=== PATIENT | male | born 1945 | race Caucasian/White ===

== ENCOUNTER 2016-07-03 09:32 | Observation (INO) | payer OTHER ==
[~2016-07-03] VITALS: Ht 170.2 cm; Wt 90.2 kg
[~2016-07-03 09:32] MED LIST: ASPEC325 PO; LPT/40 PO; OMEP20CA9 PO; RXC5 PO
[2016-07-03] MEDS ORDERED: ASPI-435 PO (10:01)
--- NOTE | 2016-07-03 10:11 | DIAGNOSTIC IMAGING REPORT ---
SINGLE VIEW CHEST CLINICAL HISTORY: Atypical chest pain. FINDINGS: An AP, portable, upright chest radiograph is compared to study dated 02/11/2015. The examination is degraded by portable technique and patient rotation. The cardiomediastinal silhouette is top normal for projection. There is atherosclerotic calcification of the thoracic aorta. There is chronic elevation of the left hemidiaphragm. Bibasilar airspace opacities are identified and likely represent atelectasis. No large pleural effusion or pneumothorax is seen. A questionable 1.2 cm nodular density projects over the right lateral chest. The skeletal structures are osteopenic. The bony thorax is grossly intact. IMPRESSION: 1. Bibasilar airspace opacities likely represent atelectasis. Correlate clinically for evidence of a superimposed infectious/inflammatory pneumonitis. 2. A questionable 1.2 cm density projects over the right mid chest. This may represent superimposition of shadows. Correlation with a dedicated PA and lateral examination is recommended for further assessment. Electronically signed by: Rubén De Jesus M.D. 07/03/2016 10:09 AM Dictated Date/Time: 07/03/2016 10:07 AM
[2016-07-03 10:14] LABS: HEMATOCRIT 45.4 % (42-52); MEAN CELL VOLUME 90.3 fL (80-100); MEAN CORPUSCULAR HEMOGLOBIN 32.2 pg (25-34); MEAN CORPUSCULAR HGB CONC 35.7 g/dl (32-36); MEAN PLATELET VOLUME 11.5 fL (7.4-10.4); PLATELET COUNT 191 K/uL (130-400); RED BLOOD COUNT 5.03 M/uL (4.7-6.1)
--- NOTE | 2016-07-03 10:27 | EMERGENCY ROOM VISIT NOTE ---
History Report prepared by Gunnar: Jose Luis Hillman Under the Supervision of: Dr. Ivory Duggan M.D. First contact with patient: 09:59 Chief Complaint: CHEST PAIN Stated Complaint: CHEST PAIN Nursing Triage Summary: pt c/o left chest pain started 1 week ago. denies any previous heart problems. denies any sob/n/v History of Present Illness The patient is a 71 year old male who presents to the Emergency Room with complaints of intermittent left-sided chest pain for the past week. The pain is worse with breathing. The pain is not exertional and does not radiate. The patient denies diaphoresis or nausea. The patient had a baby aspirin last night. The patient has a history of hyperlipidemia. The patient did not have a stress test prior to his previous hip surgery. He had a negative catheterization in the s. The patient has not been on any recent long trips. Source of History: patient Onset: one week Position: chest (left) Timing: intermittent Modifying Factors (Worsening): breathing Associated Symptoms: No diaphoresis, No nausea Review of Systems See HPI for pertinent positives & negatives. A total of 10 systems reviewed and were otherwise negative. Past Medical & Surgical Medical Problems: (1) Dyslipidemia (2) GERD (gastroesophageal reflux disease) (3) History of adenomatous polyp of colon Surgical Problems: (1) H/O cardiac catheterization (2) H/O nasal septoplasty (3) Status post tonsillectomy Family History Coronary artery disease MOTHER BROTHER Social History Smoking Status: Never Smoker Marital Status: Housing Status: lives with significant other Occupation Status: retired Current/Historical Medications Scheduled Ascorbic Acid (Vitamin C), 500 MG PO DAILY Aspirin (Aspirin 81), 81 MG PO DAILY Atorvastatin (Lipitor), 40 MG PO DAILY Fish Oil ([place]-3), 1 CAP PO DAILY Garlic (Garlic), 100 MG PO DAILY Loratadine (Claritin), 10 MG PO DAILY Omeprazole (Prilosec), 20 MG PO DAILY Vitamin A (A-25), 25,000 UNITS PO DAILY Scheduled PRN Oxycodone/Acetaminophen 5MG/325MG (Percocet 5MG/325MG), 1 TABLET PO Q6H PRN for Pain Allergies Coded Allergies: No Known Allergies (Unverified , 02/11/15) Physical Exam Vital Signs Date Time Temp Pulse Resp B/P Pulse Ox O2 Delivery O2 Flow Rate FiO2 1/30/17 14:21 93 18 97/67 93 Room Air 07/03/16 14:16 93 18 137/94 93 Room Air 07/03/16 14:12 70 18 145/76 94 Room Air 07/03/16 14:11 74 07/03/16 13:09 70 130/93 95 Room Air 07/03/16 11:26 71 18 132/76 96 Room Air 07/03/16 10:05 97 Room Air 07/03/16 09:55 97 Room Air 07/03/16 09:50 70 07/03/16 09:36 36.7 70 18 157/96 96 Room Air Physical Exam Vital signs reviewed. General: Well-appearing male, in no significant distress. HEENT: No scleral icterus, PERRLA, neck supple. Atraumatic. Cardiovascular: Regular rate and rhythm, no extra sounds. Left chest pain that is non-reproducible. Pulmonary: Clear to auscultation bilaterally, normal work of breathing. Abdomen: Soft, nontender, nondistended, positive bowel sounds. Musculoskeletal: Atraumatic, no peripheral edema. Neurologic: Patient awake alert and oriented x 3, full strength in all 4 extremities. Cranial nerves 2 through 12 grossly intact. Skin: Warm, dry, no rash Medical Decision & Procedures ER Provider Diagnostic Interpretation: X-ray results as stated below per interpretation by me and the radiologist: SINGLE VIEW CHEST CLINICAL HISTORY: Atypical chest pain. FINDINGS: An AP, portable, upright chest radiograph is compared to study dated 02/11/2015. The examination is degraded by portable technique and patient rotation. The cardiomediastinal silhouette is top normal for projection. There is atherosclerotic calcification of the thoracic aorta. There is chronic elevation of the left hemidiaphragm. Bibasilar airspace opacities are identified and likely represent atelectasis. No large pleural effusion or pneumothorax is seen. A questionable 1.2 cm nodular density projects over the right lateral chest. The skeletal structures are osteopenic. The bony thorax is grossly intact. IMPRESSION: 1. Bibasilar airspace opacities likely represent atelectasis. Correlate clinically for evidence of a superimposed infectious/inflammatory pneumonitis. 2. A questionable 1.2 cm density projects over the right mid chest. This may represent superimposition of shadows. Correlation with a dedicated PA and lateral examination is recommended for further assessment. Electronically signed by: Rubén De Jesus M.D. 07/03/2016 10:09 AM Dictated Date/Time: 07/03/2016 10:07 AM TWO VIEW CHEST CLINICAL HISTORY: Atypical chest pain. Follow-up abnormal examination. FINDINGS: PA and lateral chest radiographs are compared to study performed earlier the same day 07/03/2016. The examination is degraded by portable technique and patient rotation. The cardiomediastinal silhouette is top normal for projection. There is atherosclerotic calcification of the thoracic aorta. There is chronic elevation of the left hemidiaphragm. Bibasilar atelectasis is noted. This has cleared from the earlier examination. There is apparent subpleural density in the right lateral lung, likely related to previous overlying fifth rib fracture. No large pleural effusion or pneumothorax is seen. The skeletal structures are osteopenic. The bony thorax is grossly intact. IMPRESSION: 1. No acute cardiopulmonary abnormality. Bibasilar atelectasis has cleared from today's earlier study. 2. Subpleural density is again noted in the peripheral right lung. This is likely related to previous overlying rib fracture. This can be followed with a chest CT if clinically warranted. Electronically signed by: Rubén De Jesus M.D. 07/03/2016 11:03 AM Laboratory Results Test 07/03/16 00:00 07/03/16 09:02 07/03/16 13:42 Urine Color YELLOW Urine Appearance CLEAR (CLEAR) Urine pH 5.5 (4.5-7.5) Urine Specific [place] 1.004 (1.000-1.030) Urine Protein NEG (NEG) Urine Glucose (UA) NEG (NEG) Urine Ketones NEG (NEG) Urine Occult Blood NEG (NEG) Urine Nitrite NEG (NEG) Urine Bilirubin NEG (NEG) Urine Urobilinogen NEG (NEG) Urine Leukocyte Esterase NEG (NEG) Prothrombin Time 10.7 SECONDS (9.0-12.0) Prothromb Time International Ratio 1.0 (0.9-1.1) Total Bilirubin 0.5 mg/dl (0.2-1) Aspartate Amino Transf (AST/SGOT) 22 U/L (15-37) Alanine Aminotransferase (ALT/SGPT) 34 U/L (12-78) Alkaline Phosphatase 95 U/L (45-117) Total Creatine Kinase 107 U/L (39-308) Total Protein 7.3 gm/dl (6.4-8.2) Albumin 3.9 gm/dl (3.4-5.0) Globulin 3.4 gm/dl (2.5-4.0) Albumin/Globulin Ratio 1.1 (0.9-2) Bedside Troponin I 0.030 ng/ml (0-0.045) Laboratory results per my review. Medications Administered Medications (Trade) Dose Ordered Sig/Jose Roberto Route Start Time Stop Time Status Last Admin Dose Admin Aspirin (Aspirin Chew) 324 mg NOW STAT PO 07/03/16 13:58 07/03/16 15:16 DC 07/03/16 14:13 324 MG Nitroglycerin (Nitrostat Tab) 0.4 mg Q5M PRN SL 07/03/16 14:00 07/03/16 16:23 DC 07/03/16 14:20 0.4 MG ECG Indication: chest pain Rate (beats per minute): 66 Rhythm: normal sinus Findings: no acute ischemic change, no ectopy ED Course 1014: Past medical records reviewed. The patient was evaluated in room C9. A complete history and physical examination was performed. 1357: Reassessed the patient. Discussed the findings with them. Recommended hospitalization to him for a cardiac role out. He verbalized understanding and agreement. 1358: Aspirin 324 mg PO. 1400: Nitrostat 0.4 mg SL. 1411: [facility] The patient will be evaluated. 1412: Updated the patient. Medical Decision Differential diagnosis: Acute coronary syndrome, pulmonary embolus, aortic dissection, musculoskeletal pain, pneumonia, pleural effusion, pneumothorax This patient was evaluated and appeared to be in no significant distress. IV access was obtained and laboratory work was drawn. The patient was placed on the mica plate layer and found to be in a normal sinus rhythm. Patient was given aspirin to chew and a sublingual nitroglycerin. Chest x-ray is negative. EKG reveals no evidence of acute ischemic change. The patient has several cardiac risk factors and will be evaluated by the hospitalist service for further management. Consults Time Called: 1405 Consulting Physician: Raphael Bryant. Returned Call: 1411 1411: Discussed the case with Raphael Bryant. The patient will be evaluated. Impression Primary Impression: Atypical chest pain Scribe Attestation The scribe's documentation has been prepared under my direction and personally reviewed by me in its entirety. I confirm that the note above accurately reflects all work, treatment, procedures, and medical decision making performed by me. Departure Information Dispostion Being Evaluated By Hospitalist Referrals Whit Bundy C.R.N.P. (PCP) Patient Instructions My [facility]
[2016-07-03 10:28] LABS: PARTIAL THROMBOPLASTIN RATIO 1.1; PROTHROMBIN TIME (PATIENT) 10.7 SECONDS (9.0-12.0)
[2016-07-03 10:35] LABS: BUN/CREATININE RATIO 18.7 (10-20); CALCIUM 9.1 mg/dl (8.5-10.1); CREATININE 0.94 mg/dl (0.60-1.40); POTASSIUM 4.1 mmol/L (3.5-5.1)
[2016-07-03 10:40] LABS: ALB/GLOB RATIO 1.1 (0.9-2); CKMB/CK RATIO 2.4 (0-3.0)
--- NOTE | 2016-07-03 11:05 | DIAGNOSTIC IMAGING REPORT ---
TWO VIEW CHEST CLINICAL HISTORY: Atypical chest pain. Follow-up abnormal examination. FINDINGS: PA and lateral chest radiographs are compared to study performed earlier the same day 07/03/2016. The examination is degraded by portable technique and patient rotation. The cardiomediastinal silhouette is top normal for projection. There is atherosclerotic calcification of the thoracic aorta. There is chronic elevation of the left hemidiaphragm. Bibasilar atelectasis is noted. This has cleared from the earlier examination. There is apparent subpleural density in the right lateral lung, likely related to previous overlying fifth rib fracture. No large pleural effusion or pneumothorax is seen. The skeletal structures are osteopenic. The bony thorax is grossly intact. IMPRESSION: 1. No acute cardiopulmonary abnormality. Bibasilar atelectasis has cleared from today's earlier study. 2. Subpleural density is again noted in the peripheral right lung. This is likely related to previous overlying rib fracture. This can be followed with a chest CT if clinically warranted. Electronically signed by: Rubén De Jesus M.D. 07/03/2016 11:03 AM Dictated Date/Time: 07/03/2016 10:58 AM
[2016-07-03] MEDS ORDERED: ASPIRIN 324 MG CHEW PO STA (13:58)
[2016-07-03] MEDS: NITROGLYCERIN 0.4 MG SL PER TAB CHARGE SL PRN ×2 (14:13→14:20)
[2016-07-03] MEDS ORDERED: NITROGLYCERIN 0.4 MG SL PER TAB CHARGE SL PRN (14:45)
[2016-07-03] MEDS ORDERED: ACETAMINOPHEN 325 MG TAB PO PRN (14:45)
[2016-07-03] MEDS ORDERED: ONDANSETRON INJ 2 MG/ML 2 ML VIAL IV PRN (14:45)
[2016-07-03] MEDS ORDERED: OMEG10007 PO (14:52)
[2016-07-03] MEDS ORDERED: OXYC-57 PO (14:52)
[2016-07-03] MEDS ORDERED: GARL1TAB8 PO (14:52)
[2016-07-03] MEDS ORDERED: LORA10TA5 PO (14:52)
[2016-07-03] MEDS ORDERED: VITA2500 PO (14:52)
[2016-07-03] MEDS ORDERED: ASCO500T3 PO (14:52)
[2016-07-03] MEDS ORDERED: IV FLUIDS COMPLETED PRN (15:15)
--- NOTE | 2016-07-03 15:28 | History and Physical ---
History & Physical Date & Time of Service: Jul 03, 2016 at 15:09 Chief Complaint: Chest Pain Primary Care Physician: Whit Bundy,[email or web address] History of Present Illness Source: patient This is a 71 y/o male with PMHx of GERD and Dyslipidemia who presents to the ED c/o intermittent chest pain x 5 days. Pt reports that 5 days ago he was laying down when he developed L sided chest "pressure" that did not radiate anywhere. The pain resolved after approx 4-5 minutes. There was no change in his sxs with exertion. Since that time he has felt similar intermittent chest pressure every 10-15 minutes. Pt tried taking a Prilosec thinking it may be reflux although it offered no relief. Pt has no history of cardiac problems. He had a R heart catheterization in 1995 which revealed no coronary artery disease. Pt has strong family history of cardiac disease. Pt denies fever/chills, diaphoresis, palpitations, SOB, wheezing, abd pain, N/V, bowel or bladder issues, LE edema, calf pain, lightheadedness/dizziness. In the ED, vitals are stable. labs reviewed are unremarkable. Trop neg x 2. CXR clear. EKG no acute ischemic change. Pt received a nitro in the ED with no relief. He is still complaining of dull chest pain. Pt will be admitted for further evaluation and treatment. Past Medical/Surgical History Medical Problems: (1) Dyslipidemia Status: Chronic (2) GERD (gastroesophageal reflux disease) Status: Chronic (3) History of adenomatous polyp of colon Status: Chronic Surgical Problems: (1) H/O cardiac catheterization Status: Resolved (2) H/O nasal septoplasty Status: Resolved (3) Status post tonsillectomy Status: Resolved Family History Coronary artery disease MOTHER BROTHER Social History Smoking Status: Never Smoker Alcohol Use: occasionally Drug Use: none Marital Status: Housing status: lives with family Occupational Status: retired Multi-Drug Resistant Organisms History of MDRO: No Allergies Coded Allergies: No Known Allergies (Unverified , 02/11/15) Home Medications Scheduled Ascorbic Acid (Vitamin C), 500 MG PO DAILY Aspirin (Aspirin 81), 81 MG PO DAILY Atorvastatin (Lipitor), 40 MG PO DAILY Fish Oil ([place]-3), 1 CAP PO DAILY Garlic (Garlic), 100 MG PO DAILY Loratadine (Claritin), 10 MG PO DAILY Metoprolol Succinate (Metoprolol Succinate ER), 12.5 MG PO QAM Omeprazole (Prilosec), 20 MG PO DAILY Vitamin A (A-25), 25,000 UNITS PO DAILY Scheduled PRN Oxycodone/Acetaminophen 5MG/325MG (Percocet 5MG/325MG), 1 TABLET PO Q6H PRN for Pain Review of Systems Constitutional: No chills, No fatigue, No fever, No sweats, No weakness Eyes: No worsening of vision ENT: No hearing loss Respiratory: No cough, No shortness of breath Cardiovascular: + chest pain, No claudication, No edema, No palpitations Abdomen: No constipation, No diarrhea Musculoskeletal: No calf pain, No swelling Genitourinary - Male: + urinary frequency, No dysuria Neurologic: No weakness Psychiatric: No depression symptoms Endocrine: No fatigue Hematologic / Lymphatic: No abnormal bleeding/bruising Integumentary: No new/changing skin lesions Physical Exam Vital Signs Date Time Temp Pulse Resp B/P Pulse Ox O2 Delivery O2 Flow Rate FiO2 07/03/16 14:35 83 16 127/79 94 Room Air 07/03/16 14:21 93 18 97/67 93 Room Air 07/03/16 14:16 93 18 137/94 93 Room Air 07/03/16 14:12 70 18 145/76 94 Room Air 07/03/16 14:11 74 07/03/16 13:09 70 130/93 95 Room Air 07/03/16 11:26 71 18 132/76 96 Room Air 07/03/16 10:05 97 Room Air 07/03/16 09:55 97 Room Air 07/03/16 09:50 70 07/03/16 09:36 36.7 70 18 157/96 96 Room Air General Appearance: WD/WN, no apparent distress, + pertinent finding (Pt is laying in bed with at bedside ) Head: normocephalic, atraumatic Eyes: normal inspection ENT: hearing grossly normal Neck: supple Respiratory/Chest: lungs clear, normal breath sounds, no respiratory distress, + pertinent finding (L chest mildly tender ) Cardiovascular: regular rate, rhythm, no edema, no murmur Abdomen/GI: normal bowel sounds, non tender, soft Back: normal inspection Extremities/Musculoskelatal: normal inspection, no calf tenderness, no pedal edema Neurologic/Psych: alert, normal mood/affect, oriented x 3 Skin: normal color, warm/dry Diagnostics Laboratory Results Results Past 24 Hours Test 07/03/16 09:02 07/03/16 10:04 07/03/16 13:42 Range/Units White Blood Count 6.70 4.8-10.8 K/uL Red Blood Count 5.03 4.7-6.1 M/uL Hemoglobin 16.2 14.0-18.0 g/dL Hematocrit 45.4 42-52 % Mean Corpuscular Volume 90.3 80-100 fL Mean Corpuscular Hemoglobin 32.2 25-34 pg Mean Corpuscular Hemoglobin Concent 35.7 32-36 g/dl RDW Standard Deviation 42.7 36.4-46.3 fL RDW Coefficient of Variation 13.2 11.5-14.5 % Platelet Count 191 130-400 K/uL Mean Platelet Volume 11.5 7.4-10.4 fL Prothrombin Time 10.7 9.0-12.0 SECONDS Prothromb Time International Ratio 1.0 0.9-1.1 Activated Partial Thromboplast Time 27.3 21.0-31.0 SECONDS Partial Thromboplastin Ratio 1.1 Sodium Level 141 136-145 mmol/L Potassium Level 4.1 3.5-5.1 mmol/L Chloride Level 105 98-107 mmol/L Carbon Dioxide Level 26 21-32 mmol/L Anion Gap 10.0 3-11 mmol/L Blood Urea Nitrogen 18 7-18 mg/dl Creatinine 0.94 0.60-1.40 mg/dl Est Creatinine Clear Calc Drug Dose 77.0 ml/min Estimated GFR () 93.5 Estimated GFR (Non- 80.7 BUN/Creatinine Ratio 18.7 10-20 Random Glucose 92 70-99 mg/dl Calcium Level 9.1 8.5-10.1 mg/dl Total Bilirubin 0.5 0.2-1 mg/dl Aspartate Amino Transf (AST/SGOT) 22 15-37 U/L Alanine Aminotransferase (ALT/SGPT) 34 12-78 U/L Alkaline Phosphatase 95 45-117 U/L Total Creatine Kinase 107 39-308 U/L Creatine Kinase MB 2.6 0.5-3.6 ng/ml Creatine Kinase MB Ratio 2.4 0-3.0 Total Protein 7.3 6.4-8.2 gm/dl Albumin 3.9 3.4-5.0 gm/dl Globulin 3.4 2.5-4.0 gm/dl Albumin/Globulin Ratio 1.1 0.9-2 Bedside Troponin I 0.030 0.030 0-0.045 ng/ml Diagnostic Radiology CXR IMPRESSION: 1. No acute cardiopulmonary abnormality. Bibasilar atelectasis has cleared from today's earlier study. 2. Subpleural density is again noted in the peripheral right lung. This is likely related to previous overlying rib fracture. This can be followed with a chest CT if clinically warranted EKG EKG: NSR at 66 bm with no acute ischemic changes noted; no change when compared to EKG from 01/2016 Impression Assessment and Plan ATYPICAL CHEST PAIN R/O ACS pt presents with atypical chest pain; no prior cardiac problems -admit observation status to telemetry -RFs include Dyslipidemia and strong family history -EKG NSR no ischemic change; repeat EKG PRN chest pain and in AM -Trop negative x 2 in ED; continue to monitor with serial cardiac enzymes q6h -obtain echo to r/o cardiac wall motion abnormalities -cont ASA and statin -consult cardiology, Dr. Ji-plan for stress test tomorrow -continue to monitor GERD -cont PPI DYSLIPIDEMIA -cont statin DVT PROPHYLAXIS -subq heparin CODE STATUS -FULL CODE per discussion with patient upon admission DISPO Observation status until further workup is complete. Pt seen in collaboration with Dr. Soto. Please see her addendum for further details. Thanks! ATTENDING NOTE: pt seen and examined, care co-ordinated with Jeanne Beck PA-C labs , images reviewed 71 yo M presented with chest pain symptom has resolved P/E: gen : no sign of distress HEENT : sclera non icteric HT: regular S1/S2 lungs; CTA abdomen: soft non tender ext : no lower ext edema Neuro: no focal deficit CHEST PAIN : -EKG NSR no ischemic change; -Trop negative x 2 in ED; observation in Tele cardiac monitoring ECHO ordered Cardiology consult requested VTE Prophylaxis VTE Risk Assessment Done? Y/N: Yes Risk Level: Low
[2016-07-03 16:29] VITALS: BP 121/67; PULSE 78; TEMP 36.6; O2SAT 96
[2016-07-03] MEDS ORDERED: HEPARIN IV LOW DOSE NO BOLUS STA (17:49)
[2016-07-03] MEDS: OXYCODONE/ACETAMINOPHEN 5-325 TAB PO PRN (18:28)
[2016-07-03] MEDS: HEPARIN 25,000 UNIT/500ML D5W 500 ML IV PRN (19:00)
[2016-07-03 19:01] VITALS: BP 141/86; PULSE 78; TEMP 36.7; O2SAT 95
[2016-07-03 19:46] LABS: URINE APPEARANCE CLEAR (CLEAR); URINE BILIRUBIN NEG (NEG); URINE COLOR YELLOW; URINE NITRITE NEG (NEG); URINE PH 5.5 (4.5-7.5); URINE SPECIFIC GRAVITY 1.004 (1.000-1.030); UROBILINOGEN NEG (NEG)
[2016-07-03 19:50] LABS: MANUAL MICROSCOPIC REQUIRED? NO; REVIEW REQ? NO
[2016-07-03 20:00] VITALS: O2SAT 98
[2016-07-03] MEDS ORDERED: ENOXAPARIN 40 MG/0.4 ML SYR SC SCH (21:00)
[2016-07-03] MEDS ORDERED: OPTIRAY 320 IV PRN (21:15)
[2016-07-03 22:08] VITALS: O2SAT 98; Ht 170.2 cm; Wt 90.2 kg
--- NOTE | 2016-07-03 22:27 | DIAGNOSTIC IMAGING REPORT ---
CT ANGIOGRAM OF THE CHEST CLINICAL HISTORY: Atypical chest pain SUSPECTED PULMONARY EMBOLISM COMPARISON STUDY: Chest x-ray dated 07/03/2016 TECHNIQUE: Following the IV administration of 90 mL of Optiray-320, CT angiogram of the thorax was performed from the thoracic inlet to the lung bases utilizing the pulmonary embolus protocol. Images are reviewed in the axial, sagittal, and coronal planes. IV contrast was administered without complication. MIP imaging was performed. CT DOSE: 455.39 mGy.cm FINDINGS: No pathologically enlarged axillary mediastinal or hilar lymph nodes were visualized. There was no evidence of thoracic aortic dilatation. There were no pulmonary artery filling defects to indicate acute pulmonary embolism. No pleural effusions are visualized. There is mild lower lobe bronchial wall thickening. There is bibasal atelectasis. There is no lobar consolidation. There there old fractures of the right third fourth fifth and sixth ribs. There is an old superior endplate C7 compression deformity IMPRESSION: 1. No CT evidence of acute pulmonary embolism 2. Old right-sided rib fractures 3. Bibasilar atelectasis 4. Mild lower lobe bronchial wall thickening Electronically signed by: Kang Luna M.D. 07/03/2016 10:26 PM Dictated Date/Time: 07/03/2016 10:19 PM
[2016-07-04 01:55] LABS: PARTIAL THROMBOPLASTIN RATIO 1.3
[2016-07-04] MEDS: OXYCODONE/ACETAMINOPHEN 5-325 TAB PO PRN ×2 (02:08→14:17)
[2016-07-04] MEDS ORDERED: HEPARIN IV BOLUS 4,500 UNIT in SYRINGE 0 ML IV ONE (02:30)
[2016-07-04] MEDS: HEPARIN 25,000 UNIT/500ML D5W 500 ML IV PRN (02:40)
[2016-07-04 06:32] LABS: HEMATOCRIT 43.3 % (42-52); MEAN CORPUSCULAR HEMOGLOBIN 32.4 pg (25-34); MEAN CORPUSCULAR HGB CONC 35.6 g/dl (32-36); MEAN PLATELET VOLUME 11.2 fL (7.4-10.4); PLATELET COUNT 167 K/uL (130-400); RED BLOOD COUNT 4.76 M/uL (4.7-6.1); WHITE BLOOD COUNT 5.86 K/uL (4.8-10.8)
--- NOTE | 2016-07-04 06:42 | DIAGNOSTIC IMAGING REPORT ---
BILATERAL LOWER EXTREMITY VENOUS DOPPLER HISTORY: Pain. Edema. CP, elevated D-dimer COMPARISON STUDY: None. FINDINGS: There is normal compressibility, flow, and augmentation within the bilateral lower extremity deep venous systems. IMPRESSION: No DVT within the right or left lower extremity. Electronically signed by: Gómez Major M.D. 07/04/2016 6:41 AM Dictated Date/Time: 07/04/2016 6:40 AM
[2016-07-04 07:01] LABS: BUN/CREATININE RATIO 19.1 (10-20); CALCIUM 8.6 mg/dl (8.5-10.1); CREATININE 0.87 mg/dl (0.60-1.40); POTASSIUM 3.8 mmol/L (3.5-5.1)
--- NOTE | 2016-07-04 07:17 | CARDIOLOGY CONSULTATION ---
DATE OF CONSULTATION: 07/03/2016 REFERRING: Jeanne Olivia. PRIMARY CARE PHYSICIAN: Mike Nunez. INDICATIONS: Chest pain. HISTORY OF PRESENT ILLNESS: The patient is a 71-year-old male whose history is notable for hyperlipidemia, gastroesophageal reflux disease, past traumatic injury to the chest in December 2015 with multiple rib fractures, and rotator cuff tear. He is currently taking pain medications, did undergo an arthroscopic surgery of his shoulder in March, anticipates right shoulder replacement in August. He denies any prior history of documented coronary artery disease but notes having undergone prior investigation in 1989 after abnormal stress testing with diagnostic cardiac catheterization normal. He denies worsening shortness of breath, acute lower extremity edema. Notes no tachypalpitations, syncope or near syncope. He is moderately active about home, was archery hunting this year, noted had slowed when climbing hills but noted no acute changes. He is currently undergoing physical therapy after left hip "popped out" at the site of prior left hip replacement. He notes no rash or arthritic complaints. Pain he described is a low level pressure sensation that waxes and wanes but it has been there almost continuously for nearly 5 days. Initial cardiac enzymes are negative and EKG revealed no acute findings. Notes no overt pleuritic component but feels perhaps slightly worsening with deep inspiration. Blood pressures have never been high, he is not diabetic. Appetite and weight have been stable. He notes he is a poor sleeper. ALLERGIES: None. MEDICATIONS: Prior to hospitalization were ascorbic acid 500 mg p.o. q. day, aspirin 81 mg per day, atorvastatin 40 mg p.o. q. day, omega-3 fish oils 1 capsule q. day, garlic 100 mg p.o. q. day, loratadine 10 mg p.o. q. day, omeprazole 20 mg p.o. q. day, Percocet p.r.n. pain, vitamin A 25 units q. day. PAST SURGICAL HISTORY: Notable for remote septoplasty and tonsillectomy, left total hip replacement, arthroscopic surgery of both knees and most recent arthroscopic surgery of the right shoulder. FAMILY HISTORY: Positive for heart disease. SOCIAL HISTORY: The patient resides in [place]. 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 He is a nonsmoker. Uses rare alcoholic beverages. PHYSICAL EXAMINATION: VITAL SIGNS: Heart rate 78, blood pressure is 121/67. HEENT: Normocephalic and atraumatic. Nares without discharge. Throat was clear. NECK: Supple without thyromegaly, lymphadenopathy, JVD or bruit. LUNGS: Mildly diminished breath sounds but are clear. CARDIOVASCULAR: Regular with normal S1, S2. There is no audible murmur, gallop or rub. PMI is nondisplaced. ABDOMEN: Soft, nontender. There is no palpable hepatosplenomegaly. There is no hepatojugular reflux. EXTREMITIES: Without cyanosis or clubbing. There is no peripheral edema. There are intact distal pulses. DATA: EKG reveals normal tracing. LABORATORY STUDIES: Initial 2 troponins are 0.03, third troponin is 0.06. Sodium is 141, potassium is 4.1, chloride is 105, bicarb is 26, BUN 18, creatinine 0.94, white cell count 6.7, hemoglobin 16.2. PT and PTT are normal. Chest x-ray reveals no acute infiltrate. IMPRESSION: A 71-year-old male with cardiac risk factors of age, gender, familial history of heart disease, hyperlipidemia, on treatment, presents now with symptoms atypical for angina with 5 days of nearly continuous chest pressure sensation. Initial 2 cardiac enzymes and EKG were normal; however third troponin is minimally elevated. He does note some mild pleuritic component to this as well as a low grade cough, acute hypoxia has not been evident. He did undergo surgical procedure in the last 6 months' time for his right shoulder though was ambulatory immediately after. RECOMMENDATIONS: The patient will be continued on usual medications. Due to the elevated troponin and persistent intermittent chest discomfort, heparin will be administered. Serial enzymes and EKGs will be continued. Anticipate stress testing in the morning unless there is dramatic change in findings. D-dimer, TSH ordered as well as urinalysis due to increase in urinary frequency by patient history. We will follow patient in the hospital. The patient will be kept n.p.o. after midnight in anticipation of stress test.
[2016-07-04 07:33] VITALS: BP 137/92; PULSE 70; TEMP 36.5; O2SAT 94
--- NOTE | 2016-07-04 08:55 | Progress Note ---
Internal Med Progress Note Date of Service: Jul 04, 2016. Provider Documentation: SUBJECTIVE: Patient is seen and examined at bedside. States having persistent left sided pleuritic 3-4/10 chest pain. Minimal cough. Denies any dizziness, SOB, nausea, diaphoresis, fever, chills. OBJECTIVE: Vital Signs-as noted below Physical Exam: Vitals signs as noted above General Appearance:Moderately built and nourished, no apparent distress Head: normocephalic, Atraumatic Eyes: normal inspection, EOMI, PERRLA, Anicteric Neck: supple, no JVD, Trachea midline Respiratory/Chest: Normal breath sounds, CTA, No accessory muscle use Cardiovascular: S1, S2, No murmur Abdomen/GI:Soft, Non tender, Bowel sounds present Extremities/Musculoskelatal:normal inspection, no calf tenderness, edema Neurologic/Psych:AAOX3, grossly no focal neurological deficits Skin: normal color, warm Lab data as noted below. ASSESSMENT & PLAN: Patient is a 71 yr old male with PMH of GERD, Dyslipidemia who presents with intermittent chest pain for 5 days. He had a right heart catheterization in 1995 which revealed no coronary artery disease. Pt has strong family history of cardiac disease. ATYPICAL CHEST PAIN R/O ACS Risk Factors: Dyslipidemia and positive family history Mild elevation of troponin X2 Elevated D-dimer: Negative Venous duplex and negative CTA EKG: No signs of ischemia ECHO: pending continue ASA and statin Appreciate cardiology input Planned for stress test today Continue to monitor Continue IV heparin for now GERD continue PPI DYSLIPIDEMIA Continue statin DVT PROPHYLAXIS On IV heparin CODE STATUS Full code DISPO Observation status. Await for stress test results. Vital Signs: Date Time Temp Pulse Resp B/P Pulse Ox O2 Delivery O2 Flow Rate FiO2 07/04/16 08:00 Room Air 07/04/16 07:33 36.5 70 20 137/92 94 07/04/16 04:00 Room Air 07/04/16 00:00 Room Air 07/03/16 22:08 98 Room Air 07/03/16 20:00 98 Room Air 07/03/16 19:01 36.7 78 18 141/86 95 Room Air 07/03/16 16:29 36.6 78 20 121/67 96 Room Air 07/03/16 15:24 80 126/82 94 Room Air 07/03/16 14:35 83 16 127/79 94 Room Air 07/03/16 14:21 93 18 97/67 93 Room Air 07/03/16 14:16 93 18 137/94 93 Room Air 07/03/16 14:12 70 18 145/76 94 Room Air 07/03/16 14:11 74 07/03/16 13:09 70 130/93 95 Room Air 07/03/16 11:26 71 18 132/76 96 Room Air 07/03/16 10:05 97 Room Air 07/03/16 09:55 97 Room Air 07/03/16 09:50 70 07/03/16 09:36 36.7 70 18 157/96 96 Room Air Lab Results: Results Past 24 Hours Test 07/03/16 10:04 07/03/16 13:42 07/03/16 16:00 07/03/16 16:35 Range/Units Bedside Troponin I 0.030 0.030 0-0.045 ng/ml Creatine Kinase MB Ratio 0-3.0 Creatine Kinase MB 2.0 0.5-3.6 ng/ml Troponin I 0.063 0-0.045 ng/ml Test 07/03/16 18:45 07/03/16 22:00 07/03/16 23:51 07/04/16 01:30 Range/Units D-Dimer 1290 0-500 ug/L FEU Thyroid Stimulating Hormone (TSH) 1.130 0.300-4.500 uIu/ml Creatine Kinase MB Ratio 0-3.0 Creatine Kinase MB 1.7 0.5-3.6 ng/ml Troponin I 0.063 0-0.045 ng/ml Activated Partial Thromboplast Time 34.7 21.0-31.0 SECONDS Partial Thromboplastin Ratio 1.3 Test 07/04/16 06:15 07/04/16 08:25 Range/Units White Blood Count 5.86 4.8-10.8 K/uL Red Blood Count 4.76 4.7-6.1 M/uL Hemoglobin 15.4 14.0-18.0 g/dL Hematocrit 43.3 42-52 % Mean Corpuscular Volume 91.0 80-100 fL Mean Corpuscular Hemoglobin 32.4 25-34 pg Mean Corpuscular Hemoglobin Concent 35.6 32-36 g/dl RDW Standard Deviation 44.1 36.4-46.3 fL RDW Coefficient of Variation 13.3 11.5-14.5 % Platelet Count 167 130-400 K/uL Mean Platelet Volume 11.2 7.4-10.4 fL Activated Partial Thromboplast Time 78.7 63.6 21.0-31.0 SECONDS Partial Thromboplastin Ratio 3.0 2.4 Sodium Level 142 136-145 mmol/L Potassium Level 3.8 3.5-5.1 mmol/L Chloride Level 107 98-107 mmol/L Carbon Dioxide Level 25 21-32 mmol/L Anion Gap 10.0 3-11 mmol/L Blood Urea Nitrogen 17 7-18 mg/dl Creatinine 0.87 0.60-1.40 mg/dl Est Creatinine Clear Calc Drug Dose 82.2 ml/min Estimated GFR () 99.9 Estimated GFR (Non- 86.2 BUN/Creatinine Ratio 19.1 10-20 Random Glucose 92 70-99 mg/dl Calcium Level 8.6 8.5-10.1 mg/dl
[2016-07-04 08:56] LABS: PARTIAL THROMBOPLASTIN RATIO 2.4
[2016-07-04] MEDS ORDERED: LORATADINE 10 MG TAB PO SCH (09:00)
[2016-07-04] MEDS ORDERED: ASPIRIN 81 MG ECTAB PO SCH (09:00)
[2016-07-04] MEDS ORDERED: ATORVASTATIN 40 MG TAB PO SCH (09:00)
[2016-07-04] MEDS ORDERED: OMEGA-3 (PURIFIED FISH OIL) 1 GM CAP PO SCH (09:00)
[2016-07-04] MEDS ORDERED: PANTOprazole SOD 40 MG TAB PO SCH (09:00)
[2016-07-04 11:10] VITALS: BP 127/83; PULSE 77; TEMP 36.6; O2SAT 91
--- NOTE | 2016-07-04 11:46 | EXERCISE STRESS ECHO ---
*NOTICE TO RECEIVING REPUBLICAN AGENCY This information is strictly Confidential and protected under [place] law. [place] law prohibits you from making any further disclosure of this information unless further disclosure is expressly permitted by the written consent of the person to whom it pertains or is authorized by law. A general authorization for the release of medical or other information is not sufficient for this purpose. Hospital accepts no responsibility if the information is made available to any other person, INCLUDING THE PATIENT. Interpretation Summary * Name: YAHAIRA STEPHEN Study Date: 07/04/2016 08:46 AM BP: 112/82 mmHg * Patient Location: [facility] HR: 59 * : 1945 (M/d/yyyy) Gender: Male Height: 67 in * Age: 71 yrs Ethnicity: [place] Weight: 205 lb * Ordering Physician: Jeanne Olivia * Referring Physician: Self, Referred * Performed By: Izzy Westfall RCS * * Reason For Study: CHEST PAIN / ELEVATED TROPONIN * BSA: 2.0 m2 * _ workload achieved. * The stress echocardiogram is negative for inducible ischemia. * Normal resting wall motion and no stress-induced wall motion abnormality. Procedure Details * ECHOEX, CPT #[id number] * ECHO COLOR FLOW, CPT #[id number] * ECHO DOPPLER, CPT #[id number] Left Ventricle * The left ventricle is normal in size. * There is borderline concentric left ventricular hypertrophy. * The basal septum is thickened and angulated consistent with sigmoid septum. * Ejection Fraction = 45-50%. * Left ventricular systolic function is normal. * The left ventricular wall motion is normal at rest. * The left ventricular ejection fraction increases normally with stress. The left ventricular end-systolic cavity size reduces post-stress (normal response). The left ventricular wall motion with stress is normal. Right Ventricle * The right ventricle is normal in size and function. Atria * The left atrial size is normal. * Right atrial size is normal. * No ASD detected; PFO is not assessed. Mitral Valve * There is mild mitral annular calcification. * There is no mitral valve stenosis. * Significant mitral regurgitation is absent. Tricuspid Valve * The tricuspid valve anatomy is normal. * There is no tricuspid stenosis. * There is trace tricuspid regurgitation. * Doppler findings do not suggest pulmonary hypertension. Aortic Valve * The aortic valve is trileaflet. * Aortic valve sclerosis mild, without significant aortic valvular stenosis. * Trace aortic regurgitation. Pulmonic Valve * The pulmonary valve is not well seen, but the Doppler examination is normal without significant regurgitation or stenosis. Great Vessels * The aortic root is normal size. Pericardium * There is no pericardial effusion. Stress Parameters * Normal baseline electrocardiogram. * Stress ECG: No ST changes. No arrhythmias. * Arrhythmia induced during stress: occasional PVC's. * The stress portion of this study was personally supervised by the undersigned interpreting physician. * Rest heart rate was '59' BPM. * Rest blood pressure was '112/82' * Maximum heart rate achieved was 139 bpm. * Maximum heart rate was 93 % of maximum age-predicted heart rate. * Maximum blood pressure was '200/95' * Total exercise time was '07:01' * Maximum exercise MET level achieved was '8.50' METS * Maximum treadmill speed was '3.40' miles per hour. * Maximum treadmill elevation was '14.00'% grade. MMode 2D Measurements and Calculations IVSd 1.4 cm IVSs 1.6 cm LVIDd 3.4 cm LVIDs 2.7 cm LVPWd 1.1 cm LVPWs 1.4 cm IVS/LVPW 1.3 FS 20.2 % EDV(Teich) 48.0 ml ESV(Teich) 27.6 ml EF(Teich) 42.4 % EDV(cubed) 39.8 ml ESV(cubed) 20.2 ml EF(cubed) 49.3 % % IVS thick 13.1 % % LVPW thick 25.3 % LV mass(C)d 138.9 grams LV mass(C)dI 68.0 grams/m\S\2 LV mass(C)s 135.7 grams LV mass(C)sI 66.5 grams/m\S\2 SV(Teich) 20.3 ml SI(Teich) 10.0 ml/m\S\2 SV(cubed) 19.6 ml SI(cubed) 9.6 ml/m\S\2 Ao root diam 4.2 cm Ao root area 13.8 cm\S\2 ACS 2.0 cm LA dimension 3.7 cm LA/Ao 0.89 LVOT diam 2.0 cm LVOT area 3.0 cm\S\2 LVAd ap4 34.0 cm\S\2 LVLd ap4 7.7 cm EDV(MOD-sp4) 119.6 ml EDV(sp4-el) 127.0 ml LVAs ap4 23.4 cm\S\2 LVLs ap4 6.8 cm ESV(MOD-sp4) 65.9 ml ESV(sp4-el) 68.7 ml EF(MOD-sp4) 44.9 % EF(sp4-el) 45.9 % LVAd ap2 33.9 cm\S\2 LVLd ap2 8.8 cm EDV(MOD-sp2) 105.3 ml EDV(sp2-el) 111.0 ml LVAs ap2 22.6 cm\S\2 LVLs ap2 7.6 cm ESV(MOD-sp2) 57.6 ml ESV(sp2-el) 57.1 ml EF(MOD-sp2) 45.2 % EF(sp2-el) 48.6 % LVLd %diff 11.8 % EDV(MOD-bp) 118.6 ml LVLs %diff 10.9 % ESV(MOD-bp) 64.6 ml EF(MOD-bp) 45.6 % SV(MOD-sp4) 53.7 ml SI(MOD-sp4) 26.3 ml/m\S\2 SV(MOD-sp2) 47.6 ml SI(MOD-sp2) 23.3 ml/m\S\2 SV(MOD-bp) 54.1 ml SI(MOD-bp) 26.5 ml/m\S\2 SV(sp4-el) 58.3 ml SI(sp4-el) 28.5 ml/m\S\2 SV(sp2-el) 53.9 ml SI(sp2-el) 26.4 ml/m\S\2 Doppler Measurements and Calculations MV E max dalton 45.4 cm/sec MV A max dalton 72.1 cm/sec MV E/A 0.63 MV P1/2t max dalton 53.5 cm/sec MV P1/2t 119.7 msec MVA(P1/2t) 1.8 cm\S\2 MV dec slope 131.0 cm/sec\S\2 MV dec time 0.32 sec Ao V2 max 106.3 cm/sec Ao max PG 4.5 mmHg Ao max PG (full) 1.5 mmHg MIGUEL(V,A) 2.5 cm\S\2 MIGUEL(V,D) 2.5 cm\S\2 AI max dalton 375.2 cm/sec AI max PG 56.3 mmHg AI dec slope 194.4 cm/sec\S\2 AI P1/2t 565.4 msec LV V1 max PG 3.0 mmHg LV V1 max 86.9 cm/sec PA V2 max 121.5 cm/sec PA max PG 5.9 mmHg PI max dalton 191.4 cm/sec PI max PG 14.7 mmHg PI dec slope 170.6 cm/sec\S\2 PI P1/2t 328.5 msec TR max dalton 260.7 cm/sec
--- NOTE | 2016-07-04 12:58 | PROGRESS NOTE ---
DATE: 07/04/2016 SUBJECTIVE: The patient seen and examined. Chart, medications, telemetry reviewed. The patient had no overt complaints overnight, but did not sleep well. Underwent CT scan of the chest due to elevated D-dimer with negative study for pulmonary embolus. Notes no current chest pain. OBJECTIVE: VITAL SIGNS: Heart rate is 77, blood pressure is 127/83. NECK: Thin. There is no jugular venous distention. LUNGS: Clear. CARDIOVASCULAR: Regular. There is no S3 gallop. ABDOMEN: Soft, nontender. EXTREMITIES: Without cyanosis or clubbing. There is no peripheral edema. There are intact distal pulses. DATA: Laboratory studies sodium is 142, potassium is 3.8, chloride is 107, bicarbonate is 25, BUN 17, creatinine 0.87. TSH is 1.1. Stress echocardiography: The patient exercised for 7 minutes on a Moose protocol and achieved 93% age predicted maximal heart rate. There was no chest pain induced by exercise. Blood pressure response was hypertensive increasing to a peak of 200/95 at moderately high level workload. EKG was normal at rest and stress were occasional ventricular ectopy during the study but not at peak workload. LV systolic function was noted to be normal with mild left ventricular hypertrophy. No significant valvular disease and minimal sclerotic changes the aortic valve the mitral valve annulus. Post-stress imaging revealed hyperdynamic LV function, no wall motion abnormalities. With study negative for ischemia, and negative for inducible ischemia. IMPRESSION: 1. A 71-year-old male admitted with atypical chest pain with negative stress testing and normal EKGs. No cardiac source noted for imaging to suggest ischemia. 2. Stress exacerbated hypertension. 3. Planned right shoulder repair in August 2016. RECOMMENDATIONS: No contraindications to proceeding with surgery planned, would add low-dose beta-yesi with Toprol-XL 12.5 mg per day for blood pressure control and ectopy control. We will make arrangements to be seen as an outpatient to [facility] either pre or post-surgery. Continue to follow up with Whit Bundy at [facility] Continue lipid reduction as already ordered. KIMMY
[2016-07-04 14:39] VITALS: BP 115/72; PULSE 72; TEMP 36.5; O2SAT 92
[2016-07-04] MEDS ORDERED: TPRSR25 PO (16:01)
--- NOTE | 2016-07-04 16:06 | Discharge Instructions ---
Discharge Instructions Admission Reason for Admission: Chest Pain Discharge Discharge Diagnosis / Problem: Atypical chest pain Discharge Goals Goal(s): Decrease discomfort, Improve function Activity Recommendations Activity Limitations: resume your previous activity . Instructions / Follow-Up Instructions / Follow-Up Follow up with Whit Bundy (PCP) on Jul 10 at 3:35pm Follow up with (Cardiology) on Jul 24 at 11:25am Seek immediate medical attention if your chest pain reoccur or worsen. Start taking Metoprolol daily as advised. Current Hospital Diet Patient's current hospital diet: AHA Diet (Heart Healthy) Discharge Diet Recommended Diet: AHA Diet (Heart Healthy) Pending Studies Studies pending at discharge: no Medical Emergencies . Who to Call and When: Medical Emergencies: If at any time you feel your situation is an emergency, please call 911 immediately. . Non-Emergent Contact Non-Emergency issues call your: Primary Care Provider, Terminal Press Operator . . "Provider Documentation" section prepared by Eleno Rosenthal. VTE Core Measure Inpt VTE Proph given/why not?: Unfractionated heparin SQ
[2016-07-04 17:19] VITALS: BP 115/72; PULSE 72; TEMP 36.5; O2SAT 92
--- NOTE | 2016-07-04 19:03 | Discharge Summary ---
Discharge Summary Admission Date: Jul 03, 2016 at 14:28 Discharge Date: Jul 04, 2016 Discharge Disposition: Home Principal Diagnosis: Chest pain: Ruled out ACS Procedures: CXR: 1. No acute cardiopulmonary abnormality. Bibasilar atelectasis has cleared from today's earlier study. 2. Subpleural density is again noted in the peripheral right lung. This is likely related to previous overlying rib fracture. This can be followed with a chest CT if clinically warranted. Venous Duplex: No DVT within the right or left lower extremity. CTA: IMPRESSION: 1. No CT evidence of acute pulmonary embolism 2. Old right-sided rib fractures 3. Bibasilar atelectasis 4. Mild lower lobe bronchial wall thickening Stress ECHO: Interpretation Summary * Name: YAHAIRA STEPHEN Study Date: 07/04/2016 08:46 AM BP: 112/82 mmHg * Patient Location: [facility] HR: 59 * : 1945 (M/d/yyyy) Gender: Male Height: 67 in * Age: 71 yrs Ethnicity: CA Weight: 205 lb * Ordering Physician: Jeanne Olivia * Referring Physician: Self, Referred * Performed By: Izzy Westfall RCS * * Reason For Study: CHEST PAIN / ELEVATED TROPONIN * BSA: 2.0 m2 * _ workload achieved. * The stress echocardiogram is negative for inducible ischemia. Normal resting wall motion and no stress-induced wall motion abnormality Consultations: Cardiology Pending Studies/Follow-Up: Follow up with Whit Bundy (PCP) on Jul 10 at 3:35pm Follow up with (Cardiology) on Jul 24 at 11:25am Medication Reconciliation New Medications: Metoprolol Succinate (Metoprolol Succinate ER) 25 Mg Tabcr 12.5 MG PO QAM for 60 Days, #30 Continued Medications: Ascorbic Acid (Vitamin C) 500 Mg Tab 500 MG PO DAILY Aspirin (Aspirin 81) 81 Mg Tab 81 MG PO DAILY Atorvastatin (Lipitor) 40 Mg Tab 40 MG PO DAILY Fish Oil ([place]-3) 1 Ea Cap 1 CAP PO DAILY, CAP Garlic (Garlic) 200 Mg Tab 100 MG PO DAILY Loratadine (Claritin) 10 Mg Tab 10 MG PO DAILY, TAB Omeprazole (Prilosec) 20 Mg Cap 20 MG PO DAILY Oxycodone/Acetaminophen 5MG/325MG (Percocet 5MG/325MG) Tab 1 TABLET PO Q6H PRN for Pain, TAB Vitamin A (A-25) 25,000 Unit Cap 84309 UNITS PO DAILY Admission Information HPI (per Admitting provider): This is a 71 y/o male with PMHx of GERD and Dyslipidemia who presents to the ED c/o intermittent chest pain x 5 days. Pt reports that 5 days ago he was laying down when he developed L sided chest "pressure" that did not radiate anywhere. The pain resolved after approx 4-5 minutes. There was no change in his sxs with exertion. Since that time he has felt similar intermittent chest pressure every 10-15 minutes. Pt tried taking a Prilosec thinking it may be reflux although it offered no relief. Pt has no history of cardiac problems. He had a R heart catheterization in 1995 which revealed no coronary artery disease. Pt has strong family history of cardiac disease. Pt denies fever/chills, diaphoresis, palpitations, SOB, wheezing, abd pain, N/V, bowel or bladder issues, LE edema, calf pain, lightheadedness/dizziness. In the ED, vitals are stable. labs reviewed are unremarkable. Trop neg x 2. CXR clear. EKG no acute ischemic change. Pt received a nitro in the ED with no relief. He is still complaining of dull chest pain. Pt will be admitted for further evaluation and treatment. Physical Exam (per Admitting): General Appearance: WD/WN, no apparent distress, + pertinent finding (Pt is laying in bed with at bedside ) Head: normocephalic, atraumatic Eyes: normal inspection ENT: hearing grossly normal Neck: supple Respiratory/Chest: lungs clear, normal breath sounds, no respiratory distress, + pertinent finding (L chest mildly tender ) Cardiovascular: regular rate, rhythm, no edema, no murmur Abdomen/GI: normal bowel sounds, non tender, soft Back: normal inspection Extremities/Musculoskelatal: normal inspection, no calf tenderness, no pedal edema Neurologic/Psych: alert, normal mood/affect, oriented x 3 Skin: normal color, warm/dry Hospital Course Patient is a 71 yr old male with PMH of GERD, Dyslipidemia who presents with intermittent chest pain for 5 days. He had a right heart catheterization in 1995 which revealed no coronary artery disease. Pt has strong family history of cardiac disease. ATYPICAL CHEST PAIN R/O ACS Risk Factors: Dyslipidemia and positive family history Mild elevation of troponin X2 Elevated D-dimer: Negative Venous duplex and negative CTA EKG: No signs of ischemia ECHO: * The stress echocardiogram is negative for inducible ischemia. * Normal resting wall motion and no stress-induced wall motion abnormality. continue ASA and statin Appreciate cardiology input Continue to monitor DC IV heparin given negative stress test Started on Metoprolol per recommendations from cardiology for BP and Ectopy control Cardiology cleared patient for discharge. GERD continue PPI DYSLIPIDEMIA Continue statin DVT PROPHYLAXIS On IV heparin CODE STATUS Full code DISPO Discharged home. Total time spent on discharge = This includes examination of the patient, discharge planning, medication reconciliation, and communication with other providers. Discharge Instructions Discharge Instructions Admission Reason for Admission: Chest Pain Discharge Discharge Diagnosis / Problem: Atypical chest pain Discharge Goals Goal(s): Decrease discomfort, Improve function Activity Recommendations Activity Limitations: resume your previous activity . Instructions / Follow-Up Instructions / Follow-Up Follow up with Whit Bundy (PCP) on Jul 10 at 3:35pm Follow up with (Cardiology) on Jul 24 at 11:25am Seek immediate medical attention if your chest pain reoccur or worsen. Start taking Metoprolol daily as advised. Current Hospital Diet Patient's current hospital diet: AHA Diet (Heart Healthy) Discharge Diet Recommended Diet: AHA Diet (Heart Healthy) Pending Studies Studies pending at discharge: no Medical Emergencies . Who to Call and When: Medical Emergencies: If at any time you feel your situation is an emergency, please call 911 immediately. . Non-Emergent Contact Non-Emergency issues call your: Primary Care Provider, Still Pump Operator . . "Provider Documentation" section prepared by Eleno Rosenthal. VTE Core Measure Inpt VTE Proph given/why not?: Unfractionated heparin SQ
[2016-07-05] MEDS ORDERED: METOPROLOL SUCC 25MG EXT REL TAB PO SCH (09:00)
[2016-07-25] MEDS ORDERED: ZNTT/150 PO (14:02)
[2016-07-25] MEDS ORDERED: FLUT0.15 NAE (14:02)
[2016-07-25] MEDS ORDERED: HYDR25SU20 PR (14:02)
[2016-07-25] MEDS ORDERED: TRAM-10 PO (14:04)
[2017-01-15] MEDS ORDERED: NASAL SPRAY NAE (11:35)
[2017-01-15] MEDS ORDERED: OMEG10007 PO (11:36)
[2017-01-15] MEDS ORDERED: IBUP-1050 PO (11:36)
[2017-01-17] MEDS ORDERED: RXC5 PO (16:16)
== END 2016-07-04 17:54 | disposition home or self-care (01) ==
LOC: ENRESERVDT → ENRESERVTM → C.EDB 09:33 → C.MED 14:28
PROVIDERS: ADMIT Internal Medicine; ATTEND Internal Medicine
DX: R07.89 Other chest pain (principal); K21.9 Gastro-esophageal reflux disease without esophagitis; E78.5 Hyperlipidemia, unspecified; Z79.82 Long term (current) use of aspirin; Z86.010 Personal history of colon polyps; Z96.642 Presence of left artificial hip joint; Z82.49 Family history of ischemic heart disease and other diseases of the circulatory system; Z79.899 Other long term (current) drug therapy

== ENCOUNTER 2016-08-09 09:18 | Inpatient (IN) | payer OTHER ==
[2016-07-25 14:05] VITALS: BMI 32.0
--- NOTE | 2016-07-25 14:43 | PAT Medication Instructions ---
Service Date Jul 25, 2016. Current Home Medication List Aspirin (Aspirin 81), 81 MG PO HS Atorvastatin (Lipitor), 40 MG PO HS Fluticasone Propionate (Nasal) (Flonase Allergy Relief), 2 SPRAYS ELIZABETH PRN Hydrocortisone Acetate (Rectal (Anusol-Hc), 25 MG MI HS PRN for RN Loratadine (Claritin), 10 MG PO DAILY Metoprolol Succinate (Metoprolol Succinate ER), 12.5 MG PO QAM Omeprazole (Prilosec), 20 MG PO QPM Ranitidine (Zantac), 150 MG PO BID Tramadol (Ultram), 50 MG PO PRN Medication Instructions For Your Scheduled Surgery - Hold the following medications the morning of surgery: Loratadine (Claritin), 10 MG PO DAILY - Take the following medications the morning of surgery with a sip of water: Tramadol (Ultram), 50 MG PO PRN (can take up to four hours prior to surgery if needed) Ranitidine (Zantac), 150 MG PO BID Metoprolol Succinate (Metoprolol Succinate ER), 12.5 MG PO QAM Fluticasone Propionate (Nasal) (Flonase Allergy Relief), 2 SPRAYS ELIZABETH PRN ( if needed) - Take the following medications as scheduled the night before surgery: Tramadol (Ultram), 50 MG PO PRN Ranitidine (Zantac), 150 MG PO BID Omeprazole (Prilosec), 20 MG PO QPM Hydrocortisone Acetate (Rectal (Anusol-Hc), 25 MG MI HS PRN for RN Aspirin (Aspirin 81), 81 MG PO HS Atorvastatin (Lipitor), 40 MG PO HS If you have any questions please call us at [phone] or [phone] ( Chery) or [phone]
--- NOTE | 2016-07-25 15:28 | DIAGNOSTIC IMAGING REPORT ---
CHEST 2 VIEWS ROUTINE CLINICAL HISTORY: Preoperative evaluation. COMPARISON STUDY: Chest radiograph and chest CT July 03, 2016. FINDINGS: Lung volumes are slightly diminished. Bibasilar opacities favor atelectasis. There is no consolidation to suggest pneumonia. Pulmonary vascularity is normal. Cardiac size is normal. Old right-sided rib fractures are present. There is evidence for prior distal right clavicular resection. IMPRESSION: 1. No acute findings. 2. Diminished lung volumes with suspected bibasilar atelectasis. Electronically signed by: Ben Carter M.D. 07/25/2016 3:27 PM Dictated Date/Time: 07/25/2016 3:23 PM
[2016-07-25 15:37] LABS: BASO ABS # 0.06 K/uL (0-0.2); COMPLETE YES; EOS % 5.5 %; HEMATOCRIT 41.2 % (42-52); IG% 0.2 %; LYMPH % 23.3 %; LYMPH ABS # 1.37 K/uL (1.2-3.4); MEAN CELL VOLUME 88.8 fL (80-100); MEAN CORPUSCULAR HGB CONC 37.1 g/dl (32-36); MONO % 7.8 %; NEUT % 62.2 %; PLATELET COUNT 181 K/uL (130-400); RED BLOOD COUNT 4.64 M/uL (4.7-6.1); WHITE BLOOD COUNT 5.87 K/uL (4.8-10.8)
[2016-07-25 15:53] LABS: PARTIAL THROMBOPLASTIN RATIO 1.1; PROTHROMBIN TIME (PATIENT) 10.7 SECONDS (9.0-12.0)
[2016-07-26 06:34] LABS: ESTIMATED AVERAGE GLUCOSE 108 mg/dl; HA1C FLAG Normal (Normal)
--- NOTE | 2016-08-08 18:45 | HISTORY & PHYSICAL EXAMINATION ---
DATE OF ADMISSION: 08/09/2016 CHIEF COMPLAINT: Chronic right shoulder pain. HISTORY OF PRESENT ILLNESS: This is a 71-year-old male patient of Dr. Ahn, complaining of chronic right shoulder pain, longstanding, now progressively getting worse. The patient had a 4-stovall accident in December of 2015. He did have a rotator cuff surgery which failed as well as failing conservative treatment including intraarticular injections and physical therapy. At this point in time, the patient wishes to proceed with a right reversed total shoulder arthroplasty. PAST MEDICAL HISTORY: Hypertension, hypercholesterolemia, rheumatoid arthritis, acid reflux. SOCIAL HISTORY: Nonsmoker, nondrinker. FAMILY HISTORY: Noncontributory. PAST SURGICAL HISTORY: Hip replacement and rotator cuff repair. MEDICATIONS: Include atorvastatin 40 mg daily, loratadine 10 mg daily, hydrocortisone 25 mg rectal suppository b.i.d., aspirin 81 mg daily, metoprolol 25 mg daily, Zantac 150 mg b.i.d., omeprazole 20 mg 1 capsule before each meal, fluticasone 50 mcg/actuation nasal 1 spray intranasal in each nostril daily, tramadol 50 mg as needed. ALLERGIES: No known drug allergies. PHYSICAL EXAMINATION: GENERAL: Well-developed, well-nourished 71-year-old male in no acute distress. He is alert and oriented x3 and pleasant. HEENT: Normocephalic, atraumatic. Extraocular motions are intact. Pupils are equal and reactive to light. HEART: Regular rate and rhythm. No murmurs are appreciated. LUNGS: Clear. ABDOMEN: Soft and nontender, bowel sounds are present. EXTREMITIES: Right shoulder reveals active range of motion to 80 degrees, passively to 100 degrees. He has 2-3/5 strength with external rotation. He has 4/5 strength globally. NEUROLOGIC: Neurovascularly, he is intact in his right upper extremity. 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 He also has a history of hypertension, hypercholesterolemia, rheumatoid arthritis and acid reflux. PLAN: The patient was advised of his diagnoses. Indications, risks, benefits, postop course have all been reviewed. The patient wishes to proceed with a right reversed total shoulder arthroplasty. Necessary consent forms, preoperative testing and clearances will be obtained.
[2016-08-09] VITALS (8 sets, daily range): BP systolic 100–128; BP diastolic 65–87; PULSE 73–101; TEMP 36.4–36.6; O2SAT 91–98; Ht 170.2 cm; Wt 92.8 kg
[~2016-08-09] VITALS: Ht 170.2 cm; Wt 92.8 kg
[~2016-08-09 09:18] MED LIST changes: +ACETAMINOPHEN 500 MG TAB PO SCH; -ASPEC325 PO; +ASPI-435 PO; +ATROPINE SULFATE 0.1 MG/ML 5ML SYR IV PRN; +CEFAZOLIN 2000 MG/60 ML D5W 60 ML IV SCH; +CeleBREX 200 MG CAP PO SCH; +DEXAMETHASONE 4 MG TAB PO SCH; +EpHEDrine SULFATE INJ 50 MG/ML AMP IV PRN; +FAMOTIDINE 20 MG TAB PO SCH; +FENTANYL CITRATE INJ 50 MCG/1 ML 2 ML VIAL IV PRN; +FLUT0.15 NAE; +GABAPENTIN 300 MG CAP PO SCH; +GLYCOPYRROLATE INJ 0.2 MG/ML VIAL ONE; +HYDR25SU20 PR; +HYDROmorphone INJ 1 MG/ML SYR IV PRN; +LACTATED RINGER'S 1000ML 1,000 ML IV SCH; +LACTATED RINGER'S 1000ML IV SCH; +LIDOCAINE HCL 2% 2 ML VIAL (20MG/ML) ONE; +LORA10TA5 PO; +METOCLOPRAMIDE HCL 10 MG TAB PO SCH; +NEOSTIGMINE METHYLSULFATE 5 MG/5 ML SYR ONE; +ONDANSETRON INJ 2 MG/ML 2 ML VIAL IV PRN; +ONDANSETRON INJ 2 MG/ML 2 ML VIAL ONE; +PROPOFOL IV EMULSION 10 MG/ML 20 ML VIAL IV ONE; +ROCURONIUM BROMIDE 10 MG/ML 5 ML VIAL ONE; +ROPIVACAINE 0.5% 5 MG/ML 30 ML VIAL ONE; -RXC5 PO; +TPRSR25 PO; +TRAM-10 PO; +ZNTT/150 PO
[2016-08-09] MEDS ORDERED: MIDAZOLAM HCL 1 MG/ML 2ML VIAL ONE (10:01)
[2016-08-09] MEDS ORDERED: FENTANYL CITRATE INJ 50 MCG/1 ML 2 ML VIAL ONE ×3 (10:01→14:37)
[2016-08-09] MEDS ORDERED: BACITRACIN 50000 UNIT VIAL ONE (10:05)
--- NOTE | 2016-08-09 11:00 | History & Physical Bridge Note ---
H&P Re-Evaluation Bridge Note: I have examined the patient, reviewed the History & Physical and in the interval since the performance of the History & Physical I have noted the following changes of clinical significance: No changes noted
[2016-08-09] MEDS ORDERED: PHENYLEPHRINE 100MCG/ML 5ML SYR ONE (11:53)
[2016-08-09] MEDS ORDERED: ROCURONIUM BROMIDE 10 MG/ML 5 ML VIAL ONE (11:56)
[2016-08-09] MEDS ORDERED: EpHEDrine SULFATE 50MG/5ML SYR ONE (11:59)
[2016-08-09] MEDS ORDERED: PHENYLEPHRINE HCL INJ 10 MG/ML VIAL ONE (12:02)
[2016-08-09] MEDS ORDERED: HYDROmorphone INJ 2 MG/ML SYR/VIAL ONE (13:52)
[2016-08-09] MEDS ORDERED: NEOSTIGMINE METHYLSULFATE 5 MG/5 ML SYR ONE (13:53)
[2016-08-09] MEDS ORDERED: GLYCOPYRROLATE INJ 0.2 MG/ML VIAL ONE (13:53)
--- NOTE | 2016-08-09 13:59 | [facility] Operative Report ---
Operative Report Operative Date Aug 09, 2016. Pre-Operative Diagnosis Right shoulder rotator cuff arthropathy pseudoparalytic shoulder oa glenohumeral hx shoulder arthroscopy Post-Operative Diagnosis same Procedure(s) Performed reversed tsa biceps tenodesis Surgeon Dr Eduard Clayton [facility] Representative Surgeon(s) Gómez Kiran PA-C Estimated Blood Loss 200 Findings as above Specimens A: Right humeral head Drains 2 hemovac Anesthesia general and regional Complication(s) None Disposition Recovery Room / PACU Indications as above I attest to the content of the Intraoperative Record and any orders documented therein. Any exceptions are noted below.
[2016-08-09] MEDS ORDERED: HYDROCORTISONE ACETATE 25 MG SUPP PR PRN (14:15)
[2016-08-09] MEDS ORDERED: ZOLPIDEM TARTRATE 5 MG TAB PO PRN (14:15)
[2016-08-09] MEDS ORDERED: SOD PHOSPHATE/SOD BIPHOSPHATE ENEMA 132 ML BTL PR PRN (14:15)
[2016-08-09] MEDS ORDERED: BISACODYL 10 MG SUPP PR PRN (14:15)
[2016-08-09] MEDS ORDERED: FLUTICASONE PROPIONATE NA SPR 16 GM BTL NAE PRN (14:15)
[2016-08-09] MEDS ORDERED: METOCLOPRAMIDE HCL INJ 5 MG/ML 2 ML VIAL IV PRN (14:15)
[2016-08-09] MEDS ORDERED: MAGNESIUM HYDROXIDE SUSP 30 ML UDC PO PRN (14:15)
[2016-08-09] MEDS ORDERED: NALOXONE HCL 0.4 MG/1 ML VIAL/CARP IV PRN (14:15)
[2016-08-09] MEDS ORDERED: ONDANSETRON INJ 2 MG/ML 2 ML VIAL IV PRN (14:15)
--- NOTE | 2016-08-09 14:42 | DIAGNOSTIC IMAGING REPORT ---
RIGHT SHOULDER MIN 2 VIEWS ROUTINE CLINICAL HISTORY: Postop study COMPARISON: None. DISCUSSION: There are postsurgical changes of a reverse total right shoulder arthroplasty. There is no dislocation. There are overlying skin elisha and surgical drains. There is widening of the AC joint, likely postsurgical. IMPRESSION: Postsurgical changes of a reverse total right shoulder arthroplasty. No evidence of dislocation. Electronically signed by: Kang Luna M.D. 08/09/2016 2:41 PM Dictated Date/Time: 08/09/2016 2:40 PM
[2016-08-09] MEDS ORDERED: MoRPHine SULFATE 4 MG/ML 1 ML CARP\\VIAL IV PRN (14:45)
--- NOTE | 2016-08-09 14:57 | Anesthesiology Progress Note ---
Anesthesia Post Op Note Date & Time Aug 09, 2016 at 14:57 Vital Signs Pain Intensity: 3.0 Vital Signs Past 12 Hours Date Time Temp Pulse Resp B/P Pulse Ox O2 Delivery O2 Flow Rate FiO2 08/09/16 14:45 100 22 128/101 87 Nasal Cannula 2 08/09/16 14:35 96 20 127/85 88 Nasal Cannula 2 08/09/16 14:25 91 16 127/75 96 Mask 10 08/09/16 14:23 16 98 Mask 10 08/09/16 14:15 92 13 121/78 95 Mask 10 08/09/16 14:06 36.3 98 16 149/109 98 Mask 15 08/09/16 09:47 98 Room Air 08/09/16 09:35 36.4 73 18 126/87 98 Room Air Notes Mental Status: alert / awake / arousable, participated in evaluation Pt Amnestic to Procedure: Yes Nausea / Vomiting: adequately controlled Pain: adequately controlled Airway Patency, RR, SpO2: stable & adequate BP & HR: stable & adequate Hydration State: stable & adequate Anesthetic Complications: no major complications apparent Block working well in pacu
--- NOTE | 2016-08-09 16:21 | Medical Consult ---
Consultation Date of Consultation: Aug 09, 2016. Attending Physician: Eduard Clayton M.D. Reason for Consultation: Postop Medical management History of Present Illness Patient seen and examined. 71 year old male with PMHx of HTN, HLD, GERD is seen in consultation for postop medical management following a right reverse total shoulder arthroplasty by Dr. Clayton. Patient reports feeling well, states he is getting hungry. States pain is well controlled. States he still has some numbness in right hand. States he has chronic nasal congestion that he has seen ENT for. Denies fevers, chills, chest pain, SOB, nausea, vomiting, diarrhea, dysuria, calf pain and edema. Denies history of VTE. Patient was mildly hypoxic after removal of oxygen max in PACU, currently saturating well. Mildly tachycardic postop, improved after pain medication. Currently VSS. Past Medical/Surgical History Medical Problems: (1) Atypical chest pain Status: Acute Family History Coronary artery disease MOTHER BROTHER Social History Smoking Status: Never Smoker Alcohol Use: none Drug Use: none Marital Status: Housing Status: lives with significant other Occupation Status: retired Allergies Coded Allergies: No Known Allergies (Unverified , 08/09/16) Current Inpatient Medications Current Inpatient Medications Medications (Trade) Dose Ordered Sig/Jose Roberto Route Start Time Stop Time Status Last Admin Dose Admin Cefazolin Sodium (Ancef 2000mg/60 ml D5W) 60 ml @ 100 mls/hr PREOP IV 08/09/16 06:00 08/09/16 18:00 08/09/16 11:02 100 MLS/HR Acetaminophen (Tylenol Tab) 1,000 mg PREOP PO 08/09/16 06:00 08/09/16 18:00 08/09/16 10:02 1,000 MG Celecoxib (CeleBREX CAP) 200 mg PREOP PO 08/09/16 06:00 08/09/16 18:00 08/09/16 10:03 200 MG Dexamethasone (Decadron Tab) 8 mg PREOP PO 08/09/16 06:00 08/09/16 18:00 08/09/16 10:01 8 MG Famotidine (Pepcid Tab) 20 mg PREOP PO 08/09/16 06:00 08/09/16 18:00 08/09/16 10:03 20 MG Gabapentin (Neurontin Cap) 300 mg PREOP PO 08/09/16 06:00 08/09/16 18:00 08/09/16 10:02 300 MG Metoclopramide HCl (Reglan Tab) 10 mg PREOP PO 08/09/16 06:00 08/09/16 18:00 08/09/16 10:02 10 MG Aspirin (Ecotrin Tab) 81 mg HS PO 08/09/16 21:00 09/08/16 20:59 Atorvastatin Calcium (Lipitor Tab) 40 mg HS PO 08/09/16 21:00 09/08/16 20:59 Fluticasone Propionate (Flonase Nasal Mehoopany) 2 sprays DAILY PRN ELIZABETH 08/09/16 14:15 09/08/16 14:14 Hydrocortisone Acetate (Anusol Hc Supp) 25 mg HS PRN FL 08/09/16 14:15 09/08/16 14:14 Loratadine (Claritin Tab) 10 mg DAILY PO 08/10/16 09:00 09/09/16 08:59 Ranitidine HCl (zANTac TAB) 150 mg BID PO 08/09/16 21:00 09/08/16 20:59 Diphenhydramine HCl (Benadryl Cap) 25 mg Q8 PRN PO 08/09/16 14:15 09/08/16 14:14 Zolpidem Tartrate (Ambien Tab) 5 mg HSZ PRN PO 08/09/16 14:15 09/08/16 14:14 Metoclopramide HCl (Reglan Inj) 10 mg Q6H PRN IV 08/09/16 14:15 09/08/16 14:14 Ondansetron HCl (Zofran Inj) 4 mg Q6H PRN IV 08/09/16 14:15 09/08/16 14:14 Pantoprazole Sodium 40 mg 40 mg QAM PO 08/10/16 09:00 09/09/16 08:59 Potassium Chloride/Dextrose/ Sod Cl (D5W And 1/2nss + 20meq KCl) 1,000 ml @ 100 mls/hr Q10H IV 08/09/16 16:00 08/10/16 15:59 Oxycodone HCl (Roxicodone Immediate Rel Tab) `1-2 TABS FOR PAIN `1 TAB... Q4H PRN PO 08/09/16 14:15 08/23/16 14:14 Oxycodone HCl (Oxycontin Tab) 10 mg Q12 PO 08/09/16 21:00 08/23/16 20:59 Acetaminophen (Tylenol Tab) 1,000 mg Q8 PO 08/09/16 22:00 09/08/16 21:59 Morphine Sulfate (MoRPHine SULFATE INJ) 2 mg Q2H PRN IV 08/09/16 14:15 08/23/16 14:14 Naloxone HCl (Narcan Inj) 0.1 mg Q2M PRN IV 08/09/16 14:15 09/08/16 14:14 Magnesium Hydroxide (Milk Of Magnesia Susp) 30 ml Q6H PRN PO 08/09/16 14:15 09/08/16 14:14 Bisacodyl (Dulcolax Supp) 10 mg DAILY PRN FL 08/09/16 14:15 09/08/16 14:14 Sodium Biphosphate/ Sodium Phosphate (Fleet Enema) 132 ml DAILY PRN FL 08/09/16 14:15 09/08/16 14:14 Docusate Sodium (coLACE CAP) 100 mg BID PO 08/09/16 21:00 09/08/16 20:59 Multivitamins 1 tab 1 tab DAILY PO 08/10/16 09:00 09/09/16 08:59 Cefazolin Sodium/ Dextrose (Ancef Iv/D5 50ml) 60 ml @ 100 mls/hr Q8H IV 08/09/16 19:00 08/10/16 03:35 Morphine Sulfate (MoRPHine SULFATE INJ) 4 mg Q2H PRN IV 08/09/16 14:45 08/23/16 14:44 Review of Systems See above for pertinent positives & negatives. A total of 10 systems reviewed and were otherwise negative. Physical Exam Date Time Temp Pulse Resp B/P Pulse Ox O2 Delivery O2 Flow Rate FiO2 08/09/16 15:53 36.4 95 16 127/80 91 Nasal Cannula 2.0 08/09/16 15:05 36.0 92 15 115/73 93 Nasal Cannula 2 08/09/16 14:55 96 18 124/84 91 Nasal Cannula 2 08/09/16 14:45 100 22 128/101 87 Nasal Cannula 2 08/09/16 14:35 96 20 127/85 88 Nasal Cannula 2 08/09/16 14:25 91 16 127/75 96 Mask 10 08/09/16 14:23 16 98 Mask 10 08/09/16 14:15 92 13 121/78 95 Mask 10 08/09/16 14:06 36.3 98 16 149/109 98 Mask 15 08/09/16 09:47 98 Room Air 08/09/16 09:35 36.4 73 18 126/87 98 Room Air General Appearance: + pertinent finding (Very pleasant WD/WN 71 year old male lying in bed in NAD with family at bedside ) Head: normocephalic, atraumatic Eyes: PERRL, EOMI, sclerae normal ENT: hearing grossly normal, pharynx normal Neck: supple, no JVD Respiratory/Chest: chest non-tender, lungs clear, normal breath sounds, no respiratory distress, no accessory muscle use Cardiovascular: regular rate, rhythm, no edema, no gallop, no JVD, no murmur, normal peripheral pulses Abdomen/GI: normal bowel sounds, non tender, soft Extremities/Musculoskelatal: no calf tenderness, normal capillary refill, no pedal edema, + pertinent finding (Dressing I/C/D to right shoulder with drain, good distal pulses, sensation and motor function) Neurologic/Psych: alert, oriented x 3, + pertinent finding (no focal deficits on gross exam ) Skin: normal color, warm/dry, no rash Lymphatic: no adenopathy Assessment & Plan RIGHT REVERSE TOTAL SHOULDER ARTHROPLASTY -POD#[address] Clayton -Management as per ortho to include- pain control, bowel regimen, DVT prophylaxis, PT/OT, incentive spirometry, wound care -EBL 200ml -Follow H&H daily for postop anemia, preop was 15.3 -CBC, PRP, Mg daily -Monitor vital signs per routine HTN -stable -continue BB -monitor per routine HLD -continue Statin GERD -continue PPI -continue Zantac DVT PROPHYLAXIS: per ortho DISPO:per ortho Patient seen in collaboration with Dr. Bryant. He will be followed daily by Dr. Soto Thank you for this consultation. We will follow the patient with you during their hospital stay. You can reach a member of the [facility] Team 25/12 via pager @ [phone]. ADDENDUM: I have seen and examined the patient and have discussed the case with the provider above. I agree with the assessment and plan as stated. I also appreciated numbness to the thumb and radial side of the left forearm only (upper arm was wrapped and in sling so difficult to appreciate. Otherwise, pulses are intact and pain is controlled. Possibly 2/2 peripheral manipulation during surgery this morning. Will defer to surgery team to evaluate further. Cont management as above. Vera Bryant, DO
[2016-08-09] MEDS: D5W AND 1/2NSS + 20MEQ KCL 1,000 ML IV SCH (16:45)
[2016-08-09] MEDS: CEFAZOLIN IV 2,000 MG in DEXTROSE 5% 50ML 50 ML IV SCH (18:50)
[2016-08-09] MEDS: ASPIRIN 81 MG ECTAB PO SCH (21:05)
[2016-08-09] MEDS: RANITIDINE HCL 150 MG TAB PO SCH (21:05)
[2016-08-09] MEDS: DOCUSATE SODIUM 100 MG CAP PO SCH (21:05)
[2016-08-09] MEDS: ATORVASTATIN 40 MG TAB PO SCH (21:05)
[2016-08-09] MEDS: OXYCODONE HCL 10 MG TABCR (OXYCONTIN) PO SCH (21:08)
[2016-08-09] MEDS: ACETAMINOPHEN 500 MG TAB PO SCH (21:38)
--- NOTE | 2016-08-09 22:42 | OPERATIVE REPORT ---
DATE OF OPERATION: 08/09/2016 INDICATION FOR PROCEDURE: The patient is a 71-year-old male with chronic right shoulder pain. He had an [id number] tear of his shoulder. I performed arthroscopy on his shoulder. His rotator cuff was noted to be irreparable. He still had teres minor, but a retracted, irreparable infraspinatus; still had some supraspinatus left. We did do a limited decompression and distal clavicle excision and debridement. In spite of that, he continues to have chronic pain and disability with his shoulder and after extensive discussion, he is scheduled for reversed total shoulder replacement at this time. Presently, his biceps tendon is still intact. 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 Status post prior arthroscopic rotator cuff repair attempt and debridement procedure with distal clavicle excision. POSTOPERATIVE DIAGNOSIS: Same. PROCEDURE: Right reverse total shoulder arthroplasty, including biceps tenodesis. SURGEON: Dr. Clayton. SHIPPING TEAM LEADER: Gómez Kiran PA-C. ANESTHESIA: Regional block and general. OPERATIVE PROCEDURE: The patient was taken to the operating room, anesthetized under regional block and general anesthetic. He was positioned on the operating room table in about a 30-40 degree beach chair position. He was translated to right side of the table with a towel roll on the medial border of his right scapula. His shoulder was able to be manipulated off the bed as necessary. He had TEDs and SCDs placed. Deluna catheter placed. He had a foam headrest placed and protective eyewear. Head was secured. The right shoulder was then examined. He had about 150 degrees of forward elevation, 80 abduction and external rotation to about 35 degrees. His shoulder was then sterilely prepped and draped with ChloraPrep. An anterior deltopectoral approach was performed to the right shoulder. Skin was incised sharply. Subcutaneous tissues were dissected down to the fascia. The cephalic vein was dissected out and retracted laterally with the deltoid. There were some fairly large crossing veins and a plexus of vessels just lateral to the coracoid and overlying the coracoid region that I had to tie off with silk ties. The clavipectoral fascia was divided at the lateral margin of the conjoint tendon and strap muscles and extended up to the CA ligament, which was preserved still. The thickened, scarred bursa was resected. It was noted the patient had intact teres minor with chronic tear of the infraspinatus, still had supraspinatus tendon tissue, which was moderately tendinopathic and the subscapularis tendon was intact. At this time, first the circumflex vessels were tied off with silk ties and divided laterally. The rotator interval was opened up and extended down to the glenoid. The supraspinatus tendon fibers were released and part of the supraspinatus was resected. The subscapularis was taken down subperiosteally, starting in the bicipital groove and taking it down subperiosteally off the lesser tuberosity down to the capsule and on the inferior neck of the capsule. We had previously placed the blunt Debi retractor between the axillary nerve and the capsule to protect that prior to undergoing that portion of the procedure. The Fukuda retractor was placed into the joint and the humeral tendon was retracted posteriorly. The capsule was released under direct visualization down to the glenoid and released off the anterior glenoid and the rotator was released down to the glenoid, getting a 360-degree release of the subscapularis. The Bankart retractor was placed anteriorly. The patient had a very large glenoid labrum, which was resected circumferentially along with the remainder of the biceps tendon. We did tenodese the biceps tendon to the pectoralis tendon and we did release the upper centimeter of the falciform ligament and upper pectoralis for inferior exposure. Biceps was tenodesed in its normal resting length to the pectoralis tendon, using [id number] #2 FiberWire sutures. The proximal biceps was resected. The humeral head and glenoid still had articular cartilage, there were some osteoarthritic changes, but there were not severe. The capsule was then released anteriorly inferiorly and posterior inferiorly using electrocautery on bone and a Abreu elevator. Then the humerus was exposed with extension and external rotation. We used the Tornier reverse total shoulder arthroplasty system, using the Aequalis reversed II glenoid components, including baseplate and glenoid sphere and the Flex shoulder system long stem press fit reversed stem. At this time, the humerus was exposed and the humeral cutting guide was placed in position and a 20 degree retroversion cut was made, resecting the humeral articular surface. Then we were able to use glenoid retractors to retract the humeral head posterior to the glenoid, exposed the glenoid well. Then, I used a curette to curette all the articular surface of the glenoid and remove what remained of the labrum. Then, chose a 29 mm baseplate. I drilled a central hole into the glenoid for the base plate and put an inferior tilt to about 10 degrees on this approach. We used the reamer, I had a 10 degree inferior tilt. The central hole was widened for the baseplate. After irrigation, the baseplate was impacted in position. Anterior and posterior compression screws of 20 and 18 mm and superior and inferior locking screws of 35 and 32 mm were used. There was excellent fixation of the patient's bone. We used the fan reamer for the glenoid sphere and chose to use an eccentric glenoid superior with a +2 offset, placing that offset inferiorly, which was a 36 mm diameter glenoid sphere. This was impacted onto the glenoid baseplate and the fixation screw was tightened. Attention was taken to the humeral preparation. The awl was used to open up the canal followed by broaches up to a size 6B long stem. Then we used the high offset +0 reversed tray and trial reduction with a +6 insert gave no shuck and complete stability and good soft tissue tension noted. The trial was redislocated and removed and the final components were assembled, with the Aequalis Ascend flex long PTC humeral stem, 6B assembled to the high offset reversed tray, +0 assembled to the 36 mm +6 poly. We placed 3 drill holes through the bicipital groove area and placed transosseous #5 FiberWire sutures around the lesser tuberosity. I irrigated out the bone copiously with antibiotic solution with bacitracin and then placed the final implant into position, which was impacted into position. This implant was reduced to the glenoid sphere and there was verified stability again. Then, the subscapularis was repaired using the #5 FiberWire sutures previously placed, using a Ramon-Jonathon suture technique. We did lateral soft tissue suturing fixation with [id number] #2 FiberWire sutures. And then the pectoralis was repaired, reinforcing the tenodesis with [id number] #2 FiberWire sutures. The final range of motion was spaced out to 150 degrees of forward elevation, abduction to 90 and external rotation to 35 degrees without any tension on the subscapularis tendon. After further irrigation, the 2 Hemovac drains were placed out laterally. Then the deltopectoral interval was closed with interrupted [id number] #1 Vicryl sutures. Subcutaneous tissues closed with interrupted 2-0 Vicryl, skin was closed with elisha. Sterile dressings were applied and the patient tolerated the procedure well. ESTEVAN Randhawa, was my budget assistant. He participated as budget assistant throughout the procedure, in which he performed duties of soft tissue retraction, arm positioning, instrument management as needed and he performed the final subcutaneous and skin closure and dressings and immobilizer application and will participate in the postoperative care of the patient. I attest to the content of the Intraoperative Record and any orders documented therein. Any exceptions are noted below. KIMMY
[2016-08-10] VITALS (8 sets, daily range): BP systolic 102–127; BP diastolic 62–77; PULSE 63–79; TEMP 36.4–36.6; O2SAT 88–98
[2016-08-10] MEDS: CEFAZOLIN IV 2,000 MG in DEXTROSE 5% 50ML 50 ML IV SCH (03:09)
[2016-08-10] MEDS: D5W AND 1/2NSS + 20MEQ KCL 1,000 ML IV SCH ×2 (03:10→12:00)
[2016-08-10] MEDS: ACETAMINOPHEN 500 MG TAB PO SCH ×3 (05:28→21:18)
[2016-08-10 05:49] LABS: HEMATOCRIT 35.6 % (42-52); MEAN CELL VOLUME 89.4 fL (80-100); MEAN CORPUSCULAR HEMOGLOBIN 31.7 pg (25-34); MEAN CORPUSCULAR HGB CONC 35.4 g/dl (32-36); MEAN PLATELET VOLUME 10.4 fL (7.4-10.4); PLATELET COUNT 169 K/uL (130-400); RED BLOOD COUNT 3.98 M/uL (4.7-6.1); WHITE BLOOD COUNT 11.82 K/uL (4.8-10.8)
[2016-08-10 06:18] LABS: BUN/CREATININE RATIO 19.4 (10-20); CALCIUM 8.2 mg/dl (8.5-10.1); CREATININE 0.97 mg/dl (0.60-1.40); POTASSIUM 4.4 mmol/L (3.5-5.1)
--- NOTE | 2016-08-10 08:13 | Orthopedic Progress Note ---
Orthopedic Progress Note Date of Service Aug 10, 2016. Subjective Post OP Day: 1 Reports: feeling well, pain controlled w PO medications, Denies: SOB, calf pain , chest pain, complaints, light headedness, nausea / vomiting Additional Notes: States he had an episode of wheezing and mild dizziness w his first attempt to ambulate. Resolved now. On 2L oxygen per NC, asymptomatic this AM. Objective calves soft nontender, N/V intact, capillary refill less than 2 sec., dressing C /D/I, A&O x3 Sling in tact, fingers mobile. Date Time Temp Pulse Resp B/P Pulse Ox O2 Delivery O2 Flow Rate FiO2 08/10/16 07:56 95 Room Air 08/10/16 06:54 36.4 63 20 105/64 94 Nasal Cannula 2.0 08/10/16 03:13 94 Nasal Cannula 2.0 08/10/16 03:10 36.6 79 16 102/62 88 Room Air 08/09/16 23:18 36.6 80 16 113/72 93 Room Air 08/09/16 23:00 Room Air 08/09/16 18:29 36.6 97 16 128/85 95 Nasal Cannula 2.0 08/09/16 17:21 36.6 101 16 107/71 95 Nasal Cannula 2.0 08/09/16 16:23 36.5 98 18 118/79 92 Nasal Cannula 2.0 08/09/16 15:53 36.4 95 16 127/80 91 Nasal Cannula 2.0 08/09/16 15:30 Nasal Cannula 2.0 08/09/16 15:30 Nasal Cannula 2.0 08/09/16 15:20 36.4 96 16 100/65 93 Nasal Cannula 2.0 08/09/16 15:05 36.0 92 15 115/73 93 Nasal Cannula 2 08/09/16 14:55 96 18 124/84 91 Nasal Cannula 2 08/09/16 14:45 100 22 128/101 87 Nasal Cannula 2 08/09/16 14:35 96 20 127/85 88 Nasal Cannula 2 08/09/16 14:25 91 16 127/75 96 Mask 10 08/09/16 14:23 16 98 Mask 10 08/09/16 14:15 92 13 121/78 95 Mask 10 08/09/16 14:06 36.3 98 16 149/109 98 Mask 15 08/09/16 09:47 98 Room Air 08/09/16 09:35 36.4 73 18 126/87 98 Room Air Laboratory Results 24 Hours: Test 08/10/16 05:25 Hematocrit 35.6 % Hemoglobin 12.6 g/dL Assessment & Plan Assessment: POD #1, Right Reversed TSA, Biceps tenodesis. Plan: Limited PT DVT proph- ASA D/C planning- Home, NO formal PT Appreciate medicine input Inhouse Planning Pain Management: Oxycontin, Morphine, PO Tylenol, Oxy IR DVT Prophylaxis: SCDs, ASA Discharge Planning Discharge Planning: home Pain Management: Oxycontin, PO Tylenol, Oxy IR DVT Prophylaxis: ASA
[2016-08-10] MEDS: OXYCODONE HCL 10 MG TABCR (OXYCONTIN) PO SCH ×2 (08:15→20:45)
[2016-08-10] MEDS: LORATADINE 10 MG TAB PO SCH (08:16)
[2016-08-10] MEDS: DOCUSATE SODIUM 100 MG CAP PO SCH ×2 (08:16→20:44)
[2016-08-10] MEDS: PANTOprazole SOD 40 MG TAB PO SCH (08:16)
[2016-08-10] MEDS: MULTIVITAMIN TAB PO SCH (08:16)
[2016-08-10] MEDS: RANITIDINE HCL 150 MG TAB PO SCH ×2 (08:17→20:44)
--- NOTE | 2016-08-10 10:07 | Anesthesiology Progress Note ---
Anesthesia Post Op Note Date & Time Aug 10, 2016 at 10:07 Vital Signs Pain Intensity: 0.0 Vital Signs Past 12 Hours Date Time Temp Pulse Resp B/P Pulse Ox O2 Delivery O2 Flow Rate FiO2 08/10/16 08:00 111/74 08/10/16 07:56 95 Room Air 08/10/16 06:54 36.4 63 20 105/64 94 Nasal Cannula 2.0 08/10/16 03:13 94 Nasal Cannula 2.0 08/10/16 03:10 36.6 79 16 102/62 88 Room Air 08/09/16 23:18 36.6 80 16 113/72 93 Room Air 08/09/16 23:00 Room Air Notes Mental Status: alert / awake / arousable, participated in evaluation Pt Amnestic to Procedure: Yes Nausea / Vomiting: adequately controlled Pain: adequately controlled Airway Patency, RR, SpO2: stable & adequate BP & HR: stable & adequate Hydration State: stable & adequate Anesthetic Complications: no major complications apparent
[2016-08-10] MEDS: OXYCODONE HCL IR 5 MG TAB (IMMEDIATE RELEASE) PO PRN ×4 (10:36→22:34)
[2016-08-10] MEDS: MoRPHine SULFATE 2 MG/ML CARP IV PRN ×2 (12:30→20:43)
--- NOTE | 2016-08-10 16:34 | Progress Note ---
Internal Med Progress Note Date of Service: Aug 10, 2016. Provider Documentation: SUBJECTIVE: walked on hallway earlier today having pain on rt shoulder surgical site , 5/10 got OxyIR 2 hrs back had episode of dizzy spell and SOB while trying to stand up this AM symptom has resolved was able to be on chair , ambulated in hallway without any Dizzy spell or GUTIERREZ having hoarseness of voice since surgery -possible for the ET tube Chloraseptic spray ordered OBJECTIVE: Vital Signs-as noted below Exam: General-no sign of distress Eyes-sclera non icteric ENT-NAd Neck-no thyromegaly , trachea midline Lungs-CTA Heart-regular S1/S2 Abdomen-soft, non tender Extremities-s/p rt shoulder surgery ; rt shoulder on immobilizer sling Neuro-no focal neurological deficit , AAO x3 Lab data as noted below. ASSESSMENT & PLAN: RIGHT REVERSE TOTAL SHOULDER ARTHROPLASTY -POD#[address] Clayton - cont management as per Ortho on OxyIR 5-10 mg Q 4hrs cont pain control HTN -stable -continue BB HLD -continue Statin GERD -continue PPI -continue Zantac DVT PROPHYLAXIS: per ortho DISPOSITION per primary team Vital Signs: Date Time Temp Pulse Resp B/P Pulse Ox O2 Delivery O2 Flow Rate FiO2 08/10/16 15:48 Room Air 08/10/16 14:50 36.5 71 18 124/68 96 Room Air 08/10/16 10:23 76 98 08/10/16 08:00 111/74 08/10/16 07:56 95 Room Air 08/10/16 06:54 36.4 63 20 105/64 94 Nasal Cannula 2.0 08/10/16 03:13 94 Nasal Cannula 2.0 08/10/16 03:10 36.6 79 16 102/62 88 Room Air 08/09/16 23:18 36.6 80 16 113/72 93 Room Air 08/09/16 23:00 Room Air Lab Results: Results Past 24 Hours Test 08/10/16 05:25 Range/Units White Blood Count 11.82 4.8-10.8 K/uL Red Blood Count 3.98 4.7-6.1 M/uL Hemoglobin 12.6 14.0-18.0 g/dL Hematocrit 35.6 42-52 % Mean Corpuscular Volume 89.4 80-100 fL Mean Corpuscular Hemoglobin 31.7 25-34 pg Mean Corpuscular Hemoglobin Concent 35.4 32-36 g/dl RDW Standard Deviation 41.4 36.4-46.3 fL RDW Coefficient of Variation 12.8 11.5-14.5 % Platelet Count 169 130-400 K/uL Mean Platelet Volume 10.4 7.4-10.4 fL Sodium Level 141 136-145 mmol/L Potassium Level 4.4 3.5-5.1 mmol/L Chloride Level 108 98-107 mmol/L Carbon Dioxide Level 26 21-32 mmol/L Anion Gap 7.0 3-11 mmol/L Blood Urea Nitrogen 19 7-18 mg/dl Creatinine 0.97 0.60-1.40 mg/dl Est Creatinine Clear Calc Drug Dose 74.8 ml/min Estimated GFR () 90.0 Estimated GFR (Non- 77.7 BUN/Creatinine Ratio 19.4 10-20 Random Glucose 162 70-99 mg/dl Calcium Level 8.2 8.5-10.1 mg/dl
[2016-08-10] MEDS ORDERED: LEVALBUTEROL 1.25MG/0.5ML NEB INH PRN (20:30)
[2016-08-10] MEDS ORDERED: IPRATROPIUM BROMIDE NEB SOLN 0.02% 2.5 ML VIAL INH PRN (20:30)
[2016-08-10] MEDS ORDERED: LEVALBUTEROL/IPRATROPIUM NEB INH PRN (20:30)
[2016-08-10] MEDS ORDERED: MoRPHine SULFATE 2 MG/ML CARP IV STA (20:32)
[2016-08-10] MEDS ORDERED: CHLORASEPTIC 1.4% SOLN 180 ML BTL MT PRN (20:45)
[2016-08-10] MEDS: ATORVASTATIN 40 MG TAB PO SCH (21:17)
[2016-08-10] MEDS: ASPIRIN 81 MG ECTAB PO SCH (21:17)
[2016-08-11] MEDS: OXYCODONE HCL IR 5 MG TAB (IMMEDIATE RELEASE) PO PRN ×3 (03:00→11:46)
[2016-08-11] MEDS: ACETAMINOPHEN 500 MG TAB PO SCH ×2 (05:18→13:46)
[2016-08-11 05:55] LABS: HEMATOCRIT 34.7 % (42-52); MEAN CORPUSCULAR HEMOGLOBIN 31.9 pg (25-34); MEAN CORPUSCULAR HGB CONC 34.3 g/dl (32-36); MEAN PLATELET VOLUME 10.9 fL (7.4-10.4); PLATELET COUNT 140 K/uL (130-400); RED BLOOD COUNT 3.73 M/uL (4.7-6.1); WHITE BLOOD COUNT 9.73 K/uL (4.8-10.8)
[2016-08-11 06:27] LABS: BUN/CREATININE RATIO 21.8 (10-20); CALCIUM 7.8 mg/dl (8.5-10.1); CREATININE 0.9 mg/dl (0.60-1.40); POTASSIUM 4.4 mmol/L (3.5-5.1)
[2016-08-11 08:01] VITALS: BP 110/76; PULSE 66; TEMP 36.6; O2SAT 93
--- NOTE | 2016-08-11 08:43 | Orthopedic Progress Note ---
Orthopedic Progress Note Date of Service Aug 11, 2016. Subjective Post OP Day: 2 Reports: feeling well, pain controlled w PO medications, Denies: SOB, calf pain , chest pain, complaints, light headedness, nausea / vomiting Objective calves soft nontender, N/V intact, capillary refill less than 2 sec., incision C /D/I, A&O x3 sling in tact, fingers mobile. Date Time Temp Pulse Resp B/P Pulse Ox O2 Delivery O2 Flow Rate FiO2 08/11/16 08:01 36.6 66 16 110/76 93 Room Air 08/11/16 07:29 Room Air 08/10/16 23:15 36.6 67 18 113/68 97 Room Air 08/10/16 23:00 Room Air 08/10/16 15:48 Room Air 08/10/16 14:50 36.5 71 18 124/68 96 Room Air 08/10/16 10:23 76 98 Laboratory Results 24 Hours: Test 08/11/16 05:21 Hematocrit 34.7 % Hemoglobin 11.9 g/dL Assessment & Plan Assessment: POD #2, Right Reversed TSA, Biceps tenodesis. Plan: Limited PT DVT proph- ASA D/C planning- Home today, NO formal PT Appreciate medicine input Inhouse Planning Pain Management: Oxycontin, Morphine, PO Tylenol, Oxy IR DVT Prophylaxis: SCDs, ASA Discharge Planning Discharge Planning: home Pain Management: Oxycontin, PO Tylenol, Oxy IR DVT Prophylaxis: ASA
[2016-08-11] MEDS ORDERED: ACET-1138 PO (08:47)
[2016-08-11] MEDS ORDERED: ONDA8TAB6 PO (08:47)
[2016-08-11] MEDS ORDERED: RXC5 PO (08:47)
[2016-08-11] MEDS ORDERED: OXYSR10 PO (08:47)
--- NOTE | 2016-08-11 08:48 | Discharge Instructions ---
Discharge Instructions Date of Service Aug 11, 2016. Admission Reason for Admission: Right Shoulder Degenerative Joint Disease Discharge Discharge Diagnosis / Problem: Right shoulder reversed TSA, biceps tenodesis Discharge Goals Goal(s): Improve function Activity Recommendations Activity Limitations: as noted below . Instructions / Follow-Up Instructions / Follow-Up ACTIVITY RECOMMENDATIONS: SELF CARE INSTRUCTIONS AFTER TOTAL SHOULDER ARTHROPLASTY REVERSE A. You may do daily exercises as taught in physical therapy while in hospital. No lifting with the operative arm. B. You are to wear your sling/immobilizer at all times EXCEPT when performing your daily exercises and for hygiene purposes. C. You may perform dry, daily dressing changes. Please keep your incision covered. You may shower 48 hours after surgery. Do not apply soap or any ointment/ lotions directly over incision. Do not soak incision in bath tub/swimming pool. D. You may use ice as needed to operative shoulder. SPECIAL CARE INSTRUCTIONS: VERY IMPORTANT TO READ AND REVIEW A. There are a few signs you need to watch for after you are home. Call [facility] at [phone] if you experience any of the followin. Increased severe shoulder pain. Some pain is expected especially when you exercise. 2. Increased swelling in you shoulder or arm; pain or swelling in either upper extremity. 3. Any fluid drainage from the incision. 4. Shortness of breath or chest pain. B. Please call [facility] at [phone] if you have any questions or concerns about your operation or recovery. C. Call your physician if: 1. Temperature is greater than 101 degrees (F). 2. Pain is not relieved by prescribed pain medications. 3. Increase drainage or redness from incision. 4. Unanswered questions or concerns. FOLLOW UP VISIT: Please call [facility] at [phone] to schedule a follow up appointment with Dr. Clayton or his PA in 12-14 days from your surgery date. Current Hospital Diet Patient's current hospital diet: Regular Diet Discharge Diet Recommended Diet: Regular Diet Procedures Procedures Performed: Right total shoulder arthroplasty Pending Studies Studies pending at discharge: no Laboratory Results Hemoglobin A1c Test 07/25/16 14:51 Range/Units Estimated Average Glucose 108 mg/dl Hemoglobin A1c 5.4 4.5-5.6 % Medical Emergencies . Who to Call and When: Medical Emergencies: If at any time you feel your situation is an emergency, please call 911 immediately. . Non-Emergent Contact Non-Emergency issues call your: Primary Care Provider . "Provider Documentation" section prepared by Gómez Kiran. VTE Core Measure Inpt VTE Proph given/why not?: Other Anticoagulation (asa), T.E.D. Stockings, SCD's [place] Drug Monitoring Program Search Results: patient reviewed within database, no issues identified
[2016-08-11 08:58] VITALS: BP 121/75; PULSE 65
[2016-08-11] MEDS: OXYCODONE HCL 10 MG TABCR (OXYCONTIN) PO SCH (08:59)
[2016-08-11] MEDS: MULTIVITAMIN TAB PO SCH (08:59)
[2016-08-11] MEDS: DOCUSATE SODIUM 100 MG CAP PO SCH (08:59)
[2016-08-11] MEDS: RANITIDINE HCL 150 MG TAB PO SCH (08:59)
[2016-08-11] MEDS: PANTOprazole SOD 40 MG TAB PO SCH (08:59)
[2016-08-11] MEDS: LORATADINE 10 MG TAB PO SCH (08:59)
[2016-08-11 09:15] VITALS: O2SAT 93
[2016-08-11 10:45] VITALS: BP 121/75; PULSE 65; TEMP 36.6; O2SAT 93
--- NOTE | 2016-08-24 10:37 | DISCHARGE SUMMARY ---
HISTORY OF PRESENT ILLNESS: This is a 71-year-old male patient of Dr. Clayton, complaining of chronic right shoulder pain, longstanding, progressively getting worse. He failed conservative treatment and wished to proceed with an elective right reverse total shoulder arthroplasty. PAST MEDICAL HISTORY: Hypertension, hypercholesterolemia, rheumatoid arthritis, and acid reflux. POSTOPERATIVE COURSE: The patient underwent a right reverse total shoulder arthroplasty and biceps tenodesis on 08/09/2016. Postoperatively, he was followed closely with medical consultation, limited physical therapy, pain control. The patient did well postoperatively with no issues. He was discharged on postoperative day #2. PHYSICAL EXAMINATION: On discharge, right shoulder incision was clean, dry and intact. [place] were intact. Skin edges were approximated well. There was no redness or drainage. Neurologically and neurovascularly, he was intact in his right upper extremity. DIAGNOSES: Status post right reverse total shoulder arthroplasty with biceps tenodesis. He also has a history of hypertension, hypercholesterolemia, rheumatoid arthritis, and acid reflux. PLAN: The patient was discharged home with home exercises only. He will continue his preadmission medications with the addition of pain medications. No formal physical therapy until he follows up with us in the office.
[2017-01-15] MEDS ORDERED: NASAL SPRAY NAE (11:35)
[2017-01-15] MEDS ORDERED: OMEG10007 PO (11:36)
[2017-01-15] MEDS ORDERED: IBUP-1050 PO (11:36)
[2017-01-17] MEDS ORDERED: RXC5 PO (16:16)
== END 2016-08-11 14:05 | disposition home or self-care (01) | DRG 483 ==
LOC: ENRESERVDT → ENRESERVTM → C.ACU 09:18 → C.3E 14:13
PROVIDERS: ADMIT Orthopaedic Surgery Sports Medicine; ATTEND Orthopaedic Surgery Sports Medicine
PROC: 0RRJ00Z Replacement of Right Shoulder Joint with Reverse Ball and Socket Synthetic Substitute, Open Approach (ICD-10-PCS; principal; 2016-08-09 11:00)
DX: M19.011 Primary osteoarthritis, right shoulder (principal); R29.818 Other symptoms and signs involving the nervous system; M75.101 Unspecified rotator cuff tear or rupture of right shoulder, not specified as traumatic; R42 Dizziness and giddiness; R00.0 Tachycardia, unspecified; R49.0 Dysphonia; I10 Essential (primary) hypertension; M06.9 Rheumatoid arthritis, unspecified; E78.00 Pure hypercholesterolemia, unspecified; E78.5 Hyperlipidemia, unspecified; K21.9 Gastro-esophageal reflux disease without esophagitis; E66.9 Obesity, unspecified; Z68.32 Body mass index [BMI] 32.0-32.9, adult; Z96.642 Presence of left artificial hip joint; Z79.82 Long term (current) use of aspirin; Z79.891 Long term (current) use of opiate analgesic; Z79.899 Other long term (current) drug therapy

== ENCOUNTER 2017-01-17 10:32 | Observation (INO) | payer OTHER ==
[2017-01-15 11:37] VITALS: BMI 31.0
--- NOTE | 2017-01-15 12:15 | PAT Medication Instructions ---
Service Date Jan 15, 2017. Current Home Medication List Aspirin (Aspirin 81), 81 MG PO HS Atorvastatin (Lipitor), 40 MG PO HS Fish Oil ([place]-3), 1 CAP PO BID Fluticasone Propionate (Nasal) (Flonase Allergy Relief), 2 SPRAYS ELIZABETH PRN Hydrocortisone Acetate (Rectal (Anusol-Hc), 25 MG AK HS PRN for RN Ibuprofen (Advil), 400 MG PO PRN Loratadine (Claritin), 10 MG PO PRN Omeprazole (Prilosec), 20 MG PO QAM Ranitidine (Zantac), 150 MG PO BID [Nasal [place]], 2 SPRAYS ELIZABETH QAM Medication Instructions For Your Scheduled Surgery - Check with surgeon for instructions: Ibuprofen (Advil), 400 MG PO PRN - Hold the following medications starting 01/16/17: Fish Oil ([place]-3), 1 CAP PO BID - Hold the following medications the morning of surgery: Loratadine (Claritin), 10 MG PO PRN Ranitidine (Zantac), 150 MG PO BID - Take the following medications the morning of surgery with a sip of water: [Nasal [place]], 2 SPRAYS ELIZABETH QAM Omeprazole (Prilosec), 20 MG PO QAM Fluticasone Propionate (Nasal) (Flonase Allergy Relief), 2 SPRAYS ELIZABETH PRN (if needed) - Take the following medications as scheduled the night before surgery: Ranitidine (Zantac), 150 MG PO BID Loratadine (Claritin), 10 MG PO PRN (if needed) Hydrocortisone Acetate (Rectal (Anusol-Hc), 25 MG AK HS PRN for RN (if needed) Atorvastatin (Lipitor), 40 MG PO HS Aspirin (Aspirin 81), 81 MG PO HS (okay to continue per surgeon) If you have any questions please call us at [phone] or [phone] or [phone]
[2017-01-15 12:54] LABS: BASO % 0.8 %; BASO ABS # 0.05 K/uL (0-0.2); COMPLETE YES; EOS % 7.3 %; HEMATOCRIT 44.5 % (42-52); IG% 0.5 %; LYMPH % 20.4 %; LYMPH ABS # 1.35 K/uL (1.2-3.4); MEAN CELL VOLUME 91.4 fL (80-100); MEAN CORPUSCULAR HEMOGLOBIN 31.2 pg (25-34); MEAN CORPUSCULAR HGB CONC 34.2 g/dl (32-36); MEAN PLATELET VOLUME 11.1 fL (7.4-10.4); MONO % 11.3 %; NEUT % 59.7 %; PLATELET COUNT 163 K/uL (130-400); RED BLOOD COUNT 4.87 M/uL (4.7-6.1); WHITE BLOOD COUNT 6.61 K/uL (4.8-10.8)
[2017-01-15 13:02] LABS: BUN/CREATININE RATIO 21.1 (10-20); CALCIUM 9.2 mg/dl (8.5-10.1); CREATININE 0.82 mg/dl (0.60-1.40); POTASSIUM 4.7 mmol/L (3.5-5.1)
[2017-01-15 13:03] LABS: URINE APPEARANCE CLEAR (CLEAR); URINE BILIRUBIN NEG (NEG); URINE COLOR YELLOW; URINE NITRITE NEG (NEG); URINE SPECIFIC GRAVITY 1.016 (1.000-1.030); UROBILINOGEN NEG (NEG); ZZUR CULT IF INDIC CLEAN CATCH NO
[2017-01-15 13:28] LABS: MANUAL MICROSCOPIC REQUIRED? NO; REVIEW REQ? NO
[2017-01-17] VITALS (9 sets, daily range): BP systolic 117–145; BP diastolic 75–83; PULSE 62–86; TEMP 36.4–36.7; O2SAT 93–98; Ht 172.7 cm; Wt 91.8 kg
[~2017-01-17] VITALS: Ht 172.7 cm; Wt 91.8 kg
[~2017-01-17 10:32] MED LIST changes: -ACETAMINOPHEN 500 MG TAB PO SCH; -ATROPINE SULFATE 0.1 MG/ML 5ML SYR IV PRN; -CEFAZOLIN 2000 MG/60 ML D5W 60 ML IV SCH; +CEFAZOLIN 2000 MG/60 ML D5W IV SCH; -CeleBREX 200 MG CAP PO SCH; -DEXAMETHASONE 4 MG TAB PO SCH; -EpHEDrine SULFATE INJ 50 MG/ML AMP IV PRN; -FAMOTIDINE 20 MG TAB PO SCH; -FENTANYL CITRATE INJ 50 MCG/1 ML 2 ML VIAL IV PRN; -GABAPENTIN 300 MG CAP PO SCH; -GLYCOPYRROLATE INJ 0.2 MG/ML VIAL ONE; -HYDROmorphone INJ 1 MG/ML SYR IV PRN; +IBUP-1050 PO; -LACTATED RINGER'S 1000ML IV SCH; -LIDOCAINE HCL 2% 2 ML VIAL (20MG/ML) ONE; -METOCLOPRAMIDE HCL 10 MG TAB PO SCH; +NASAL SPRAY NAE; -NEOSTIGMINE METHYLSULFATE 5 MG/5 ML SYR ONE; +OMEG10007 PO; -ONDANSETRON INJ 2 MG/ML 2 ML VIAL IV PRN; -ONDANSETRON INJ 2 MG/ML 2 ML VIAL ONE; -PROPOFOL IV EMULSION 10 MG/ML 20 ML VIAL IV ONE; -ROCURONIUM BROMIDE 10 MG/ML 5 ML VIAL ONE; -ROPIVACAINE 0.5% 5 MG/ML 30 ML VIAL ONE; -TPRSR25 PO; -TRAM-10 PO
[2017-01-17] MEDS ORDERED: AZEL0.15 NAE (11:06)
[2017-01-17] MEDS ORDERED: MIDAZOLAM HCL 1 MG/ML 2ML VIAL ONE (11:25)
[2017-01-17] MEDS ORDERED: FENTANYL CITRATE INJ 50 MCG/1 ML 2 ML VIAL ONE ×2 (11:25→13:01)
--- NOTE | 2017-01-17 11:40 | History and Physical ---
History & Physical Date Jan 17, 2017. Chief Complaint Back and leg pain History of Present Illness The patient is a 71 year old male with complaints of Past Medical/Surgical History Medical Problems: (1) DJD of shoulder (2) Dyslipidemia (3) GERD (gastroesophageal reflux disease) (4) History of adenomatous polyp of colon (5) HTN (hypertension) Surgical Problems: (1) H/O cardiac catheterization (2) H/O nasal septoplasty (3) Status post tonsillectomy Additional History Hepatic Disease: No Endocrine Disorder: No Kidney Disease: No Hypertension: No Heart Disease: No Bleeding Tendencies: No Infectious Diseases: No Allergies Coded Allergies: No Known Allergies (Unverified , 01/17/17) Home Medications Scheduled Aspirin (Aspirin 81), 81 MG PO HS Atorvastatin (Lipitor), 40 MG PO HS Azelastine Hcl (Astepro), 2 SPRY ELIZABETH BID Fish Oil ([place]-3), 1 CAP PO BID Fluticasone Propionate (Nasal) (Flonase Allergy Relief), 2 SPRAYS ELIZABETH PRN Ibuprofen (Advil), 400 MG PO PRN Loratadine (Claritin), 10 MG PO PRN Omeprazole (Prilosec), 20 MG PO QAM Ranitidine (Zantac), 150 MG PO BID [Nasal [place]], 2 SPRAYS ELIZABETH QAM Scheduled PRN Hydrocortisone Acetate (Rectal (Anusol-Hc), 25 MG MT HS PRN for RN Physical Examination Skin: warm/dry, no rash Eyes: normal inspection, EOMI, sclerae normal ENT: normal ENT inspection, pharynx normal Head: normocephalic, atraumatic Neck: supple, no adenopathy, trachea midline Respiratory/Chest: lungs clear, normal breath sounds, no respiratory distress Cardiovascular: regular rate, rhythm, no edema, no murmur Abdomen / GI: normal bowel sounds, non tender Back: normal inspection Extremities: normal inspection, normal range of motion Neurologic/Psych: no motor/sensory deficits, alert, normal reflexes, oriented x 3 Diagnosis Herniated nucleus pulposus at L2-3 on the left Plan of Treatment Decompression L2 3 with Coflex implantation.
[2017-01-17] MEDS ORDERED: SODIUM CHLORIDE 0.9% PF 50 ML VIAL ONE (12:02)
[2017-01-17] MEDS ORDERED: BUPIVACAINE/EPINEPHRINE 0.5% MPF 1:200,000 10 ML VIAL ONE (12:02)
[2017-01-17] MEDS ORDERED: ATROPINE SULFATE 0.1 MG/ML 5ML SYR IV PRN (12:30)
[2017-01-17] MEDS ORDERED: EpHEDrine SULFATE INJ 50 MG/ML AMP IV PRN (12:30)
[2017-01-17] MEDS ORDERED: ONDANSETRON INJ 2 MG/ML 2 ML VIAL IV PRN ×2 (12:30→13:30)
[2017-01-17] MEDS ORDERED: FENTANYL CITRATE INJ 50 MCG/1 ML 2 ML VIAL IV PRN (12:30)
[2017-01-17] MEDS: BACITRACIN 50000 UNIT VIAL ONE ×2 (12:45→13:16)
[2017-01-17] MEDS ORDERED: HYDROmorphone INJ 2 MG/ML SYR/VIAL ONE ×2 (12:48→13:23)
[2017-01-17] MEDS ORDERED: ROCURONIUM BROMIDE 10 MG/ML 5 ML VIAL ONE (12:57)
[2017-01-17] MEDS ORDERED: NEOSTIGMINE METHYLSULFATE 1 MG/ML 10ML VIAL ONE ×2 (12:57→13:25)
[2017-01-17] MEDS ORDERED: DEXAMETHASONE SOD INJ 4 MG/ML VIAL ONE (12:57)
[2017-01-17] MEDS ORDERED: PHENYLEPHRINE 100MCG/ML 5ML SYR ONE ×2 (12:57→13:25)
[2017-01-17] MEDS ORDERED: ONDANSETRON INJ 2 MG/ML 2 ML VIAL ONE ×2 (12:57→13:25)
[2017-01-17] MEDS ORDERED: LIDOCAINE HCL 2% 2 ML VIAL (20MG/ML) ONE (12:57)
[2017-01-17] MEDS ORDERED: PROPOFOL IV EMULSION 10 MG/ML 20 ML VIAL IV ONE (12:57)
[2017-01-17] MEDS ORDERED: GLYCOPYRROLATE INJ 0.2 MG/ML VIAL ONE ×2 (12:57→13:25)
[2017-01-17] MEDS ORDERED: FLOSEAL HEMOSTATIC MATRIX 5ML TOP ONE (13:13)
[2017-01-17] MEDS ORDERED: EpHEDrine SULFATE 50MG/5ML SYR ONE (13:25)
[2017-01-17] MEDS ORDERED: KETOROLAC TROMETHAMINE 30 MG/ML VIAL ONE (13:25)
[2017-01-17] MEDS ORDERED: LORAZEPAM INJ 1 MG in SYRINGE 0 ML IV PRN (13:30)
[2017-01-17] MEDS ORDERED: ACETAMINOPHEN 325 MG TAB PO PRN (13:30)
[2017-01-17] MEDS ORDERED: DO NOT ADMINISTER FLU VACCINE PRN ×3 (13:30)
[2017-01-17] MEDS ORDERED: FLUTICASONE PROPIONATE NA SPR 16 GM BTL NAE PRN (13:30)
[2017-01-17] MEDS ORDERED: ACETAMINOPHEN 500 MG TAB PO PRN (13:30)
[2017-01-17] MEDS ORDERED: HYDROmorphone INJ 1 MG/ML SYR IV PRN (13:30)
[2017-01-17] MEDS ORDERED: MAGNESIUM HYDROXIDE SUSP 30 ML UDC PO PRN (13:30)
[2017-01-17] MEDS ORDERED: DO NOT ADMINISTER PNEUMOCOCCAL VACCINE PRN ×2 (13:30)
[2017-01-17] MEDS ORDERED: LORAZEPAM 1 MG TAB PO PRN (13:30)
--- NOTE | 2017-01-17 13:32 | [facility] Operative Report ---
Operative Report Operative Date Jan 17, 2017. Pre-Operative Diagnosis Herniated nucleus pulposus at L2-3 on the left Post-Operative Diagnosis same as pre-operative Procedure(s) Performed #1 lumbar decompression medial facetectomy partial discectomy L2-3. #2 placement of posterior instrumentation Coflex 12 mm in height L2-3. Surgeon Dr. Niko Masterson Estimated Blood Loss 25ml Findings Spinal stenosis herniated nucleus pulposus Specimens none per surgeon Description of Procedure Patient was met with preoperatively case discussed all questions are dressed. After informed consent patient was taken back to the operative suite and after undergoing successful intubation placed in a prone position on the Thien table on top of the Miki frame. All promises well-padded eyes inspected to ensure no external pressure. The lumbar spine was then prepped and draped in the normal sterile fashion. With the assistance of fluoroscopy identified the L2-3 disc space. Midline incision was created overlying this region. Sharp dissection with the assistance of Bovie cautery was performed onto an exposing the interlaminar spaces bilaterally at L23. Midline compression was performed including facetectomy on the left as well as partial meniscectomy and removal of the bony free fragments occupying the left lateral recess and foramina. After this complete recon toward the interlaminar space and placed a 12 mm Coflex into position. It was crimped and final position. Incision was in copious irrigated. A 10 round ORTEGA drain inserted. It was then closed with Vicryl fascia 2-0 Vicryl subcutaneously for Monocryl for final skin closure. Steri-Strips sterile dressing placed patient we can taken to PACU stable condition. I attest to the content of the Intraoperative Record and any orders documented therein. Any exceptions are noted below.
[2017-01-17] MEDS ORDERED: HYDROmorphone INJ 2 MG/ML SYR/VIAL IV PRN (13:45)
--- NOTE | 2017-01-17 13:56 | DIAGNOSTIC IMAGING REPORT ---
SPINE ONE VIEW, ANY LEVEL CLINICAL HISTORY: 71 years-old Male presenting with L2-3 DECOMPRESSION W/POSSIBLE COFLEX. TECHNIQUE: 1 fluoroscopic spot image(s) obtained as part of intraoperative procedure. COMPARISON: None. FINDINGS/IMPRESSION: Lateral view of the lumbar spine with surgical material in the L2-3 interspinous space. Please see surgical report for further details. Fluoroscopy dosage (mGy): Not available. Fluoroscopy time: 5 seconds. Number of fluoroscopic spot images: 1. Electronically signed by: Carl Bai M.D. 01/17/2017 1:55 PM Dictated Date/Time: 01/17/2017 1:54 PM
[2017-01-17] MEDS ORDERED: IV FLUIDS COMPLETED PRN (14:00)
--- NOTE | 2017-01-17 14:02 | Anesthesiology Progress Note ---
Anesthesia Post Op Note Date & Time Jan 17, 2017 at 14:02 Vital Signs Pain Intensity: 0 Vital Signs Past 12 Hours Date Time Temp Pulse Resp B/P (MAP) Pulse Ox O2 Delivery O2 Flow Rate FiO2 01/17/17 13:50 72 16 145/85 95 Mask 10 01/17/17 13:40 64 16 140/79 98 Mask 10 01/17/17 13:34 36.6 73 16 151/83 98 Mask 10 01/17/17 11:07 36.7 65 18 145/77 96 Room Air Notes Mental Status: alert / awake / arousable, participated in evaluation Pt Amnestic to Procedure: Yes Nausea / Vomiting: adequately controlled Pain: adequately controlled Airway Patency, RR, SpO2: stable & adequate BP & HR: stable & adequate Hydration State: stable & adequate Anesthetic Complications: no major complications apparent
[2017-01-17] MEDS: SODIUM CHLORIDE 0.9% 1000ML 1,000 ML IV SCH (14:54)
[2017-01-17] MEDS ORDERED: RXC5 PO (16:16)
--- NOTE | 2017-01-17 16:17 | Discharge Instructions ---
Discharge Instructions Date of Service Jan 17, 2017. Admission Reason for Admission: Lumbar Spinal Stenosis Discharge Discharge Diagnosis / Problem: lumbar stenosis Discharge Goals Goal(s): Improve function Activity Recommendations Activity Limitations: per Instructions/Follow-up section . Instructions / Follow-Up Instructions / Follow-Up ACTIVITY RECOMMENDATIONS: SELF CARE INSTRUCTIONS AFTER A LAMINECTOMY 1. No prolonged sitting (less than 30 minutes for the first 3 weeks after surgery). 2. No bending, lifting more than 5 pounds, or twisting (roll like a log when turning in bed). 3. You may shower 3 days after surgery if no drainage from wound. Thoroughly dry wound. Do not soak in the tub. 4. Please walk as much as you can for exercise. Gradually increase the distance that you walk as your endurance increases. 5. You may drive in 7-10 days if you are comfortable and no longer requiring pain medications. SPECIAL CARE INSTRUCTIONS: VERY IMPORTANT TO READ AND REVIEW A. Your surgical incision has been closed with a cosmetic suture under the skin that will dissolve in about 6 weeks. In 14 days, you can use a pair of clean scissors and cut the suture that is left outside of the skin at the ends of your incision. B. Complications are uncommon, but please contact us if you have any signs or symptoms of: 1. wound infection (fever higher than 102.5 degrees F, redness, separation of wound, drainage, or increasing pain from the incision) 2. blood clots in legs (pain, swelling, redness and warmth in legs) 3. urinary tract infection (fever higher than 102.5 degrees, burning upon urination or increased frequency of urination) 4. nerve problems (inability to walk on your toes or heels, numbness, loss of bowel or bladder control) 5. any other symptoms that concern you. C. Please call the office at if you have any concerns or questions about your operation or recovery. MANAGING PAIN AFTER SPINAL SURGERY 1. Narcotic medication is intended for short-term use and will be provided for surgical pain. Surgical pain usually lasts for a period of 4-6 weeks. Narcotic medication includes Percocet, Vicodin, Darvocet, Tylenol #3 or Lortab. 2. Longer-term pain is more appropriately treated with non-narcotic medication such as Tylenol ES. 3. Muscle spasm is not appropriately treated with narcotics. Muscle relaxers such as Soma, Flexeril or Skelaxin can be used along with Tylenol ES. 4. Remember that we all live with some "aches and pains". This is not unusual or uncommon after an injury or as we get older. 5. We will provide appropriate medication within the normal guidelines of their prescribed use. We will also be very cautious and aware of potential abuse and extended duration of patients' medication needs. 6. Please allow 2-3 days to process refills. Prescriptions will not be mailed but must be picked up at the office. FOLLOW UP VISIT: Keep your scheduled follow-up appointment. Any questions, please call the office at . Current Hospital Diet Patient's current hospital diet: Regular Diet Discharge Diet Recommended Diet: Regular Diet Procedures Procedures Performed: #1 lumbar decompression medial facetectomy partial discectomy L2-3. #2 placement of posterior instrumentation Coflex 12 mm in height L2-3. Pending Studies Studies pending at discharge: no Medical Emergencies . Who to Call and When: Medical Emergencies: If at any time you feel your situation is an emergency, please call 911 immediately. . Non-Emergent Contact Non-Emergency issues call your: Primary Care Provider . "Provider Documentation" section prepared by Niko Masterson. . VTE Core Measure Inpt VTE Proph given/why not?: Ruslan Roman, SCD's
[2017-01-17] MEDS: OXYCODONE HCL IR 5 MG TAB (IMMEDIATE RELEASE) PO PRN (17:45)
[2017-01-17] MEDS: CEFAZOLIN IV 2,000 MG in DEXTROSE 5% 50ML 50 ML IV SCH (19:43)
[2017-01-17] MEDS: RANITIDINE HCL 150 MG TAB PO SCH (20:55)
[2017-01-17] MEDS: DOCUSATE SODIUM 100 MG CAP PO SCH (20:55)
[2017-01-17] MEDS ORDERED: ASPIRIN 81 MG ECTAB PO SCH (21:00)
[2017-01-17] MEDS ORDERED: ATORVASTATIN 20 MG TAB PO SCH (21:00)
[2017-01-17] MEDS: DEXAMETHASONE INJ 6 MG in SYRINGE 0 ML IV SCH (22:09)
[2017-01-18] MEDS: OXYCODONE HCL IR 5 MG TAB (IMMEDIATE RELEASE) PO PRN ×3 (01:16→12:29)
[2017-01-18] MEDS: CEFAZOLIN IV 2,000 MG in DEXTROSE 5% 50ML 50 ML IV SCH ×2 (03:09→11:22)
[2017-01-18] MEDS: SODIUM CHLORIDE 0.9% 1000ML 1,000 ML IV SCH (03:09)
[2017-01-18 03:30] VITALS: BP 109/69; PULSE 70; TEMP 36.8; O2SAT 93
[2017-01-18] MEDS: DEXAMETHASONE INJ 6 MG in SYRINGE 0 ML IV SCH (05:46)
[2017-01-18 07:32] VITALS: BP 128/74; PULSE 60; TEMP 36.6; O2SAT 93
--- NOTE | 2017-01-18 08:17 | Discharge Summary ---
Orthopedic Discharge Summary Admission Date/Reason Jan 17, 2017 at 11:15 Lumbar Spinal Stenosis. Discharge Date/Disposition Jan 18, 2017 Home Diagnosis Principal Diagnosis: Lumbar stenosis Admission Physical Exam As per Admitting History & Physical. Hospital Course Patient underwent lumbar decompression L2-3 tolerated this well as taken to the orthopedic floor postoperatively. Postoperatively his leg symptoms markedly improved. Including well. Subsequently discharged home. Discharge orders and instructions found on the chart for further review. Discharge Instructions Please refer to the electronic Patient Visit Report (Discharge Instructions) for additional information.
[2017-01-18 08:18] VITALS: O2SAT 93
[2017-01-18] MEDS: DOCUSATE SODIUM 100 MG CAP PO SCH (08:32)
[2017-01-18] MEDS: RANITIDINE HCL 150 MG TAB PO SCH (08:33)
[2017-01-18] MEDS ORDERED: PANTOprazole SOD 40 MG TAB PO SCH (09:00)
--- NOTE | 2017-01-18 10:16 | Anesthesiology Progress Note ---
Anesthesia Post Op Note Date & Time Jan 18, 2017 at 10:15 Vital Signs Pain Intensity: 4.0 Vital Signs Past 12 Hours Date Time Temp Pulse Resp B/P (MAP) Pulse Ox O2 Delivery O2 Flow Rate FiO2 01/18/17 08:18 93 Room Air 01/18/17 07:45 Room Air 01/18/17 07:32 36.6 60 14 128/74 (92) 93 Room Air 01/18/17 03:30 36.8 70 18 109/69 (82) 93 Room Air 01/18/17 00:30 Room Air 01/17/17 23:10 36.5 62 16 117/75 (89) 93 Room Air Notes Mental Status: alert / awake / arousable, participated in evaluation Pt Amnestic to Procedure: Yes Nausea / Vomiting: adequately controlled Pain: adequately controlled Airway Patency, RR, SpO2: stable & adequate BP & HR: stable & adequate Hydration State: stable & adequate Anesthetic Complications: no major complications apparent
[2017-01-18 10:25] VITALS: BP 128/74; PULSE 60; TEMP 36.6; O2SAT 93
[2017-01-18 12:26] VITALS: BP 138/84; PULSE 60; TEMP 36.6; O2SAT 93
[2017-01-19] MEDS ORDERED: BISACODYL 10 MG SUPP PR PRN (06:00)
[2017-01-19] MEDS ORDERED: BISACODYL 5 MG TABEC PO PRN (06:00)
[2017-01-19] MEDS ORDERED: POLYETHYLENE (MIRALAX) 17 GM PACK PO SCH (09:00)
== END 2017-01-18 13:55 | disposition home or self-care (01) ==
LOC: C.ACU 10:32 → C.3E 11:15 → ENRESERV 13:53
PROVIDERS: ADMIT Orthopaedic Surgery Orthopaedic Surgery of the Spine; ATTEND Orthopaedic Surgery Orthopaedic Surgery of the Spine
DX: M51.16 Intervertebral disc disorders with radiculopathy, lumbar region (principal); I10 Essential (primary) hypertension; F41.9 Anxiety disorder, unspecified; Z79.899 Other long term (current) drug therapy; M19.91 Primary osteoarthritis, unspecified site

== ENCOUNTER 2019-02-05 20:06 | Observation (INO) ==
[2019-02-05] MEDS ORDERED: MoRPHine SULFATE 4 MG/ML 1 ML CARP\\VIAL IV PRN (20:52)
[2019-02-05] MEDS ORDERED: ONDANSETRON INJ 2 MG/ML 2 ML VIAL IV STA (21:45)
[2019-02-05] MEDS ORDERED: HYDROmorphone INJ 0.5 MG/0.5 ML SYR IV PRN ×2 (21:45)
[2019-02-05] MEDS ORDERED: SODIUM CHLORIDE 0.9% 1000ML 1,000 ML IV SCH (21:45)
--- NOTE | 2019-02-05 21:51 | XRay Report ---
XR hip LT min 2V CLINICAL HISTORY: 73 years-old Male presenting with pain. TECHNIQUE: Frontal and crosstable lateral views of the left hip were obtained. COMPARISON: Plain radiographs from earlier today. FINDINGS: There has been interval dislocation of the left femoral head component of the total left hip arthropl asty. This is displaced proximally and posteriorly relative to the acetabular component. No gross mauro dence of a periprosthetic fracture. No hardware breakage. Visualized portion of the bony pelvis gross ly intact. No radiographic soft tissue abnormality. IMPRESSION: Interval dislocation of the femoral component of the total left hip arthroplasty. Electronically signed by: Carl Bai M.D. 02/05/2019 9:50 PM
[2019-02-05 21:57] LABS: Basophils # (auto) 0.04 K/uL (0-0.2); Basophils % (auto) 0.5 %; Eosinophils # (auto) 0.15 K/uL (0-0.5); Hematocrit (blood only) 45.9 % (42-52); Hemoglobin 15.9 g/dL (14.0-18.0); Immature Granulocytes # (auto) 0.01 K/uL (0.00-0.02); Immature Granulocytes % (auto) 0.1 %; Lymphocytes # (auto) 1.19 K/uL (1.2-3.4); Lymphocytes % (auto) 15.8 %; Mean Corpuscular Hemoglobin 32.7 pg (25-34); Mean Corpuscular Hgb Conc 34.6 g/dL (32-36); Mean Corpuscular Volume 94.4 fL (80-100); Mean Platelet Volume 11.5 fL (7.4-10.4); Monocytes # (auto) 0.77 K/uL (0.11-0.59); Monocytes % (auto) 10.2 %; Neutrophils # (auto) 5.37 K/uL (1.4-6.5); Neutrophils % (auto) 71.4 %; Platelet Count 174 K/uL (130-400); RDW Coefficient of Variation 12.9 % (11.5-14.5); RDW Standard Deviation 44.3 fL (36.4-46.3); Red Blood Count 4.86 M/uL (4.7-6.1); White Blood Count 7.53 K/uL (4.8-10.8)
[2019-02-05 22:05] LABS: Partial Thromboplastin Ratio 0.9; Partial Thromboplastin Time 24.2 Seconds (21.0-31.0); Prothrombin Time 10.7 Seconds (9.0-12.0)
[2019-02-05 22:11] LABS: BUN Creatinine Ratio 20.8 (10-20); Calcium 8.8 mg/dl (8.5-10.1); Creatinine Clr Calc Pharmacy 73.8 ml/min; Est GFR (Non-African American) 78.5; Potassium 4.2 mmol/L (3.5-5.1)
--- NOTE | 2019-02-05 22:59 | History & Physical Report ---
Date of Service February 05, 2019 History of Present Illness Primary Care Provider: Mr. Urias is a 73-year-old male who is a patient of Dr. Small who previously underwent a left total hip arthroplasty back in 2017. Since then, he has now had 4 dislocations of this left total hip, and this is the second 1 today. He previously had dislocations in February and March 2018. He then had a third dislocation earlier today while bending over to sand some panels on his truck. He was successfully reduced under conscious sedation in the emergency department. He then went home and got in the shower, and when he was drying off from the shower, he bent over and the hip dislocated again. He last ate at approximately 8:00 this morning. Allergies Allergy/AdvReac Type Severity Reaction Status Date / Time No Known Allergies Allergy Verified 02/05/19 17:13 Home Medications Home Medications Medication Instructions Recorded Confirmed Type aspirin 81 mg PO HS 03/19/18 02/05/19 History ascorbic acid (vitamin C) [Vitamin 500 mg PO QAM 02/05/19 02/05/19 History C] atorvastatin 40 mg PO HS 02/05/19 02/05/19 History cholecalciferol (vitamin D3) 1,000 unit PO QAM 02/05/19 02/05/19 History [Vitamin D3] citalopram 20 mg PO HS 02/05/19 02/05/19 History fluticasone propionate [Flonase 2 spray INTRANASAL DAILY PRN 02/05/19 02/05/19 History Allergy Relief] hydrocortisone acetate 25 mg [place] HS PRN 02/05/19 02/05/19 History mirtazapine 7.5 mg PO HS 02/05/19 02/05/19 History vitamin B complex 1 tab PO QAM 02/05/19 02/05/19 History Past Med/Surg History Social History Preferred Language: Arabic Communication Ability: Effective Equine Vet Required: No Beliefs That Will Affect Care: None Current Living Situation: Alone Feels Safe at Home: Yes Smoking Status: Never smoker Second Hand Exposure: No ; Hx Alcohol Use: Yes Alcohol type: wine Hx Substance Use: No Physical Exam Musculoskeletal: Hip: + hip abnormal to inpsection, + deformity and + surgical incision His left leg is shortened and internally rotated. Motor and sensory function is intact in the superficial peroneal, deep peroneal, and tibial nerve distributions. Results & Data Vital Signs (Past 12 Hours) Vital Signs Temp Pulse Pulse Resp BP BP Pulse Ox 02/05/19 22:40 63 18 131/66 98 02/05/19 21:29 68 18 131/66 94 02/05/19 20:12 36.7 C 67 20 131/66 96
--- NOTE | 2019-02-06 00:19 | Anesthesiology Consultation ---
Date of Service February 06, 2019 Assessment & Plan (1) Encounter for pre-operative examination: Chart Review Chart Review: Acceptable Risk for Surgery and Patient NOT seen in Pre Admission Testing Consults Requested none History Surgery Operation Date: 02/05/19 22:45 Proposed Procedures p Closed Reduction Extremity(Left) - Colten Mar M.D. Height/Weight Height: 5 ft 7 in Weight: 92 kg Allergies Allergy/AdvReac Type Severity Reaction Status Date / Time No Known Allergies Allergy Verified 02/05/19 17:13 Medications Home Medications Medication Instructions Recorded Confirmed Last Taken aspirin 81 mg PO HS 03/19/18 02/05/19 02/04/19 ascorbic acid (vitamin C) [Vitamin 500 mg PO QAM 02/05/19 02/05/19 02/05/19 C] atorvastatin 40 mg PO HS 02/05/19 02/05/19 02/04/19 cholecalciferol (vitamin D3) 1,000 unit PO QAM 02/05/19 02/05/19 02/05/19 [Vitamin D3] citalopram 20 mg PO HS 02/05/19 02/05/19 02/04/19 fluticasone propionate [Flonase 2 spray INTRANASAL DAILY PRN 02/05/19 02/05/19 Unknown Allergy Relief] hydrocortisone acetate 25 mg [place] HS PRN 02/05/19 02/05/19 Unknown mirtazapine 7.5 mg PO HS 02/05/19 02/05/19 02/04/19 vitamin B complex 1 tab PO QAM 02/05/19 02/05/19 02/04/19 Active Medications Generic Name Dose Route Start Last Admin Trade Name Supaq PRN Reason Stop Dose Admin Hydromorphone HCl 0.5 mg 02/05/19 21:45 02/05/19 21:52 Dilaudid IV 02/19/19 21:44 0.5 mg Q20M PRN Administration Severe Pain (Rating 7,8,9,10) Sodium Chloride 1,000 mls @ 75 mls/hr 02/05/19 21:45 02/05/19 21:52 Nss 1000ml IV 02/06/19 11:04 75 mls/hr .[id number] JOYCE Administration Morphine Sulfate 4 mg 02/05/19 20:52 02/05/19 20:54 Morphine Sulfate IV 02/19/19 20:51 4 mg Q1H PRN Administration Severe Pain (Rating 7,8,9,10) NPO Date Last Intake of Fluids: 02/05/19 Time Last Intake of Fluids: 17:30 Date Last Intake of Solids: 02/05/19 Time Last Intake of Solids: 08:30 Past Medical History Medical History Dyslipidemia (Chronic) GERD (gastroesophageal reflux disease) (Chronic) HTN (hypertension) (Chronic) "DENIES" Anxiety Depression Dislocation, hip LEFT HIP (HX OF) GERD (gastroesophageal reflux disease) Osteoarthritis Past Family History Family History Other No significant family history Past Surgical History Surgical History H/O eye surgery LEFT EYE (METAL REMOVAL) Herniated disc LUMBAR REPAIRED "L3 LEVEL" History of arthroscopy LEFT KNEE MENISCUS REPAIR History of cardiac cath (NO STENTS/WNL) History of colonoscopy History of esophagogastroduodenoscopy (EGD) History of herniorrhaphy UMBILICAL Grade 3 view Mac 3 History of knee surgery RT (GROWTH REMOVAL) History of nasal septoplasty History of tonsillectomy History of tooth extraction History of total hip arthroplasty LEFT S/P FRACTURE History of total shoulder replacement RT REVERSAL Social History Smoking Status: Never smoker Hx Alcohol Use: Yes Alcohol type: wine alcohol intake frequency: holidays/special occasions only Hx Substance Use: No substance use type: does not use Physical Exam Vital Signs Last Vital Signs Temp 36.7 C 02/05/19 20:12 Pulse 63 02/05/19 22:40 Resp 18 02/05/19 22:40 BP 131/66 02/05/19 22:40 Pulse Ox 98 02/05/19 22:40 Testing Laboratory Results 02/05/19 20:27 02/05/19 20:27 PT 10.7 Seconds (9.0-12.0) 02/05/19 20:27 INR 1.0 (0.9-1.1) 02/05/19 20:27 APTT 24.2 Seconds (21.0-31.0) 02/05/19 20:27 Blood Type O Positive 02/05/19 22:35 Antibody Screen NEGATIVE 02/05/19 22:35
[2019-02-06] MEDS ORDERED: ONDANSETRON INJ 2 MG/ML 2 ML VIAL IV PRN (00:20)
[2019-02-06] MEDS ORDERED: ePHEDrine sulfate 50 MG/ML AMP IV PRN (00:20)
[2019-02-06] MEDS ORDERED: fentaNYL citrate 100 MCG/2 ML VIAL IV PRN (00:20)
[2019-02-06] MEDS ORDERED: PHENYLEPHRINE 100MCG/ML 5ML SYR IV PRN (00:20)
[2019-02-06] MEDS ORDERED: ATROPINE SULFATE 0.1 MG/ML 10ML SYR IV PRN (00:20)
[2019-02-06] MEDS ORDERED: MEPERIDINE HCL 25 MG/ML CARP IV PRN (00:20)
[2019-02-06] MEDS ORDERED: LABETALOL HCL IV 5 MG/ML 20ML IV PRN (00:20)
[2019-02-06] MEDS ORDERED: fentaNYL citrate 100 MCG/2 ML VIAL ONE (00:25)
[2019-02-06] MEDS ORDERED: SUCCINYLCHOLINE CHLORIDE 20 MG/ML 10 ML VIAL ONE (00:39)
[2019-02-06] MEDS ORDERED: PROPOFOL IV EMULSION 10 MG/ML 20 ML VIAL IV ONE (00:39)
[2019-02-06] MEDS ORDERED: LIDOCAINE HCL 2% 2 ML VIAL/AMP(20MG/ML) INFIL ONE (00:39)
[2019-02-06] MEDS ORDERED: ePHEDrine sulfate 50 MG/ML SYR ONE (00:41)
--- NOTE | 2019-02-06 00:46 | Post Operative Brief Note ---
Immediate Post Op Note v1 Date of Surgery February 06, 2019 Pre & Post Diagnosis Operation Date: 02/05/19 22:45 Pre-Op Diagnosis: Left Total Hip DISLOCATION Post-Op Diagnosis: Left Total Hip DISLOCATION Procedure Operation Date: 02/05/19 22:45 Actual Procedures Closed Reduction of Dislocated Left Total Hip Replacement - Colten Mar M.D. Surgeon Colten Mar Call Center Operator None Estimated Blood Loss 0 Findings Consistent with Post-Op Diagnosis
--- NOTE | 2019-02-06 01:03 | Operative Report ---
Post Operative Report Pre & Post Diagnosis Operation Date: 02/05/19 22:45 Pre-Op Diagnosis: Dislocation of left total hip arthroplasty Post-Op Diagnosis: Dislocation of left total hip arthroplasty Procedure Operation Date: 02/05/19 22:45 Actual Procedures Closed reduction of dislocated left total hip arthroplasty - Colten Mar M.D. Surgeon Colten Mar Assistant Softball Coach None Estimated Blood Loss 0 Findings Consistent with Post-Op Diagnosis Specimens None Drains None Anesthesia Type General Complications none Disposition Disposition: Recovery Room Indications Mr. Lin is a 73-year old patient of Dr. Clayton's who previously underwent a left total hip arthroplasty back in 2017. Since then, he has dislocated 4 times, and this is his second dislocation today. Repeat close reduction was rec ommended. Risks, benefits, and alternatives to the procedure were explained in detail. He understood and wished to proceed. Description of Procedure The patient was identified in the preoperative holding area. Operative extremity was marked. He was then brought back to the operating room and placed supine on the operating room table. General anesthesia was induced without complication. Once adequate anesthesia had been obtained, I then had an bar assistant hold countertraction pressure on the pelvis. I then flexed the hip to 90 degrees and pulled longitudinal traction while gently internally rotating the hip. The hip reduced without significant difficulty. It remained located. AP and crosstable lateral fluoroscopic images were obtained to verify reduction of the implant without any implant complications such as displacement. The hip was brought out to full extension, and a knee immobilizer placed across the knee. He was then placed in a hip abduction pillow. Patient was then awakened from general anesthesia, transferred to the stretcher, and taken to the postanesthesia care unit in stable condition. There are no immediate c omplications to the procedure. I was present for the entire procedure. I attest to the content of the Intraoperative Record and any orders documented therein. Any exceptions are noted below.
--- NOTE | 2019-02-06 01:07 | Anesthesiology Progress Note ---
Date of Service February 06, 2019 Anesthesia Post Procedure Vital Signs Vital Signs: Temp Pulse Pulse Resp BP BP Pulse Ox 02/06/19 00:55 36.8 C 84 16 116/64 94 02/05/19 22:40 63 18 131/66 98 02/05/19 21:29 68 18 131/66 94 02/05/19 20:12 36.7 C 67 20 131/66 96 Pain Intensity Hip: Pain Intensity: 2 Transfer of Care Handoff Completed per policy Notes Mental Status: alert / awake / arousable Patient Amnestic to Procedure: Yes Nausea / Vomiting: adequately controlled Pain: adequately controlled Airway Patency, RR, SpO2: stable & adequate BP & HR: stable & adequate Hydration State: stable & adequate Anesthetic Complications: no major complications apparent and Pt Satisfied with anesthetic care
[2019-02-06] MEDS ORDERED: OXYCODONE/ACETAMINOPHEN 5mg/325mg TAB PO PRN (02:15)
[2019-02-06] MEDS ORDERED: HYDROCORTISONE ACETATE 25 MG SUPP PR PRN (02:15)
[2019-02-06] MEDS ORDERED: FLUTICASONE PROPIONATE NA SPR 16 GM BTL PRN (02:15)
--- NOTE | 2019-02-06 02:39 | Emergency Department Note ---
Entered by Juana Latif acting as a scribe for ED Provider Note CHIEF COMPLAINT: Left hip pain HISTORY OF PRESENT ILLNESS: The patient is a 73 year old male who presents to the Emergency Room with complaints of constant left hip pain starting 3 hours ago. The patient states he was in the ED earlier today because his hip was dislocated. He states he had the hip put back in in the ED and then was discharged. He states he went home, went in the shower, lifted his left leg, and then it popped back out. He states his hip has popped out 4 times now and his orthopedic surgeon, Dr. Clayton, stated he should get surgery after the second time. He states he has never gotten surgery to fix his recurrent dislocations. He rates his pain as a 9 out of 10 with movement. He states his PCP is Isabel Mccabe. He notes he had a isabel crispin at 1700. Pt denies LOC, headache, fevers, chills, diaphoresis, visual changes, neck pain, chest pain, breathing difficulties, nausea, vomiting, abdominal pain, back pain, melena, hematochezia, urinary symptoms, numbness, weakness, lymphadenopathy, rash, or other complaints. REVIEW OF SYSTEMS: See HPI for pertinent positives and negatives. A total of ten systems were reviewed and were otherwise negative. PMHx/PSHx: Chronic low back pain, tonsillectomy, septoplasty, cardiac catheterization, GERD, HTN, dyslipidemia, DJD of shoulder SOCIAL HISTORY: Patient lives at home. PHYSICAL EXAM: GENERAL: Awake, alert, very uncomfortable-appearing, in no distress HENT: Normocephalic, atraumatic. Oropharynx unremarkable. EYES: PERRL. Normal conjunctiva. Sclera non-icteric. NECK: Inspection normal. Non-tender. Supple. No nuchal rigidity. FROM. No masses. RESPIRATORY: Clear to auscultation. No wheezes. No rales. Normal respiratory effort. CARDIAC: Normal rate. Normal rhythm. No murmurs. No rubs. Extremities warm and well perfused. Pulses equal. No JVD. GI: Soft, non-distended. No tenderness to palpation. No rebound or guarding. No masses. RECTAL: Deferred. MUSCULOSKELETAL: Atraumatic. Chest examination reveals no tenderness. The back is symmetrical on inspection without obvious abnormality. There is no CVA tenderness to palpation. No joint edema. LOWER EXTREMITIES: Calves are equal size bilaterally and non-tender. No edema. No discoloration. Shortening internal rotation of left leg. Significant tenderness of the left hip. NEURO: Normal sensorium. No sensory or motor deficits noted. SKIN: No rash or jaundice noted. EMERGENCY DEPARTMENT COURSE: 2139: Past medical records reviewed. The patient was evaluated in room B9, and a complete history and physical examination were performed. X-ray imaging performed and confirms dislocation. 2149: I spoke with Dr. Colten Mar - Orthopedics. He agrees with the plan to admit and treat the patient. MEDICAL DECISION MAKING: Prior records reviewed and summarized above. Triage Nursing notes reviewed and agree them. The patient's history was concerning for hip pain. Differential diagnosis: Etiologies such as fracture, dislocation, neurovascular compromise, compartment syndrome, soft tissue injury, as well as others were entertained. Physical examination: Consistent with an isolated hip location injury. ER treatment provided: IV lock Zofran 4mg IV Morphine 4 mg IV IV Dilaudid NPO Bedrest On reassessment the patient felt better. Diagnostics interpreted by me: The labs revealed an unremarkable CBC, coags, and chemistry panel. Imaging studies: X-ray imaging reveals left hip dislocation The patient has recurrent left hip dislocation. This is the fourth dislocation on his THR. Unfortunately due to the extreme volume in the emergency department the patient will have to be brought into the hospital under the care of orthopedics anesthesia for further management. Analgesia was given in the emergency department and consultation placed with orthopedics. Consultation: A consultation was placed with orthopedics. The case was discussed and diagnostics were reviewed. The patient was admitted for further treatment. IMPRESSION: Hip dislocation PLAN: Admitted The scribe's documentation has been prepared under my direction and personally reviewed by me in its entirety. I confirm that the note above accurately reflects all work, treatment, procedures, and medical decision making performed by me. Impression & Plan Hip dislocation, left Past Med/Surg History Medical History Dyslipidemia (Chronic) GERD (gastroesophageal reflux disease) (Chronic) HTN (hypertension) (Chronic) "DENIES" Anxiety Depression Dislocation, hip LEFT HIP (HX OF) GERD (gastroesophageal reflux disease) Osteoarthritis Surgical History H/O eye surgery LEFT EYE (METAL REMOVAL) Herniated disc LUMBAR REPAIRED "L3 LEVEL" History of arthroscopy LEFT KNEE MENISCUS REPAIR History of cardiac cath (NO STENTS/WNL) History of colonoscopy History of esophagogastroduodenoscopy (EGD) History of herniorrhaphy UMBILICAL Grade 3 view Mac 3 History of knee surgery RT (GROWTH REMOVAL) History of nasal septoplasty History of tonsillectomy History of tooth extraction History of total hip arthroplasty LEFT S/P FRACTURE History of total shoulder replacement RT REVERSAL Family History Other No significant family history Social History Preferred Language: Haitian Communication Ability: Effective Supervisor Treating And Pumping Required: No Beliefs That Will Affect Care: None Current Living Situation: Alone Other Information That Helps Us Care for You: No Feels Safe at Home: Yes Safety Concerns: Feels Safe At This Time Smoking Status: Never smoker Second Hand Exposure: No ; Hx Alcohol Use: Yes Alcohol type: wine Hx Substance Use: No Results & Data Vital Signs Vital Signs - 24 hr 02/05/19 20:12 02/05/19 21:29 02/05/19 22:40 Temperature 36.7 C Temperature Source Oral Sepsis Recent Fever Within 48 Hours No Sepsis Action Taken by Nursing No Action Required Pulse Rate 67 Pulse Rate [Right Finger] 68 63 Pulse Rhythm Regular Pulse Rhythm [Right Finger] Regular Regular Pulse Strength Normal Pulse Strength [Right Finger] Normal Normal Respiratory Rate 20 18 18 Respiratory Effort / Characteristics Non-Labored Spontaneous Non-Labored Spontaneous Non-Labored Spontaneous Respiratory Depth Normal Normal Normal Respiratory Pattern Regular Blood Pressure 131/66 Blood Pressure [Right Arm] 131/66 131/66 Blood Pressure Mean 87 Blood Pressure Mean [Right Arm] 87 87 Blood Pressure Position Sitting Blood Pressure Position [Right Arm] Pulse Oximetry 96 94 98 Oxygen Delivery Method Room Air Room Air Room Air Oxygen Flow Rate 02/06/19 00:55 02/06/19 01:05 02/06/19 01:15 Temperature 36.8 C Temperature Source Oral Sepsis Recent Fever Within 48 Hours Sepsis Action Taken by Nursing Pulse Rate Pulse Rate [Right Finger] 84 80 76 Pulse Rhythm Pulse Rhythm [Right Finger] Regular Regular Regular Pulse Strength Pulse Strength [Right Finger] Normal Normal Normal Respiratory Rate 16 16 16 Respiratory Effort / Characteristics Non-Labored Non-Labored Non-Labored Respiratory Depth Normal Normal Normal Respiratory Pattern Blood Pressure Blood Pressure [Right Arm] 116/64 115/79 118/69 Blood Pressure Mean Blood Pressure Mean [Right Arm] 81 91 85 Blood Pressure Position Blood Pressure Position [Right Arm] Lying Lying Lying Pulse Oximetry 94 95 95 Oxygen Delivery Method Nasal Cannula Nasal Cannula Nasal Cannula Oxygen Flow Rate 2 2 2 02/06/19 01:25 Temperature Temperature Source Sepsis Recent Fever Within 48 Hours Sepsis Action Taken by Nursing Pulse Rate Pulse Rate [Right Finger] 68 Pulse Rhythm Pulse Rhythm [Right Finger] Regular Pulse Strength Pulse Strength [Right Finger] Normal Respiratory Rate 16 Respiratory Effort / Characteristics Non-Labored Respiratory Depth Normal Respiratory Pattern Blood Pressure Blood Pressure [Right Arm] 105/72 Blood Pressure Mean Blood Pressure Mean [Right Arm] 83 Blood Pressure Position Blood Pressure Position [Right Arm] Lying Pulse Oximetry 96 Oxygen Delivery Method Nasal Cannula Oxygen Flow Rate 2 Home Medications Current Medication List: was personally reviewed by me Laboratory Data Attestation: I reviewed the patient's lab results. Result diagrams: 02/05/19 20:27 02/05/19 20:27 Lab Results 02/05/19 02/05/19 02/05/19 Range/Units 20:27 20:27 20:27 WBC 7.53 (4.8-10.8) K/uL RBC 4.86 (4.7-6.1) M/uL Hgb 15.9 (14.0-18.0) g/dL Hct 45.9 (42-52) % MCV 94.4 (80-100) fL MCH 32.7 (25-34) pg MCHC 34.6 (32-36) g/dL RDW Std Deviation 44.3 (36.4-46.3) fL RDW Coeff of Tom 12.9 (11.5-14.5) % Plt Count 174 (130-400) K/uL MPV 11.5 H (7.4-10.4) fL Immature Gran % (Auto) 0.1 % Neut % (Auto) 71.4 % Lymph % (Auto) 15.8 % Petroleum % (Auto) 10.2 % Eos % (Auto) 2.0 % Baso % (Auto) 0.5 % Immature Gran # (Auto) 0.01 (0.00-0.02) K/uL Neut # (Auto) 5.37 (1.4-6.5) K/uL Lymph # (Auto) 1.19 L (1.2-3.4) K/uL Petroleum # (Auto) 0.77 H (0.11-0.59) K/uL Eos # (Auto) 0.15 (0-0.5) K/uL Baso # (Auto) 0.04 (0-0.2) K/uL PT 10.7 (9.0-12.0) Seconds INR 1.0 (0.9-1.1) APTT 24.2 (21.0-31.0) Seconds PTT Ratio 0.9 Sodium 140 (136-145) mmol/L Potassium 4.2 (3.5-5.1) mmol/L Chloride 110 H (98-107) mmol/L Carbon Dioxide 26 (21-32) mmol/L Anion Gap 5.0 (3-11) BUN 20 H (7-18) mg/dl Creatinine 0.95 (0.6-1.4) mg/dl Est Cr Clr Drug Dosing 73.8 ml/min Est GFR ( Amer) 91.0 Est GFR (Non-Af Amer) 78.5 BUN/Creatinine Ratio 20.8 H (10-20) Glucose 95 (70-99) mg/dl Calcium 8.8 (8.5-10.1) mg/dl Blood Type Antibody Screen 02/05/19 Range/Units 22:35 WBC (4.8-10.8) K/uL RBC (4.7-6.1) M/uL Hgb (14.0-18.0) g/dL Hct (42-52) % MCV (80-100) fL MCH (25-34) pg MCHC (32-36) g/dL RDW Std Deviation (36.4-46.3) fL RDW Coeff of Tom (11.5-14.5) % Plt Count (130-400) K/uL MPV (7.4-10.4) fL Immature Gran % (Auto) % Neut % (Auto) % Lymph % (Auto) % Petroleum % (Auto) % Eos % (Auto) % Baso % (Auto) % Immature Gran # (Auto) (0.00-0.02) K/uL Neut # (Auto) (1.4-6.5) K/uL Lymph # (Auto) (1.2-3.4) K/uL Petroleum # (Auto) (0.11-0.59) K/uL Eos # (Auto) (0-0.5) K/uL Baso # (Auto) (0-0.2) K/uL PT (9.0-12.0) Seconds INR (0.9-1.1) APTT (21.0-31.0) Seconds PTT Ratio Sodium (136-145) mmol/L Potassium (3.5-5.1) mmol/L Chloride (98-107) mmol/L Carbon Dioxide (21-32) mmol/L Anion Gap (3-11) BUN (7-18) mg/dl Creatinine (0.6-1.4) mg/dl Est Cr Clr Drug Dosing ml/min Est GFR ( Amer) Est GFR (Non-Af Amer) BUN/Creatinine Ratio (10-20) Glucose (70-99) mg/dl Calcium (8.5-10.1) mg/dl Blood Type O Positive Antibody Screen NEGATIVE Administered Medications Discontinued Medications Hydromorphone HCl (Dilaudid) 0.5 mg IV Q20M PRN PRN Reason: Severe Pain (Rating 7,8,9,10) Stop: 02/19/19 21:44 Last Admin: 02/05/19 21:52 Dose: 0.5 mg Documented by: [id number] Sodium Chloride (Nss 1000ml) 1,000 mls @ 75 mls/hr IV .[id number] Stop: 02/06/19 11:04 Last Infusion: 02/06/19 02:33 Dose: 0 mls/hr Documented by: [id number] Admin: 02/05/19 21:52 Dose: 75 mls/hr Documented by: [id number] Morphine Sulfate (Morphine Sulfate) 4 mg IV Q1H PRN PRN Reason: Severe Pain (Rating 7,8,9,10) Stop: 02/19/19 20:51 Last Admin: 02/05/19 20:54 Dose: 4 mg Documented by: [id number] Ondansetron HCl (Zofran) 4 mg IV NOW STA Stop: 02/05/19 21:46 Last Admin: 02/05/19 21:52 Dose: 4 mg Documented by: [id number] Imaging Data Radiologist's Impression: Radiology results as stated below per my review and the radiologist's interpretation: XR hip LT min 2V CLINICAL HISTORY: 73 years-old Male presenting with pain. TECHNIQUE: Frontal and crosstable lateral views of the left hip were obtained. COMPARISON: Plain radiographs from earlier today. FINDINGS: There has been interval dislocation of the left femoral head component of the total left hip arthroplasty. This is displaced proximally and posteriorly relative to the acetabular component. No gross evidence of a periprosthetic fracture. No hardware breakage. Visualized portion of the bony pelvis grossly intact. No radiographic soft tissue abnormality. IMPRESSION: Interval dislocation of the femoral component of the total left hip arthroplasty. Electronically signed by: Carl Bai M.D. 02/05/2019 9:50 PM Blood Pressure Blood Pressure Findings: Elevated blood pressure Blood Pressure Disposition: further management by hospitalist Discharge Plan Visit Data *Final* Discharge Date/Time: 02/05/19 23:42 Chief Complaint: Hip Pain Stated Complaint: HIP DISLOCATION ED Provider: Reymundo Gibbs Discharge Problem: Hip dislocation, left Patient Disposition: Admitted As Inpatient Discharge Instructions Interventions: ED Discharge Assessment Last Done: 02/05/19 22:42 Discharge Problem: Hip dislocation, left Qualifiers: Encounter type: subsequent encounter Qualified Code(s): S73.005D - Unspecified dislocation of left hip, subsequent encounter The scribe's documentation has been prepared under my direction and personally reviewed by me in its entirety. I confirm that the note above accurately reflects all work, treatment, procedures, and medical decision making performed by me.
--- NOTE | 2019-02-06 07:40 | XRay Report ---
XR hip 1V LT w pelvis CLINICAL HISTORY: s/p reduction of dislocated left total hip COMPARISON STUDY: Left hip 02/05/2019. FINDINGS: Status post reduction of the left hip prosthesis. Alignment appears intact. No fracture or dislocation within the pelvis or hips. Posterior calcifications are noted. Mild soft tissue swelling within the left lateral hip. IMPRESSION: Status post reduction of the left hip prosthesis. No fracture or dislocation. Electronically signed by: Pepe Britton M.D. 02/06/2019 7:39 AM
--- NOTE | 2019-02-06 07:49 | Fluoroscopy Report ---
INTRAOPERATIVE RADIOGRAPHS CLINICAL HISTORY: Closed reduction of the left hip. Fluoroscopy time: 6 seconds. FINDINGS: 2 spot fluoroscopic views of the left hip are correlated with radiographs dated 02/05/2019. T here has been successful reduction of the dislocated left hip arthroplasty. There is no evidence of f racture on the provided fluoroscopic views. IMPRESSION: Intraoperative images as above. Electronically signed by: Rubén De Jesus M.D. 02/06/2019 7:48 AM
[2019-02-06] MEDS ORDERED: ASCORBIC ACID 500 MG TAB PO SCH (09:00)
[2019-02-06] MEDS ORDERED: CHOLECALCIFEROL 1,000 UNITS TAB PO SCH (09:00)
[2019-02-06] MEDS ORDERED: VITAMIN B COMPLEX TAB PO SCH (09:00)
--- NOTE | 2019-02-06 12:50 | Discharge Summary ---
Date of Service February 06, 2019 Admission HPI Per Admitting Provider Mr. Urias is a 73-year-old male who previously underwent a left total hip arthroplasty by Dr. Saulo chang back in 2014. He has sustained 4 dislocations of his total hip since the surgery. He dislocated twice on the date of admission on February 05. The first time he dislocated it, he underwent a closed reduction in the emergency department. He then went home and took a shower. He was drying off when his hip dislocated again. He then re-presented to the emergency department for further care. Principal Diagnosis Dislocated left total hip arthroplasty Discharge Exam Musculoskeletal Extremities: no leg length discrepancy, leg not internally rotated, leg not foreshortened and no lower leg abnormality Left hip returned to normal position after reduction. Discharge Data Allergies Allergy/AdvReac Type Severity Reaction Status Date / Time No Known Allergies Allergy Verified 02/05/19 17:13 Procedures Performed Operation Date: 02/05/19 22:45 Actual Procedures Closed Reduction of Left Total Hip Arthroplasty - Colten Mar M.D. Ordered Studies 02/05/19 22:29 FL fluoroscopy <1hr Routine FL hip LT 2-3V Routine Hospital Course (1) Hip dislocation, left: Patient was taken to the operating room and under general anesthetic, the hip was relocated without difficulty. Postreduction fluoroscopic images showed concentric reduction of the hip joint. The patient was then transferred up to the general orthopedic surgery floor in stable condition. Postoperative day 1, he had minimal pain in his hip. He is tolerating regular diet. He is able to ambulate. He was determined to be safe and ready for discharge to home. Total Time Total Time Spent Total Time Spent (In Minutes): 20 Discharge Plan Discharge Items Patient Disposition: Home - Self-Care Reason For Visit: DISLOCATED LEFT TOTAL HIP Discharge Diagnosis: Dislocation of left total hip replacement Condition: Good Discharge Goals: Improve function Activity: Per 'Additional Instructions' section Lifting: Wait until after follow-up appointment Bathing: No limitations Sexual Activity: Wait until after follow-up appointment Exercise/Sports: Wait until after follow-up appointment Driving/Machine Use: No limitations Weightbearing: Full weightbearing Weightbearing Comment: Keep the knee immobilizer or the hip abduction brace on at all times Non-emergency contact: Surgeon Call non-emergency contact if: your symptoms worsen Follow-up/Referrals: Isabel Mccabe PACherriC [Primary Care Provider] - Diet: Regular Addtl Provider Instructions: Maintain total hip precautions: do not flex your left hip past 90 degrees, cross your left leg past midline, or internally rotate your left hip. If bending at the waist, make sure your legs are spread wide apart and your toes are pointed outward. When laying in bed, place the hip abduction pillow between your legs and place the knee immobilizer across your left knee. When out of bed, keep either the knee immobilizer across your left knee or the hip abduction brace in place at all times. Follow up with Dr. Rylan Thorpe at [facility] within 1 week. Call [phone] to schedule an appointment. Prescriptions: No Action aspirin 81 mg Tablet,Delayed Release (Dr/Ec) 81 mg PO HS RF: 0 ascorbic acid (vitamin C) [Vitamin C] 500 mg Tablet 500 mg PO QAM RF: 0 cholecalciferol (vitamin D3) [Vitamin D3] 1,000 unit Capsule 1,000 unit PO QAM RF: 0 atorvastatin 80 mg Tablet 40 mg PO HS RF: 0 citalopram 40 mg Tablet 20 mg PO HS RF: 0 mirtazapine 15 mg Tablet 7.5 mg PO HS RF: 0 vitamin B complex Tablet 1 tab PO QAM RF: 0 fluticasone propionate [Flonase Allergy Relief] 50 mcg/actuation [place],Suspension 2 spray INTRANASAL DAILY PRN (Reason: Allergy Symptoms) RF: 0 hydrocortisone acetate 25 mg Suppository 25 mg VA HS PRN (Reason: Bleeding) RF: 0 Stand-Alone Forms: [facility] Discharge Orders: Discharge Order (Routine); Ordered 02/06/19 Ordered By: Colten Mar Admission Data Admit Date/Time: 02/06/19 01:28 Attending Provider: Colten Mar Admit Provider: Colten Mar Primary Care Provider: Isabel Mccabe Service: Surgical Services
[2019-02-06 14:12] LABS: Appearance Urine Clear (Clear); Bilirubin Urine Negative (Negative); Blood Urine Negative (Negative); Color Urine Yellow; Glucose Urine UA Negative (Negative); Ketones Urine Negative (Negative); Leukocyte Esterase Urine Negative (Negative); Nitrite Urine Negative (Negative); Protein Urine Negative (Negative); Specific Gravity Urine 1.016 (1.000-1.030); Urobilinogen Urine Negative (Negative)
[2019-02-06] MEDS ORDERED: ASPIRIN 81 MG ECTAB PO SCH (21:00)
[2019-02-06] MEDS ORDERED: MIRTAZAPINE TAB 15 MG TAB PO SCH (21:00)
[2019-02-06] MEDS ORDERED: ATORVASTATIN 40 MG TAB PO SCH (21:00)
[2019-02-06] MEDS ORDERED: CITALOPRAM 40 MG TAB PO SCH (21:00)
== END 2019-02-06 15:35 | disposition home or self-care (01) ==
LOC: ED 20:06 → ASU 23:42 → 3N 23:42

== ENCOUNTER 2020-02-02 06:19 | Inpatient (IN) ==
--- NOTE | 2020-01-23 11:21 | Anesthesiology Consultation ---
Date of Service January 23, 2020 Assessment & Plan (1) Encounter for pre-operative examination: Chart Review Chart Review: Acceptable Risk for Surgery (pending preop Covid testing ) and Patient NOT seen in Pre Admission Testing Pt initially scheduled for left hip revision arthroplasty in August 2019 but was rescheduled due to Covid Due to system issues- only able to obtain EKG reading from 08/06/19- secretaries will try to obtain tracing prior to surgery. Per nursing assessment 01/23/2020, patient resides in [facility]. Traveled to [facility] to [place] to visit family >3 weeks ago. No known Covid positive contacts or Covid related symptoms. Pt's nephew (who he has occasional contact with) works at residential as a cook. Does have contact with inmates but wears mask. Did have Covid positive case several weeks ago but employee was quarantined and cleared back to work at this time. Pt's nephew tested per work protocol- tested negative. Pt scheduled for preop Covid test 01/28/20- did instruct patient to limit contact with nephew from time of Covid test until after surgery. Patient seen for medical clearance 08/08/2019 = "Patient is medically cleared." Seen by cardio 07/21/2019 = seen for follow-up on hypertension and cardiac risk factors. Hypertension is being monitored with no presence currently. Stress test February 2019 without ischemia and normal LV systolic function." No contraindications to hip surgery if indicated or planned." Follow-up in 6 months History Surgery Operation Date: 02/02/20 07:00 Proposed Procedures p Left Total Hip Revision Arthroplasty, Head and Liner Exchange, Constrained Possible Acetabulum - Rylan Thorpe DO Height/Weight Height: 5 ft 7 in Weight: 91.626 kg Allergies Allergy/AdvReac Type Severity Reaction Status Date / Time No Known Allergies Allergy Verified 01/23/20 10:14 Medications Home Medications Medication Instructions Recorded Confirmed Last Taken aspirin 81 mg PO HS 03/19/18 01/23/20 02/04/19 ascorbic acid (vitamin C) [Vitamin 500 mg PO DAILY PRN 02/05/19 01/23/20 02/05/19 C] atorvastatin 40 mg PO HS 02/05/19 01/23/20 02/04/19 cholecalciferol (vitamin D3) 1,000 unit PO QAM 02/05/19 01/23/20 02/05/19 [Vitamin D3] citalopram 20 mg PO HS 02/05/19 01/23/20 02/04/19 fluticasone propionate [Flonase 2 spray INTRANASAL DAILY PRN 02/05/19 01/23/20 Unknown Allergy Relief] mirtazapine 7.5 mg PO HS 02/05/19 01/23/20 02/04/19 vitamin B complex 1 tab PO QAM 02/05/19 01/23/20 02/04/19 omeprazole 20 mg PO DAILY PRN 07/21/19 01/23/20 Unknown azelastine 1 spray INTRANASAL BID PRN 01/23/20 01/23/20 Unknown famotidine 20 mg PO HS 01/23/20 01/23/20 Unknown multivitamin 1 tab PO DAILY 01/23/20 01/23/20 Unknown phenyleph-shark [id number] 1 applic CA BID PRN 01/23/20 01/23/20 Unknown [Preparation H] Past Medical History Medical History Anxiety and depression Dyslipidemia GERD (gastroesophageal reflux disease) occasional HTN (hypertension) per records/patient denies Obesity Osteoarthritis Past Family History Family History Other No significant family history Past Surgical History Surgical History H/O eye surgery LEFT EYE (METAL REMOVAL) History of arthroscopy LEFT KNEE MENISCUS REPAIR History of back surgery LUMBAR SURGERY History of cardiac cath (NO STENTS/WNL) History of colonoscopy History of esophagogastroduodenoscopy (EGD) History of herniorrhaphy UMBILICAL/INGUINAL History of hip surgery Closed reduction, left hip: 02/06/19: LMA#5 at [facility] History of knee surgery RT (GROWTH REMOVAL) History of nasal septoplasty History of tonsillectomy History of tooth extraction History of total hip arthroplasty LEFT S/P FRACTURE History of total shoulder replacement RT REVERSAL Social History Smoking Status: Former smoker tobacco type: cigarettes and pipe Do You Dip or Chew Tobacco: No Smoking End Date: "QUIT WAY BACK" Hx Alcohol Use: Yes Alcohol type: wine alcohol intake frequency: a few times a month Hx Substance Use: No substance use type: does not use Testing Laboratory Results Laboratory Tests 01/08/20 01/08/20 01/08/20 14:13 14:13 14:13 WBC 5.63 Hgb 15.4 Hct 44.0 Plt Count 185 PT 10.7 INR 1.0 APTT 29.0 Sodium 142 Potassium 4.4 Chloride 111 H Carbon Dioxide 27 BUN 20 H Creatinine 0.86 Glucose 87 Hemoglobin A1c 01/08/20 14:13 WBC Hgb Hct Plt Count PT INR APTT Sodium Potassium Chloride Carbon Dioxide BUN Creatinine Glucose Hemoglobin A1c 5.7 H Electrocardiogram Date: 08/06/19 Findings: + SB @ (53) Otherwise normal EKG. When compared to EKG from November 21, 2018, no significant change was found per cardio. (Tracing not available at this timewe will try to obtain before surgery) Chest X-Ray Date: 07/28/19 No active disease in the chest. Increased markings at both lung bases, likely representing subsegmental atelectasis/scarring. Stress Test Date: 02/12/19 Type: nuclear Gated SPECT imaging reveals normal myocardial thickening and wall motion. LVEF 69%. Lexiscan nuclear cardiac stress test negative for ischemia. 86% MPHR.
--- NOTE | 2020-02-01 10:33 | History & Physical Report ---
Date of Service February 02, 2020 Assessment & Plan (1) Failed total hip arthroplasty: I have indicated the patient for revision left total hip replacement, constrained head and liner. The risks, benefits and complications of surgery were explained to the patient which include but not limited to infection, acute blood loss, DVT/PE, injury to nerves, vessels, bone, soft tissue, arthrofibrosis, chronic pain, failure of the prosthesis, hip dislocation, leg length discrepancy, need for additional surgery, cardiac and pulmonary events and . The patient wished to proceed with surgery and informed consent was obtained at this time. We will plan for 81mg ASA BID post-operatively for DVT prophylaxis. Upon discharge the patient will be discharged home with home health services. Appropriate clearances by PCP, cardiology were obtained. History of Present Illness Chief Complaint: Failed left CLAUDIA with recurrant instability The patient is a 74 year old male who presents with complaints of recurrent instability of left CLAUDIA with dislocations. The patient has failed outpatient conservative treatments to this point which included bracing, activity modificiation, PT and home exercise /walking program. The patient's pain and limited function have progressed to the point where they severely hinder their activities of daily living and they no longer tolerate exercise programs. They are requesting to proceed with revision total hip replacement surgery. Allergies Allergy/AdvReac Type Severity Reaction Status Date / Time No Known Allergies Allergy Verified 02/02/20 06:49 Home Medications Home Medications Medication Instructions Recorded Confirmed Type aspirin 81 mg PO HS 03/19/18 02/02/20 History ascorbic acid (vitamin C) [Vitamin 500 mg PO DAILY PRN 02/05/19 02/02/20 History C] atorvastatin 40 mg PO HS 02/05/19 02/02/20 History cholecalciferol (vitamin D3) 1,000 unit PO QAM 02/05/19 02/02/20 History [Vitamin D3] citalopram 20 mg PO HS 02/05/19 02/02/20 History fluticasone propionate [Flonase 2 spray INTRANASAL DAILY PRN 02/05/19 02/02/20 History Allergy Relief] mirtazapine 7.5 mg PO HS 02/05/19 02/02/20 History vitamin B complex 1 tab PO QAM 02/05/19 02/02/20 History omeprazole 20 mg PO DAILY PRN 07/21/19 02/02/20 History azelastine 1 spray INTRANASAL BID PRN 01/23/20 02/02/20 History famotidine 20 mg PO HS 01/23/20 02/02/20 History multivitamin 1 tab PO DAILY 01/23/20 02/02/20 History phenyleph-shark [id number] 1 applic [place] BID PRN 01/23/20 02/02/20 History [Preparation H] Past Med/Surg History Medical History Anxiety and depression Dyslipidemia GERD (gastroesophageal reflux disease) occasional HTN (hypertension) per records/patient denies Obesity Osteoarthritis Surgical History H/O eye surgery LEFT EYE (METAL REMOVAL) History of arthroscopy LEFT KNEE MENISCUS REPAIR History of back surgery LUMBAR SURGERY History of cardiac cath (NO STENTS/WNL) History of colonoscopy History of esophagogastroduodenoscopy (EGD) History of herniorrhaphy UMBILICAL/INGUINAL History of hip surgery Closed reduction, left hip: 02/06/19: LMA#5 at [facility] History of knee surgery RT (GROWTH REMOVAL) History of nasal septoplasty History of tonsillectomy History of tooth extraction History of total hip arthroplasty LEFT S/P FRACTURE History of total shoulder replacement RT REVERSAL Family History Other No significant family history Social History Smoking Status: Former smoker Smoking End Date: "QUIT WAY BACK"; Second Hand Exposure: Yes; Do You Dip or Chew Tobacco: No; Tobacco Cessation Education Requested by Patient: No Hx Alcohol Use: Yes Alcohol type: wine Hx Substance Use: No Preferred Language: Uzbek Communication Ability: Effective High Wire Artist Required: No Beliefs That Will Affect Care: None Current Living Situation: Alone Feels Safe at Home: Yes Safety Concerns: Feels Safe At This Time Review of Systems Review of Systems: All systems reviewed & are unremarkable except as noted in HPI & below Constitutional: as per Subjective / HPI Physical Exam Physical Exam: LLE NVSI +EHL/FHL/TA/GS SILT grossly, +2 DP pulse, compartments soft NT Constitutional: WD/WN, vitals as above Eyes: PERRL, conjunctivae normal, anicteric sclerae ENMT: external ear and nose normal, oropharynx normal Neck: trachea midline, no thyromegaly Respiratory: normal respiratory effort, lungs clear to auscultation Cardiovascular: RRR, no murmur, no edema Gastrointestinal (Abdomen): normal bowel sounds, soft, nontender, no hepatosplenomegaly Musculoskeletal: no cyanosis or clubbing, extremities motor strength 5/5 Skin: no rashes, warm and dry Neurologic: patellar DTR's 2+ bilat, sensation intact Psychiatric: A+Ox3, euthymic affect Lymphatic: no cervical or axillary lymphadenopathy Results & Data Results & Data (MN) Diagnostic Findings XRs of left hip demonstrate well aligned well fixed total hip prothesis without fracture/dislocation/loosening.
[~2020-02-02 06:19] MED LIST changes: +ACETAMINOPHEN 500 MG TAB PO SCH; -ASPI-435 PO; -CEFAZOLIN 2000 MG/60 ML D5W IV SCH; +CEFAZOLIN 2000MG 2,000 MG/15 ML SYR IV SCH; +CeleBREX 200 MG CAP PO SCH; +FAMOTIDINE 20 MG TAB PO SCH; -FLUT0.15 NAE; +GABAPENTIN 300 MG CAP PO SCH; -HYDR25SU20 PR; -IBUP-1050 PO; -LACTATED RINGER'S 1000ML 1,000 ML IV SCH; -LORA10TA5 PO; -LPT/40 PO; +LR 500ML BOLUS, THEN 15ML/HR IV SCH; +METOCLOPRAMIDE HCL 10 MG TABLET PO SCH; -NASAL SPRAY NAE; -OMEG10007 PO; -OMEP20CA9 PO; +ROPIVACAINE 0.5% HCL/PF 150 MG, BUPIVACAINE 0.5% MPF 30 ML, EPINEPHrine 30MG/30ML (OR U... INFIL SCH; +TRANEXAMIC ACID 1,000 MG **IV Intra-op IV SCH; +TRANEXAMIC ACID 1,000 MG **IV Pre-op IV SCH; -ZNTT/150 PO; +dexAMETHasone 4 MG TAB PO SCH
[2020-02-02] MEDS ORDERED: BUPIVACAINE 0.5 % 5 MG/1 ML PF 10ML VIAL ONE (08:01)
[2020-02-02] MEDS ORDERED: fentaNYL citrate 100 MCG/2 ML VIAL ONE (08:30)
[2020-02-02] MEDS ORDERED: MIDAZOLAM HCL 1 MG/ML 2ML VIAL ONE (08:30)
[2020-02-02] MEDS ORDERED: ONDANSETRON INJ 2 MG/ML 2 ML VIAL IV PRN ×2 (08:45→13:13)
[2020-02-02] MEDS ORDERED: fentaNYL citrate 100 MCG/2 ML VIAL IV PRN (08:45)
[2020-02-02] MEDS ORDERED: HYDROmorphone INJ 1 MG/ML SYRINGE IV PRN (08:45)
[2020-02-02] MEDS ORDERED: ATROPINE SULFATE 0.1 MG/ML 10ML SYR IV PRN (08:45)
[2020-02-02] MEDS ORDERED: ePHEDrine sulfate 50 MG/ML AMP IV PRN (08:45)
--- NOTE | 2020-02-02 09:55 | History & Physical Bridge Note ---
Date of Service February 02, 2020 History & Physical Bridge Note I have examined the patient, reviewed the History & Physical and in the interval since the performance of the History & Physical I have noted the following changes of clinical significance: no changes noted
[2020-02-02] MEDS ORDERED: ORTHO JOINT ANESTHETIC ONE (10:09)
[2020-02-02] MEDS ORDERED: BACITRACIN INJ 50,000 UNIT VIAL ONE (10:09)
[2020-02-02] MEDS ORDERED: LIDOCAINE HCL 2% 2 ML VIAL/AMP(20MG/ML) INFIL ONE (11:37)
[2020-02-02] MEDS ORDERED: ONDANSETRON INJ 2 MG/ML 2 ML VIAL ONE (11:37)
[2020-02-02] MEDS ORDERED: PROPOFOL IV EMULSION 10 MG/ML 20 ML VIAL IV ONE (11:37)
[2020-02-02] MEDS ORDERED: ePHEDrine sulfate 50 MG/ML SYR ONE (11:41)
[2020-02-02] MEDS ORDERED: PHENYLEPHRINE 100MCG/ML 5ML SYR ONE (11:41)
--- NOTE | 2020-02-02 12:09 | Post Operative Brief Note ---
Immediate Post Op Note v1 Date of Surgery February 02, 2020 Pre & Post Diagnosis Operation Date: 02/02/20 09:20 Pre-Op Diagnosis: LEFT TOTAL HIP REPLACEMENT Post-Op Diagnosis: LEFT TOTAL HIP REPLACEMENT I identified the patient and participated in the time-out.: Yes Procedure Operation Date: 02/02/20 09:20 Actual Procedures p Left Total Hip Revision Arthroplasty, Head and Liner Exchange, Constrained Acetabulum(Left) - Rylan Thorpe DO Surgeon Rylan Thorpe DO Infection Control Preventionist Pablo Ocasio Estimated Blood Loss 150 Findings Consistent with Post-Op Diagnosis Fluids 1300 cc LR Anesthesia Type Spinal MAC Complications none Disposition Disposition: Recovery Room Overlapping Procedure I was present for: the critical portions of procedure. I was immediately available: during the entire case. Back up surgeon: was not required during procedure.
--- NOTE | 2020-02-02 12:12 | Operative Report ---
Post Operative Report Pre & Post Diagnosis Operation Date: 02/02/20 09:20 Pre-Op Diagnosis: LEFT TOTAL HIP REPLACEMENT Post-Op Diagnosis: LEFT TOTAL HIP REPLACEMENT I identified the patient and participated in the time-out.: Yes Procedure Operation Date: 02/02/20 09:20 Actual Procedures p Left Total Hip Revision Arthroplasty, Head and Liner Exchange, Constrained Acetabulum(Left) - Rylan Thorpe DO Surgeon Rylan Thorpe DO Electrical Manufacturing Engineer Pablo Ocasio Estimated Blood Loss 150 Findings Consistent with Post-Op Diagnosis Fluids 1300 cc LR Specimens none Anesthesia Type Spinal MAC Complications none Disposition Disposition: Recovery Room Indications The patient is a 74 year old male who presents with complaints of recurrent instability of left CLAUDIA with dislocations. The patient has failed outpatient conservative treatments to this point which included bracing, activity modification, PT and home exercise/walking program. The patient's pain and limited function have progressed to the point where they severely hinder their activities of daily living and they no longer tolerate exercise programs. They are requesting to proceed with revision total hip replacement surgery. I have indicated the patient for revision left total hip replacement, constrained head and liner. The risks, benefits and complications of surgery were explained to the patient which include but not limited to infection, acute blood loss, DVT/PE, injury to nerves, vessels, bone, soft tissue, arthrofibrosis, chronic pain, failure of the prosthesis, hip dislocation, leg length discrepancy, need for additional surgery, cardiac and pulmonary events and . The patient wished to proceed with surgery and informed consent was obtained at this time. We will plan for 81mg ASA BID post-operatively for DVT prophylaxis. Upon discharge the patient will be discharged home with home health services. Appropriate clearances by PCP, cardiology were obtained. Description of Procedure Following induction of adequate spinal anesthesia, the patient was transferred to the OR table and placed in lateral decubitus position with right hip down. The left hip was prepped and draped in the typical sterile fashion. A timeout was performed, patient identified and site katharina verified. Appropriate IV antibiotics were verified and given. A posterolateral/Aruna-Langenbeck incision was made inline with the previous incision. Subcutaneous tissue was sharply dissected. Electrocautery was utilized for hemostasis. The fascia was incised throughout the length of the wound and retracted with the Charnley retractor. Retained suture from previous surgery was removed. The bursa was taken down and the short external rotators and capsule were identified and tagged with two #1 Vicryl sutures. The short external rotators and capsule were divided from the posterior aspect of the femur using electrocautery. Both external rotators and posterior capsule were swept posterior and protected, along with protecting the sciatic nerve. Total hip prosthesis was identified and three intra-articular cultures were obtained. Meticulous removal of intra- articular scar tissue was performed with bovie. The hip prosthesis was dislocated by flexion and internal rotation in a controlled manner. The femoral head was removed from the trunion, which was clean and was without signs of wear. The femoral stem stability assessed and found to be stable without signs of loosening. Next, exposure of the acetabulum was obtained. Additional scar tissue removal and debridement of the intra-articular soft tissue was performed. Utilizing the liner extraction tool the liner was removed. The polyethylene liner demonstrated posterior wear. Acetabular cup stability was assessed and found to be stable and without signs of loosening. Next, a 58x32 trail liner was inserted and locked into place. A 32+3.5 femoral head was placed onto the stem and a trial reduction was carried out. The hip was found to be stable in all degrees of rotation with hip flexion and extension with no impingement and leg lengths were equal. The hip was dislocated once more, trial components were removed and access to the acetabulum was re- established. The trial liner was removed and the cup was irrigated to ensure all debris was removed. A final 58x32 mm Continuum constrained acetabular liner was inserted and properly seated. Access to the proximal femur was once more gained and the final 32+3.5 mm femoral head was impacted into place and the hip was reduced. Next the constraining ring was seated properly on the constrained liner and impacted into place, care was taken to ensure the ring was properly seated and well fixed. Range of motion was checked once again and found to be stable. The wound was copiously irrigated with sterile saline solution with bacitracin. The tania-incisional soft tissue was injected utilizing [place] ortho mix which includes a combination of Ropivicaine 0.5% 150mg, Bupivicaine 0.5%/Epinephrine 1:200,000 30ml, Toradol 30mg, Dexamethasone 4mg, Ketamine 10mg, Clonidine 100mcg and NSS 30ml solution. The external rotators and capsule were repaired to the greater trochanter through bone tunnels using #5 FiberWire. Hemovac drain was placed deep to the fascial layer. The fascia was closed using #1 Vicryl, subcutaneous tissue was closed using 2-0 Vicryl, and skin was closed with elisha. A sterile dry dressing was applied which included Silverlon. A abduction pillow was placed between the legs. The patient tolerated the procedure well and was transported to PACU in stable condition. Due to the complex nature of the procedure, the entire surgery was performed with the operational assistance of Pablo Ocasio PA-C. The occupational therapist assistant, under direct supervision, was involved in the actual performance of all aspects of the surgical procedure including patient positioning, hemostasis, tissue retraction, instrument management and wound closure. I attest to the content of the Intraoperative Record and any orders documented therein. Any exceptions are noted below.
--- NOTE | 2020-02-02 13:00 | XRay Report ---
XR hip 1V LT w pelvis CLINICAL HISTORY: Postoperative evaluation. COMPARISON: Left hip radiographs February 06, 2019. FINDINGS: Expected findings following revision left hip arthroplasty are noted. There is an acetabul ar screw. Skin elisha are present. There is no periprosthetic fracture or unexpected radiopaque fore ign body. IMPRESSION: Expected findings following revision total left hip arthroplasty. ACT 112: Negative or not required by law. Electronically signed by: Ben Carter M.D. 02/02/2020 12:59 PM
[2020-02-02] MEDS ORDERED: MAGNESIUM HYDROXIDE SUSP 30 ML UDC PO PRN (13:13)
[2020-02-02] MEDS ORDERED: HYDROmorphone INJ 0.5 MG/0.5 ML SYR IV PRN (13:13)
[2020-02-02] MEDS ORDERED: bisacodyL 10 MG SUPP PR PRN (13:13)
[2020-02-02] MEDS ORDERED: NALOXONE HCL 0.4 MG/1 ML VIAL/CARP IV PRN (13:13)
[2020-02-02] MEDS ORDERED: OXYCODONE HCL IR 5 MG TAB (IMMEDIATE RELEASE) PO PRN (13:13)
[2020-02-02] MEDS ORDERED: METOCLOPRAMIDE HCL INJ 5 MG/ML 2 ML VIAL IV PRN (13:13)
[2020-02-02] MEDS: SODIUM CHLORIDE 0.9% 1000ML 1,000 ML IV SCH ×2 (13:26→22:17)
--- NOTE | 2020-02-02 14:03 | Anesthesiology Progress Note ---
Date of Service February 02, 2020 Anesthesia Post Procedure Vital Signs Vital Signs: Temp Pulse Pulse Pulse Resp BP BP 02/02/20 13:35 86 16 132/80 02/02/20 12:55 72 15 109/60 02/02/20 12:50 36.5 C 76 16 102/64 02/02/20 12:40 78 14 105/68 02/02/20 12:30 81 16 109/69 02/02/20 12:23 36.5 C 87 16 95/57 L 02/02/20 06:53 36.6 C 62 20 146/87 H Pulse Ox 02/02/20 13:35 95 02/02/20 12:55 93 02/02/20 12:50 93 02/02/20 12:40 95 02/02/20 12:30 96 02/02/20 12:23 97 02/02/20 06:53 97 Transfer of Care Handoff Completed per policy Notes Mental Status: alert / awake / arousable and participated in evaluation Patient Amnestic to Procedure: Yes Nausea / Vomiting: adequately controlled Pain: adequately controlled Airway Patency, RR, SpO2: stable & adequate BP & HR: stable & adequate Hydration State: stable & adequate Neuraxial Anesthesia: was administered and sensory block is resolving Anesthetic Complications: no major complications apparent and Pt Satisfied with anesthetic care
[2020-02-02] MEDS: KETOROLAC TROMETHAMINE 15 MG/ML VIAL IV SCH ×2 (14:41→19:20)
[2020-02-02] MEDS: ACETAMINOPHEN 500 MG TAB PO SCH (16:36)
--- NOTE | 2020-02-02 16:39 | Orthopedic Progress Note ---
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 Review of Systems Review of Systems: All systems reviewed & are unremarkable except as noted in HPI & below Constitutional: as per Subjective / HPI Physical Exam Physical Exam: LLE NVSI +EHL/FHL/TA/GS SILT grossly, +2 DP pulse, compartments soft NT, dressing cdi. Constitutional: WD/WN, vitals as above Results & Data ([facility]) Vital Signs (Past 12 Hours) Vital Signs Temp Pulse Pulse Pulse Resp BP BP 02/02/20 15:13 36.6 C 76 18 112/64 02/02/20 14:08 36.6 C 78 18 116/73 02/02/20 13:35 86 16 132/80 02/02/20 12:55 72 15 109/60 02/02/20 12:50 36.5 C 76 16 102/64 02/02/20 12:40 78 14 105/68 02/02/20 12:30 81 16 109/69 02/02/20 12:23 36.5 C 87 16 95/57 L 02/02/20 06:53 36.6 C 62 20 146/87 H Pulse Ox 02/02/20 15:13 97 02/02/20 14:08 91 02/02/20 13:35 95 02/02/20 12:55 93 02/02/20 12:50 93 02/02/20 12:40 95 02/02/20 12:30 96 02/02/20 12:23 97 02/02/20 06:53 97
[2020-02-02] MEDS: CEFAZOLIN 2000MG 2,000 MG/15 ML SYR IV SCH (17:31)
[2020-02-02] MEDS: DOCUSATE SODIUM 100 MG CAP PO SCH (19:20)
[2020-02-02] MEDS ORDERED: MIRTAZAPINE TAB 15 MG TAB PO SCH (21:00)
[2020-02-02] MEDS ORDERED: CITALOPRAM 20 MG TAB PO SCH (21:00)
[2020-02-02] MEDS ORDERED: SENNA 8.6 MG TAB PO SCH (21:00)
[2020-02-02] MEDS ORDERED: FAMOTIDINE 20 MG TAB PO SCH (21:00)
[2020-02-03] MEDS: ACETAMINOPHEN 500 MG TAB PO SCH ×2 (00:10→08:08)
[2020-02-03] MEDS: KETOROLAC TROMETHAMINE 15 MG/ML VIAL IV SCH ×2 (02:40→08:07)
[2020-02-03] MEDS: CEFAZOLIN 2000MG 2,000 MG/15 ML SYR IV SCH (02:41)
[2020-02-03 06:15] LABS: Hematocrit (blood only) 42.7 % (42-52); Hemoglobin 14.7 g/dL (14.0-18.0); Immature Granulocytes # (auto) 0.02 K/uL (0.00-0.02); Immature Granulocytes % (auto) 0.2 %; Lymphocytes # (auto) 0.79 K/uL (1.2-3.4); Mean Corpuscular Hemoglobin 32.3 pg (25-34); Mean Corpuscular Hgb Conc 34.4 g/dL (32-36); Mean Corpuscular Volume 93.8 fL (80-100); Mean Platelet Volume 11.1 fL (7.4-10.4); Monocytes # (auto) 0.65 K/uL (0.11-0.59); Monocytes % (auto) 5.7 %; Neutrophils # (auto) 9.87 K/uL (1.4-6.5); Neutrophils % (auto) 87.1 %; Platelet Count 165 K/uL (130-400); RDW Coefficient of Variation 13.4 % (11.5-14.5); RDW Standard Deviation 45.9 fL (36.4-46.3); Red Blood Count 4.55 M/uL (4.7-6.1); White Blood Count 11.33 K/uL (4.8-10.8)
[2020-02-03 06:40] LABS: Calcium 8.7 mg/dl (8.5-10.1); Creatinine Clr Calc Pharmacy 68.2 ml/min; Est GFR (Non-African American) 73.3; Potassium 4.2 mmol/L (3.5-5.1)
[2020-02-03 07:35] VITALS: BP 124/71; PULSE 49; TEMP 97.7; O2SAT 97
[2020-02-03] MEDS: DOCUSATE SODIUM 100 MG CAP PO SCH (08:09)
--- NOTE | 2020-02-03 08:57 | Orthopedic Progress Note ---
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 Denies F/C/N/V/SOB/CP. Review of Systems Review of Systems: All systems reviewed & are unremarkable except as noted in HPI & below Constitutional: as per Subjective / HPI Physical Exam Physical Exam: LLE NVSI +EHL/FHL/TA/GS SILT grossly, +2 DP pulse, compartments soft NT, and sanguinous drainage on Silverlon dressing Constitutional: WD/WN, vitals as above Results & Data ([facility]) Vital Signs (Past 12 Hours) Vital Signs Temp Pulse Resp BP BP Pulse Ox 02/03/20 07:35 36.5 C 49 L 16 124/71 97 02/03/20 03:22 36.4 C L 50 L 16 133/67 93 02/02/20 23:55 36.4 C L 57 L 16 111/61 93 Laboratory Results 02/03/20 02/03/20 Range/Units 05:34 05:34 WBC 11.33 H (4.8-10.8) K/uL RBC 4.55 L (4.7-6.1) M/uL Hgb 14.7 (14.0-18.0) g/dL Hct 42.7 (42-52) % MCV 93.8 (80-100) fL MCH 32.3 (25-34) pg MCHC 34.4 (32-36) g/dL RDW Std Deviation 45.9 (36.4-46.3) fL RDW Coeff of Tom 13.4 (11.5-14.5) % Plt Count 165 (130-400) K/uL MPV 11.1 H (7.4-10.4) fL Immature Gran % (Auto) 0.2 % Neut % (Auto) 87.1 % Lymph % (Auto) 7.0 % [place] % (Auto) 5.7 % Eos % (Auto) 0.0 % Baso % (Auto) 0.0 % Neut # (Auto) 9.87 H (1.4-6.5) K/uL Lymph # (Auto) 0.79 L (1.2-3.4) K/uL [place] # (Auto) 0.65 H (0.11-0.59) K/uL Eos # (Auto) 0.00 (0-0.5) K/uL Baso # (Auto) 0.00 (0-0.2) K/uL Immature Gran # (Auto) 0.02 (0.00-0.02) K/uL Sodium 142 (136-145) mmol/L Potassium 4.2 (3.5-5.1) mmol/L Chloride 111 H (98-107) mmol/L Carbon Dioxide 24 (21-32) mmol/L Anion Gap 7.0 (3-11) BUN 25 H (7-18) mg/dl Creatinine 1.00 (0.6-1.4) mg/dl Est Cr Clr Drug Dosing 68.2 ml/min Est GFR ( Amer) 85.0 Est GFR (Non-Af Amer) 73.3 BUN/Creatinine Ratio 25.0 H (10-20) Glucose 136 H (70-99) mg/dl Calcium 8.7 (8.5-10.1) mg/dl
[2020-02-03] MEDS ORDERED: ASPIRIN 81 MG ECTAB PO SCH (09:00)
[2020-02-03] MEDS ORDERED: MULTIVITAMIN TAB PO SCH (09:00)
--- NOTE | 2020-02-03 20:47 | Discharge Summary ---
Date of Service February 03, 2020 Admission HPI Per Admitting Provider The patient is a 74 year old male who presents with complaints of recurrent instability of left CLAUDIA with dislocations. The patient has failed outpatient conservative treatments to this point which included bracing, activity modificiation, PT and home exercise/walking program. The patient's pain and limited function have progressed to the point where they severely hinder their activities of daily living and they no longer tolerate exercise programs. They are requesting to proceed with revision total hip replacement surgery. Principal Diagnosis Revision left total hip replacement, constrained head and liner -Failed left total hip replacement, recurrent instability Discharge Exam LLE NVSI +EHL/FHL/TA/GS SILT grossly, +2 DP pulse, compartments soft NT, dressing cdi. Constitutional WD/WN, vitals as above Discharge Data Allergies Allergy/AdvReac Type Severity Reaction Status Date / Time No Known Allergies Allergy Verified 02/02/20 06:49 Consultations 02/03/20 08:00 Consult Case Management - Discharge Planning Routine Procedures Performed Operation Date: 02/02/20 09:20 Actual Procedures p Left Total Hip Revision Arthroplasty, Head and Liner Exchange(Left) - Rylan Thorpe DO Hospital Course (1) Failed total hip arthroplasty: Hospital Course: On 8 the patient was taken to the operating room, adequate anesthesia administered and underwent a revision left total hip arthroplasty. The patient tolerated the procedure well and was taken to the PACU in stable condition. Post-operatively the patient was started on a DVT ppx medication and given appropriate IV antibiotics. Consults were placed to physical therapy, occupational therapy and case management. On POD#1, the patient did well overnight and their pain was well controlled. Labs were drawn and the Hgb was 14.7. The patient progressed well with PT. Dressings were changed at this time and the incision was clean, dry and intact. On POD#2, The patients hospital stay was relatively uneventful and they were deemed stable by the orthopedic team and consultants to be discharged home with on 02/03/20. Discharge Instructions: Upon discharge the patient may weight bear as tolerates through their operative extremity. They were instructed to keep the incision clean and dry at all times. The patient may shower but should not submerge the incision, avoid bathing, pools and hot tubes. The patient was given a script for pain medication and should take as instructed. The patient was given a script for DVT ppx 81mg ASA BID and should take as directed. The patient was instructed to not drive or travel for long distances until cleared to do so. If the patient develops any symptoms of fevers, chills, nausea, vomiting, increased redness, swelling, pain or drainage from the surgical site, they should notify the office and/or proceed to the nearest emergency room. The patient should follow up in 10-14 days after surgery for their routine post-operative follow-up appointment and should call the office to confirm the date and time. 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 Condition on Discharge: Good Activity: Per Instructions section Lifting: Wait until after follow-up appointment Bathing: Keep incision dry Bathing Comment: No bathing Sexual Activity: Wait until after follow-up appointment Exercise/Sports: Wait until after follow-up appointment Driving/Machine Use: No driving Weightbearing: Full weightbearing Non-emergency contact: Primary Care Provider and Surgeon Call non-emergency contact if: you have any medication questions, your symptoms worsen, your pain is not controlled, your pain is worsening, your pain is unusual for you, your pain is concerning for you, you have a fever, your temperature is above 101, your wound has increased redness, your wound has increased drainage and your wound pain has increased Follow-up/Referrals: Isabel Mccabe PA-C [Primary Care Provider] - Diet: Regular Addtl Attending Provider Instructions: ACTIVITY RECOMMENDATIONS: SELF CARE INSTRUCTIONS AFTER TOTAL HIP REPLACEMENT Until the incision and soft tissues around your hip have healed, there is a possibility that the hip prosthesis could dislocate. A. Observe the following precautions to prevent dislocation: 1. Don't bend your hip greater than 90 degrees. 2. Avoid crossing your legs or ankles while standing or lying. 3. Sit with your feet placed 6 inches apart. 4. When sitting, keep your knees below your hips. Sit on a firm surface, avoid deep, soft chairs and couches. Use an elevated toilet seat in the bathroom. 5. Don't bend over at the waist. Use a long handled shoehorn and a sock aid to help you put on your shoes and socks. A electric organ checker can help you pick up attendant objects that are too high or too low to reach. 6. Keep car riding to a minimum for at least one month after surgery. B. Your balance may be shaky for a while. Use crutches or a walker until directed by your doctor. C. Use hand rails when walking on stairs. D. Wear low heeled shoes with non-slip soles. E. Be sure that your floors are free of things that could trip you - throw rugs, electrical cords, small objects. Avoid wet and waxed floors, especially with crutches and canes. F. Try to walk several times a day with rest periods between. G. Continue with all the exercises taught to you in the hospital. Again, make walking a part of your daily routine. SPECIAL CARE INSTRUCTIONS: VERY IMPORTANT TO READ AND REVIEW A. You may still be at risk for phlebitis and blood clots. 1. Wear surgical stockings (JING hose) for 2 weeks after surgery to improve circulation and reduce swelling. 2. Take Aspirin 81mg twice daily for 4 weeks or as directed by your doctor. This is your blood thinner. 3. High risk patients may be prescribed a stronger blood thinner if necessary. 4. If you are on Coumadin normally, your family doctor/stringer up soldering machine should monitor your blood work. Expect a phone call the day of or the day after bloodwork is drawn to adjust your dosage. B. You must take antibiotics before having dental work, bladder, bowel and other surgery. Your doctor will provide you with a permanent card to carry describing precautions. C. Call [facility] if you have a fever, redness or swelling around the incision, cloudy drainage from incision, or sudden increase in pain in your hip, not relieved by your regular pain medication. D. Please call the office at if you have any concerns or questions about your operation or recovery. * YOU MAY SHOWER, NO TUB BATHS UNTIL CLEARED BY YOUR DOCTOR. * WEAR JING HOSE 20 HOURS PER DAY FOR 2 WEEKS. * YOU SHOULD USE A WALKER OR CRUTCHES FOR 2-4 WEEKS. THIS WILL HELP PREVENT STRAIN ON YOUR HIP MUSCLE AND ALLOW IT TO HEAL PROPERLY. YOU MAY WEAN TO A CANE TOLERATED. * MOST PATIENTS WILL HAVE HOME NURSING FOR THERAPY. IF YOU DECIDE TO DO OUTPATIENT PHYSICAL THERAPY, PLEASE SCHEDULE THIS 3 TIMES PER WEEK. * YOU MAY HAVE A LARGE, BAND-ANNA LIKE DRESSING (SILVERON). THIS WILL REMAIN ON YOUR INCISION FOR 7 DAYS, THEN CAN BE REMOVED. IF INCISION IS LEAKING THROUGH DRESSING, PLEASE CALL THE OFFICE . FOLLOW UP VISIT: If appointment is not already scheduled: Please call [facility] to make a follow-up appointment for 2 weeks after your surgery at . Pending Studies at Discharge: No Stand-Alone Forms: My [facility] [employer], Opioid Pain Management, Smoking C essation Medications and DC Order Prescriptions: New celecoxib [Celebrex] 200 mg Capsule 200 mg PO BID PRN (Reason: pain/inflammation) Qty: 28 RF: 0 aspirin 81 mg Tablet,Delayed Release (Dr/Ec) 81 mg PO BID Qty: 56 RF: 0 acetaminophen 500 mg Tablet 1,000 mg PO Q8H PRN (Reason: pain/fevers) Qty: 90 RF: 0 oxycodone 5 mg Tablet 5 mg PO Q6H MDD 4 PRN (Reason: pain) Qty: 30 RF: 0 sennosides [Senokot] 8.6 mg Tablet 17.2 mg PO HS PRN (Reason: constipation) Qty: 28 RF: 0 Continued ascorbic acid (vitamin C) [Vitamin C] 500 mg Tablet 500 mg PO DAILY PRN (Reason: as needed) RF: 0 cholecalciferol (vitamin D3) [Vitamin D3] 1,000 unit Capsule 1,000 unit PO QAM RF: 0 atorvastatin 80 mg Tablet 40 mg PO HS RF: 0 citalopram 40 mg Tablet 20 mg PO HS RF: 0 mirtazapine 15 mg Tablet 7.5 mg PO HS RF: 0 vitamin B complex Tablet 1 tab PO QAM RF: 0 fluticasone propionate [Flonase Allergy Relief] 50 mcg/actuation [place],Suspension 2 spray INTRANASAL DAILY PRN (Reason: Allergy Symptoms) RF: 0 omeprazole 20 mg Tablet,Delayed Release (Dr/Ec) 20 mg PO DAILY PRN (Reason: Indigestion) RF: 0 multivitamin Tablet 1 tab PO DAILY RF: 0 famotidine 20 mg Tablet 20 mg PO HS RF: 0 phenyleph-shark [id number] Cream 1 applic [place] BID PRN (Reason: Hemorrhoids) RF: 0 azelastine 0.15 % (205.5 mcg) [place],Non-Aerosol 1 spray INTRANASAL BID PRN (Reason: Nasal Congestion) RF: 0 Discontinued aspirin 81 mg Tablet,Delayed Release (Dr/Ec) 81 mg PO HS RF: 0 Discharge Orders: Discharge Order (Routine); Ordered 02/03/20 Ordered By: Rylan Schmid/Other Patient Handouts: DVT Post Op Prevention, Preventing Deep Vein Thrombosis Admission Data Admit Date/Time: 02/02/20 15:25 Attending Provider: Rylan Thorpe Admit Provider: Rylan Thorpe Primary Care Provider: Isabel Mccabe Other Interventions: Discharge Summary Assessment (RN) Last Done: 02/03/20 09:13
[2020-02-03] MEDS ORDERED: CeleBREX 200 MG CAP PO SCH (21:00)
== END 2020-02-03 16:21 | disposition home health service (06) | DRG 468 ==
LOC: ASU 06:19 → 3E 06:19

== ENCOUNTER 2023-09-15 10:55 | Observation (INO) ==
--- NOTE | 2023-09-15 11:13 | Emergency Department Note ---
Impression & Plan Left-sided chest pain, Hypertension ED Provider Note Name: YAHAIRA STEPHEN III Age: 78 Sex: Male Arrives Via: Ambulance Informant: Patient ED Provider: Christopher Maza MD Chief Complaint: Chest pain Impression: As per impressions above Medical Decision Makin-year-old gentleman with a history of hypertension dyslipidemia and GERD arrives for evaluation of left-sided chest pain. States it is not similar to his GERD. Did have a previous cardiac cath about 20 to 30 years ago which was unremarkable. No recent cardiac workup. Ongoing left-sided chest pain for the last 48 hours. No significant allergic component nor exertional worsening. EKG is unremarkable. Labs are reassuring. He does have poor chest x-ray which could be showing some underlying cardiomegaly though not great inspiratory effort. Blood pressure came down with nitro questionable if improvement in chest pain. He had already received aspirin by EMS. After reviewing with cardiology plan will be to bring in for further cardiac rule out. I do not feel this is consistent with dissection or PE. He is not hypoxic, tachycardic, nor does he have hallmarks of a history for PE/DVT. Significant pain or other findings I think dissection is unlikely as well. Triage/Nursing Notes reviewed by Me Differential:Cardiac ischemia, aortic dissection, pulmonary embolism, pneumothorax, pneumonia, pericarditis, myocarditis, esophageal rupture, GERD, cholecystitis, pancreatitis, musculoskeletal, as well as other pathologies. Vital Signs: reviewed and remarkable for no significant abnormalities Interventions: Sublingual nitroglycerin Labs:ED labs Reviewed by me and remarkable for no significant abnormalities Imaging:As per my interpretation. Poor inspiratory effort. Questionable cardiomegaly and some congestive failure versus poor inspiratory effort. Confirmed by radiologist. EKG:As per my interpretation. Indication chest pain. Normal sinus rhythm 71 bpm QTc of 430. There is no ectopy nor ischemia. There is an EKG from July 04, 2016 which has not significantly changed. Cardiac/Tele Monitoring: Cardiac Monitoring: An Order was placed for continuous cardiac monitoring. The monitor shows a rate of 70 with a normal sinus rhythm. Consults:Dr Andrew Lim Cardiology - agrees with hospitalization for cardiac rule out possible echocardiogram. Dr. Jenkins of [facility] -discussed with her and they will bring patient in for further monitoring and management Plan: Disposition:Hospitalization. Condition: Good History of Present Illness: 78-year-old gentleman arrives for evaluation of chest pain. Patient notes last 48 hours he has had gradually worsening left- sided chest pain. States the pain is somewhere between sharp and dull. No radiation. No significant change with exertion or movement. Denies any shortness of breath, pleuritic component, nausea, vomiting, fevers, chills, other concerning signs or symptoms. No recent falls, trauma, injuries. No inciting events. Patient states he has been checking his blood pressure at home the last few days and noted that it has been higher than typical. He notes he does not take any specific blood pressure medication regularly. Patient notes a history of cardiac catheterization about 20 to 30 years ago and has not had any cardiac issues since then. Denies any stenting or angioplasty at that time. Patient states pain is not similar to previous GERD issues. Past Medical History:GERD, dyslipidemia Home Medications:See Below Allergies:No known drug allergy Vitals:Blood Pressure: 162/96, Pulse 71, RR 18, T 36.7C, O2 95% on RA Physical Exam: GENERAL: Patient is well appearing and in no acute distress. RESPIRATORY: No dyspnea. Clear to auscultation and equal bilaterally. CARDIOVASCULAR: Regular rate and rhythm.No murmur appreciated. GASTROINTESTINAL: Abdomen soft, non-tender, no peritonitis. EXTREMITIES: Normal motion all extremities, no cyanosis, no edema. NEUROLOGIC: Alert and oriented. No focal neurologic deficits appreciated SKIN: No rash, no jaundice, no diaphoresis. PSYCH: Appropriate GCS: 15 ED Course: Times/Reassessments: Patient stable questionable improvement post nitro as relates very vague mild/minimal continued pain. Christopher Maza MD Past Med/Surg History Medical History (Updated 09/16/23 @ 08:24 by Christopher Maza MD) Enlarged testicle Gynecomastia, male Failed total hip arthroplasty Anxiety and depression Obesity Osteoarthritis HTN (hypertension) per records/patient denies GERD (gastroesophageal reflux disease) occasional Dyslipidemia Surgical History History of back surgery LUMBAR SURGERY History of hip surgery Closed reduction, left hip: 02/06/19: LMA#5 at [facility] H/O eye surgery LEFT EYE (METAL REMOVAL) History of knee surgery RT (GROWTH REMOVAL) History of arthroscopy LEFT KNEE MENISCUS REPAIR History of total shoulder replacement RT REVERSAL History of total hip arthroplasty LEFT S/P FRACTURE History of esophagogastroduodenoscopy (EGD) History of herniorrhaphy UMBILICAL/INGUINAL History of colonoscopy History of tooth extraction History of tonsillectomy History of nasal septoplasty History of cardiac cath (NO STENTS/WNL) Family History Other No significant family history Social History Smoking Status: Never smoker Second Hand Exposure: Yes; Do You Dip or Chew Tobacco: No; Hx Alcohol Use: Yes Alcohol type: wine Hx Substance Use: No Preferred Language: Comoran Communication Ability: Effective Procedures Analyst Required: No Beliefs That Will Affect Care: Spiritual marital status: Single Current Living Situation: Alone Other Information That Helps Us Care for You: No Feels Safe at Home: Yes Safety Concerns: Feels Safe At This Time Assistive Devices: Glasses Assistive Devices Comment: has walker if needed, upper and lower dentures but forgot at home Allergies Allergies Allergy/AdvReac Type Severity Reaction Status Date / Time No Known Allergies Allergy Verified 07/19/22 10:24 Home Meds Home Medications Medication Instructions Recorded Confirmed ascorbic acid (vitamin C) 500 mg 500 mg PO HS as needed 02/05/19 09/15/23 tablet (Vitamin C) atorvastatin 80 mg tablet 80 mg PO HS 02/05/19 09/15/23 cholecalciferol (vitamin D3) 25 1,000 unit PO HS 02/05/19 09/15/23 mcg (1,000 unit) capsule (Vitamin D3) fluticasone propionate 50 2 spray intranasal HS Allergy 02/05/19 09/15/23 mcg/actuation nasal Symptoms spray,suspension (Flonase Allergy Relief) vitamin B complex 1 tab PO HS 02/05/19 09/15/23 azelastine 205.5 mcg (0.15 %) 1 spray intranasal HS Nasal 01/23/20 09/15/23 nasal spray Congestion aspirin 81 mg tablet,delayed 81 mg PO HS 04/09/20 09/15/23 release bupropion HCl 150 mg 24 hr tablet, 150 mg PO QAM 07/19/22 09/15/23 extended release cetirizine 10 mg capsule (Zyrtec) 10 mg PO QAM 07/19/22 09/15/23 ezetimibe 10 mg tablet (Zetia) 10 mg PO HS 07/19/22 09/15/23 famotidine 20 mg tablet (Pepcid) 20 mg PO HS 07/19/22 09/15/23 mirtazapine 7.5 mg tablet 7.5 mg PO HS 09/15/23 09/15/23 pantoprazole 40 mg tablet,delayed 40 mg PO DAILYBB 09/15/23 09/15/23 release Previous Rx's Medication Instructions Recorded acetaminophen 500 mg tablet 1,000 mg (2 x 500 mg) PO Q8H PRN 02/02/20 pain/fevers #90 tabs sennosides 8.6 mg tablet (Senokot) 17.2 mg (2 x 8.6 mg) PO HS PRN 02/02/20 constipation #28 tabs Results & Data (ED) Vital Signs Vital Signs - 24 hr 09/15/23 11:03 09/15/23 11:48 09/15/23 12:01 Temperature 36.7 C Temperature Source Oral Pulse Rate 71 80 77 Pulse Rate from SpO2 Sensor 76 76 Respiratory Rate 18 14 18 Respiratory Effort / Characteristics Non-Labored Respiratory Depth Normal Respiratory Pattern Regular Blood Pressure 162/96 H 104/68 124/79 Blood Pressure Mean 118 80 94 Pulse Oximetry 95 93 94 Oxygen Delivery Method Room Air Sepsis Recent Fever Within 48 Hours No Sepsis New/Unexplained Change in Mental Status N/A Sepsis Action Taken by Nursing No Action Required 09/15/23 12:06 09/15/23 12:30 09/15/23 13:00 Temperature Temperature Source Pulse Rate 69 67 66 Pulse Rate from SpO2 Sensor 67 68 Respiratory Rate 16 15 Respiratory Effort / Characteristics Respiratory Depth Respiratory Pattern Blood Pressure 131/88 126/79 Blood Pressure Mean 102 94 Pulse Oximetry 95 94 Oxygen Delivery Method Sepsis Recent Fever Within 48 Hours Sepsis New/Unexplained Change in Mental Status Sepsis Action Taken by Nursing 09/15/23 13:30 09/15/23 14:00 Temperature Temperature Source Pulse Rate 67 68 Pulse Rate from SpO2 Sensor 68 68 Respiratory Rate 19 16 Respiratory Effort / Characteristics Respiratory Depth Respiratory Pattern Blood Pressure 147/101 H 125/86 Blood Pressure Mean 116 99 Pulse Oximetry 96 95 Oxygen Delivery Method Sepsis Recent Fever Within 48 Hours Sepsis New/Unexplained Change in Mental Status Sepsis Action Taken by Nursing Laboratory Data 09/16/23 06:45 09/15/23 11:10 Lab Results 09/15/23 Range/Units 11:10 WBC 5.92 (4.8-10.8) K/ul RBC 4.92 (4.70-6.10) M/uL Hgb 15.6 (14.0-18.0) g/dl Hct 45.9 (42.0-52.0) % MCV 93.3 (80.0-100.0) fL MCH 31.7 (25.0-34.0) pg MCHC 34.0 (32.0-36.0) g/dL RDW Std Deviation 44.4 (36.4-46.3) fL RDW Coeff of Tom 13.0 (11.5-14.5) % Plt Count 186 (130-400) K/uL MPV 11.0 (9.4-12.4) fL Immature Gran % (Auto) 0.5 % Neut % (Auto) 63.2 % Lymph % (Auto) 17.9 % [place] % (Auto) 11.1 % Eos % (Auto) 6.1 % Baso % (Auto) 1.2 % Neut # (Auto) 3.74 (1.40-6.50) K/uL Lymph # (Auto) 1.06 L (1.20-3.40) K/uL [place] # (Auto) 0.66 H (0.11-0.59) K/uL Eos # (Auto) 0.36 (0.00-0.50) K/uL Baso # (Auto) 0.07 (0.00-0.20) K/uL Immature Gran # (Auto) 0.03 (0.01-0.20) K/uL Sodium 141 (136-145) mmol/L Potassium 4.7 (3.5-5.1) mmol/L Chloride 108 H (98-107) mmol/L Carbon Dioxide 27 (21-32) mmol/L Anion Gap 6 (3-11) BUN 19 (6-23) mg/dl Creatinine 1.11 (0.6-1.4) mg/dl Est Cr Clr Drug Dosing 58.5 ml/min Est GFR ( Amer) 72.8 ml/min Est GFR (Non-Af Amer) 62.8 ml/min BUN/Creatinine Ratio 17.1 (10-20) Glucose 98 (70-99(Fasting)) mg/dl Calcium 9.2 (8.6-10.3) mg/dl Magnesium 2.0 (1.7-2.4) mg/dl Total Bilirubin 0.6 (0.2-1.0) mg/dl Direct Bilirubin 0.1 (0-0.2) mg/dl AST 23 (13-39) U/L ALT 16 (7-52) U/L Alkaline Phosphatase 80 (34-104) U/L Troponin I High Sens 8.7 (0-20) pg/ml Total Protein 6.6 (6.0-8.3) gm/dl Albumin 4.0 (3.4-5.0) gm/dl Lipase 16 (11-82) U/L Administered Medications Atorvastatin Calcium (Atorvastatin 40 Mg Tab) 40 mg PO HS JOYCE Stop: 10/15/23 20:59 Last Admin: 09/15/23 20:02 Dose: 40 mg Documented By: [id number] Mirtazapine (Mirtazapine Tab 15 Mg Tab) 7.5 mg PO HS JOYCE Stop: 10/15/23 20:59 Last Admin: 09/15/23 20:01 Dose: 7.5 mg Documented By: [id number] Pantoprazole Sodium (Pantoprazole 40 Mg Tab) 40 mg PO BID JOYCE Stop: 10/15/23 20:59 Last Admin: 09/15/23 20:02 Dose: 40 mg Documented By: [id number] Discontinued Medications Nitroglycerin (Nitroglycerin Sl 0.4 Mg/Tab Tab) 0.4 mg SL NOW STA Stop: 09/15/23 11:11 Last Admin: 09/15/23 11:15 Dose: 0.4 mg Documented By: [id number] Discharge Plan Visit Data Chief Complaint: Chest Pain Stated Complaint: CHEST PAIN ED Provider: Christopher Maza Discharge Problem: Left-sided chest pain, Hypertension Patient Disposition: Admitted As Inpatient Discharge Instructions Interventions: ED Discharge Assessment Last Done: 09/15/23 15:07 Discharge Problem: Hypertension Qualifiers: Hypertension type: primary hypertension Qualified Code(s): I10 - Essential (primary) hypertension
[2023-09-15] MEDS: NITROGLYCERIN SL 0.4 MG/TAB TAB SL STA (11:15)
--- NOTE | 2023-09-15 11:22 | XRay Report ---
XR chest 1V portable HISTORY: 78 years-old Male chest pain acute chest pain COMPARISON: 07/28/2019 TECHNIQUE: AP view of the chest FINDINGS: Cardiac silhouette is enlarged. The vascular congestion. No pneumothorax, pleural effusion or lobar a irspace consolidation. Mild bibasilar opacities. Spondylitic spurring in the spine. Reverse right andrew ulder arthroplasty. IMPRESSION: 1. Cardiomegaly with pulmonary vascular congestion. 2. Mild bibasilar densities suggest atelectasis. ACT 112: Negative or not required by law. The above report was generated using voice recognition software. It may contain grammatical, syntax o r spelling errors. Electronically signed by: Elvis Romero M.D. 09/15/2023 11:21 AM
[2023-09-15 11:32] LABS: Basophils # (auto) 0.07 K/uL (0.00-0.20); Basophils % (auto) 1.2 %; Eosinophils # (auto) 0.36 K/uL (0.00-0.50); Eosinophils % (auto) 6.1 %; Hematocrit (blood only) 45.9 % (42.0-52.0); Hemoglobin 15.6 g/dl (14.0-18.0); Immature Granulocytes # (auto) 0.03 K/uL (0.01-0.20); Immature Granulocytes % (auto) 0.5 %; Lymphocytes # (auto) 1.06 K/uL (1.20-3.40); Lymphocytes % (auto) 17.9 %; Mean Corpuscular Hemoglobin 31.7 pg (25.0-34.0); Mean Corpuscular Volume 93.3 fL (80.0-100.0); Monocytes # (auto) 0.66 K/uL (0.11-0.59); Monocytes % (auto) 11.1 %; Neutrophils # (auto) 3.74 K/uL (1.40-6.50); Neutrophils % (auto) 63.2 %; Platelet Count 186 K/uL (130-400); RDW Standard Deviation 44.4 fL (36.4-46.3); Red Blood Count 4.92 M/uL (4.70-6.10); White Blood Count 5.92 K/ul (4.8-10.8)
[2023-09-15 11:57] LABS: Bilirubin Direct 0.1 mg/dl (0-0.2)
[2023-09-15 11:58] LABS: BUN Creatinine Ratio 17.1 (10-20); Bilirubin,Total 0.6 mg/dl (0.2-1.0); Calcium 9.2 mg/dl (8.6-10.3); Creatinine Clr Calc Pharmacy 58.5 ml/min; Est GFR (African American) 72.8 ml/min; Est GFR (Non-African American) 62.8 ml/min; Potassium 4.7 mmol/L (3.5-5.1); Total Protein 6.6 gm/dl (6.0-8.3)
[2023-09-15 12:01] LABS: Troponin I High Sensitivity 8.7 pg/ml (0-20)
--- NOTE | 2023-09-15 14:22 | History & Physical Report ---
Date of Service September 15, 2023 Assessment & Plan (1) Chest pain: Plan: Left-sided chest pain since . Earlier that day he was planting trees, however was not having any symptoms at that time. He had supper that day and was sitting on the couch when he developed left-sided chest pain. Pain is dull/pressure-like. It does not radiate anywhere such as to his neck or his arm. He denies having any other symptoms such as shortness of breath, dizziness or lightheadedness. Pain has been persistent and therefore he presented today in the ED. The pain has not gotten any worse or better. In the ED CXR - w/ mild pulm. vasc. congestion Troponin negative (lipase also negative) ECG - w/ NSR, normal ECG Pt follows with Dr. Ji from [facility] cardiology for atypical chest pain and dyspnea on exertion, HTN, HLD, coronary calcification on past chest CTs Echocardiogram July 07, 2022 The qualitative LV ejection fraction is 55-59% (normal). No LV segmental wall motion abnormalities. There is isolated basal septal hypertrophy with maximal thickness of 1.6 cm. The left ventricular diastolic function is mildly abnormal (grade I). Mild aortic valve regurgitation is present. LDL 50 in 01/2023 ED physician contacted cardiology, Dr. Morales, and will plan to admit patient for observation for cardiac rule out. Will admit to tele, order echo and will further discuss w/ cardiology - cont. home ASA, statin GERD - cont. home meds Depression - cont. home meds History of Present Illness Chief Complaint: L-sided chest pain Primary Care Provider: Isabel Mccabe PA-C Pt is a 78 yo M w/ allergic rhinitis, chronic cough, GERD, osteoarthritis, carpal tunnel syndrome, adjustment disorder with depressed mood, obesity, gynecomastia, who presents with left-sided chest pain. Patient states he has been having left-sided chest pain since . Earlier that day he was planting trees, however was not having any symptoms at that time. He had supper that day and was sitting on the couch when he developed left-sided chest pain. He does not feel it to be sharp, he feels it is more dull/pressure-like. It does not radiate anywhere such as to his neck or his arm. He denies having any other symptoms such as shortness of breath, dizziness or lightheadedness. He says he always has chronic cough from his allergic rhinitis, this has not changed. Denies any fever chills, abdominal pain, nausea vomiting. Says this left-sided chest pain has been persistent and therefore he presented today in the ED. The pain has not gotten any worse or better. His son is also present at bedside. Patient says that he follows with Dr. Ji from [facility] cardiology, and was told earlier in April that he would be due for a stress test. In the ED troponin is negative, and ECG unremarkable per ED provider review. ED physician contacted cardiology, Dr. Morales, and will plan to admit patient for observation for cardiac rule out. Allergies Allergy/AdvReac Type Severity Reaction Status Date / Time No Known Allergies Allergy Verified 07/19/22 10:24 Home Medications Medication Instructions Recorded Confirmed Type ascorbic acid (vitamin C) 500 mg 500 mg PO DAILY PRN as needed 02/05/19 07/19/22 History tablet (Vitamin C) atorvastatin 80 mg tablet 40 mg PO HS 02/05/19 07/19/22 History cholecalciferol (vitamin D3) 25 1,000 unit PO QAM 02/05/19 07/19/22 History mcg (1,000 unit) capsule (Vitamin D3) citalopram 40 mg tablet 20 mg PO HS 02/05/19 07/19/22 History fluticasone propionate 50 2 spray intranasal DAILY PRN 02/05/19 07/19/22 History mcg/actuation nasal Allergy Symptoms spray,suspension (Flonase Allergy Relief) mirtazapine 15 mg tablet 7.5 mg PO HS 02/05/19 07/19/22 History vitamin B complex 1 tab PO QAM 02/05/19 07/19/22 History omeprazole 20 mg tablet,delayed 20 mg PO DAILY PRN Indigestion 07/21/19 07/19/22 History release azelastine 205.5 mcg (0.15 %) 1 spray intranasal BID PRN Nasal 01/23/20 07/19/22 History nasal spray Congestion phenyleph-shark liver 1 applic [place] BID PRN Hemorrhoids 01/23/20 07/19/22 History atw-meysom-gor rectal cream acetaminophen 500 mg tablet 1,000 mg (2 x 500 mg) PO Q8H PRN 02/02/20 07/19/22 Rx pain/fevers #90 tabs sennosides 8.6 mg tablet (Senokot) 17.2 mg (2 x 8.6 mg) PO HS PRN 02/02/20 Rx constipation #28 tabs aspirin 81 mg tablet,delayed 81 mg PO DAILY 04/09/20 07/19/22 History release bupropion HCl 150 mg 24 hr tablet, 150 mg PO QAM 07/19/22 07/19/22 History extended release cetirizine 10 mg capsule (Zyrtec) 10 mg PO DAILY PRN 07/19/22 07/19/22 History ezetimibe 10 mg tablet (Zetia) 10 mg PO DAILY 07/19/22 07/19/22 History famotidine 20 mg tablet (Pepcid) 20 mg PO DAILY 07/19/22 07/19/22 History ipratropium bromide 21 mcg (0.03 2 spray intranasal BID 07/19/22 07/19/22 History %) nasal spray omeprazole 40 mg capsule,delayed 40 mg PO BID 07/19/22 07/19/22 History release Past Med/Surg History Medical History (Updated 09/15/23 @ 14:36 by Devon Jenkins MD) Enlarged testicle Gynecomastia, male Failed total hip arthroplasty Anxiety and depression Obesity Osteoarthritis HTN (hypertension) per records/patient denies GERD (gastroesophageal reflux disease) occasional Dyslipidemia Surgical History History of back surgery LUMBAR SURGERY History of hip surgery Closed reduction, left hip: 02/06/19: LMA#5 at [facility] H/O eye surgery LEFT EYE (METAL REMOVAL) History of knee surgery RT (GROWTH REMOVAL) History of arthroscopy LEFT KNEE MENISCUS REPAIR History of total shoulder replacement RT REVERSAL History of total hip arthroplasty LEFT S/P FRACTURE History of esophagogastroduodenoscopy (EGD) History of herniorrhaphy UMBILICAL/INGUINAL History of colonoscopy History of tooth extraction History of tonsillectomy History of nasal septoplasty History of cardiac cath (NO STENTS/WNL) Family History Other No significant family history Social History Smoking Status: Never smoker Second Hand Exposure: Yes; Do You Dip or Chew Tobacco: No; Hx Alcohol Use: Yes Alcohol type: wine Hx Substance Use: No Preferred Language: Pashto Communication Ability: Effective Cadet Deck Required: No Beliefs That Will Affect Care: None marital status: Single Current Living Situation: Alone Feels Safe at Home: Yes Assistive Devices: Glasses Review of Systems Review of Systems: All systems reviewed & are unremarkable except as noted in Subjective Physical Exam Constitutional: WD/WN, vitals as above Eyes: PERRL, conjunctivae normal, anicteric sclerae ENMT: external ear and nose normal, oropharynx normal Neck: trachea midline, no thyromegaly Respiratory: normal respiratory effort, lungs clear to auscultation Cardiovascular: RRR, no murmur, no edema Chest (Breasts): Chest: normal inspection of chest Gastrointestinal (Abdomen): normal bowel sounds, soft, nontender, no hepatosplenomegaly Musculoskeletal: no cyanosis or clubbing, extremities motor strength 5/5 Skin: no rashes, warm and dry Neurologic: PERRL, EOMI, accommodation nl, no face palsy, no dysarthria Psychiatric: A+Ox3, euthymic affect Lymphatic: no lymphedema Results & Data Results & Data Vital Signs (Past 12 Hours) Vital Signs Temp Pulse Resp BP Pulse Ox O2 Del Method 09/15/23 13:00 66 15 126/79 94 09/15/23 12:30 67 16 131/88 95 09/15/23 12:06 69 09/15/23 12:01 77 18 124/79 94 09/15/23 11:48 80 14 104/68 93 09/15/23 11:03 36.7 C 71 18 162/96 H 95 Room Air Laboratory Results 09/15/23 Range/Units 11:10 WBC 5.92 (4.8-10.8) K/ul RBC 4.92 (4.70-6.10) M/uL Hgb 15.6 (14.0-18.0) g/dl Hct 45.9 (42.0-52.0) % MCV 93.3 (80.0-100.0) fL MCH 31.7 (25.0-34.0) pg MCHC 34.0 (32.0-36.0) g/dL RDW Std Deviation 44.4 (36.4-46.3) fL RDW Coeff of Tom 13.0 (11.5-14.5) % Plt Count 186 (130-400) K/uL MPV 11.0 (9.4-12.4) fL Immature Gran % (Auto) 0.5 % Neut % (Auto) 63.2 % Lymph % (Auto) 17.9 % [place] % (Auto) 11.1 % Eos % (Auto) 6.1 % Baso % (Auto) 1.2 % Neut # (Auto) 3.74 (1.40-6.50) K/uL Lymph # (Auto) 1.06 L (1.20-3.40) K/uL [place] # (Auto) 0.66 H (0.11-0.59) K/uL Eos # (Auto) 0.36 (0.00-0.50) K/uL Baso # (Auto) 0.07 (0.00-0.20) K/uL Immature Gran # (Auto) 0.03 (0.01-0.20) K/uL Sodium 141 (136-145) mmol/L Potassium 4.7 (3.5-5.1) mmol/L Chloride 108 H (98-107) mmol/L Carbon Dioxide 27 (21-32) mmol/L Anion Gap 6 (3-11) BUN 19 (6-23) mg/dl Creatinine 1.11 (0.6-1.4) mg/dl Est Cr Clr Drug Dosing 58.5 ml/min Est GFR ( Amer) 72.8 ml/min Est GFR (Non-Af Amer) 62.8 ml/min BUN/Creatinine Ratio 17.1 (10-20) Glucose 98 (70-99(Fasting)) mg/dl Calcium 9.2 (8.6-10.3) mg/dl Magnesium 2.0 (1.7-2.4) mg/dl Total Bilirubin 0.6 (0.2-1.0) mg/dl Direct Bilirubin 0.1 (0-0.2) mg/dl AST 23 (13-39) U/L ALT 16 (7-52) U/L Alkaline Phosphatase 80 (34-104) U/L Troponin I High Sens 8.7 (0-20) pg/ml Total Protein 6.6 (6.0-8.3) gm/dl Albumin 4.0 (3.4-5.0) gm/dl Lipase 16 (11-82) U/L
--- OUTSIDE RECORDS SUMMARY | 2023-09-15 16:26 | External Medical Summary | Summary of Care ---
Author Name Unknown Organization [facility] Address [address] [facility] [place] [address] Phone [phone] Care Team Providers Care Wool Hat Forming Machine Tender Name Role Phone Isabel Mccabe PA-C Primary Care Provider + Encounter Details Date Type Department Care Team (Late st Contact Info) Description 09/05/2023 Telephone Orthopaedics [facility] [address] [place] [address] Zay Mccormack MD [address] [place] [address] Allergies No known active allergiesdocumented as of this encounter (statuses as of 09/05/2023) Medications Medication Sig Dispensed Refills Start Date End Date Status ASPIRIN 81 MG OR TABSIndications:Mix ed dyslipidemia Take 1 Tablet by mouth in the morning. 34 5 03/03/2004 Active clotrimazole-betame thasone (LOTRISONE) 1-0.05 % cream Apply to rash on testicles twice daily as needed 15 g 5 07/11/2018 Active Cholecalciferol (VITAMIN D) 1000 units Tablet Take 1 Tablet by mouth in the morning. 0 Active hydrocortisone (ANUSOL-HC) 2.5 % rectal creamIndications:In ternal hemorrhoids Apply topically to affected area 2 times a day. Apply to the rectum 1 Tube 5 07/23/2019 Active Pantoprazole Sodium 40 MG Oral Tablet Delayed Release (Protonix)Indicatio ns:Gastroesophageal reflux disease without esophagitis TAKE ONE TABLET BY MOUTH EVERY MORNING. 30 MINUTES BEFORE THE FIRST MEAL OF THE DAY. DO NOT CRUSH, CUT OR CHEW 90 Tablet 3 10/12/2022 10/12/2023 Active Vitamin C 100 MG Oral Tablet Take 1 Tablet by mouth in the morning. 0 Active Azelastine HCl 0.1 % Nasal Solution (Astelin) Administer 2 Sprays into each nostril in the morning and 2 Sprays before bedtime. 90 mL 3 05/23/2023 Active Famotidine 20 MG Oral Tablet (Pepcid) TAKE ONE TABLET BY MOUTH EVERY MORNING 90 Tablet 2 05/29/2023 Active Ezetimibe 10 MG Oral Tablet (Zetia)Indications: Dyslipidemia, goal LDL below 130 TAKE ONE TABLET BY MOUTH EVERY MORNING 90 Tablet 3 06/12/2023 06/11/2024 Active Mirtazapine 7.5 MG Oral Tablet (Remeron)Indication s:Adjustment disorder with depressed mood TAKE ONE TABLET BY MOUTH AT BEDTIME 90 Tablet 3 06/11/2023 06/10/2024 Active Atorvastatin Calcium 40 MG Oral Tablet (Lipitor)Indication s:Dyslipidemia, goal LDL below 130 TAKE ONE TABLET BY MOUTH EVERY DAY 90 Tablet 3 07/27/2023 07/26/2024 Active buPROPion HCl ER (XL) 150 MG Oral Tablet Extended Release 24 Hour (Wellbutrin XL)Indications:Adju stment disorder with depressed mood TAKE ONE TABLET BY MOUTH EVERY DAY IN THE MORNING 90 Tablet 0 08/07/2023 Active documented as of this encounter (statuses as of 09/05/2023) Active Problems Problem Noted Date Diagnosed Date Bilateral carpal tunnel syndrome 08/29/2023 Trigger index finger of right hand 08/29/2023 Primary osteoarthritis of both hands 07/19/2023 Carpal tunnel syndrome of right wrist 07/19/2023 Chronic cough 01/16/2023 Family history of cardiovascular disease 022 Gastroesophageal reflux disease without esophagi tis 07/15/2021 Allergic rhinitis 07/15/2021 Obesity, Class I, BMI 30.0-34.9 (see actual BMI) 03/02/2021 Gynecomastia 03/02/2021 Hx of nonmelanoma skin cancer 07/26/2020 Overview: Michael (L chest 07/2020) Lumbar and sacral arthritis 08/31/2018 Chronic left SI joint pain 08/31/2018 Osteoarthritis of spine with radiculopathy, cerv ical region 09/27/2015 Internal hemorrhoids 08/25/2015 DDD (degenerative disc disease), cervical 2015 Hyperlipidemia LDL goal <100 06/06/2012 History of colonic polyps 12/20/2011 Overview: ICD-10 update of inactive term Adjustment disorder with depressed mood 05/24/20 11 documented as of this encounter (statuses as of 09/05/2023) Resolved Problems Problem Noted Date Diagnosed Date Resolved Date Elevated TSH 01/16/2023 07/18/2023 Precordial chest pain 07/15/20212023 History of disease of skin a nd subcutaneous tissue 11/18/2018 12/09/2018 Overview: ICD-10 update of inactive term Constipation 08/31/2018 07/18/2023 AK (actinic keratosis) 10/18/201711/18 History of rectal bleeding 01/16/2017 0 12/09/2018 Nonallergic rhinitis 11/27/2016 019 Esophageal dysfunction 05/30/201307/18 Dyslipidemia, goal to be determined 05/13/2009 06/06/2012 Overview: Per Lipid Taxonomy. ADVANCE DIRECTIVE INFORMATION 12/19/2004 12/09/2018 Overview: No, Advance Directive brochure given to patient. Hemorrhage of rectum and anus 11/23/2003 01/16/2017 Mixed dyslipidemia 9 Overview: Per Lipid Taxonomy. documented as of this encounter (statuses as of 09/05/2023) Immunizations Name Administration Dates Next Due COVID-19 mRNA, LNP-s, No Pre serve, 2-Dose Series (DockPHP) 03/07/2021,07/27/2020,07/06/2020 COVID-19, MRNA-LNP, 23-24, P F, 30 MCG/0.3 mL, 12 YRS AND ABOVE, IM ([facility] 03/14/2023 Covid-19, Mrna, Lnp-s, Pf, B ivalent, 30 Mcg, IM, 12 yrs and above (Pfizer) 03/31/2022 Pneumococcal Conjugate Vacc, 13 Valent (Prevnar) 03/19/2016 Pneumococcal Polysaccharide PPV23 (Pneumovax) 03/18/2015 Seasonal Influenza Virus Vac cine, Unspecified Formulation 03/14/2023 Seasonal Influenza, Quadriva lent, No Preserve, IM 03/07/2018,03/19/2017,03/19/2016,03/18 Seasonal Influenza, Split, I IV3, With Preserve, Inj 04/17/2014,05/08/2013,04/11/2011,04/07,04/07/2009 Seasonal Influenza, Trivalen t, Adjuvanted, 65+ yrs 03/31/2022,04/04/2021,03/06/2019 TDAP (age 10 and older)(Boostrix) 06/13/2018 TDAP (age 11 and older)(Adacel) 04/20/2009 Varicella Zoster Vaccine (Adult) 03/13/2015 Zoster Vaccine Recombinant (Shingrix) 03/06/2019 documented as of this encounter Social History Tobacco Use Types Packs/Day Years Used Date Smoking Tobacco: Never Passive Smoke Exposure: Never Smokeless Tobacco: Never Alcohol Use Standard Drinks/Week Comments Yes 0 (1 standard drink = 0.6 oz pur e alcohol) beer and wine rarely PHQ-2 Answer Date Recorded PHQ Adult Total Score 2 08/07/2023 Hunger Vital Sign Answer Date Recorded Within the past 12 months, y ou worried that your food would run out before you got the money to buy more. Never true 08/07/19 24 Within the past 12 months, t he food you bought just didn't last and you didn't have money to get more. Never true 08/07/2023 Sex and Gender Information Value Date Recorded Sex Assigned at Male 08/21/2018 1:04 PM EDT Gender Identity Male 08/21/2018 1:04 PM EDT Sexual Orientation Straight 08/21/2018 1: 04 PM EDT Job Start Date Occupation Industry Not on file Not on file Not on file documented as of this encounter Miscellaneous Notes * Telephone Encounter - Mitra Villanueva OSA - 09/05/2023 11:57 AM EDT Patient will stay with surgery as scheduled. * Telephone Encounter - Mitra Villanueva OSA - 09/05/2023 10:57 AM EDT Patient called and he is scheduled for a RIGHT CTR on 10/16 but he would like to know if he can change that to LEFT. Please advise. documented in this encounter Plan of Treatment Upcoming Encounters Date Type Department Care Team (Latest Contact Info) Description 10/04/2023 10:30 AM EDT Office Visit Cardiology, [facility] [address] [place] [address] Rene Ji MD [address] [place] [address] 10/15/2023 10:15 AM EDT Hospital Encounter ENDO [facility], Endoscopy [address] [place] [phone] Mark Metcalf MD [address] [place] [address] 10/15/2023 10:15 AM EDT - 10/15/2023 10:45 AM EDT Surgery ENDO [facility], Endoscopy [address], [place] [phone] Mark Metcalf MD [address] [place] [address] ESOPHAGOGASTRODUODENOSCOPY (EGD), FLEXIBLE, TRANSORAL, DIAGNOSTIC 10/17/2023 11:14 AM EDT Hospital Encounter OR [facility], Operating Room [facility] [address] [phone] Zay Mccormack MD [address] [place] [address] 10/17/2023 11:14 AM EDT - 10/17/2023 12:17 PM EDT Surgery OR [facility], Operating Room [facility] [address] [place] [phone] Zay Mccormack MD [address] [place] [address] RIGHT NEUROPLASTY MEDIAN NERVE AT CARPAL TUNNEL 10/24/2023 1:00 PM EDT Office Visit Orthopaedics [facility] [address] [place] [address] Zay Mccormack MD [address] [place] [address] 01/22/2024 10:00 AM EDT Office Visit [address] [phone] Isabel Mccabe PA-C [address] [place] [address] 08/12/2024 10:00 AM EDT Nurse Only Ancillary [address] [phone] [place], Nurse Annual Wellness [address] [address] 11/13/2024 11:00 AM EDT Office Visit Dermatology[address] [place] [address] Samantha Flores PA-C [address] [place] [address] [place] [address] Scheduled Procedures Name Priority Associated Diagnoses Date/Ti me ESOPHAGOGASTRODUODENOSCOPY ( EGD), FLEXIBLE, TRANSORAL, DIAGNOSTIC Gastroesophageal reflux 10/15/2023 10:15 AM EDT GASTRO REFLUX TEST WITH MUCO AUSTYN TELEMETRY PH ELECTRODE Gastroesophageal reflux 10/15/2023 10:15 AM EDT NEUROPLASTY MEDIAN NERVE AT CARPAL TUNNEL Bilateral carpal tunnel syndrome Trigger index finger of right hand 10/17/2023 11:14 AM EDT TRIGGER FINGER RELEASE Bilateral carpal tunnel syndrome Trigger index finger of right hand 10/17/2023 11:14 AM EDT COLONOSCOPY FLEXIBLE PROXIMA L DIAGNOSTIC Recall History of colon polyps Health Maintenance Due Date Last Done Comments Hepatitis C Screening 1963 Zoster Vaccines (3 of 3) 05/01/2019 03/06/2019, 03/04 COLONOSCOPY-EVERY 5 YRS AGES 18-100 08/14/2023 08/13/2018, 08/13/2018, 06/29/2015, Additional history exists Depression Screening 08/06/2024 08/07/2023 DTaP,Tdap,and Td Vaccines (3 - Td or Tdap) 06/13/2028 06/13/2018, 04/20/2009 Pneumococcal Vaccine: 65+ Years Completed 03/19/2016, 03/18/2015 COVID-19 Vaccine Completed 03/14/2023, , 03/07/2021, Additional history exists Influenza Vaccine (FLU shot) Completed 04/2023, 03/31/2022, 04/04/2021, Additional history exists GARDASIL-HPV IMMUNIZATION SERIES Aged Out No longer eligible based on patient's age to complete this topic Hepatitis B Aged Out No longer eligi ble based on patient's age to complete this topic MENINGOCOCCAL (MENACTRA/MENVEO) Aged Out No longer eligible based on patient's age to complete this topic documented as of this encounter Medical Devices Not on filedocumented as of this encounter Care Teams Wool Hat Forming Machine Tender Relationship Specialty Start Date End Date Isabel Mccabe PA-C [address] [place] [phone] PCP - General Physician Gas Golf Cart Repairer 08/28/17 documented as of this encounter
--- OUTSIDE RECORDS SUMMARY | 2023-09-15 16:26 | External Medical Summary | Summary of Care ---
Author Name Unknown Organization [facility] Address [address] [facility] [place] [address] Phone [phone] Care Team Providers Care Senior Information Developer Name Role Phone Isabel Mccabe PA-C Primary Care Provider + Reason for Visit * Reason Onset Date Comments Surgery 09/11/2023 Encounter Details Date Type Department Care Team (Late st Contact Info) Description 09/11/2023 Telephone Orthopaedics [facility] [address] [place] [address] Zay Mccormack MD [address] [place] [address] Surgery Allergies No known active allergiesdocumented as of this encounter (statuses as of 09/11/2023) Medications Medication Sig Dispensed Refills Start Date [...] as of this encounter (statuses as of 09/11/2023) Active Problems Problem Noted Date Diagnosed Date [...] as of this encounter (statuses as of 09/11/2023) Resolved Problems Problem Noted Date Diagnosed Date [...] as of this encounter (statuses as of 09/11/2023) Immunizations Name Administration Dates Next Due COVID-19 mRNA, LNP-s, No Pre serve, 2-Dose Series (Cleeng) 03/07/2021,07/27/2020,07/06/2020 COVID-19, MRNA-LNP, 23-24, P F, 30 MCG/0.3 mL, 12 YRS AND ABOVE, IM (invino-Comirnat) 03/14/2023 Covid-19, Mrna, Lnp-s, Pf, B ivalent, [...] Telephone Encounter - Mitra Villanueva OSA - 09/11/2023 9:32 AM EDT Patient has been rescheduled to 10/30 * Telephone Encounter - Abida Westfall OSA - 09/11/2023 8:54 AM EDT Pt is scheduled for surgery with Dr. Mccormack 10/17/23, he is having an endoscopy procedure 10/15/23 and was told he has to wear a meter of some kind and 10/17/23 for his ortho surgery was too soon after his endo appt. He would like a call to reschedule his surgery with Dr. Mccormack. [phone] is best to call him documented in this encounter Plan of Treatment Upcoming Encounters Date Type Department Care Team (Latest Contact Info) Description 10/04/2023 10:30 AM EDT Office Visit Cardiology, [facility] [address] [place] [address] Rene Ji MD [address] [place] [address] 10/15/2023 10:15 AM EDT Hospital Encounter ENDO [facility], Endoscopy [address] [phone] Mark Metcalf MD [address] [place] [address] 10/15/2023 10:15 AM EDT - 10/15/2023 10:45 AM EDT Surgery ENDO [facility], Endoscopy [address] [phone] Mark Metcalf MD [address] [place] [address] ESOPHAGOGASTRODUODENOSCOPY (EGD), FLEXIBLE, TRANSORAL, DIAGNOSTIC 10/31/2023 8:49 AM EDT Hospital Encounter OR [facility], Operating Room [facility] [address] [place] [phone] Zay Mccormack MD [address] [place] [address] 10/31/2023 8:49 AM EDT - 10/31/2023 9:52 AM EDT Surgery OR [facility], Operating Room [facility] [address] [place] [phone] Zay Mccormack MD [address] [place] [address] RIGHT NEUROPLASTY MEDIAN NERVE AT CARPAL TUNNEL 11/07/2023 1:00 PM EDT Office Visit Orthopaedics [facility] [address] [place] [address] Zay Mccormack MD [address] [place] [address] 11/14/2023 10:30 AM EDT Office Visit Gastroenterology , [facility] [address] [place] [address] Margret Rowland CRNP [address] [place] [address] 01/22/2024 10:00 AM EDT [facility] [phone] Isabel [facility]C [address] [facility] [address] 08/12/2024 10:00 AM EDT Nurse Only Ancillary [facility] [address] [place] [phone] [place], Nurse Annual Wellness [address] [place] [address] 11/13/2024 11:00 AM EDT Office Visit Dermatology, [address] [address] Samantha Flores, PETE [address] [place] [address] [place] [address] Scheduled Procedures Name Priority Associated Diagnoses Date/Ti me ESOPHAGOGASTRODUODENOSCOPY ( EGD), FLEXIBLE, TRANSORAL, DIAGNOSTIC Gastroesophageal reflux 10/15/2023 10:15 AM EDT GASTRO REFLUX TEST WITH MUCO AUSTYN TELEMETRY PH ELECTRODE Gastroesophageal reflux 10/15/2023 10:15 AM EDT NEUROPLASTY MEDIAN NERVE AT CARPAL TUNNEL Bilateral carpal tunnel syndrome Trigger index finger of right hand 10/31/2023 8:49 AM EDT TRIGGER FINGER RELEASE Bilateral carpal tunnel syndrome Trigger index finger of right hand 10/31/2023 8:49 AM EDT COLONOSCOPY FLEXIBLE PROXIMA L DIAGNOSTIC [...] filedocumented as of this encounter Care Teams Senior Information Developer Relationship Specialty Start Date End Date Isabel Mccabe PA-C [address] [place] [phone] PCP - General Physician Tax Auditor 08/28/17 documented as of this encounter
--- OUTSIDE RECORDS SUMMARY | 2023-09-15 16:27 | External Medical Summary | Summary of Care ---
Author Name Unknown Organization [facility] Address [address] [place] [address] Phone [phone] Care Team Providers Care Rug Layer Name Role Phone Isabel Mccabe PA-C Primary Care Provider + Reason for Visit * Reason Comments NEW PATIENT Pain Bilateral Wrist pain * Evaluate & Treat - Unlimited Visits (Within 10 days (routine)) - Authorized Specialty Diagnoses / Procedures Referred By Antoinette viramontes Referred To Contact Orthopaedic Surgery / Orthopedics Diagnoses Bilateral carpal tunnel syndrome Cubital tunnel syndrome, bilateral Trigger finger, unspecified finger, unspecified laterality Edmundo Cota PA-C [address] [place] [address] Arron Miller MD [address] [place] [address] Referral ID Status Reason Start Date Expiration Date Visits Requested Visits Authorized [id number] Authorized Specialty Services Required 08/20/2023 [id number] Encounter Details Date Type Department Care Team (Late st Contact Info) Description 08/29/2023 8:00 AM EDT Office Visit Orthopaedics [facility] [address] [address] Arron Miller MD [address] [place] [address] Bilateral carpal tunnel syndrome*; Trigger index finger of right hand; Trigger index finger of left hand Allergies No known active allergiesdocumented as of this encounter (statuses as of 08/29/2023) Medications Medication Sig Dispensed Refills Start Date [...] THE MORNING 90 Tablet 0 08/07/2023 Active Hospital, Clinic, or Other Facility Administered Medication Ordered Dose Route Frequency Start Date End Date Status Triamcinolone Acetonide (Kenalog) 40 MG/ML inj 40 mgIndications:Trigger index finger of left hand 40 mg IX ONCE 08/29/2023 08/29/2023 Ended documented as of this encounter (statuses as of 08/29/2023) Active Problems Problem Noted Date Diagnosed Date [...] as of this encounter (statuses as of 08/29/2023) Resolved Problems Problem Noted Date Diagnosed Date [...] as of this encounter (statuses as of 08/29/2023) Immunizations Name Administration Dates Next Due COVID-19 mRNA, LNP-s, No Pre serve, 2-Dose Series ([employer]) 03/07/2021,07/27/2020,07/06/2020 COVID-19, MRNA-LNP, 23-24, P F, 30 MCG/0.3 mL, 12 YRS AND ABOVE, IM (Flexis-Comirnat) 03/14/2023 Covid-19, Mrna, Lnp-s, Pf, B ivalent, 30 Mcg, IM, 12 yrs and above ([employer]) 03/31/2022 Pneumococcal Conjugate Vacc, 13 Valent (Prevnar) [...] on file documented as of this encounter H&P Notes * Arron Miller MD - 08/29/2023 8:25 AM EDT HISTORY & PHYSICAL EXAMINATION - Hand Surgery Name: Carl Urias Date: 08/29/2023 Time: 8:25 AM Date and Time Patient was Seen: 08/29/2023 at 8:25 AM PRESENTING PROBLEM: Numbness in both hands, locking of both index fingers HPI: The patient is a 78-year-old [id number] retired man who is still active in [employer] in [facility]. He is seen today at the recommendation of Edmundo Cota PA-C for hand surgery consultationregarding numbness in both hands. He is also complaining of pain in both palms and locking of his right index finger. He can not fully bend his left index finger. Symptoms have been present for least4 years. He has been wearing splints at night that have afforded him partial relief. He has not a diabetic. PAST MEDICAL HISTORY: Past Medical History: Diagnosis Date Acid reflux disease 05/30/2013 Adjustment disorder with depressed mood 05/24/2011 AK (actinic keratosis) 10/18/2017 DDD (degenerative disc disease), cervical 08/25/2015 Hemorrhage of rectum and anus 11/23/2003 Mixed dyslipidemia Personal history of colonic polyps 12/20/2011 Patient Active Problem List Diagnosis Code Adjustment disorder with depressed mood F43.21 History of colonic polyps Z86.010 Hyperlipidemia LDL goal <100 E78.5 Internal hemorrhoids K64.8 DDD (degenerative disc disease), cervical M50.30 Osteoarthritis of spine with radiculopathy, cervical region M47.22 Lumbar and sacral arthritis M47.817 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, G89.29 Hx of nonmelanoma skin cancer Z85.828 Obesity, Class I, BMI 30.0-34.9 (see actual BMI) E66.9 Gynecomastia N62 Gastroesophageal reflux disease without esophagitis K21.9 Allergic rhinitis J30.9 Family history of cardiovascular disease Z82.49 Chronic cough R05.3 Primary osteoarthritis of both hands M19.041, M19.042 Carpal tunnel syndrome of right wrist G56.01 PAST SURGICAL HISTORY: Past Surgical History: Procedure Laterality Date COLONOSCOPY, DIAGNOSTIC (RECTUM) 06/29/2015 normal, repeat 5 yrs/COLONOSCOPY FLEXIBLE PROXIMAL DIAGNOSTIC performed by Azar Lindquist MD at ENDOSCOPY [facility] COLONOSCOPY, DIAGNOSTIC (RECTUM) 08/13/2018 benign tissue on bx, repeat 5 yrs/COLONOSCOPY FLEXIBLE PROXIMAL DIAGNOSTIC performed by Mark Metcalf MD at ENDOSCOPY [facility] COLONOSCOPY, SURGERY REFERRAL OP 09/06/2011 tubular adenoma EGD, FLEXIBLE, DIAGNOSTIC 09/18/2017 normal bx/ESOPHAGOGASTRODUODENOSCOPY (EGD), FLEXIBLE, TRANSORAL, DIAGNOSTIC performed by Mark Metcalf MD at ENDOSCOPY [facility] MISCELLANEOUS ORDER ([facility] ONLY) lumbar surgery REMOVAL OF TONSILS, UNDER AGE 12 REPAIR OF NASAL SEPTUM REVERSE TOTAL SHOULDER ARTHROPLASTY Right RIGHT HEART CATHETERIZATION 1995 Cardiac Catheterization, Right Heart [facility] SIGMOIDOSCOPY, DIAGNOSTIC 1995 rectal bleeding; negative TOTAL HIP REPLACEMENT & PROSTHESIS Left UMBIL HERNIA REPAIR (REDUCIBLE) AGE 5+YR FAMILY HISTORY: Family History Problem Relation Age of Onset Heart Disorder Mother CAD w;ith CABG Heart Disorder Brother OK Allergies Son nasal allergies SOCIAL HISTORY: Social History Tobacco Use Smoking status: Never Passive exposure: Never Smokeless tobacco: Never Vaping Use Vaping Use: Never used Substance Use Topics Alcohol use: Yes Comment: beer and wine rarely Drug use: No MARITAL STATUS: CURRENT MEDICATIONS: Current Outpatient Medications Medication Sig Dispense Refill ASPIRIN 81 MG OR TABS Take 1 Tablet by mouth in the morning. 34 5 clotrimazole-betamethasone (LOTRISONE) 1-0.05 % cream Apply to rash on testicles twice daily as needed 15 g 5 Cholecalciferol (VITAMIN D) 1000 units Tablet Take 1 Tablet by mouth in the morning. hydrocortisone (ANUSOL-HC) 2.5 % rectal cream Apply topically to affected area 2 times a day. Applyto the rectum 1 Tube 5 Pantoprazole Sodium 40 MG Oral Tablet Delayed Release (Protonix) TAKE ONE TABLET BY MOUTH EVERY MORNING. 30 MINUTES BEFORE THE FIRST MEAL OF THE DAY. DO NOT CRUSH, CUT OR CHEW 90 Tablet 3 Vitamin C 100 MG Oral Tablet Take 1 Tablet by mouth in the morning. Azelastine HCl 0.1 % Nasal Solution (Astelin) Administer 2 Sprays into each nostril in the morning and 2 Sprays before bedtime. 90 mL 3 Famotidine 20 MG Oral Tablet (Pepcid) TAKE ONE TABLET BY MOUTH EVERY MORNING 90 Tablet 2 Ezetimibe 10 MG Oral Tablet (Zetia) TAKE ONE TABLET BY MOUTH EVERY MORNING 90 Tablet 3 Mirtazapine 7.5 MG Oral Tablet (Remeron) TAKE ONE TABLET BY MOUTH AT BEDTIME 90 Tablet 3 Atorvastatin Calcium 40 MG Oral Tablet (Lipitor) TAKE ONE TABLET BY MOUTH EVERY DAY 90 Tablet 3 buPROPion HCl ER (XL) 150 MG Oral Tablet Extended Release 24 Hour (Wellbutrin XL) TAKE ONE TABLET BY MOUTH EVERY DAY IN THE MORNING 90 Tablet 0 No current facility-administered medications for this visit. ALLERGIES: Patient has no known allergies. ROS: Negative for GI, , Cardiac, Respioratory and Neurologic complains. Remainder of systems negative. PHYSICAL EXAMINATION: General: Well developed, well nourished. Neuro: Awake, alert, and oriented. Heart & Lungs OK Extremities: There is average motion of the elbows forearms wrists and hands. Phalen's test is positive bilaterally. Tinel sign is present over the median nerve at both wrists. Subjective sensation is abnormal in the thumb index and middle fingers bilaterally. Static 2 point discrimination is normal. There is no intrinsic or extrinsic motor weakness. There is good capillary refill. There is pointtenderness over the A1 nara of the right index finger and there is soft clicking. There is tenderness over the A1 nara of the left index finger. I do not demonstrate locking but I do not demonstrate full flexion either, either actively or passively. Electrical studies performed in 2019 are interpreted as showing: Severe bilateral median neuropathies at the wrist (carpal tunnel syndrome). 2. Severe, chronic, bilateral ulnar neuropathies across the elbow. 3. Chronic right C7 radiculopathy. 4. Chronic left C5 - C7 polyradiculopath IMPRESSION: Bilateral carpal tunnel syndrome and trigger fingers bilateral index fingers. PLAN: We discussed options. I gave him a handout regarding trigger fingers. I offered steroid injection into his carpal tunnels which he declined. He did, however, request a steroid injection into his leftindex finger flexor sheath. He requested surgical release of his right carpal tunnel and I suggested released of the trigger finger of his right index finger. He consented to that. The left index finger was injected as follows: A written consent was obtained. An appropriate time-out was performed. Alcohol prep was used. 1 mL containing 40 mg of Kenalog and a small amount of 1% lidocaine was injected percutaneously into the flexor sheath of the left index finger. I could palpate the sheath to inflate during the course of the injection. A light dressing was applied. There were no complications. Risks, benefits, alternatives and realistic expectations were explained in detail.. Surgery is to be scheduled under local anesthesia. Thank you for this consultation . I have provided a significant and separately identifiable visit with today's procedure because there were 2 distinct diagnoses here, namely carpal tunnel and trigger fingers. All of the options for both diagnoses were explained. An informed consent for surgery was obtained. A separate informed consent for steroid injection into the flexor sheath was obtained. The injection into the flexor sheath itself constituted a completely separately identifiable management service. Patient Active Problem List Diagnosis Code Adjustment disorder with depressed mood F43.21 History of colonic polyps Z86.010 Hyperlipidemia LDL goal <100 E78.5 Internal hemorrhoids K64.8 DDD (degenerative disc disease), cervical M50.30 Osteoarthritis of spine with radiculopathy, cervical region M47.22 Lumbar and sacral arthritis M47.817 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, G89.29 Hx of nonmelanoma skin cancer Z85.828 Obesity, Class I, BMI 30.0-34.9 (see actual BMI) E66.9 Gynecomastia N62 Gastroesophageal reflux disease without esophagitis K21.9 Allergic rhinitis J30.9 Family history of cardiovascular disease Z82.49 Chronic cough R05.3 Primary osteoarthritis of both hands M19.041, M19.042 Carpal tunnel syndrome of right wrist G56.01 Arron Miller MD documented in this encounter Nursing Notes * Madhuri Tobias LPN - 08/29/2023 7:56 AM EDT Chief Complaint Patient presents with NEW PATIENT Pain Bilateral Wrist pain documented in this encounter Miscellaneous Notes * Addendum Note - Arron Miller MD - 08/29/2023 8:35 AM EDTAddended by: ARRON MILLER on: 08/29/2023 08:35 AM Modules accepted: Orders documented in this encounter Plan of Treatment Upcoming Encounters Date Type Department Care Team (Latest Contact Info) Description 10/04/2023 10:30 AM EDT Office Visit Cardiology, [facility] [address] [address] Rene Ji MD [address] [address] 10/15/2023 10:15 AM EDT Hospital Encounter ENDO [facility], Endoscopy [address] [phone] Mark Metcalf MD [address] [place] [address] 10/15/2023 10:15 AM EDT - 10/15/2023 10:45 AM EDT Surgery ENDO [facility], Endoscopy [address] [place] [address] Mark Metcalf MD [address] [place] [address] ESOPHAGOGASTRODUODENOSCOPY (EGD), FLEXIBLE, TRANSORAL, DIAGNOSTIC 10/17/2023 11:14 AM EDT Hospital Encounter OR [facility], Operating Room [facility] [address] [phone] Arron Miller MD [address] [place] [address] 10/17/2023 11:14 AM EDT - 10/17/2023 12:17 PM EDT Surgery OR [facility], Operating Room [facility] [address] [phone] Arron Miller MD [address] [place] [address] RIGHT NEUROPLASTY MEDIAN NERVE AT CARPAL TUNNEL 10/24/2023 1:00 PM EDT Office Visit Orthopaedics [facility] [address] [place] [address] Arrno Miller MD [address] [place] [address] 11/07/2023 1:00 PM EDT Office Visit Gastroenterology , [facility] [address] [place] [place] [address] Margret Rowland CRNP [address] [place] [address] 01/22/2024 10:00 AM EDT [address] [phone] Isabel Mccabe PA-C [address] [place] [address] 08/12/2024 10:00 AM EDT Nurse Only Ancillary [facility] [address] [facility] [place] [phone] [place], Nurse Annual Wellness [address] [address] 11/13/2024 11:00 AM EDT Office Visit Dermatology[address] [address] Samantha Flores PA-C [address] [place] [address] [place] [address] Scheduled Procedures Name Priority Associated Diagnoses Date/Ti [...] Not on filedocumented as of this encounter Visit Diagnoses Diagnosis Bilateral carpal tunnel syndrome- Primary Carpal tunnel syndrome Trigger index finger of right hand Trigger finger (acquired) Trigger index finger of left hand Trigger finger (acquired) Bilateral carpal tunnel syndrome Carpal tunnel syndrome Trigger index finger of right hand Trigger finger (acquired) Gastroesophageal reflux Esophageal reflux Bilateral carpal tunnel syndrome Carpal tunnel syndrome Trigger index finger of right hand Trigger finger (acquired) documented in this encounter Administered Medications Inactive Administered Medications - up to 3 most recent administrations Medication Order MAR Action Action Date Dose Rate Site Triamcinolone Acetonide (Kenalog) 40 MG/ML inj 40 mg 40 mg, Intra-Articular, ONCE, On Sun08/29/23 at 0915, For 1 dose Given 08/29/2023 1:46 PM EDT 40 mg Hand Left documented in this encounter Care Teams Rug Layer Relationship Specialty Start Date End Date Isabel Mccabe PA-C [address] [place] [id number] PCP - General Physician Culinary Assistant 08/28/17 documented as of this encounter
--- OUTSIDE RECORDS SUMMARY | 2023-09-15 16:27 | External Medical Summary | Summary of Care ---
Author Name Unknown Organization [facility] Address [address] [place] [facility] [place] [address] Phone [phone] Care Team Providers Care Edger Tailer Name Role Phone Isabel Mccabe PA-C Primary Care Provider + Reason for Visit * Reason Comments Outpatient Testing Encounter Details Date Type Department Care Team ([facility] st Contact Info) Description 08/07/2023 11:20 AM [facility] Laboratory Laboratory Patient Service [address] [phone] [address] [employer] Other*[id number]; Encounter for long-term (current) use of medications; Gastroesophageal reflux disease without esophagitis; Elevated TSH; Dysuria Allergies No known active allergiesdocumented as of this encounter (statuses as of 08/07/2023) Medications Medication Sig Dispensed Refills Start Date [...] as of this encounter (statuses as of 08/07/2023) Active Problems Problem Noted Date Diagnosed Date Primary osteoarthritis of both hands 07/19/2023 Carpal [...] as of this encounter (statuses as of 08/07/2023) Resolved Problems Problem Noted Date Diagnosed Date [...] as of this encounter (statuses as of 08/07/2023) Immunizations Name Administration Dates Next Due COVID-19 mRNA, LNP-s, No Pre serve, 2-Dose Series ([facility]) 03/07/2021,07/27/2020,07/06/2020 COVID-19, MRNA-LNP, 23-24, P F, 30 MCG/0.3 mL, 12 YRS AND ABOVE, [facility] 03/14/2023 Covid-19, Mrna, Lnp-s, Pf, B ivalent, [...] Answer Date Recorded PHQ Adult Total Score 7 08/03/2022 Hunger Vital Sign Answer Date Recorded Within the past 12 months, y ou worried that your food would run out before you got the money to buy more. Never true 08/04/19 23 Within the past 12 months, t he food you bought just didn't last and you didn't have money to get more. Never true 08/03/2022 Sex and Gender Information Value Date Recorded Sex Assigned at Male 08/21/2018 1:04 PM EDT Gender Identity Male 08/21/2018 1:04 PM EDT Sexual Orientation Straight 08/21/2018 1: 04 PM EDT Job Start Date Occupation Industry Not on file Not on file Not on file documented as of this encounter Plan of Treatment Upcoming Encounters Date Type Department Care Team (Latest Contact Info) Description 08/20/2023 11:30 AM EDT [facility] [address] [place] [address] Edmundo Cota PA-C [address] [place] [address] 08/27/2023 12:15 PM EDT [facility] [address] [place] [phone] Jignesh Morrison DO [address] [place] [address] 10/04/2023 10:30 AM EDT Office Visit Cardiology, [facility] [address] [place] [place] [address] Rene Ji MD [address] [place] [address] 10/15/2023 10:15 AM EDT Hospital Encounter ENDO [facility], Endoscopy [address] [phone] Mark Metcalf MD [address] [place] [address] 10/15/2023 10:15 AM EDT - 10/15/2023 10:45 AM EDT Surgery [facility]O [facility], Endoscopy [address] [phone] Mark Metcalf MD [address] [place] [address] ESOPHAGOGASTRODUODENOSCOPY (EGD), FLEXIBLE, TRANSORAL, DIAGNOSTIC 11/07/2023 12:30 PM EDT Office Visit Gastroenterology , [facility] [address] [place] [address] Margret Rolwand CRNP [address] [place] [address] 01/22/2024 10:00 AM EDT Office Visit Family [facility] [address] [place] [phone] Isabel Mccabe PA-C [address] [place] [address] 08/12/2024 10:00 AM EDT Nurse Only Ancillary [facility] [address] [place] [address] [place], Nurse Annual Wellness [address] [address] 11/13/2024 11:00 AM EDT Office Visit [address] [address] Samantha Flores PA-C [address] [place] [address] [place] [address] Pending Results Name Type Priority Associated Diagnoses Date /Time MYCODE SUBSEQUENT ADULT Lab Routine [employer] Other*[id number] 08/07/2023 11:19 AM EST COMPREHENSIVE METABOLIC PANEL Lab Routine Encounter for long-term (current) use of medications 08/07/2023 11:19 AM EST CBC Lab Routine Encounter for long-term (current) use of medications 08/07/2023 11:19 AM EST VITAMIN B12 Lab Routine Encounter for long-term (current) use of medications Gastroesophageal reflux disease without esophagitis 08/07/2023 11:19 AM EST MAGNESIUM Lab Routine Encounter for long-term (current) use of medications Gastroesophageal reflux disease without esophagitis 08/07/2023 11:19 AM EST TSH WITH FREE T4 IF INDICATED Lab Routine Encounter for long-term (current) use of medications Elevated TSH 08/07/2023 11:19 AM EST URINALYSIS, REFLEX TO CULTURE (NOT FOR NEUTROPENIC PATIENTS) Lab Routine Dysuria 08/07/2023 11:19 AM EST MYCODE SST1 Lab Routine [employer] Other*[id number] 08/07/2023 11:19 AM EST MYCODE SST2 Lab Routine [employer] Other*[id number] 08/07/2023 11:19 AM EST URINALYSIS, REFLEX TO CULTURE (CUP ONLY) Lab Routine Dysuria 08/07/2023 11:19 AM EST URINALYSIS, REFLEX TO CULTURE Lab Routine Dysuria 08/07/2023 11:19 AM EST Scheduled Procedures Name Priority Associated Diagnoses Date/Ti me ESOPHAGOGASTRODUODENOSCOPY ( EGD), FLEXIBLE, TRANSORAL, DIAGNOSTIC Gastroesophageal reflux 10/15/2023 10:15 AM EDT GASTRO REFLUX TEST WITH MUCO AUSTYN TELEMETRY PH ELECTRODE Gastroesophageal reflux 10/15/2023 10:15 AM EDT COLONOSCOPY FLEXIBLE PROXIMA L DIAGNOSTIC Recall History of colon polyps Health Maintenance Due Date Last Done Comments Hepatitis C Screening 1963 Zoster Vaccines (3 of 3) 05/01/2019 03/06/2019, 03/04 Depression Screening 08/04/2023 08/03/2022 COLONOSCOPY-EVERY 5 YRS AGES 18-100 08/14/2023 08/13/2018, 08/13/2018, 06/29/2015, Additional history exists DTaP,Tdap,and Td Vaccines (3 - Td or [...] as of this encounter Visit Diagnoses Diagnosis [employer] Other*[id number] Encounter for long-term (current) use of medications Encounter for long-term (current) use of other medications Gastroesophageal reflux disease without esophagitis Esophageal reflux Elevated TSH Other abnormal blood chemistry Dysuria Gastroesophageal reflux Esophageal reflux documented in this encounter Care Teams Edger Tailer Relationship Specialty Start Date End Date Isabel Mccabe PA-C [address] [place] [phone] PCP - General Physician Assistant Site Manager 08/28/17 documented as of this encounter
--- OUTSIDE RECORDS SUMMARY | 2023-09-15 16:27 | External Medical Summary | Summary of Care ---
Author Name Unknown Organization [facility] Address [address] [place] [address] Phone [phone] Care Team Providers Care Broom Worker Name Role Phone Isabel Mccabe PA-C Primary [...] finger, unspecified laterality Edmundo Cota PA-C [address] [place] [address] Arron Miller MD [address] [place] [place] [id number] Referral ID Status Reason Start Date Expiration Date Visits Requested Visits Authorized [id number] Authorized Specialty Services Required 08/20/[phone] Encounter Details Date Type Department Care Team (Late st Contact Info) Description 08/29/2023 8:00 AM EDT Office Visit Orthopaedics [facility] [address] [address] Arron Miller MD [address] [place] [address] Bilateral carpal tunnel syndrome*; Trigger index finger [...] hand 40 mg IX ONCE 08/29/2023 08/29/2023 Activ e documented as of this encounter (statuses as [...] mRNA, LNP-s, No Pre serve, 2-Dose Series ([employer]) 03/07/2021,07/27/2020,07/06/2020 COVID-19, MRNA-LNP, 23-24, P F, 30 MCG/0.3 mL, 12 YRS AND ABOVE, IM ([facility]) 03/14/2023 Covid-19, Mrna, Lnp-s, Pf, B ivalent, 30 Mcg, IM, 12 yrs and above ([employer]) 03/31/2022 Pneumococcal Conjugate Vacc, 13 Valent (Prevnar) [...] fingers HPI: The patient is a 78-year-old faujv-iwoc-wsktnsuw retired man who is still active in [employer] in [facility]. He is seen today at the [...] performed by Azar Lindquist MD at [facility] COLONOSCOPY, DIAGNOSTIC (RECTUM) 08/13/2018 benign tissue on bx, repeat 5 yrs/COLONOSCOPY FLEXIBLE PROXIMAL DIAGNOSTIC performed by Mark Metcalf MD at [facility] COLONOSCOPY, SURGERY REFERRAL OP 09/06/2011 tubular adenoma EGD, FLEXIBLE, DIAGNOSTIC 09/18/2017 normal bx/ESOPHAGOGASTRODUODENOSCOPY (EGD), FLEXIBLE, TRANSORAL, DIAGNOSTIC performed by Mark Metcalf MD at [facility] MISCELLANEOUS ORDER ([facility] ONLY) lumbar surgery REMOVAL OF TONSILS, UNDER AGE 12 REPAIR OF NASAL SEPTUM REVERSE TOTAL SHOULDER ARTHROPLASTY Right RIGHT HEART CATHETERIZATION 1995 Cardiac Catheterization, Right Heart [place] SIGMOIDOSCOPY, DIAGNOSTIC 1995 rectal bleeding; negative TOTAL HIP REPLACEMENT & PROSTHESIS Left UMBIL HERNIA REPAIR (REDUCIBLE) AGE 5+YR FAMILY HISTORY: Family History Problem Relation Age of Onset Heart Disorder Mother CAD w;ith CABG Heart Disorder Brother [place] Allergies Son nasal allergies SOCIAL HISTORY: Social [...] 10/04/2023 10:30 AM EDT Office Visit Cardiology, [facility] [address] [address] Rene Ji MD [address] [address] 10/15/2023 10:15 AM EDT Hospital Encounter ENDO [facility], Endoscopy [address] [phone] Mark Metcalf MD [address] [address] 10/15/2023 10:15 AM EDT - 10/15/2023 10:45 AM EDT Surgery ENDO [facility], Endoscopy [address] [place] [address] Mark Metcalf MD [address] [place] [place] [address] ESOPHAGOGASTRODUODENOSCOPY (EGD), FLEXIBLE, TRANSORAL, DIAGNOSTIC 11/07/2023 1:00 PM EDT Office Visit Gastroenterology , [facility] [address] [place] [address] Margret Rowland CRNP [address] [place] [place] [address] 01/22/2024 10:00 AM EDT Office Visit [address] [phone] Isabel Mccabe PA-C [address] [place] [address] 08/12/2024 10:00 AM EDT Nurse Only Ancillary [address] [phone] [place], Nurse [address] [address] 11/13/2024 11:00 AM EDT Office Visit Dermatology[address] [address] Samantha Flores PA-C [address] [place] [address] [place] [address] Scheduled Procedures Name Priority Associated Diagnoses Date/Ti va ESOPHAGOGASTRODUODENOSCOPY ( EGD), FLEXIBLE, TRANSORAL, DIAGNOSTIC Gastroesophageal reflux 10/15/2023 10:15 AM EDT GASTRO REFLUX TEST WITH MUCO AUSTYN TELEMETRY PH ELECTRODE Gastroesophageal reflux 10/15/2023 10:15 AM EDT NEUROPLASTY MEDIAN NERVE AT CARPAL TUNNEL Bilateral carpal tunnel syndrome Trigger index finger of right hand TRIGGER FINGER RELEASE Bilateral carpal tunnel syndrome Trigger index finger of right hand COLONOSCOPY FLEXIBLE PROXIMA L DIAGNOSTIC Recall History [...] finger of left hand Trigger finger (acquired) Gastroesophageal reflux Esophageal reflux documented in this encounter Care Teams Broom Worker Relationship Specialty Start Date End Date Isabel Mccabe PA-C [address] [place] [phone] PCP - General Physician Firewall Engineer 08/28/17 documented as of this encounter
--- OUTSIDE RECORDS SUMMARY | 2023-09-15 16:27 | External Medical Summary ---
Author Name Unknown Address Unknown Organization K01:LABORATORY [facility] - [address] [place] [address] Laboratory Report Ordering Provider Test Date Status FARIDA PAUL 08/07/2023 11:19:34 Final Observation Date Value Abnormality Reference (Units ) Status MYCODE SPECIMEN-SST 08/07/2023 11:19:34 Freezing of extracted DNA, whole blood and/or serum. Final Performing Location LABORATORY C - [address] [place] [address]
--- OUTSIDE RECORDS SUMMARY | 2023-09-15 16:27 | External Medical Summary | Summary of Care ---
Author Name Unknown Organization [facility] Address [address] [facility] [place] [address] Phone [phone] Care Team Providers Care Transfer And Pumphouse Operator Chief Name Role Phone Isabel Mccabe PA-C Primary Care Provider + Reason for Visit * Reason Onset Date Comments Test Results Lab 08/08/2023 Encounter Details Date Type Department Care Team ([facility] st Contact Info) Description 08/08/[address] [phone] Onelia Arriaga RN Test Results Lab Allergies No known active allergiesdocumented as of this encounter (statuses as of 08/08/2023) Medications Medication Sig Dispensed Refills Start Date [...] as of this encounter (statuses as of 08/08/2023) Active Problems Problem Noted Date Diagnosed Date [...] as of this encounter (statuses as of 08/08/2023) Resolved Problems Problem Noted Date Diagnosed Date [...] as of this encounter (statuses as of 08/08/2023) Immunizations Name Administration Dates Next Due COVID-19 mRNA, LNP-s, No Pre serve, 2-Dose Series ([employer]) 03/07/2021,07/27/2020,07/06/2020 COVID-19, MRNA-LNP, 23-24, P F, 30 MCG/0.3 mL, 12 YRS AND ABOVE, IM ([employer]-Comirnaty) 03/14/2023 Covid-19, Mrna, Lnp-s, Pf, B ivalent, [...] encounter Miscellaneous Notes * Telephone Encounter - Onelia Arriaga RN - 08/08/2023 10:44 AM EST Provider to address: Telephone call to patient to inform of blood and urine test results. Patient had normal CMP, CBC, vitamin B12, Magnesium, TSH and urinalysis results. All patient's questions answered at this time. Patient to follow-up with PCP as previously scheduled. Reason for Call: Test Results Lab Contact: Telephone Call Contact Type: Test Results Outcome: see above Face to face time spent with Patient (minutes): 0 Total Time including non face to face (minutes): 10 documented in this encounter Plan of Treatment Upcoming Encounters Date Type Department Care Team (Latest Contact Info) Description 08/20/2023 11:30 AM EDT [facility] [address] [place] [address] Edmundo Cota PA-C [address] [place] [address] 08/27/2023 12:15 PM EDT [facility] [address] [place] [phone] Jignesh Morrison DO [address] [place] [address] 10/04/2023 10:30 AM EDT Office Visit Cardiology, [facility] [address] [address] Rene Ji MD [address] [address] 10/15/2023 10:15 AM EDT Hospital Encounter ENDO [facility], Endoscopy [address] [phone] Mark Metcalf MD [address] [place] [address] 10/15/2023 10:15 AM EDT - 10/15/2023 10:45 AM EDT Surgery ENDO [facility], Endoscopy [address] [place] [address] Mark Metcalf MD [address] [facility] [place] [place] [address] ESOPHAGOGASTRODUODENOSCOPY (EGD), FLEXIBLE, TRANSORAL, DIAGNOSTIC 11/07/2023 12:30 PM EDT Office Visit Gastroenterology , [facility] [place] [place] [address] Margret Rowland CRNP [address] [facility] [place] [address] 01/22/2024 10:00 AM EDT Office Visit [address] [phone] Isabel Mccabe PA-C [address] [place] [address] 08/12/2024 10:00 AM EDT Nurse Only Ancillary [address] [phone] [place], Nurse Annual Wellness [address] [address] 11/13/2024 11:00 AM EDT Office Visit Dermatology[address] [address] Samantha Flores PA-C [address] [place] [address] [place] [address] Scheduled Procedures Name Priority Associated Diagnoses Date/Ti [...] filedocumented as of this encounter Care Teams Transfer And Pumphouse Operator Chief Relationship Specialty Start Date End Date Isabel Mccabe PA-C [address] [place], [place] [address] [phone] PCP - General Physician Drug Abuse Social Worker 08/28/17 documented as of this encounter
--- OUTSIDE RECORDS SUMMARY | 2023-09-15 16:27 | External Medical Summary | Summary of Care ---
Author Name Unknown Organization [facility] Address [address] [place] [address] Phone [phone] Care Team Providers Care Child'S Nurse Name Role Phone Isabel Mccabe PA-C Primary [...] finger, unspecified laterality Edmundo Cota PA-C [address] [place] [address] Arron Miller MD [address] [place] [place] [address] Referral ID Status Reason Start Date Expiration Date Visits Requested Visits Authorized [id number] Authorized Specialty Services Required 08/20/[phone] Encounter Details Date Type Department Care Team (Late st Contact Info) Description 08/29/2023 8:00 AM EDT Office Visit Orthopaedics [facility] [address] [address] Arron Miller MD [address] [address] Bilateral carpal tunnel syndrome*; Trigger index finger [...] mRNA, LNP-s, No Pre serve, 2-Dose Series ([employer]) 03/07/2021,07/27/2020,07/06/2020 COVID-19, MRNA-LNP, 23-24, P F, 30 MCG/0.3 mL, 12 YRS AND ABOVE, IM ([employer]) 03/14/2023 Covid-19, Mrna, Lnp-s, Pf, B ivalent, 30 Mcg, IM, 12 yrs and above ([employer]) 03/31/2022 Pneumococcal Conjugate Vacc, 13 Valent (Prevnar) [...] fingers HPI: The patient is a 78-year-old oallf-ocdw-vvsrddyo retired man who is still active in [employer] in [facility]. He is seen today at the [...] performed by Azar Lindquist MD at ENDOSCOPY [facility] COLONOSCOPY, DIAGNOSTIC (RECTUM) 08/13/2018 benign tissue on bx, repeat 5 yrs/COLONOSCOPY FLEXIBLE PROXIMAL DIAGNOSTIC performed by Mark Metcalf MD at ENDOSCOPY [facility] COLONOSCOPY, SURGERY REFERRAL OP 09/06/2011 tubular adenoma EGD, FLEXIBLE, DIAGNOSTIC 09/18/2017 normal bx/ESOPHAGOGASTRODUODENOSCOPY (EGD), FLEXIBLE, TRANSORAL, DIAGNOSTIC performed by Mark Metcalf MD at ENDOSCOPY [facility] MISCELLANEOUS ORDER ([facility] ONLY) lumbar surgery REMOVAL OF TONSILS, UNDER AGE 12 REPAIR OF NASAL SEPTUM REVERSE TOTAL SHOULDER ARTHROPLASTY Right RIGHT HEART CATHETERIZATION 1995 Cardiac Catheterization, Right Heart [place] SIGMOIDOSCOPY, DIAGNOSTIC 1995 rectal bleeding; negative TOTAL HIP REPLACEMENT & PROSTHESIS Left UMBIL HERNIA REPAIR (REDUCIBLE) AGE 5+YR FAMILY HISTORY: Family History Problem Relation Age of Onset Heart Disorder Mother CAD w;ith CABG Heart Disorder Brother [place] Allergies Son nasal allergies SOCIAL HISTORY: Social [...] 10/04/2023 10:30 AM EDT Office Visit Cardiology, [facility] [address] [address] Rene Ji MD [address] [address] 10/15/2023 10:15 AM EDT Hospital Encounter ENDO [facility], Endoscopy [address] [phone] Mark Metcalf MD [address] [place] [address] 10/15/2023 10:15 AM EDT - 10/15/2023 10:45 AM EDT Surgery ENDO [facility], Endoscopy [address] [place] [phone] Mark Metcalf MD [address] [place] [address] ESOPHAGOGASTRODUODENOSCOPY (EGD), FLEXIBLE, TRANSORAL, DIAGNOSTIC 10/17/2023 11:14 AM EDT Hospital Encounter OR [facility], Operating Room [facility] [address] [phone] Arron Miller MD [address] [place] [address] 10/17/2023 11:14 AM EDT - 10/17/2023 12:17 PM EDT Surgery OR [facility], Operating Room [facility] [address] [phone] Arron Miller MD [address] [place] [address] RIGHT NEUROPLASTY MEDIAN NERVE AT CARPAL TUNNEL 10/24/2023 1:00 PM EDT Office Visit Orthopaedics [facility] [address] [place] [place] [address] Arron Miller MD [address] [place] [address] 11/07/2023 1:00 PM EDT Office Visit Gastroenterology , [facility] [address] [place] [address] Margret Rowland CRNP [address] [place] [address] 01/22/2024 10:00 AM EDT Office [address] [phone] Isabel Mccabe PA-C [address] [place] [address] 08/12/2024 10:00 AM EDT Nurse Only Ancillary [facility] [address] [place] [phone] [place], Nurse Annual Wellness [address] [address] 11/13/2024 11:00 AM EDT Office Visit Dermatology[address] [address] Samantha Flores PA-C [address] [place] [address] [place] [address] Scheduled Procedures Name Priority Associated Diagnoses Date/Ti [...] Left documented in this encounter Care Teams Child'S Nurse Relationship Specialty Start Date End Date Isabel Mccabe PA-C [address] [place] [address] PCP - General Physician Audio Visual Aids Director 08/28/17 documented as of this encounter
--- OUTSIDE RECORDS SUMMARY | 2023-09-15 16:27 | External Medical Summary | Summary of Care ---
Author Name Unknown Organization [facility] Address [address] [facility] [place] [address] Phone [phone] Care Team Providers Care Molding Line Operator Name Role Phone Isabel Mccabe PA-C Primary Care Provider + Encounter Details Date Type Department Care Team (Latest Contact Info) Description 08/20/2023 11:02 AM EDT - 08/20/2023 11:59 PM EDT Hospital Encounter Radiology, [address] [phone] Arrived Discharge Disposition: Home - Self Care Allergies No known active allergiesdocumented as of this encounter (statuses as of 08/21/2023) Medications Medication Sig Dispensed Refills Start Date [...] as of this encounter (statuses as of 08/21/2023) Active Problems Problem Noted Date Diagnosed Date [...] as of this encounter (statuses as of 08/21/2023) Resolved Problems Problem Noted Date Diagnosed Date [...] as of this encounter (statuses as of 08/21/2023) Immunizations Name Administration Dates Next Due COVID-19 mRNA, LNP-s, No Pre serve, 2-Dose Series ([employer]) 03/07/2021,07/27/2020,07/06/2020 COVID-19, MRNA-LNP, 23-24, P F, 30 MCG/0.3 mL, 12 YRS AND ABOVE, IM ([employer]-Comirnaty) 03/14/2023 Covid-19, Mrna, Lnp-s, Pf, B ivalent, [...] Department Care Team (Latest Contact Info) Description 08/27/2023 12:15 PM EDT Office Visit Orthopaedics [facility] [address] [place] [phone] Jignesh Morrison DO [address] [place] [address] 08/29/2023 8:00 AM EDT Office Visit Orthopaedics [facility] [address] [place] [address] Zay Mccormack MD [address] [place] [address] 10/04/2023 10:30 AM EDT Office Visit Cardiology, [facility] [address] [place] [address] Rene Ji MD [address] [place] [address] 10/15/2023 10:15 AM EDT Hospital Encounter [facility]O [facility], Endoscopy [address] [phone] Mark Metcalf MD [address] [place] [address] 10/15/2023 10:15 AM EDT - 10/15/2023 10:45 AM EDT Surgery ENDO [facility], Endoscopy [address] [phone] Mark Metcalf MD [address] [place] [address] ESOPHAGOGASTRODUODENOSCOPY (EGD), FLEXIBLE, TRANSORAL, DIAGNOSTIC 11/07/2023 1:00 PM EDT Office Visit Gastroenterology , [facility] [address] [place] [address] Margret Rowland CRNP [address] [place] [address] 01/22/2024 10:00 AM EDT Office Visit Family Practice [facility] [address] [place] [phone] Isabel Mccabe PA-C [address] [place], [place] [phone] 08/12/2024 10:00 AM EDT Nurse Only Ancillary [facility] [address] [place] [address] [place], Nurse Annual Wellness [address] [address] 11/13/2024 11:00 AM EDT Office Visit Dermatology[address] [address] Samantha Flores PA-C [address] [place] [address] [place] [address] Pending Results Name Type Priority Associated Diagnoses Date /Time XR HAND 3 OR MORE VIEWS Medical Imaging Routine 08/20/2023 11:19 AM EDT Scheduled Procedures Name Priority Associated Diagnoses Date/Ti [...] filedocumented as of this encounter Care Teams Molding Line Operator Relationship Specialty Start Date End Date Isabel Mccabe PA-C [address] [place] [phone] PCP - General Physician Senior Technical Editor 08/28/17 documented as of this encounter
--- OUTSIDE RECORDS SUMMARY | 2023-09-15 16:27 | External Medical Summary ---
Author Name Unknown Address Unknown Organization K01:LABORATORY [facility] - [address] [place] [address] Laboratory Report Ordering Provider Test Date Status JERRY KNIGHT 08/07/2023 11:19:34 Final Observation Date Value Abnormality Reference (Units ) Status TSH 08/07/2023 11:19:34 2.94 0.27-4.20 (uIU/mL) Final Performing Location LABORATORY [facility] - [address] [place] [address]
--- OUTSIDE RECORDS SUMMARY | 2023-09-15 16:27 | External Medical Summary | Summary of Care ---
Author Name Unknown Organization [facility] Address [address] [facility] [place] [address] Phone [phone] Care Team Providers Care Dowel Pin Man Name Role Phone Isabel Mccabe PA-C Primary Care Provider + Reason for Visit * Reason Onset Date Comments Adult Annual Wellness Visit, Subsequent Visit Adult Annual Wellness Visit, Subsequent Visit Encounter Details Date Type Department Care Team ([facility] Contact Info) Description 08/07/2023 10:00 AM EST Nurse Only Ancillary [address] [phone] [place], Nurse Annual Wellness [address] [id number] Adult Annual Wellness Visit, Subsequent Vi... Allergies No known active allergiesdocumented as of [...] mRNA, LNP-s, No Pre serve, 2-Dose Series ([facility]) 03/07/2021,07/27/2020,07/06/2020 COVID-19, MRNA-LNP, 23-24, P F, 30 MCG/0.3 mL, 12 YRS AND ABOVE, [facility] 03/14/2023 Covid-19, Mrna, Lnp-s, Pf, B ivalent, [...] Passive Smoke Exposure: Never Smokeless Tobacco: Never Tobacco Cessation:Counseling Given: Not Answered Alcohol Use Standard Drinks/Week Comments Yes 0 [...] on file documented as of this encounter Last Filed Vital Signs Vital Sign Reading Time Taken Comments Blood Pressure 130/76 08/07/2023 9:57 AM EST Pulse 74 08/07/2023 9:57 AM EST Temperature 36.4 C (97.6 F) 08/07/2023 9:57 AM ES T Respiratory Rate 16 08/07/2023 9:57 AM EST Oxygen Saturation 96% 08/07/2023 9:57 AM EST Inhaled Oxygen Concentration - - Weight 94 kg (207 lb 3.2 oz) 08/07/2023 9:57 AM EST Height 167.6 cm (5' 6") 08/07/2023 9:57 AM EST Body Mass Index 33.44 08/07/2023 9:57 AM EST documented in this encounter Patient Instructions * Patient Instructions* Onelia Arriaga RN - 08/07/2023 9:44 AM EST Hi Mr. Urias, As your primary care physician, I know that regular visits with my patients who have several chronic conditions can go a long way in helping you stay healthy. Many times, the clinic team and I are in touch with you and/or other care team members between office visits to adjust medications, discuss any changes in your health, and review our care plan to make sure it is still meeting your needs. I am dedicated to helping you take a more active role in your overall care. It is important that there are resources available to you, so I created a personalized plan of care with a Health Calendar for you, which is included on the next page of this letter. Below is a list that summarizes your electronic health record: Health Maintenance Due: Health Maintenance Due Topic Date Due Hepatitis C Screening Never done Zoster Vaccines (3 of 3) 05/01/2019 Influenza Vaccine (FLU shot) (1) 02/02/2023 COVID-19 Vaccine (2022- season) 2023 Depression Screening 08/04/2023 COLONOSCOPY-EVERY 5 YRS AGES 18-100 08/14/2023 Current Medication List: (as of Visit date not found (in office), Visit date not found (telemedicine) ) Current Outpatient Medications Medication Sig Dispense Refill ASPIRIN 81 MG OR TABS Take 1 Tablet by mouth in the morning. 34 5 clotrimazole-betamethasone (LOTRISONE) 1-0.05 % cream Apply to rash on testicles twice daily asneeded 15 g 5 Cholecalciferol (VITAMIN D) 1000 units Tablet Take 1 Tablet by mouth in the morning. hydrocortisone (ANUSOL-HC) 2.5 % rectal cream Apply topically to affected area 2 times a day. Apply to the rectum 1 Tube 5 Pantoprazole Sodium 40 MG Oral Tablet Delayed Release (Protonix) TAKE ONE TABLET BY MOUTH EVERYMORNING. 30 MINUTES BEFORE THE FIRST MEAL OF [...] No current facility-administered medications for this visit. Current List of Allergies: (as of Visit date not found (in office), Visit date not found (telemedicine) ) Review of patient's allergies indicates: No Known Allergies Most Recent Lab Results: Results for orders placed or performed in visit on 07/12/23 SURGICAL PATHOLOGY Result Value Ref Range Final Diagnosis A. Skin, R flank, shave: Benign melanocytic nevus Clinical History See Order Comments Order Comments 1A. R flank-4x2mm light-medium brown irregular macule. Nevus, r/o atypia Gross Description A. Skin. Received in formalin with a container labeled with "Carl Urias", "[id number]", "1945" and " right flank". Received is a 1.0 x 0.8 cm skin shave. The skin surface has a españa to light brown, dull,mottled, irregularly-shaped, centrally located macule measuring 0.4 x 0.1 cm which extends to within 0.2 cm of the closest margin. The underlying tissue is inked. The specimen is trisected (area of interest is isolated) and submitted in cassette A1. Gross By: MD Sign Out Location Pathologist sign out performed at [facility] [place] [place] [address] [place] [id number]. Photographic images and diagrams represent mckinney findings in this case; they are not intended to replace a complete review of the final diagnostic report. The following statement applies to Flow Cytometry, Histology, In situ Hybridization Assays and Molecular Genetics. This test was developed and performed at [facility] and its performance characteristics determined by [facility]. It has not been cleared or approved by the U.S. Food and Drug Administration. The FDA has determined that such clearance or approval is not necessary. This test is used for clinical purposes. It should not be regarded as investigationalor for research. Special stains, including histochemical stains, and studies using immunologic and HELENA methodology (where applicable) are performed with appropriate positive and negative control reactions. Sincerely, Isabel Mccabe PA-C 08/07/2023 [facility] Calendar (as of Visit date not found (in office), Visit date not found (telemedicine) ) Care needs Care needs Last completed Due next Hepatitis C screening --- Never done Zoster (Shingles) Vaccine (3 of 3) 03/06/2019 05/01/2019 Flu vaccine (recommended) (1) 03/31/2022 02/02/2023 COVID-19 Vaccine (5 - 2022-24 season) 2022 02/02/2023 Colonoscopy - every 5 years 08/13/2018 08/14/2023 Diphtheria, tetanus & pertussis vaccines (3 - Td or Tdap) 06/13/2018 06/13/2028 As you look over the recommended services, be sure to check with your insurance company to determine what's covered. [employer] is a great tool that helps you review your medical record online, including test results, doctor notes and your health summary. You can also schedule appointments with me and other members of your care team, request prescription refills and ask for advice related to your medical conditions at [email or web address]. Patient Instructions - Fall Prevention (This education is for all patients over 65 regardless of symptoms) Remember to take your current medications as prescribed. In order to prevent falls, you are encouraged to: Exercise Utilize assistive/adaptive devices Avoid multifocal lenses when walking Avoid hazards in home Maintain a regular toileting schedule Any questions please contact our office. Preventing Falls in the Home (This education is for all patients over 65 regardless of symptoms) As you get older, falls are more likely. Thats because your reaction time slows. Your muscles and joints may also get stiffer, making them less flexible. Illness, medications, and vision changes can also affect your balance. A fall could leave you unable to live on your own. To make your home safer, follow these tips: Floors Put nonskid pads under area rugs Remove throw rugs Replace worn floor coverings Tack carpets firmly to each step on carpeted stairs. Put nonskid strips on the edges of uncarpeted stairs Keep floors and stairs free of clutter and cords Arrange furniture so there are clear pathways Clean up any spills right away Bathrooms Install grab bars in the tub or shower Apply nonskid strips or put a nonskid rubber mat in the tub or shower Sit on a bath chair to bathe Use bathmats with nonskid backing Lighting Keep a flashlight in each room Put a nightlight along the pathway between the bedroom and the bathroom [employer] Patient Education Copyright 2008 - 2010 [employer] except where otherwise noted Preventing Falls: Exercises to Improve Balance, Flexibility, Strength, and Staying Power (This education is for all patients over 65 regardless of symptoms) Certain types of exercises may help make you less likely to fall. Try the ones below. Or do other exercises that your healthcare provider suggests. Depending on your health, you may need to start slowly. Dont let that stop you. Even small amounts of exercise can help you. Be sure to talk to yourhealthcare provider before starting any exercise program. Improve Balance Many types of exercise can help improve balance. Nico chi and yoga are good examples. Heres another one to try. You can do it anytime and almost anywhere. Stand next to a counter or solid support. Push yourself up onto your tiptoes. Hold for 5 seconds. If you start to lose your balance, hold on to the counter. Rest and repeat 5 times. Work up to holding for 20 to 30 seconds, if you can. Increase Flexibility Being more flexible makes it easier for you to move around safely. Try exercises like the seated hamstring stretch. Sit in a chair and put one foot on a stool. Straighten your leg and reach with both hands down either side of your leg. Reach as far down your leg as you can. Hold for about 20 seconds. Go back to the starting position. Then repeat 5 times. Switch legs. Build Strength Resistance exercises help build strength. You can do them without equipment. Or you can use weights, elastic bands, or special machines. One such exercise is called the biceps curl. You can hold a 1 pound weight or even a can of soup. Do this exercise at least 3 times a week. Strive for everyday. Sit up straight in a chair. Keep your elbow close to your body and your wrist straight. Bend your arm, moving your hand up to your shoulder. Then slowly lower your arm. Repeat 5 times. Switch to the other arm. Build Your Staying Power Aerobic exercises make your heart and lungs stronger so you can keep moving longer. Walking and swimming are two of the best types of exercises you can do. Using a stationary bike is great, too. Find an aerobic exercise that you enjoy. Start slowly and build up. Even 5 minutes is helpful. Aimfor a goal of 30 minutes, at least 3 times a week. You dont have to do 30 minutes in one session. Break it up and walk a little throughout the day. More Helpful Tips Start easy. Slowly work up to doing more. Talk with your healthcare provider about the best exercises for you. Call senior centers or health clubs about exercise programs. If needed, have a family member watch you walk every so often to check your stability. Exercise with a friend. Choose an activity you both enjoy. Try exercises that you can do anytime, anywhere. Here are two examples. Have someone with you when you first try these: Practice walking by placing one foot right in front of the other. Stand up and sit down 10 times. Repeat this throughout the day. [employer] Patient Education Copyright 2009 - 2010 [employer] except where otherwise noted. Preventing Falls: Moving Safely Using a Cane or Walker (This education is for all patients over 65 regardless of symptoms) Keep the cane away from your feet so you dont trip. A walking aid, such as a cane or walker, can help you stay more independent and avoid falls. Remember to keep your walking aid within easy reach when youre in a chair or in bed. And learn how to use it safely so you dont injure yourself. Using a Cane If you have a stronger side, hold the cane on that side. Get your balance. Move the cane and your weaker leg forward. Support your weight on both the cane and your weaker side. Step with your stronger leg. Start again from step 1. If youre using a folding walker, be sure you know how to lock it open. Check that its locked open before each use. Using a Walker Roll the walker (or lift it, if youre using one without wheels) forward about 12 inches. Step forward with your weaker leg first. Use the walker to help keep your balance. Bring your other foot forward to the center of the walker. Start again from step 1. Helpful Tips Check with your healthcare provider about the right walking aid to use. Ask about a walker with a seat attached. Check the tips of your cane or walker to make sure they have nonskid covers. Move slowly from room to room. Dont becker. Sit down to get dressed. Use a fe pack or backpack to keep your hands free. Get help for jobs that mean climbing, even on a stepstool. [employer] Patient Education Copyright 2008 - 2010 [employer] except where otherwise noted. Treating Urinary Incontinence in Men (This education is for all patients over 65 regardless of symptoms) You can't always control the release of urine. You may leak urine. Or you may not be able to hold your urine until you can get to a bathroom. This is called urinary incontinence. The problem can be managed. Talk to your doctor about your treatment options. Taking Medications Prescription medications may help you. They may: Help the sphincter to work better. (This is the muscle that closes to keep urine from leaking out of the bladder.) Help stop the bladder from jim too often to push urine out. Help the bladder muscles contract with more force. Help relax the sphincter muscle and allow urine to flow more freely. Making Changes to Your Routine Certain changes in your daily routine may help. These include: Avoiding caffeine and alcohol. Using timed voiding. This is following a schedule for drinking fluids and urinating. Doing Kegel exercises daily. These exercises involve tightening the muscles in your sphincter and around your bladder to help strengthen them. Your doctor can explain how to do them. Using a Catheter A catheter is a narrow tube that is inserted through the urethra into the bladder. It drains urine.A condom catheter covers the penis. It channels urine into a collection bag. It is worn most of thetime. Intermittent catheterization means inserting a catheter to drain the bladder, then removing it. This is done on a regular schedule. Having Surgery If other options don't work, surgery may be recommended. If surgery is an option, your healthcare provider can discuss it with you and explain its risks and benefits. Healing After Prostate Surgery Surgery on the prostate gland can cause incontinence. Most often, the incontinence is only for a short time. It clears up when healing is complete. Very rarely, prostate surgery can result in permanent incontinence. documented in this encounter Progress Notes * Onelia Arriaga RN - 08/07/2023 9:42 AM EST AD8 Dementia Screening Interview Person answering questions: patient Remember, "Yes, a change" indicates that there has been a change in the last several years caused by cognitive (thinking and memory) problems 1. Problems with judgement (eg: problems making decisions, bad financial decisions, problems with thinking). No (0) 2. Less interest in hobbies/activities. No (0) 3. Repeats the same things over and over (questions, stories, or statements). No (0) 4. Trouble learning how to use a tool, appliance, or gadget (eg: VCR, computer, microwave, remote control). No (0) 5. Forgets correct month or year. No (0) 6. Trouble handling complicated financial affairs (eg: balancing checkbook, income taxes, paying bills). No (0) 7. Trouble remembering appointments. No (0) 8. Daily problems with thinking and/or memory. No (0) TOTAL AD8: 0 - AD8 Dementia Screening Score The final score is a sum of the number items marked "Yes, A Change". 0 - 1: Normal cognition; 2 or greater: Cognitive impairments is likely to be present - further testing required Adult Annual Wellness Visit: Carl Urias is a 78 year old male who presents for an Adult Annual Wellness Visit. Depression Screening: Did the patient complete the screening questionnaire for Depression? Yes Is the patient's total score for Depression 15 or greater? No, no further intervention needed, unless requested by patient. Did the patient answer positively to the suicide question? No, no further intervention needed, unless requested by patient. In general, compared to other people your age, what would you say that your health is? Excellent Ht Readings from Last 1 Encounters: 08/07/23 1.676 m (5' 6") Wt Readings from Last 1 Encounters: 08/07/23 94 kg (207 lb 3.2 oz) Body Mass Index: BMI Greater than 30 Body mass index is 33.44 kg/m. BP Readings from Last 1 Encounters: 08/07/23 130/76 Medical/Surgical/Family History Reviewed: Yes Past Medical History: Diagnosis Date Acid reflux disease 05/30/2013 Adjustment disorder with depressed mood 05/24/2011 AK (actinic keratosis) 10/18/2017 DDD (degenerative disc disease), cervical 08/25/2015 Hemorrhage of rectum and anus 11/23/2003 Mixed dyslipidemia Personal history of colonic polyps 12/20/2011 Past Surgical History: Procedure Laterality Date COLONOSCOPY, DIAGNOSTIC (RECTUM) 06/29/2015 normal, repeat 5 yrs/COLONOSCOPY FLEXIBLE PROXIMAL DIAGNOSTIC performed by Azar Lindquist MD at [facility] COLONOSCOPY, DIAGNOSTIC (RECTUM) 08/13/2018 benign tissue on bx, repeat 5 yrs/COLONOSCOPY FLEXIBLE PROXIMAL DIAGNOSTIC performed by Mark Metcalf MD at [facility]COPY [facility] COLONOSCOPY, SURGERY REFERRAL OP 09/06/2011 tubular adenoma EGD, FLEXIBLE, DIAGNOSTIC 09/18/2017 normal bx/ESOPHAGOGASTRODUODENOSCOPY (EGD), FLEXIBLE, TRANSORAL, DIAGNOSTIC performed by Mark Metcalf MD at [facility]COPY [facility] MISCELLANEOUS ORDER ([facility] ONLY) lumbar surgery REMOVAL OF TONSILS, UNDER AGE 12 REPAIR OF NASAL SEPTUM REVERSE TOTAL SHOULDER ARTHROPLASTY Right RIGHT HEART CATHETERIZATION 1995 Cardiac Catheterization, Right Heart [place] SIGMOIDOSCOPY, DIAGNOSTIC 1995 rectal bleeding; negative TOTAL HIP REPLACEMENT & PROSTHESIS Left UMBIL HERNIA REPAIR (REDUCIBLE) AGE 5+YR Family History Problem Relation Age of Onset Heart Disorder Mother CAD w;ith CABG Heart Disorder Brother [place] Allergies Son nasal allergies Has patient ever had cancer? History of cancer, type: nonmelanoma and location: skin Social History Tobacco Use Smoking status: Never Passive exposure: Never Smokeless tobacco: Never Substance Use Topics Alcohol use: Yes Comment: beer and wine rarely Vaping/E-Cigarette Use Vaping/E-Cigarette Use Never User Vaping/E-Cigarette Substances Vaping/E-Cigarette Devices Tobacco/Alcohol screening completed today? Yes Hospital Care: Admissions (within the last year): Not Applicable ER within 30 days: No Does the patient have an Advance Directives/Living Will? Yes Last Physical Exam: Last physical exam: 07/19/2023 Does patient see primary provider regularly? Yes Does patient see other providers? Yes, Specialist Patient Care Team updated? Yes Review of patient's allergies indicates: No Known Allergies Immunization History Administered Date(s) Administered COVID-19 mRNA, LNP-s, No Preserve, 2-Dose Series ([facility]) 07/06/2020, 07/27/2020, 03/07/2021 COVID-19, MRNA-LNP, 23-24, PF, 30 MCG/0.3 mL, 12 YRS AND ABOVE, IM ([facility] 03/14/2023 Covid-19, Mrna, Lnp-s, Pf, Bivalent, 30 Mcg, IM, 12 yrs and above ([facility]) 03/31/2022 Pneumococcal Conjugate Vacc, 13 Valent (Prevnar) 03/19/2016 Pneumococcal Polysaccharide PPV23 (Pneumovax) 03/18/2015 Seasonal Influenza Virus Vaccine, Unspecified Formulation 03/14/2023 Seasonal Influenza, Quadrivalent, No Preserve, IM 03/18/2015, 03/19/2016, 03/19/2017, 03/07/2018 Seasonal Influenza, Split, IIV3, With Preserve, Inj 04/07/2009, 04/07/2010, 04/11/2011, 05/08/2013,04/17/2014 Seasonal Influenza, Trivalent, Adjuvanted, 65+ yrs 03/06/2019, 04/04/2021, 03/31/2022 TDAP (age 10 and older)(Boostrix) 06/13/2018 TDAP (age 11 and older)(Adacel) 04/20/2009 Varicella Zoster Vaccine (Adult) 03/13/2015 Zoster Vaccine Recombinant (Shingrix) 03/06/2019 Current Outpatient Medications Medication Sig Dispense Refill [...] No current facility-administered medications for this visit. Patient Active Problem List Diagnosis Code Adjustment [...] Carpal tunnel syndrome of right wrist G56.01 Medication Compliance: Patient is able to obtain all of his medications? Yes Patient takes medications as prescribed? Yes Patient manages own medications: Yes Patient uses a pill box? No Dental Exam: Yes: Every 6 Months Eye Screening: Yes: Every 2 years Are you having trouble with hearing? Yes Do you use an assistive device to help your hearing? Yes, patient does not wear them regularly Exercise Screening: does not exercise regularly, patient does better in the warm weather Nutrition Assessment: Eats a balanced diet, Eats three meals a day, and snacks in the evening Pain Screening: Are you having any pain? No Sleep Screening Tool 'STOP': Do you snore? Yes Do you feel fatigued during the day? No Do you wake up feeling like you haven't slept? No Have you been told you stop breathing at night? No Do you gasp for air or choke while sleeping? No Have you been told you have Sleep Apnea? No Do you have high blood pressure or are on medication(s) to control high blood pressure? No SCORE: If you check YES to two or more questions, make a referral for Obstructive Sleep Apnea Patient and Caregiver Support System: Patient lives alone Means of Transportation: Drives. Not a concern. Patient lives in Two Story - How many stairs: 13 with railings Community Resources: [place] [facility] Functional Status and ADL Skills: Has patient ever had an amputation? No Functional Assessment: 90- Able to carry on normal activity, minor symptoms of disease Ambulation: Patient ambulates without assistive device. Independent Dressing: Gets clothes and dresses without any assistance: Independent Able to move freely in chair or bed including turning over: Independent Repositioning (bed or chair): Not applicable Transfers: Independent Toileting: Goes to bathroom, uses toilet, arranges clothes and returns without any assistance: Independent Toileting: continent of bladder and continent of bowel Feeding: Self Bathing: Self; tub with shower, no grab bars Requires none assistance with ADLs. Instrumental ADL's: Shopping: Independent Housekeeping: Independent Handling Finances: Independent DME Vendor Name: Not Applicable Fall Risk Assessment: Can the patient demonstrate that he can stand from a sitting position? Yes Has the patient had a fall within the last 6 months? No Does the patient have a problem with his gait or balance? No Does the patient take 4 or more prescription medicines? Yes Does the patient use sedatives or narcotics? No Fall Risk Factors Present: Uses more than 4 medications Visually impaired Older than age 70 Ken-Ld-vkk-Go Test: Time began at 1000. Patient stood from sitting position and walked approximately 10 feet, returned and sat down. Total time for miq-qm-wag-go test was 8 seconds. Djf-Mc-pyn-Go Test completed? Yes Gender Specific Preventative Plan: Health Maintenance Topic Date Due Hepatitis C Screening Never done Zoster Vaccines (3 of 3) 05/01/2019 Depression Screening 08/04/2023 COLONOSCOPY-EVERY 5 YRS AGES 18-100 08/14/2023 DTaP,Tdap,and Td Vaccines (3 - Td or Tdap) 06/13/2028 Influenza Vaccine (FLU shot) Completed Pneumococcal Vaccine: 65+ Years Completed COVID-19 Vaccine Completed Hepatitis B Aged Out MENINGOCOCCAL (MENACTRA/MENVEO) Aged Out GARDASIL-HPV IMMUNIZATION SERIES Aged Out Patient has been verbally educated on the need or importance of Cholesterol, Colon Cancer Screening, Creatinine, GFR, Glucose, Hemoglobin, Hemoglobin A1c, Immunizations: COVID, Flu, PNA, TDAP, Shingles, and urinalysis Pt has completed the covid vaccines: Yes, x5 Routine general medical examination at a health care facility (Primary) Hyperlipidemia LDL goal <100 Lab Results Component Value Date/Time LDL CHOLESTEROL (CALCULATED) - ANETA 50 01/09/2023 08:10 AM LDL CHOLESTEROL (CALCULATED) - ANETA 84 02/07/2018 07:23 AM LDL CHOLESTEROL (DIRECT MEASURE) - ANETA NOT APPLICABLE 02/07/2018 07:23 AM - Med reconciliation completed and compliance discussed. - pt to continue present medications. Allergic rhinitis, unspecified seasonality, unspecified trigger - Med reconciliation completed and compliance discussed. - pt to continue present medications. Gastroesophageal reflux disease without esophagitis - Med reconciliation completed and compliance discussed. - pt to continue present medications. Internal hemorrhoids - Med reconciliation completed and compliance discussed. - pt to continue present medications. DDD (degenerative disc disease), cervical Adjustment disorder with depressed mood - Med reconciliation completed and compliance discussed. - pt to continue present medications. History of colonic polyps Hx of nonmelanoma skin cancer Obesity, Class I, BMI 30.0-34.9 (see actual BMI) Body mass index is 33.44 kg/m. Follow Up: Return in 1 year (on 08/06/2024) for 12 month Subsequent Adult Wellness Visit. | For: 12 month Subsequent Adult Wellness Visit | Check-out note: 12 month Subsequent Adult Wellness Visit Patient complained of increased frequency of urination over the past 2 weeks. Message sent to PETE Crowe and urinalysis ordered. Patient sent to lab. Would patient like to schedule next AWV visit? Yes Onelia Arriaga RN documented in this encounter Miscellaneous Notes * Pt Handout (on AVS) - Onelia Arriaga RN - 08/07/2023 10:52 AM EST [id number] Your Risk Factors for Heart Disease Risk factors are things that make you more likely to have a disease or condition. Do you know the risk factors for heart disease? You can?t do anything about some risk factors. But you can control others. Know what puts you at risk for heart disease. Learn what changes can help control your risk. Then start with one change that you think might be easiest for you. Gender words are used here to talk about anatomy and health risk. Please use this information in a way that works best for you and your provider as you talk about your care. Risk factors you can't control You can?t change any of the risks listed below. Check off the ones that apply to you. The more you check, the higher your risk. Focus on the things that you can change. Family history ___ You have a father or a brother younger than age 55 or a mother or sister younger than age 65 who has had heart disease. Gender ___ You're a man. Age ___ You are age 55 or older for women or age 45 or older for men Race or ethnicity ___ Your background is , White non-, Trin[place], , , or [place]z. Risk factors you can control There are plenty of risk factors for heart disease that you can control. Learn what these risk factors are. Then find out how to lower your risk. Check the ones that apply to you. Smoking ___ Do you smoke cigarettes or cigars, use e-cigarettes, chew tobacco, or dip snuff? Are you exposed to secondhand smoke on a regular basis? Your cholesterol level ___ Have you been told that your cholesterol levels or triglycerides are unhealthy? Is your ?good? cholesterol (HDL) level low? Is your ?bad? cholesterol (LDL) level high? Your blood pressure ___ Have you been told that your blood pressure is higher than it should be? Your blood sugar level ___ Have you been told that your blood sugar level is higher than it should be? Is your A1C 6.5% orhigher? How active you are ___ Are you inactive most of the time at work and at home? Do you go weeks without exercising or doing any physical activity? What you eat ___ Do you eat a lot of salty, fatty, fried, or greasy foods? Do you eat mostly red meat? Do you drink lots of sodas and other sweet beverages? Do you often grab fast food or prepared meals on the go? Do you eat few or no fruits and vegetables? Your weight ___ Has your provider said that you are overweight or obese? Is your waist measurement 35 inches ormore if you are a woman or 40 inches or more if you are a man? Alcohol consumption ___ Do you drink more than 1 drink a day if you are a woman or more than 2 drinks a day if you are a man? Your stress level ___ Do you often feel anxious, nervous, and stressed? Do you feel that you don't have support in your life? Last Reviewed Date: 08/02/202219999486-1574 [employer]. All rights reserved. This information is not intended as a substitute for professional medical care. Always follow your healthcare professional's instructions. * Pt Handout (on AVS) - Onelia Arriaga RN - 08/07/2023 10:51 AM EST Images from the original note were not included. [id number] Exercises to Prevent Falls Certain types of exercises may help make you less likely to fall. Try the ones below or do other exercises that your healthcare provider suggests. Depending on your health, you may need to start slowly. Don't let that stop you. Even small amountsof exercise can help you. Talk with your healthcare provider before starting any exercise program. Improve balance Many types of exercise can help improve balance. Nico chi and yoga are good examples. Here's anotherone to try. You can do it anytime and almost anywhere. Stand next to a counter or solid support. Push yourself up onto your tiptoes. Hold for 5 seconds. If you start to lose your balance, hold on to the counter. Rest and repeat 5 times. Work up to holding for 20 to 30 seconds, if you can. Increase flexibility Being more flexible makes it easier for you to move around safely. Try exercises like the seatedhamstring stretch. o Sit in a chair and put one foot on a stool. o Straighten your leg and reach with both hands down either side of your leg. Reach as far down your leg as you can. o Hold for about 20 seconds. o Go back to the starting position. Then repeat 5 times. Switch legs. o o Build strength o Resistance exercises help build strength. You can do them without equipment. Or you can use weights, elastic bands, or special machines. One such exercise is called the biceps curl. You can hold a 1-pound weight or even a can of soup. Do this exercise at least 3 times a week. Strive for every day. Sit up straight in a chair. Keep your elbow close to your body and your wrist straight. Bend your arm, moving your hand up to your shoulder. Then slowly lower your arm. Repeat 5 times. Switch to the other arm. Build your staying power Aerobic exercises make your heart and lungs stronger so you can keep moving longer. Walking and swimming are 2 of the best types of exercises you can do. Using a stationary bike is great, too. Find an aerobic exercise that you enjoy. Start slowly and build up. Even 5 minutes is helpful. Aim for a goal of 30 minutes, at least 3 times a week. You don't have to do 30 minutes in 1 session. Break it up and walk a little throughout the day. Starting out safely and slowly Start easy. Slowly work up to doing more. Talk with your healthcare provider about the best exercises for you. Call senior centers or health clubs about exercise programs. If needed, have a family member watch you walk every so often to check your stability. Exercise with a friend. Choose an activity you both enjoy. Be sure to gently warm up and cool down. Drink fluids, such as water, to stay hydrated. If your provider recommended that you limit fluids, ask them how much is OK to drink while exercising. Consider nico chi or yoga to strengthen your balance. Try exercises that you can do anytime, anywhere. Here are 2 examples. Have someone with you whenyou first try these: o Practice walking by placing one foot right in front of the other. o Stand up and sit down 10 times. Repeat this throughout the day. Last Reviewed Date: 04/04/202219990951-9213 [employer]. All rights reserved. This information is not intended as a substitute for professional medical care. Always follow your healthcare professional's instructions. documented in this encounter Plan of Treatment Upcoming Encounters Date Type Department Care Team (Latest Contact Info) Description 08/20/2023 11:30 AM EDT [facility] [address] [place] [address] Edmundo Cota PA-C [address] [place] [address] 08/27/2023 12:15 PM EDT Office Visit [facility] [address] [place] [address] Jignesh Morrison DO [address] [place] [address] 10/04/2023 10:30 AM EDT Office Visit Cardiology, [facility] [address] [address] Rene Ji MD [address] [address] 10/15/2023 10:15 AM EDT Hospital Encounter ENDO [facility], Endoscopy [address] [address] Mark Metcalf MD [address] [place] [address] 10/15/2023 10:15 AM EDT - 10/15/2023 10:45 AM EDT Surgery ENDO [facility], Endoscopy Suite [facility] [address] [place] [phone] Mark Metcalf MD [address] [place] [address] ESOPHAGOGASTRODUODENOSCOPY (EGD), FLEXIBLE, TRANSORAL, DIAGNOSTIC 11/07/2023 12:30 PM EDT Office Visit Gastroenterology , [facility] [address] [place] [address] Margret Rowland CRNP [address] [place] [address] 01/22/2024 10:00 AM EDT Office Visit [address] [phone] Isabel Mccabe PA-C [address] [place] [address] 08/12/2024 10:00 AM EDT Nurse Only Ancillary [address] [phone] [place], Nurse Annual Wellness [address] [address] 11/13/2024 11:00 AM EDT Office Visit Dermatology[address] [address] Samantha Flores PA-C [address] [place] [address] [place] [id number] Scheduled Orders Name Type Priority Associated Diagnoses Orde r Schedule URINALYSIS, REFLEX TO CULTURE (NOT FOR NEUTROPENIC PATIENTS) Lab Routine Dysuria Expected: 08/07/2023, Expires: 08/06/2024 Scheduled Procedures Name Priority Associated Diagnoses Date/Ti al ESOPHAGOGASTRODUODENOSCOPY ( EGD), FLEXIBLE, TRANSORAL, DIAGNOSTIC Gastroesophageal [...] as of this encounter Visit Diagnoses Diagnosis Routine general medical examination at a health care facility- Primary Hyperlipidemia LDL goal <100 Other and unspecified hyperlipidemia Allergic rhinitis, unspecified seasonality, unspecified trigger Gastroesophageal reflux disease without esophagitis Esophageal reflux Internal hemorrhoids Internal hemorrhoids without mention of complication DDD (degenerative disc disease), cervical Degeneration of cervical intervertebral disc Adjustment disorder with depressed mood History of colonic polyps Personal history of colonic polyps Hx of nonmelanoma skin cancer Personal history of other malignant neoplasm of skin Obesity, Class I, BMI 30.0-34.9 (see actual BMI) Obesity, unspecified Risk and functional assessment Screening for unspecified condition Dysuria Gastroesophageal reflux Esophageal reflux documented in this encounter Care Teams Dowel Pin Man Relationship Specialty Start Date End Date Isabel Mccabe PA-C [address] [place] [id number] PCP - General Physician Jewel Cupping Machine Operator 08/28/17 documented as of this encounter
--- OUTSIDE RECORDS SUMMARY | 2023-09-15 16:27 | External Medical Summary | Summary of Care ---
Author Name Unknown Organization [facility] Address [address] [place] [address] Phone [phone] Care Team Providers Care Construction Cost Estimator Name Role Phone Isabel Mccabe PA-C Primary Care Provider + Reason for Referral * Evaluate & Treat - Unlimited Visits (Within 10 days (routine)) - Authorized Specialty Diagnoses / Procedures Referred By Antoinette viramontes Referred To Contact Orthopaedic Surgery / Orthopedics Diagnoses Bilateral carpal tunnel syndrome Cubital tunnel syndrome, bilateral Trigger finger, unspecified finger, unspecified laterality Edmundo Cota PA-C [address] [place] [address] Zay Mccormack MD [address] [place] [address] Referral ID Status Reason Start Date Expiration Date Visits Requested Visits Authorized [id number] Authorized Specialty Services Required 08/20/2023 999 [id number] Question Answer Referral Priority Within 10 days (routine) Where should this appointment be scheduled? [facility] What body part is the patient being seen for? Hand What condition is the patient being seen for? Weakness/Numbness/Tingling Reason for Visit * Reason Comments NEW PATIENT Pain Bilat hand * Evaluate & Treat - Unlimited Visits (Within 10 days (routine)) - Authorized Specialty Diagnoses / Procedures Referred By Antoinette viramontes Referred To Contact Orthopaedic Surgery / Orthopedics Diagnoses Primary osteoarthritis of both hands Carpal tunnel syndrome of right wrist Isabel Mccabe PA-C [address] [place] [phone] Referral ID Status Reason Start Date Expiration Date Visits Requested Visits Authorized [id number] Authorized Specialty Services Required 07/19/2023 999 [id number] Encounter Details Date Type Department Care Team (Late st Contact Info) Description 08/20/2023 11:30 AM EDT [facility] [address] [place] [address] Edmundo Cota PA-C [address] [place] [address] Bilateral carpal tunnel syndrome*; Cubital tunnel syndrome, bilateral; Trigger finger, unspecified finger, unspecified laterality Allergies No known active allergiesdocumented as of this encounter (statuses as of 08/20/2023) Medications Medication Sig Dispensed Refills Start Date [...] as of this encounter (statuses as of 08/20/2023) Active Problems Problem Noted Date Diagnosed Date [...] as of this encounter (statuses as of 08/20/2023) Resolved Problems Problem Noted Date Diagnosed Date [...] as of this encounter (statuses as of 08/20/2023) Immunizations Name Administration Dates Next Due COVID-19 mRNA, LNP-s, No Pre serve, 2-Dose Series ([email or web address]) 03/07/2021,07/27/2020,07/06/2020 COVID-19, MRNA-LNP, 23-24, P F, 30 MCG/0.3 mL, 12 YRS AND ABOVE, IM ([facility]) 03/14/2023 Covid-19, Mrna, Lnp-s, Pf, B ivalent, 30 Mcg, IM, 12 yrs and above ([email or web address]) 03/31/2022 Pneumococcal Conjugate Vacc, 13 Valent (Prevnar) [...] on file documented as of this encounter Progress Notes * Edmundo Cota PA-C - 08/20/2023 11:18 AM EDT CHIEF COMPLAINT: Bilateral hand pain, numbness, and tingling Consultation was requested by Isabel Mccabe PA-C for same. HISTORY OF PRESENT ILLNESS: Carl Urias is a 78 year old male. Location: bilateral Symptoms: numbness - fingers: thumb, index, long, ring, and small, tingling - fingers: thumb, index, long, ring, and small, pain - fingers # 1-5; pain severity: 5, and wakes patient at night; difficulty holding things in the left hand; also notes triggering in the right index finger Duration: several years- previous patient of Dr. Baum in 2019, had planned for surgery, but cancelled as symptoms resolved at that time Hand Dominance: Right EMG: yes, done 2019; positive for Impression Abnormal study. This electrodiagnostic study shows evidence of the followin. Severe bilateral median neuropathies at the wrist (carpal tunnel syndrome). 2. Severe, chronic, bilateral ulnar neuropathies across the elbow. 3. Chronic right C7 radiculopathy. 4. Chronic left C5 - C7 polyradiculopathy. Previous Treatment: has tried night splints, which were helpful and has not had an injection REVIEW OF SYSTEMS: Constitutional:Normal Skin: Negative HEENT: Normal; except for chronic sinus drainage, deviated septum Cardiovascular: Normal and hyperlipidemia Pulmonary: Normal Gastrointestinal: Normal Genitourinary: Normal Endocrine/Metabolic: Normal Neurologic: Normal Musculoskeletal: Normal Hematologic: Normal Psychiatric: normal All other systems are negative Diabetes Mellitus: no Rheumatoid Arthritis: no Neck Pain: No Sleep Apnea: no Past Medical History: Diagnosis Date Acid reflux disease 05/30/2013 Adjustment disorder with depressed mood 05/24/2011 AK (actinic keratosis) 10/18/2017 DDD (degenerative disc disease), cervical 08/25/2015 Hemorrhage of rectum and anus 11/23/2003 Mixed dyslipidemia Personal history of colonic polyps 12/20/2011 Past Surgical History: Procedure Laterality Date COLONOSCOPY, DIAGNOSTIC (RECTUM) 06/29/2015 normal, repeat 5 yrs/COLONOSCOPY FLEXIBLE PROXIMAL DIAGNOSTIC performed by Azar Lindquist MD at [facility] COLONOSCOPY, DIAGNOSTIC (RECTUM) 08/13/2018 benign tissue on bx, repeat 5 yrs/COLONOSCOPY FLEXIBLE PROXIMAL DIAGNOSTIC performed by Mark Metcalf MD at ENDOSCOPY [facility] COLONOSCOPY, SURGERY REFERRAL OP 09/06/2011 tubular adenoma EGD, FLEXIBLE, DIAGNOSTIC 09/18/2017 normal bx/ESOPHAGOGASTRODUODENOSCOPY (EGD), FLEXIBLE, TRANSORAL, DIAGNOSTIC performed by Mark Metcalf MD at ENDOSCOPY [facility] MISCELLANEOUS ORDER ([facility] ONLY) lumbar surgery REMOVAL OF TONSILS, UNDER AGE 12 REPAIR OF NASAL SEPTUM REVERSE TOTAL SHOULDER ARTHROPLASTY Right RIGHT HEART CATHETERIZATION 1995 Cardiac Catheterization, Right Heart Jewell SIGMOIDOSCOPY, DIAGNOSTIC 1995 rectal bleeding; negative TOTAL HIP REPLACEMENT & PROSTHESIS Left UMBIL HERNIA REPAIR (REDUCIBLE) AGE 5+YR Current Outpatient Medications Medication Sig Dispense Refill [...] No current facility-administered medications for this visit. Review of patient's allergies indicates: No Known Allergies Social History Tobacco Use Smoking status: Never Passive exposure: Never Smokeless tobacco: Never Vaping Use Vaping Use: Never used Substance Use Topics Alcohol use: Yes Comment: beer and wine rarely Drug use: No Family History Problem Relation Age of Onset Heart Disorder Mother CAD w;ith CABG Heart Disorder Brother [place] Allergies Son nasal allergies HAND EXAM There were no vitals filed for this visit. General: alert & oriented x 3, pleasant, and cooperative HEENT: hearing intact and sclera anicteric Neck: no masses/good motion Skin: no pertinent skin lesions, openings, rashes, ulcers, no edema, and no erythema PV: good peripheral pulses to b/L UE Elbow: ROM: full and (+) tinel ulnar nerve bilateral Hand: ROM: full ROM to wrist/fingers Right CTS: (-) Carpal Tunnel Compression test, (+) phalens, and (+) numbness in median nerve distribution Left CTS: (-) Carpal Tunnel Compression test, (+) phalens, and (+) numbness in median nerve distribution Trigger: (+) tenderness A1 nara right index finger, left ring and small fingers Neuro: motor/sensory grossly intact b/L UE MS: 5/5 motor strength to bilateral UE, normal symmetry and tone. 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 Assessment: Bilateral carpal tunnel Bilateral cubital tunnel Trigger fingers right index, left ring/small Plan: Discussed exam, imaging findings, diagnosis, and treatment options with patient including continuedbracing, injections, and surgical management Patient opts to be fitted with carpal tunnel brace on the left today, already wears a brace on the right He also opts for referral to hand surgery team at [facility] to discuss carpal/cubital tunnel release, possible trigger finger releases Edmundo Cota PA-C 08/20/2023 11:[address] [address] documented in this encounter Nursing Notes * Agatha Elaine LPN - 08/20/2023 11:05 AM EDT Bilat hand pain documented in this encounter Plan of Treatment Upcoming Encounters Date Type Department Care Team (Latest Contact Info) Description 08/27/2023 12:15 PM EDT Office Visit Orthopaedics [facility] [address] [place] [phone] Jignesh Morrison DO [address] [place] [address] 08/29/2023 8:00 AM EDT Office Visit Orthopaedics [facility] [address] [place] [address] Zay Mccormack MD [address] [place] [address] 10/04/2023 10:30 AM EDT Office Visit Cardiology, [facility] [place] [address] Rene Ji MD [address] [place] [address] 10/15/2023 10:15 AM EDT Hospital Encounter ENDO [facility], Endoscopy [address] [phone] Mark Metcalf MD [address] [place] [address] 10/15/2023 10:15 AM EDT - 10/15/2023 10:45 AM EDT Surgery ENDO [facility], Endoscopy [address] [phone] Mark Metcalf MD [address] [place] [address] ESOPHAGOGASTRODUODENOSCOPY (EGD), FLEXIBLE, TRANSORAL, DIAGNOSTIC 11/07/2023 1:00 PM EDT Office Visit Gastroenterology , [facility] [address] [place] [address] Margret Rowland CRNP [address] [place] [address] 01/22/2024 10:00 AM EDT Office Visit Family Practice [address] [phone] Isabel Mccabe PA-C [address] [place] [address] 08/12/2024 10:00 AM EDT Nurse Only Ancillary [address] [phone] [place], Nurse Annual Wellness [address] [address] 11/13/2024 11:00 AM EDT Office Visit Dermatology[address] [address] Samantha Flores PA-C [address] [place] [address] [place] [address] Pending Results Name Type Priority Associated Diagnoses Date /Time XR HAND 3 OR MORE VIEWS Medical Imaging Routine 08/20/2023 11:19 AM EDT Scheduled Procedures Name Priority Associated Diagnoses Date/Ti az ESOPHAGOGASTRODUODENOSCOPY ( EGD), FLEXIBLE, TRANSORAL, DIAGNOSTIC Gastroesophageal reflux 10/15/2023 10:15 AM EDT GASTRO REFLUX TEST WITH MUCO AUSTYN TELEMETRY PH ELECTRODE Gastroesophageal reflux 10/15/2023 10:15 AM EDT COLONOSCOPY FLEXIBLE PROXIMA L DIAGNOSTIC Recall History of colon polyps Scheduled Referrals Name Type Priority Associated Diagnoses Orde r Schedule ORTHOPAEDICS REFERRAL OP Referral Within 10 days (routine) Bilateral carpal tunnel syndrome Cubital tunnel syndrome, bilateral Trigger finger, unspecified finger, unspecified laterality Ordered: 08/20/2023 Health Maintenance Due Date Last Done Comments [...] carpal tunnel syndrome- Primary Carpal tunnel syndrome Cubital tunnel syndrome, bilateral Trigger finger, unspecified finger, unspecified laterality Gastroesophageal reflux Esophageal reflux documented in this encounter Care Teams Construction Cost Estimator Relationship Specialty Start Date End Date Isabel Mccabe PA-C [address] [place] [phone] PCP - General Physician Bike Technician 08/28/17 documented as of this encounter
--- OUTSIDE RECORDS SUMMARY | 2023-09-15 16:27 | External Medical Summary | Summary of Care ---
Author Name Unknown Organization [facility] Address [address] [facility] [place] [address] Phone [phone] Care Team Providers Care Director Supply Chain Name Role Phone Isabel Mccabe PA-C Primary Care Provider + Encounter Details Date Type Department Care Team (Late st Contact Info) Description 08/29/2023 Telephone Orthopaedics [facility] [address] [place] [address] Zay Mccormack MD [address] [place] [address] Allergies No known active allergiesdocumented as of [...] mRNA, LNP-s, No Pre serve, 2-Dose Series (Anagear) 03/07/2021,07/27/2020,07/06/2020 COVID-19, MRNA-LNP, 23-24, P F, 30 MCG/0.3 mL, 12 YRS AND ABOVE, IM ([facility]) 03/14/2023 Covid-19, Mrna, Lnp-s, Pf, B ivalent, [...] 10/04/2023 10:30 AM EDT Office Visit Cardiology, [facility] [address] [address] Rene Ji MD [address] [place] [address] 10/15/2023 10:15 AM EDT Hospital Encounter ENDO [facility], Endoscopy [address] [place] [phone] Makr Metcalf MD [address] [place] [address] 10/15/2023 10:15 AM EDT - 10/15/2023 10:45 AM EDT Surgery ENDO [facility], Endoscopy [address] [place] [phone] Mark Metcalf MD [address] [place] [address] ESOPHAGOGASTRODUODENOSCOPY (EGD), FLEXIBLE, TRANSORAL, DIAGNOSTIC 10/17/2023 Hospital Encounter OR [facility], Operating Room [facility] [address] [phone] Zay Mccormack MD [address] [place] [address] 10/24/2023 1:00 PM EDT Office Visit Orthopaedics [facility] [address] [address] Zay Mccormack MD [address] [place] [address] 11/07/2023 1:00 PM EDT Office Visit Gastroenterology , [facility] [address] [place] [address] Margret Rowland CRNP [address] [place] [address] 01/22/2024 10:00 AM EDT Office Visit Family Practice [facility] [address] [place] [address] Isabel Mccaeb PA-C [address] [place] [address] 08/12/2024 10:00 AM EDT Nurse Only Ancillary [address] [phone] [place], Nurse Annual Wellness [address] [address] 11/13/2024 11:00 AM EDT Office Visit Dermatology[address] [address] Samantha Flores PA-C [address] [place] [address] [place] [address] Scheduled Procedures Name Priority Associated Diagnoses Date/Ti [...] filedocumented as of this encounter Care Teams Director Supply Chain Relationship Specialty Start Date End Date Isabel Mccabe PA-C [address] [place] [address] PCP - General Physician Hair Designer 08/28/17 documented as of this encounter
--- OUTSIDE RECORDS SUMMARY | 2023-09-15 16:27 | External Medical Summary | Summary of Care ---
Author Name Unknown Organization [facility] Address [address] [place] [address] Phone [phone] Care Team Providers Care Materials Handling Coordinator Name Role Phone Isabel Mccabe PA-C Primary Care Provider + Reason for Visit * Reason Comments NEW PATIENT Pain Bilateral Wrist pain * Evaluate & Treat - Unlimited Visits (Within 10 days (routine)) - Authorized Specialty Diagnoses / Procedures Referred By Antoinette viramotnes Referred To Contact Orthopaedic Surgery / Orthopedics Diagnoses Bilateral carpal tunnel syndrome Cubital tunnel syndrome, bilateral Trigger finger, unspecified finger, unspecified laterality Edmundo Cota PA-C [address] [place] [address] Arron Miller MD [address] [place] [address] Referral ID Status Reason Start Date Expiration Date Visits Requested Visits Authorized [id number] Authorized Specialty Services Required 08/20/[phone] Encounter Details Date Type Department Care Team (Late st Contact Info) Description 08/29/2023 8:00 AM EDT Office Visit Orthopaedics [facility] [address] [address] Arron Miller MD [address] [address] Bilateral carpal tunnel syndrome*; Trigger index finger [...] mRNA, LNP-s, No Pre serve, 2-Dose Series ([employer]) 03/07/2021,07/27/2020,07/06/2020 COVID-19, MRNA-LNP, 23-24, P F, 30 MCG/0.3 mL, 12 YRS AND ABOVE, IM ([facility]) 03/14/2023 Covid-19, Mrna, Lnp-s, Pf, B ivalent, 30 Mcg, IM, 12 yrs and above ([employer]) 03/31/2022 Pneumococcal Conjugate Vacc, 13 Valent (Prevnar) [...] fingers HPI: The patient is a 78-year-old [id number] retired man who is still active in [employer] in [employer] [facility]. He is seen today at the recommendation [...] performed by Azar Lindquist MD at ENDOSCOPY [facility] COLONOSCOPY, DIAGNOSTIC (RECTUM) 08/13/2018 benign tissue on bx, repeat 5 yrs/COLONOSCOPY FLEXIBLE PROXIMAL DIAGNOSTIC performed by Mark Metcalf MD at ENDOSCOPY [facility] COLONOSCOPY, SURGERY REFERRAL OP 09/06/2011 tubular adenoma EGD, FLEXIBLE, DIAGNOSTIC 09/18/2017 normal bx/ESOPHAGOGASTRODUODENOSCOPY (EGD), FLEXIBLE, TRANSORAL, DIAGNOSTIC performed by Mark Metcalf MD at ENDOSCOPY [facility] MISCELLANEOUS ORDER ([facility] ONLY) lumbar surgery REMOVAL OF TONSILS, UNDER AGE 12 REPAIR OF NASAL SEPTUM REVERSE TOTAL SHOULDER ARTHROPLASTY Right RIGHT HEART CATHETERIZATION 1995 Cardiac Catheterization, Right Heart [place] SIGMOIDOSCOPY, DIAGNOSTIC 1995 rectal bleeding; negative TOTAL HIP REPLACEMENT & PROSTHESIS Left UMBIL HERNIA REPAIR (REDUCIBLE) AGE 5+YR FAMILY HISTORY: Family History Problem Relation Age of Onset Heart Disorder Mother CAD w;ith CABG Heart Disorder Brother [place] Allergies Son nasal allergies SOCIAL HISTORY: Social [...] 10/04/2023 10:30 AM EDT Office Visit Cardiology, [facility] [address] [address] Rene Ji MD [address] [address] 10/15/2023 10:15 AM EDT Hospital Encounter ENDO [facility], Endoscopy [address] [phone] Mark Metcalf MD [address] [place] [address] 10/15/2023 10:15 AM EDT - 10/15/2023 10:45 AM EDT Surgery ENDO [facility], Endoscopy [address] [place] [address] Mark Metcalf MD [address] [place] [address] ESOPHAGOGASTRODUODENOSCOPY (EGD), FLEXIBLE, TRANSORAL, DIAGNOSTIC 11/07/2023 1:00 PM EDT Office Visit Gastroenterology , [facility] [address] [place] [address] Margret Rowland CRNP [address] [place] [address] 01/22/2024 10:00 AM EDT Office Visit [address] [phone] Isabel Mccabe PA-C [address] [place] [address] 08/12/2024 10:00 AM EDT Nurse Only Ancillary [address] [phone] [place], Nurse [address] [address] 11/13/2024 11:00 AM EDT Office Visit Dermatology[address] [address] Samantha Flores PA-C [address] [place] [address] [place] [address] Scheduled Procedures Name Priority Associated Diagnoses Date/Ti wy ESOPHAGOGASTRODUODENOSCOPY ( EGD), FLEXIBLE, TRANSORAL, DIAGNOSTIC Gastroesophageal [...] reflux documented in this encounter Care Teams Materials Handling Coordinator Relationship Specialty Start Date End Date Isabel Mccabe PA-C [address] [place] [address] PCP - General Physician Environmental Engineering Technician 08/28/17 documented as of this encounter
--- OUTSIDE RECORDS SUMMARY | 2023-09-15 16:27 | External Medical Summary | Summary of Care ---
Author Name Unknown Organization [facility] Address [address] [facility] [place] [address] Phone [phone] Care Team Providers Care Oceanographer Physical Name Role Phone Isabel Mccabe PA-C Primary Care Provider + Reason for Visit * Reason Onset Date Comments Adult Annual Wellness Visit, Subsequent Visit Adult Annual Wellness Visit, Subsequent Visit Encounter Details Date Type Department Care Team ([facility] Contact Info) Description 08/07/2023 10:00 AM EST Nurse Only Ancillary [address] [phone] [place], Nurse Annual Wellness [address] [address] Adult Annual Wellness Visit, Subsequent Vi... Allergies [...] mRNA, LNP-s, No Pre serve, 2-Dose Series (IT[employer]SUGAR) 03/07/2021,07/27/2020,07/06/2020 COVID-19, MRNA-LNP, 23-24, P F, 30 MCG/0.3 mL, 12 YRS AND ABOVE, IM ([facility]) 03/14/2023 Covid-19, Mrna, Lnp-s, Pf, [...] with a container labeled with "Carl Urias", "[id number]", "1945" and " right flank". Received is [...] Out Location Pathologist sign out performed at [facility] ([facility] [address] [place] [address]. Photographic images and diagrams represent mckinney findings in this case; they are not intended to replace a complete review of the final diagnostic report. The following statement applies to Flow Cytometry, Histology, In situ Hybridization Assays and Molecular Genetics. This test was developed and performed at [facility] and its performance characteristics determined by [facility]. It has not been cleared or approved [...] control reactions. Sincerely, Isabel Mccabe PA-C 08/07/2023 [facility] Calendar (as of Visit date not found [...] your insurance company to determine what's covered. HeyAnita is a great tool that helps you review your medical record online, including test results, doctor notes and your health summary. You can also schedule appointments with me and other members of your care team, request prescription refills and ask for advice related to your medical conditions at [email or web address]. Patient Instructions - Fall Prevention (This education [...] Binu Patient Education Copyright 2008 - 2010 [employer] except where otherwise noted. Treating Urinary Incontinence [...] performed by Azar Lindquist MD at ENDOSCOPY [facility] COLONOSCOPY, DIAGNOSTIC (RECTUM) 08/13/2018 benign tissue on bx, repeat 5 yrs/COLONOSCOPY FLEXIBLE PROXIMAL DIAGNOSTIC performed by Mark Metcalf MD at ENDOSCOPY [facility] COLONOSCOPY, SURGERY REFERRAL OP 09/06/2011 tubular adenoma EGD, FLEXIBLE, DIAGNOSTIC 09/18/2017 normal bx/ESOPHAGOGASTRODUODENOSCOPY (EGD), FLEXIBLE, TRANSORAL, DIAGNOSTIC performed by Mark Metcalf MD at ENDOSCOPY [facility] MISCELLANEOUS ORDER ([facility] ONLY) lumbar surgery REMOVAL OF TONSILS, UNDER AGE 12 REPAIR OF NASAL SEPTUM REVERSE TOTAL SHOULDER ARTHROPLASTY Right RIGHT HEART CATHETERIZATION 1995 Cardiac Catheterization, Right Heart [place] SIGMOIDOSCOPY, DIAGNOSTIC 1995 rectal bleeding; negative TOTAL HIP REPLACEMENT & PROSTHESIS Left UMBIL HERNIA REPAIR (REDUCIBLE) AGE 5+YR Family History Problem Relation Age of Onset Heart Disorder Mother CAD w;ith CABG Heart Disorder Brother [place] Allergies Son nasal allergies Has patient ever [...] COVID-19 mRNA, LNP-s, No Preserve, 2-Dose Series (IT'SUGAR) 07/06/2020, 07/27/2020, 03/07/2021 COVID-19, MRNA-LNP, 23-24, PF, 30 MCG/0.3 mL, 12 YRS AND ABOVE, IM ([facility]) 03/14/2023 Covid-19, Mrna, Lnp-s, Pf, Bivalent, 30 Mcg, IM, 12 yrs and above (IT'SUGAR) 03/31/2022 Pneumococcal Conjugate Vacc, 13 Valent (Prevnar) [...] many stairs: 13 with railings Community Resources: Ch[facility] Genie at the [facility] Functional Status and ADL Skills: Has patient [...] medications Visually impaired Older than age 70 Yot-Ho-vwx-Go Test: Time began at 1000. Patient stood from sitting position and walked approximately 10 feet, returned and sat down. Total time for soo-eq-phi-go test was 8 seconds. Chv-Ej-sfn-Go Test completed? Yes Gender Specific Preventative Plan: [...] Component Value Date/Time LDL CHOLESTEROL (CALCULATED) - ANEAT 50 01/09/2023 08:10 AM LDL CHOLESTEROL (CALCULATED) [...] Arriaga RN - 08/07/2023 10:52 AM EST [id number] Your Risk Factors for Heart Disease Risk [...] ___ Your background is , White non-, American Honduran, , , or [place]uran. Risk factors you can control There are [...] support in your life? Last Reviewed Date: 08/02/202219995134-0753 The [employer]. All rights reserved. This information is not intended as a substitute for professional medical care. Always follow your healthcare professional's instructions. * Pt Handout (on AVS) - Onelia Arriaga RN - 08/07/2023 10:51 AM EST Images from the original note were not included. [id number] Exercises to Prevent Falls Certain types of [...] this throughout the day. Last Reviewed Date: 04/04/202219996802-4137 [employer]. All rights reserved. This information is not intended as a substitute for professional medical care. Always follow your healthcare professional's instructions. documented in this encounter Plan of Treatment Upcoming Encounters Date Type Department Care Team (Latest Contact Info) Description 08/20/2023 11:30 AM EDT [facility] [address] [place] [address] Edmundo Cota PA-C [address] [place] [address] 08/27/2023 12:15 PM EDT Office Visit Orthopaedics [facility] [address] [place] [address] Jignesh Morrison DO [address] [place] [address] 10/04/2023 10:30 AM EDT Office Visit Cardiology, [facility] [address] [address] Rene Ji MD [address] [place] [address] [address] 10/15/2023 10:15 AM EDT Hospital Encounter ENDO [facility], Endoscopy [address] [phone] Mark Metcalf MD [address] [place] [address] 10/15/2023 10:15 AM EDT - 10/15/2023 10:45 AM EDT Surgery ENDO [facility], Endoscopy Suite [facility] [address] [place] [phone] Mark Metcalf MD [address] [place] [address] ESOPHAGOGASTRODUODENOSCOPY (EGD), FLEXIBLE, TRANSORAL, DIAGNOSTIC 11/07/2023 12:30 PM EDT Office Visit Gastroenterology , [facility] [address] [place] [address] Margret Rowland CRNP [address] [place] [address] 01/22/2024 10:00 AM EDT Office Visit [address] [phone] Isabel Mccabe PA-C [address] [place] [address] 08/12/2024 10:00 AM EDT Nurse Only Ancillary [address] [phone] [place], Nurse Annual Wellness [address] [address] 11/13/2024 11:00 AM EDT Office Visit Dermatology[address] [address] Samantha Flores PA-C [address] [place] [address] [place] [address] Scheduled Orders Name Type Priority Associated Diagnoses Orde r Schedule URINALYSIS, REFLEX TO CULTURE (NOT FOR NEUTROPENIC PATIENTS) Lab Routine Dysuria Expected: 08/07/2023, Expires: 08/06/2024 Scheduled Procedures Name Priority Associated Diagnoses Date/Ti tx ESOPHAGOGASTRODUODENOSCOPY ( EGD), FLEXIBLE, TRANSORAL, DIAGNOSTIC Gastroesophageal [...] reflux documented in this encounter Care Teams Oceanographer Physical Relationship Specialty Start Date End Date Isabel Mccabe PA-C [address] [place] [address] PCP - General Physician Water Sander 08/28/17 documented as of this encounter
--- OUTSIDE RECORDS SUMMARY | 2023-09-15 16:27 | External Medical Summary | Summary of Care ---
Author Name Unknown Organization [facility] Address [address] [place] [address] Phone [phone] Care Team Providers Care Cut Off [place]yer [place] Name Role Phone Isabel Mccabe PA-C Primary [...] finger, unspecified laterality Edmundo Cota PA-C [address] [place] [address] Zay Mccormack MD [address] [place] [address] Referral ID Status Reason Start Date Expiration Date Visits Requested Visits Authorized [id number] Authorized Specialty Services Required 08/20/[phone] Encounter Details Date Type Department Care Team (Late st Contact Info) Description 08/29/2023 8:00 AM EDT Office Visit Orthopaedics [facility] [address] [address] Zay Mccormack MD [address] [address] Bilateral carpal tunnel syndrome*; Trigger index finger [...] mRNA, LNP-s, No Pre serve, 2-Dose Series ([employer]) 03/07/2021,07/27/2020,07/06/2020 COVID-19, MRNA-LNP, 23-24, P F, 30 MCG/0.3 mL, 12 YRS AND ABOVE, IM ([facility] 03/14/2023 Covid-19, Mrna, Lnp-s, Pf, B ivalent, 30 Mcg, IM, 12 yrs and above ([employer]) 03/31/2022 Pneumococcal Conjugate Vacc, 13 Valent (Prevnar) [...] as of this encounter H&P Notes * Zay Mccormack MD - 08/29/2023 8:25 AM EDT HISTORY & PHYSICAL EXAMINATION - Hand Surgery Name: Carl Urias Date: 08/29/2023 Time: 8:25 AM Date and Time Patient was Seen: 08/29/2023 at 8:25 AM PRESENTING PROBLEM: Numbness in both hands, locking of both index fingers HPI: The patient is a 78-year-old [id number] retired man who is still active in [employer] in [place]. He is seen today at the recommendation [...] performed by Azar Lindquist MD at ENDOSCOPY [facility] COLONOSCOPY, DIAGNOSTIC (RECTUM) 08/13/2018 benign tissue on bx, repeat 5 yrs/COLONOSCOPY FLEXIBLE PROXIMAL DIAGNOSTIC performed by Mark Metcalf MD at ENDOSCOPY [facility] COLONOSCOPY, SURGERY REFERRAL OP 09/06/2011 tubular adenoma EGD, FLEXIBLE, DIAGNOSTIC 09/18/2017 normal bx/ESOPHAGOGASTRODUODENOSCOPY (EGD), FLEXIBLE, TRANSORAL, DIAGNOSTIC performed by Mark Metcalf MD at ENDOSCOPY [facility] MISCELLANEOUS ORDER ([facility] ONLY) lumbar surgery REMOVAL OF TONSILS, UNDER AGE 12 REPAIR OF NASAL SEPTUM REVERSE TOTAL SHOULDER ARTHROPLASTY Right RIGHT HEART CATHETERIZATION 1995 Cardiac Catheterization, Right Heart [place] SIGMOIDOSCOPY, DIAGNOSTIC 1995 rectal bleeding; negative TOTAL HIP REPLACEMENT & PROSTHESIS Left UMBIL HERNIA REPAIR (REDUCIBLE) AGE 5+YR FAMILY HISTORY: Family History Problem Relation Age of Onset Heart Disorder Mother CAD w;ith CABG Heart Disorder Brother [place] Allergies Son nasal allergies SOCIAL HISTORY: Social [...] Carpal tunnel syndrome of right wrist G56.01 Zay Mccormack MD documented in this encounter Nursing Notes * Madhuri Tobias LPN - 08/29/2023 7:56 AM EDT Chief Complaint Patient presents with NEW PATIENT Pain Bilateral Wrist pain documented in this encounter Plan of Treatment Upcoming Encounters Date Type Department Care Team (Latest Contact Info) Description 10/04/2023 10:30 AM EDT Office Visit Cardiology, [facility] [address] [place] [address] Rene Ji MD [address] [place] [address] 10/15/2023 10:15 AM EDT Hospital Encounter ENDO [facility], Endoscopy [address] [phone] Mark Metcalf MD [address] [place] [address] 10/15/2023 10:15 AM EDT - 10/15/2023 10:45 AM EDT Surgery ENDO [facility], Endoscopy [address] [phone] Mark Metcalf MD [address] [place] [address] ESOPHAGOGASTRODUODENOSCOPY (EGD), FLEXIBLE, TRANSORAL, DIAGNOSTIC 11/07/2023 1:00 PM EDT Office Visit Gastroenterology , [facility] [address] [place] [address] Margret Rowland CRNP [address] [place] [address] 01/22/2024 10:00 AM EDT Office Visit [facility] [address] [place] [address] Isabel Mccabe PA-C [address] [place] [address] 08/12/2024 10:00 AM EDT Nurse Only Ancillary [address] [phone] [place], Nurse Annual Wellness [address] [address] 11/13/2024 11:00 AM EDT Office Visit Dermatology[address] [address] Samantha Flores PA-C [address] [place] [address] [place] [address] Scheduled Procedures Name Priority Associated Diagnoses Date/Ti [...] reflux documented in this encounter Care Teams Cut Off [employer] Relationship Specialty Start Date End Date Isabel Mccabe PA-C [address] [place] [address] PCP - General Physician Boilers And Pressure Vessels Inspector 08/28/17 documented as of this encounter
--- OUTSIDE RECORDS SUMMARY | 2023-09-15 16:27 | External Medical Summary | Summary of Care ---
Author Name Unknown Organization [facility] Address [address] [place] [address] Phone [phone] Care Team Providers Care Financial Planning Assistant Name Role Phone Rod Mccabe PA-C Primary Care Provider + Reason for Visit * Reason Comments Medication Refill Encounter Details Date Type Department Care Team ([facility] Contact Info) Description 08/06/[address] [phone] Rod Mccabe PA-C [address] [place] [phone] Encounter for long-term (current) use of medications*; Adjustment disorder with depressed mood; Gastroesophageal reflux disease without esophagitis; Elevated TSH Allergies No known active allergiesdocumented as of this encounter (statuses as of 08/19/2023) Medications Medication Sig Dispensed Refills Start Date End Date Status ASPIRIN 81 MG OR TABSIndications:Mi xed dyslipidemia Take 1 Tablet by mouth in the morning. 34 5 03/03/2004 Active clotrimazole-betam ethasone (LOTRISONE) 1-0.05 % cream Apply to rash on testicles twice daily as needed 15 g 5 07/11/2018 Active Cholecalciferol (VITAMIN D) 1000 units Tablet Take 1 Tablet by mouth in the morning. 0 Active hydrocortisone (ANUSOL-HC) 2.5 % rectal creamIndications:I nternal hemorrhoids Apply topically to affected area 2 times a day. Apply to the rectum 1 Tube 5 07/23/2019 Active Pantoprazole Sodium 40 MG Oral Tablet Delayed Release (Protonix)Indicati ons:Gastroesophage al reflux disease without esophagitis TAKE ONE TABLET BY MOUTH EVERY MORNING. 30 MINUTES BEFORE THE FIRST MEAL OF THE DAY. DO NOT CRUSH, CUT OR CHEW 90 Tablet 3 10/12/2022 4 Active Vitamin C 100 MG Oral Tablet [...] 05/29/2023 Active Ezetimibe 10 MG Oral Tablet (Zetia)Indications :Dyslipidemia, goal LDL below 130 TAKE ONE TABLET BY MOUTH EVERY MORNING 90 Tablet 3 06/12/2023 5 Active Mirtazapine 7.5 MG Oral Tablet (Remeron)Indicatio ns:Adjustment disorder with depressed mood TAKE ONE TABLET BY MOUTH AT BEDTIME 90 Tablet 3 06/11/2023 5 Active Atorvastatin Calcium 40 MG Oral Tablet (Lipitor)Indicatio ns:Dyslipidemia, goal LDL below 130 TAKE ONE TABLET BY MOUTH EVERY DAY 90 Tablet 3 07/27/2023 5 Active buPROPion HCl ER (XL) 150 MG Oral Tablet Extended Release 24 Hour (Wellbutrin XL)Indications:Adj ustment disorder with depressed mood TAKE ONE TABLET BY MOUTH EVERY DAY IN THE MORNING 90 Tablet 0 08/07/2023 Active buPROPion HCl ER (XL) 150 MG Oral Tablet Extended Release 24 Hour (Wellbutrin XL)Indications:Adj ustment disorder with depressed mood TAKE ONE TABLET BY MOUTH EVERY DAY IN THE MORNING 90 Tablet 0 05/08/2023 4 Discontinue d(Refill) documented as of this encounter (statuses as of 08/19/2023) Active Problems Problem Noted Date Diagnosed Date [...] as of this encounter (statuses as of 08/19/2023) Resolved Problems Problem Noted Date Diagnosed Date [...] as of this encounter (statuses as of 08/19/2023) Immunizations Name Administration Dates Next Due COVID-19 mRNA, LNP-s, No Pre serve, 2-Dose Series ([employer]) 03/07/2021,07/27/2020,07/06/2020 COVID-19, MRNA-LNP, 23-24, P F, 30 MCG/0.3 mL, 12 YRS AND ABOVE, IM ([employer]) 03/14/2023 Covid-19, Mrna, Lnp-s, Pf, B ivalent, [...] drink = 0.6 oz pur e alcohol) occasional wine PHQ-2 Answer Date Recorded PHQ Adult Total [...] encounter Miscellaneous Notes * Telephone Encounter - Tara Zaldivar tunneller - 08/19/2023 12:50 PM EDT Received message from [facility] regarding patient needing labs. Placed call to patient to advise. Pt had ordered labs completed on 08/07/2023; no follow-up is needed. Thank you for your assistance Tara Zaldivar Furnace Fitter II [facility] (Formerly [facility]) 08/19/2023,12:50 PM * Telephone Encounter - Christopher Edwards [facility] - 08/07/2023 9:39 AM EST Signed Prescriptions: Disp Refills buPROPion HCl ER (XL) 150 MG Oral Tablet E*90 Tab*0 Sig: TAKE ONE TABLET BY MOUTH EVERY DAY IN THE MORNINGAuthorizing Provider: ROD MCCABE User: CHRISTOPHER EDWARDS * Telephone Encounter - Christopher Edwards [facility] - 08/07/2023 9:34 AM EST Provided 90 days supply with 0 refill(s). Per refill protocol patient should have ROUTINE LABS(CMP CBC B12 MAG TSH) on file within past year. Reviewed AMP report, Care Gaps/Health Maintenance, medications list, and for any routine labs typically ordered for this patient. Lab orders placed. Please contact patient to advise of labs ordered for blood draw. Recommend patient to fast if able for labs. Patient may still have water and regular medications. Advise to obtain labs before requesting the next refill. ThanksChristopher, JairoD Clinical Pharmacist [facility] ([facility]) (formerly Telepharmacy) [phone] 08/07/2023, 9:38 AM documented in this encounter Plan of Treatment Upcoming Encounters Date Type Department Care Team (Latest Contact Info) Description 08/20/2023 11:30 AM EDT [facility] [address] [place] [address] Edmundo Cota PA-C [address] [place] [address] 08/27/2023 12:15 PM EDT [facility] [address] [place] [phone] Jignesh Morrison DO [address] [place] [address] 10/04/2023 10:30 AM EDT Office Visit [facility]iology, [facility] [place] [address] Rene Ji MD [address] [place] [address] 10/15/2023 10:15 AM EDT Hospital Encounter ENDO [facility], Endoscopy [address] [phone] Mark Metcalf MD [address] [place] [address] 10/15/2023 10:15 AM EDT - 10/15/2023 10:45 AM EDT Surgery ENDO [facility], Endoscopy [address] [phone] Mark Metcalf MD [address] [place] [address] ESOPHAGOGASTRODUODENOSCOPY (EGD), FLEXIBLE, TRANSORAL, DIAGNOSTIC 11/07/2023 1:00 PM EDT Office Visit Gastroenterology , [facility] [address] [place] [address] Margret Rowland CRNP [address] [place] [address] 01/22/2024 10:00 AM EDT Office Visit [address] [phone] Rod Mccabe PA-C [address] [place] [address] 08/12/2024 10:00 AM EDT Nurse Only Ancillary [address] [phone] [place], Nurse Annual Wellness [address] [address] 11/13/2024 11:00 AM EDT Office Visit Dermatology[address] [address] Samantha Flores PA-C [address] [place] [address] [place] [address] Scheduled Procedures Name Priority Associated Diagnoses Date/Ti [...] Not on filedocumented as of this encounter Results * TSH WITH FREE T4 IF INDICATED (08/07/2023 11:19 AM EST) TSH 2.94 0.27 - 4.20 uIU/mL 08/07/2023 9:57 PM EST LABORATORY GM Blood Venous blood specimen / Unknown Venipuncture / Unknown 08/07/2023 11:19 AM EST 08/07/2023 11:24 AM EST Christopher Edwards [facility] LAB BLOOD ORDChan MAC LABORATORY [facility] [address] [place] [address] * MAGNESIUM (08/07/2023 11:19 AM EST) Magnesium 2.2 1.5 - 2.6 mg/dL 08/07/2023 9:05 PM EST LABORATORY GM Blood Venous blood specimen / Unknown Venipuncture / Unknown 08/07/2023 11:19 AM EST 08/07/2023 11:24 AM EST Christopher Edwards [facility] LAB BLOOD ORDChan MAC LABORATORY [facility] [address] [place] [address] * VITAMIN B12 (08/07/2023 11:19 AM EST) Pathologist [facility] Vitamin B12 882 232 - 1,245 pg/mL 08/07/2023 9:57 PM EST LABORATORY GM Blood Venous blood specimen / Unknown Venipuncture / Unknown 08/07/2023 11:19 AM EST 08/07/2023 11:24 AM EST [facility] ORDChan MAC Performing Organization Address [facility]/ZIP Co de Phone Number LABORATORY [facility] [address] [place] [address] * CBC (08/07/2023 11:19 AM EST) WBC 6.15 4.00 - 10.80 K/uL 08/07/2023 6:55 PM EST LABORATORY [facility] RBC 4.76 4.50 - 5.25 M/uL 08/07/2023 6:55 PM EST LAB[facility]ATORY [facility] HGB 15.7 14.0 - 16.8 g/dL 08/07/2023 6:55 PM EST LAB[facility]ATORY [facility] HCT 46.8 40.0 - 48.4 % 08/07/2023 6:55 PM EST LAB[facility]ATORY [facility] MCV 98.3 82.0 - 99.5 fL 08/07/2023 6:55 PM EST LAB[facility]ATORY [facility] MCH 33.0 27.0 - 34.0 pg 08/07/2023 6:55 PM EST LABORATORY [facility] MCHC 33.5 32.0 - 36.0 g/dL 08/07/2023 6:55 PM EST LAB[facility]ATORY [facility] RDW 13.4 11.5 - 15.5 % 08/07/2023 6:55 PM EST LABORATORY [facility] PLT 175 140 - 400 K/uL 08/07/2023 6:55 PM EST LAB[facility]ATORY [facility] MPV 11.7 6.6 - 11.1 fL 08/07/2023 6:55 PM EST LABORATORY GM nRBCs 0 <=0 /100 WBCs 08/07/2023 6:55 PM EST LABORATORY GM Blood Venous blood specimen / Unknown Venipuncture / Unknown 08/07/2023 11:19 AM EST 08/07/2023 11:24 AM EST Christopher Edwards [facility] LAB BLOOD KASHIF MAC LAB[facility]ATORY [facility] [address] [place] [address] * COMPREHENSIVE METABOLIC PANEL (08/07/2023 11:19 AM EST) BUN 16 6 - 20 mg/dL 08/07/2023 9:05 PM EST LAB[facility]ATORY [facility] Creatinine 1.0 0.6 - 1.2 mg/dL 08/07/2023 9:05 PM EST LAB[facility]ATORY [facility] Estimated Glomerular Filtration Rate 75 >=60 mL/min 08/07/2023 9:05 PM EST LABORATORY [facility] Comment:eGFR is calculated b ased on the CKD-EPI 2020 equation Sodium 142 135 - 146 mmol/L 08/07/2023 9:05 PM EST LAB[facility]ATORY [facility] Potassium 4.6 3.5 - 5.1 mmol/L 08/07/2023 9:05 PM EST LAB[facility]ORY [facility] Chloride 107 98 - 107 mmol/L 08/07/2023 9:05 PM EST LAB[facility]ATORY [facility] CO2 27 22 - 32 mmol/L 08/07/2023 9:05 PM EST LAB[facility] Anion Gap 8 7 - 15 mmol/L 08/07/2023 9:05 PM EST LAB[facility]ATORY [facility] Glucose 99 70 - 120 mg/dL 08/07/2023 9:05 PM EST LAB[facility]ATORY [facility] Albumin 4.2 3.8 - 5.0 g/dL 08/07/2023 9:05 PM EST LAB[facility]ATORY [facility] AST 26 10 - 50 U/L 08/07/2023 9:05 PM EST LAB[facility]ATORY [facility] Alkaline Phosphatase 83 35 - 130 U/L 08/07/2023 9:05 PM EST LAB[facility]ATORY [facility] Bilirubin, Total 0.5 <=1.2 mg/dL 08/07/2023 9:05 PM EST LAB[facility]ORY [facility] Calcium 9.0 8.4 - 10.2 mg/dL 08/07/2023 9:05 PM EST LAB[facility] Protein 6.3 6.0 - 8.3 g/dL 08/07/2023 9:05 PM EST LAB[facility]ATORY [facility] ALT 23 10 - 50 U/L 08/07/2023 9:05 PM EST LAB[facility]ATORY [facility] Blood Venous blood specimen / Unknown Venipuncture / Unknown 08/07/2023 11:19 AM EST 08/07/2023 11:24 AM EST Christopher Edwards [facility] LAB BLOOD ORDE [place] [facility] Organization Address City/State/ZIP Co de Phone Number LABORATORY [facility] [address] [place] [address] documented in this encounter Visit Diagnoses Diagnosis Encounter for long-term (current) use of medications- Primary Encounter for long-term (current) use of other medications Adjustment disorder with depressed mood Gastroesophageal reflux disease without esophagitis Esophageal reflux Elevated TSH Other abnormal blood chemistry Gastroesophageal reflux Esophageal reflux documented in this encounter Care Teams Financial Planning Assistant Relationship Specialty Start Date End Date Rod Mccabe PA-C [address] [place] [phone] PCP - General Physician Record Clerk 08/28/17 documented as of this encounter
--- OUTSIDE RECORDS SUMMARY | 2023-09-15 16:28 | External Medical Summary ---
Author Name Unknown Address Unknown Organization K01:LABORATORY [facility] - [address] [facility] [place] [address] Laboratory Report Ordering Provider Test Date Status HUBERT VELASCO 08/07/2023 11:19:34 Final Observation Date Value Abnormality Reference (Units ) Status Color of Urine by Auto 08/07/2023 11:19:34 Light Yellow Colorless, Light Yellow, Yellow, Dark Yellow Final Clarity, Urine 08/07/2023 11:19:34 Clear Clear Final Glucose [Mass/volume] in Urine by Automated test strip 08/07/2023 11:19:34 Negative Negative (mg/dL) Final Bilirubin.total [Presence] in Urine by Automated test strip 08/07/2023 11:19:34 Negative Negative Final Ketones [Mass/volume] in Urine by Automated test strip 08/07/2023 11:19:34 Negative Negative (mg/dL) Final Specific gravity, Urine 08/07/2023 11:19:34 1.027 1.003-1.030 Final Hemoglobin [Presence] in Urine by Automated test strip 08/07/2023 11:19:34 Negative Negative Final pH, Urine 08/07/2023 11:19:34 5.5 5.0-7.5 (Units) Final Protein [Mass/volume] in Urine by Automated test strip 08/07/2023 11:19:34 Trace Abnormal Negative (mg/dL) Final Urobilinogen [Mass/volume] in Urine by Automated test strip 08/07/2023 11:19:34 Normal Normal (mg/dL) Final Nitrite [Presence] in Urine by Automated test strip 08/07/2023 11:19:34 Negative Negative Final Leukocyte esterase [Presence] in Urine by Automated test strip 08/07/2023 11:19:34 Negative Negative Final RBC, Urine 08/07/2023 11:19:34 0-2 0-2 (/HPF) Final WBC, Urine 08/07/2023 11:19:34 0-2 0-2 (/HPF) Final Bacteria [#/area] in Urine sediment by Microscopy high power field 08/07/2023 11:19:34 0-25 0-25 (/HPF) Final CULTURE, URINE - ANETA 08/07/2023 11:19:34 Final Culture not indicated by uri nalysis results\[id number]\ Performing Location LABORATORY [facility] - [facility] [address] [facility] [address]
--- OUTSIDE RECORDS SUMMARY | 2023-09-15 16:28 | External Medical Summary | Summary of Care ---
Author Name Unknown Organization [facility] Address [address] [facility] [place] [address] Phone [phone] Care Team Providers Care Director Of Speech Pathology Name Role Phone Isabel Mccabe PA-C Primary Care Provider + Reason for Visit * Reason Comments Follow Up 1 year for full skin exam, spot R neck Encounter Details Date Type Department Care Team (Late st Contact Info) Description 07/12/2023 11:00 AM EST Office Visit Dermatology[address] [address] Samantha Flores PA-C [address] [place] [address] [place] [phone] Hx of nonmelanoma skin cancer*; Seborrheic keratosis; Multiple nevi; Lentigines; Skin exam, screening for cancer; Neoplasm of uncertain behavior of skin Allergies No known active allergiesdocumented as of this encounter (statuses as of 07/12/2023) Medications Medication Sig Dispensed Refills Start Date [...] by mouth in the morning. 0 Active B Complex Vitamins (VITAMIN-B COMPLEX) Tablet 0 Active hydrocortisone (ANUSOL-HC) 2.5 % rectal [...] CHEW 90 Tablet 3 10/12/2022 10/12/2023 Active Atorvastatin Calcium 40 MG Oral Tablet (Lipitor)Indication s:Dyslipidemia, goal LDL below 130 TAKE ONE TABLET BY MOUTH EVERY DAY 90 Tablet 3 07/07/2022 08/03/2023 Active Vitamin C 100 MG Oral Tablet Take 1 Tablet by mouth in the morning. 0 Active guaiFENesin ER 600 MG Oral Tablet Extended Release 12 Hour (Mucinex) Take 1 Tablet by mouth in the morning and 1 Tablet before bedtime. 0 Active buPROPion HCl ER (XL) 150 MG Oral Tablet Extended Release 24 Hour (Wellbutrin XL)Indications:Adju stment disorder with depressed mood TAKE ONE TABLET BY MOUTH EVERY DAY IN THE MORNING 90 Tablet 0 05/08/2023 Active Azelastine HCl 0.1 % Nasal Solution (Astelin) Administer 2 Sprays into each nostril in the morning and 2 Sprays before bedtime. 90 mL 3 05/23/2023 Active Famotidine 20 MG Oral Tablet (Pepcid) TAKE ONE TABLET BY MOUTH EVERY MORNING 90 Tablet 2 05/29/2023 Active Benzonatate 100 MG Oral CapsuleIndications: Viral URI with cough Take 2 Capsules by mouth 3 times a day as needed for Cough. 30 Capsule 0 05/31/2023 Active Ezetimibe 10 MG Oral Tablet (Zetia)Indications: Dyslipidemia, goal LDL below 130 TAKE ONE TABLET BY MOUTH EVERY MORNING 90 Tablet 3 06/12/2023 06/11/2024 Active Mirtazapine 7.5 MG Oral Tablet (Remeron)Indication s:Adjustment disorder with depressed mood TAKE ONE TABLET BY MOUTH AT BEDTIME 90 Tablet 3 06/11/2023 06/10/2024 Active documented as of this encounter (statuses as of 07/12/2023) Active Problems Problem Noted Date Diagnosed Date Chronic cough 01/16/2023 Elevated TSH 01/16/2023 Family history of cardiovascular disease 11/09/2 022 Precordial chest pain 07/15/2021 Gastroesophageal reflux disease without esophagi tis 07/15/2021 Allergic rhinitis 07/15/2021 Obesity, Class I, BMI 30.0-34.9 (see actual BMI) 03/02/2021 Gynecomastia 03/02/2021 Hx of nonmelanoma skin cancer 07/26/2020 Overview: Michael (L chest 07/2020) Constipation 08/31/2018 Lumbar and sacral arthritis 08/31/2018 Chronic left SI joint pain 08/31/2018 Osteoarthritis of spine with radiculopathy, cerv ical region 09/27/2015 Internal hemorrhoids 08/25/2015 DDD (degenerative disc disease), cervical 2015 Esophageal dysfunction 05/30/2013 Hyperlipidemia LDL goal <100 06/06/2012 History of colonic polyps 12/20/2011 Overview: ICD-10 update of inactive term Adjustment disorder with depressed mood 05/24/20 11 documented as of this encounter (statuses as of 07/12/2023) Resolved Problems Problem Noted Date Diagnosed Date Resolved Date History of disease of skin a nd subcutaneous tissue 11/18/2018 12/09/2018 Overview: ICD-10 update of inactive term AK (actinic keratosis) 10/18/201711/18 History of rectal bleeding 01/16/2017 0 12/09/2018 Nonallergic rhinitis 11/27/2016 019 Dyslipidemia, goal to be determined 05/13/2009 06/06/2012 Overview: Per Lipid Taxonomy. ADVANCE DIRECTIVE INFORMATION 12/19/2004 12/09/2018 Overview: No, Advance Directive brochure given to patient. Hemorrhage of rectum and anus 11/23/2003 01/16/2017 Mixed dyslipidemia 9 Overview: Per Lipid Taxonomy. documented as of this encounter (statuses as of 07/12/2023) Immunizations Name Administration Dates Next Due COVID-19 mRNA, LNP-s, No Pre serve, 2-Dose Series ([employer]) 03/07/2021,07/27/2020,07/06/2020 Covid-19, Mrna, Lnp-s, Pf, B ivalent, 30 Mcg, IM, 12 yrs and above (Pfizer) 03/31/2022 Pneumococcal Conjugate Vacc, 13 Valent (Prevnar) 03/19/2016 Pneumococcal Polysaccharide PPV23 (Pneumovax) 03/18/2015 Seasonal Influenza, Quadriva lent, No Preserve, IM [...] on file documented as of this encounter Patient Instructions * Patient Instructions* Samantha Flores PA-C - 07/12/2023 10:56 AM EST SUNSCREEN USE AND SUN PROTECTION: 1. The best protection is sun avoidance. Seek shade if you can, especially between 10am to 4pm (peak sun hours). 2. Use sunscreen with an SPF (Sun Protection Factor - the number on most sunscreen bottles) of 30 or more that protects from Ultraviolet A (UVA) and Ultraviolet B (UVB) wavelength light (strongly recommend SPF 50). This is referred to as broad spectrum sun protection because it protects from most wa velengths in both spectrums of UVA and UVB light. Unfortunately, even though the protection is broad it is not complete, therefore making sun avoidance the best protection. UVB and UVA have both beenimplicated in causing skin cancers. Older sunscreens only protected from UVB and sunscreens with added UVA protection should contain Titanium dioxide, Zinc oxide, or Avobenzone. Other oil free, non-comedogenic lotion with SPF 30 or greater is fine. 3. Use sun protection if outside for 15 minutes or more. Apply 20-30 minutes before going out and reapply every 1-2 hours. No sunscreen is truly water ''proof'' and it will wash away with sweat, swimming and rubbing. 4. Wear tightly woven, loose fitting (cooler) long sleeved clothing, UV-blocking sun glasses (eyes need protection as well) and wide-brimmed hatwear (no straw hats with holes because light still getsthrough). Strongly recommended *Neutrogena Pure and Free Baby SPF 60 (have separate face and body lotions) orCeraVe AM facial lotion (with SPF 30). If looking for non toxic alternatives-look for non-filippo particle zinc. Product examples; Think sport, Think baby, Faisal, [employer]Dogg.coman[employer]com, [employer], [place] baby. "Baby" products can be used for all ages. documented in this encounter Progress Notes * Samantha Flores PA-C - 07/12/2023 11:00 AM EST SUBJECTIVE: History of Present Illness: Carl Urias is a 78 year old male seen today for follow up of lesion/full skin exam. Previous office visit: 07/20/2022 Last attempted treatments include: NONE Lesion on R neck, present for years. Looks ugly, no tx to date. Marketer Documentation Patient offered slip injector and applicator and declined. REVIEW OF SYSTEMS: SKIN: No other new or changing moles. HEME/LYMPH: No new or enlarging lumps or bumps. CONSTITUTIONAL: No nausea, vomiting, fevers, chills, diarrhea. No recent unintended weight loss, night sweats, appetite or malaise. RESP: URI symptoms MSK/EXT: Negative or as per HPI GI: negative CV: Negative or as per HPI Rest of systems are negative or as per HPI SKIN CANCER HX: Michael (Lchest 07/2020) Reviewed, same day as visit, 0 [facility] Dermatology lab work(s)/pathology report(s) as well as those sent by referring provider prior to seeing pt. MEDICA TIONS: Current Outpatient Medications Medication Sig Dispense Refill ASPIRIN 81 MG OR TABS Take 1 Tablet by mouth in the morning. 34 5 clotrimazole-betamethasone (LOTRISONE) 1-0.05 % cream Apply to rash on testicles twice daily as needed 15 g 5 Cholecalciferol (VITAMIN D) 1000 units Tablet Take 1 Tablet by mouth in the morning. B Complex Vitamins (VITAMIN-B COMPLEX) Tablet hydrocortisone (ANUSOL-HC) 2.5 % rectal cream Apply topically to affected area 2 times a day. Applyto the rectum 1 Tube 5 Pantoprazole Sodium 40 MG Oral Tablet Delayed Release (Protonix) TAKE ONE TABLET BY MOUTH EVERY MORNING. 30 MINUTES BEFORE THE FIRST MEAL OF THE DAY. DO NOT CRUSH, CUT OR CHEW 90 Tablet 3 Atorvastatin Calcium 40 MG Oral Tablet (Lipitor) TAKE ONE TABLET BY MOUTH EVERY DAY 90 Tablet 3 Vitamin C 100 MG Oral Tablet Take 1 Tablet by mouth in the morning. guaiFENesin ER 600 MG Oral Tablet Extended Release 12 Hour (Mucinex) Take 1 Tablet by mouth in the morning and 1 Tablet before bedtime. buPROPion HCl ER (XL) 150 MG Oral Tablet Extended Release 24 Hour (Wellbutrin XL) TAKE ONE TABLET BY MOUTH EVERY DAY IN THE MORNING 90 Tablet 0 Azelastine HCl 0.1 % Nasal Solution (Astelin) Administer 2 Sprays into each nostril in the morning and 2 Sprays before bedtime. 90 mL 3 Famotidine 20 MG Oral Tablet (Pepcid) TAKE ONE TABLET BY MOUTH EVERY MORNING 90 Tablet 2 Benzonatate 100 MG Oral Capsule Take 2 Capsules by mouth 3 times a day as needed for Cough. 30 Capsule 0 Ezetimibe 10 MG Oral Tablet (Zetia) TAKE ONE TABLET BY MOUTH EVERY MORNING 90 Tablet 3 Mirtazapine 7.5 MG Oral Tablet (Remeron) TAKE ONE TABLET BY MOUTH AT BEDTIME 90 Tablet 3 No current facility-administered medications for this visit. ALLERG IES: Patient has noknown allergies. OBJECT TERESA: GEN: alert, no distress, appears oriented, pleasant and cooperative. SKIN: Detailed exam of hair, face including lids and lips, neck, chest, abdomen, back, bilateral upper ext. (arm, hand, fingers), bilateral lower ext. (leg, foot, toes), palpation of scalp, fingernails, toenails, inguinal areas, groin (penis, scrotum and perineum), buttocks and anus completed: 1A. R flank-4x2mm light-medium brown irregular macule. 2. L chest-post inflammatory erythematous circular atrophic scar. 3. Face/neck/R clavicle/trunk/bilat arms-Some sharply defined, variegated brown, waxy flat papules with velvety to finely verrucous surfaces. 4. Face/trunk/bilat arms and legs-Some 3-6mm well defined light to medium brown homogenous stellatemacules. 5. Trunk/bilat arms and legs-About 35 total; 2-5mm light and light-medium brown macules and soft papules. ASSESS MENT/PLAN: 1A. Nevus, r/o atypia on R flank-Shave removal of the lesion noted above to remove and confirm diagnosis. The procedure, risks including but not limited to; (scarring, bleeding, infection, pain, and bruising), benefits, alternatives and expected outcomes were discussed with the patient, and obtained verbal consent from pt. Time out called. Patient identified, procedure verified, site identified and verified. Patient and staff present in agreement. Area prepped with alcohol and anesthetized using 1cc of 0.5% lidocaine with epinephrine at 1:200,000 concentration. Shave of lesion performed. 20% AlCl and bandaging applied. Specimen sent to pathology. Patient instructed in routine post-op care. 2. Scar s/p Michael on L chest-No sign of recurrence. 3. Seborrheic/Benign Keratosis(-es) on face/neck (R clavicle)/trunk/bilat arms- no tx needed, pt given reassurance. 4. Lentigines on face/trunk/bilat arms and legs-no tx needed, pt given reassurance and written education about diagnosis. 5. Nevi on trunk/bilat arms and legs-no tx needed, pt given reassurance and written education aboutdiagnosis. Skin cancer brochure given at previous office visit (pt declined need for another) and ABCDE's discussed with patient. Annual full body skin examination (unless I recommended otherwise), self-examination, and sun protection (SPF 30+ daily to sun exposed areas, with reapplication every 1-2 hours when out in sun for long periods of time) advised and discussed. Recommended sooner follow up for new or changing lesions. These changes include rapid enlargement, changes in color or shape or symptoms, bleeding, or other concerns. The common features and behavior of non-melanoma skin cancers (e.g. BCC/SCC) as well as the ABCDEs and ugly duckling features of melanoma were also reviewed. Patient alone today. Photo(s) of #1-5 taken, pt verbally consented to having photo(s) taken. Follow-up: 1-1.5 years for full skin exam Call cell phone with bx result, OK to leave a message. Applicable photos (if any) and chart reviewed by Dr. Jimmy Hanley. Presumed diagnoses, expected natural histories, and management options discussed with the patient at length. Questions were addressed and anticipatory guidance provided. They were instructed to contact me if additional questions, concerns, or problems develop in the interim. -There were no barriers to learning and no other pain was related to today's visit. The patient and/or person accompanying patient demonstrates understanding of the visit and treatment. Samantha Flores PA-C 07/12/2023 10:[address] [address] documented in this encounter Nursing Notes * Kallie Orellana LPN - 07/12/2023 10:53 AM EST Patient identified by full name and date of . Chief Complaint Patient presents with Follow Up 1 year for full skin exam, spot R neck documented in this encounter Plan of Treatment Upcoming Encounters Date Type Department Care Team (Latest Contact Info) Description 07/19/2023 12:20 PM EST Office Visit [facility] [address] [place] [address] Isabel Mccabe PA-C [address] [place] [id number] 08/07/2023 10:00 AM EST Nurse Only Ancillary [address] [phone] [place], Nurse Annual Wellness [address] [address] 08/16/2023 12:30 PM EDT Office Visit [facility]astroenterology , [facility] [address] [facility] [address] Margret Rowland CRNP [address] [place] [address] 08/27/2023 12:15 PM EDT Office Visit Orthopaedics Eyad Lorenzo [address] [place] [address] Jignesh Morrison DO [address] [place] [address] 10/15/2023 10:30 AM EDT Hospital Encounter [facility]O [facility] Endoscopy [address] [address] Mark Metcalf MD [address] [place] [address] 10/15/2023 10:30 AM EDT - 10/15/2023 11:00 AM EDT Surgery ENDO [facility], Endoscopy [address] [place] [phone] Mark Metcalf MD [address] [place] [address] ESOPHAGOGASTRODUODENOSCOPY (EGD), FLEXIBLE, TRANSORAL, DIAGNOSTIC 11/13/2024 11:00 AM EDT Office Visit Dermatology[address] [address] Samantha Flores, PAJulieta [address] [place] [address] [place] [address] Pending Results Name Type Priority Associated Diagnoses Date /Time SURGICAL PATHOLOGY Pathology Routine Neoplasm of uncertain behavior of skin 07/12/2023 11:09 AM EST Scheduled Procedures Name Priority Associated Diagnoses Date/Ti nd ESOPHAGOGASTRODUODENOSCOPY ( EGD), FLEXIBLE, TRANSORAL, DIAGNOSTIC Gastroesophageal reflux 10/15/2023 10:30 AM EDT GASTRO REFLUX TEST WITH MUCO AUSTYN TELEMETRY PH ELECTRODE Gastroesophageal reflux 10/15/2023 10:30 AM EDT COLONOSCOPY FLEXIBLE PROXIMA L DIAGNOSTIC Recall History of colon polyps Health Maintenance Due Date Last Done Comments Hepatitis C Screening 1963 Zoster Vaccines (3 of 3) 05/01/2019 03/06/2019, 03/04 COVID-19 Vaccine ( season) 2023 03/31/2022, 03/07/2021, 07/27/2020, Additional history exists Influenza Vaccine (FLU shot) (#1) 2023 03/31/2022, 04/04/2021, 03/06/2019, Additional history exists Depression Screening 08/04/2023 08/03/2022 COLONOSCOPY-EVERY 5 YRS AGES 18-100 08/14/2023 08/13/2018, 08/13/2018, 06/29/2015, Additional history exists DTaP,Tdap,and Td Vaccines (3 - Td or Tdap) 06/13/2028 06/13/2018, 04/20/2009 Pneumococcal Vaccine: 65+ Years Completed 03/19/2016, 03/18/2015 GARDASIL-HPV IMMUNIZATION SERIES Aged Out No longer eligible based on patient's age to complete this topic Hepatitis B Aged Out No longer eligi ble based on patient's age to complete this topic MENINGOCOCCAL (MENACTRA/MENVEO) Aged Out No longer eligible based on patient's age to complete this topic documented as of this encounter Medical Devices Not on filedocumented as of this encounter Procedures Procedure Name Priority Date/Time Associated Diagnosis Comments DERM IMAGE (SITE) Routine 07/12/2023 Seborrheic keratosis Multiple nevi Lentigines Hx of nonmelanoma skin cancer Skin exam, screening for cancer Neoplasm of uncertain behavior of skin documented in this encounter Results * DERM IMAGE (SITE) (07/12/2023) 07/12/2023 Samantha Flores PA-C DIGITAL PHOTOG NANETTE documented in this encounter Visit Diagnoses Diagnosis Hx of nonmelanoma skin cancer- Primary Personal history of other malignant neoplasm of skin Seborrheic keratosis Other seborrheic keratosis Multiple nevi Benign neoplasm of skin, site unspecified Lentigines Other dyschromia Skin exam, screening for cancer Screening for malignant neoplasm of the skin Neoplasm of uncertain behavior of skin Gastroesophageal reflux Esophageal reflux documented in this encounter Care Teams Director Of Speech Pathology Relationship Specialty Start Date End Date Isabel Mccabe PA-C [address] [place] [phone] PCP - General Physician Roll Filler 08/28/17 documented as of this encounter
--- OUTSIDE RECORDS SUMMARY | 2023-09-15 16:28 | External Medical Summary | Summary of Care ---
Author Name Unknown Organization [facility] Address [address] [place] [address] Phone [phone] Care Team Providers Care Instructional Technology Facilitator Name Role Phone Isabel Mccabe PA-C Primary Care Provider + Encounter Details Date Type Department Care Team (Latest Contact Info) Description 06/06/2023 11:30 AM EST Procedure Only [facility] [place] [address] [place] [address] She Vazquez MD [address] [place] [address] Canceled (Patient Cancel-Coronavirus (COVID19) Concern) Allergies No known active allergiesdocumented as of this encounter (statuses as of 06/11/2023) Medications Medication Sig Dispensed Refills Start Date [...] CHEW 90 Tablet 3 10/12/2022 4 Active Ezetimibe 10 MG Oral Tablet (Zetia) TAKE ONE TABLET BY MOUTH EVERY MORNING 90 Tablet 3 07/07/2022 4 Active Atorvastatin Calcium 40 MG Oral Tablet (Lipitor)Indicatio ns:Dyslipidemia, goal LDL below 130 TAKE ONE TABLET BY MOUTH EVERY DAY 90 Tablet 3 07/07/2022 4 Active Mirtazapine 7.5 MG Oral Tablet (Remeron)Indicatio ns:Adjustment disorder with depressed mood TAKE ONE TABLET BY MOUTH AT BEDTIME 90 Tablet 3 06/21/2022 4 Active Vitamin C 100 MG Oral [...] BY MOUTH EVERY MORNING 90 Tablet 3 06/30/2022 3 Discontinue d(Refill) documented as of this encounter (statuses as of 06/11/2023) Active Problems Problem Noted Date Diagnosed Date Chronic cough 01/16/2023 Elevated TSH 01/16/2023 Family history of cardiovascular disease 022 Precordial chest pain 07/15/2021 Gastroesophageal reflux [...] as of this encounter (statuses as of 06/11/2023) Resolved Problems Problem Noted Date Diagnosed Date [...] as of this encounter (statuses as of 06/11/2023) Immunizations Name Administration Dates Next Due COVID-19 mRNA, LNP-s, No Pre serve, 2-Dose Series ([employer]) 03/07/2021,07/27/2020,07/06/2020 Covid-19, Mrna, Lnp-s, Pf, B ivalent, 30 Mcg, IM, 12 yrs and above ([employer]) 03/31/2022 Pneumococcal Conjugate Vacc, 13 Valent (Prevnar) [...] Department Care Team (Latest Contact Info) Description 07/12/2023 11:00 AM EST Office Visit D[place]ologyJames [place] [phone] Samantha Flores PA-C [address] [place] [address] [place] [address] 07/18/2023 9:30 AM EST Office Visit Pulmonary Medicine, [place] [address] [place] [address] Uvaldo Raines MD [address] [place] [address] 07/19/2023 12:20 PM EST Office Visit Family [facility] [address] [place] [phone] Isabel Mccabe PA-C [address] [place] [address] 08/07/2023 10:00 AM EST Nurse Only Ancillary [facility] [address] [place] [phone] [facility], Nurse Annual Wellness [facility] [address] [place] [address] 08/16/2023 12:30 PM EDT Office Visit Gastroenterology , [facility] [address] [place] [address] Margret Rowland CRNP [facility] [place] [address] 08/27/2023 12:15 PM EDT Office Visit Orthopaedics [facility] [address] [place] [phone] Jignesh Morrison DO [address] [place] [address] 10/15/2023 10:30 AM EDT Hospital Encounter [facility] Endoscopy [address] [phone] Mark Metcalf MD [address] [place] [address] 10/15/2023 10:30 AM EDT - 10/15/2023 11:00 AM EDT Surgery [facility]O [facility], Endoscopy Suite [facility] [address] [facility] [place] [address] Mark Metcalf MD [address] [place] [address] ESOPHAGOGASTRODUODENOSCOPY (EGD), FLEXIBLE, TRANSORAL, DIAGNOSTIC Scheduled Procedures Name Priority Associated Diagnoses Date/Ti [...] of 3) 05/01/2019 03/06/2019, 03/04 COVID-19 Vaccine (5 - 2022-24 season) 2023 03/31/2022, 03/07/2021, 07/27/2020, Additional history [...] Not on filedocumented as of this encounter Additional Health Concerns Infection Onset Date Last Indicated Resolved Time COVID-19 (confirmed) 05/31/2023 05/31/2023 documented as of this encounter Care Teams Instructional Technology Facilitator Relationship Specialty Start Date End Date Isabel Mccabe PA-C [address] [place] [address] [place] [address] PCP - General Physician Nurse Educator 08/28/17 documented as of this encounter
--- OUTSIDE RECORDS SUMMARY | 2023-09-15 16:28 | External Medical Summary | Summary of Care ---
Author Name Unknown Organization [facility] Address [address] [facility] [place] [address] Phone [phone] Care Team Providers Care Space Officer Name Role Phone Isabel Mccabe PA-C Primary Care Provider + Reason for Visit * Reason Comments Follow Up 1 year for full skin exam, spot R neck Encounter Details Date Type Department Care Team (Late st Contact Info) Description 07/12/2023 11:00 AM EST Office Visit Dermatology[address] [address] Samantha Flores PA-C [address] [place] [address] [place] [address] Hx of nonmelanoma skin cancer*; Seborrheic keratosis; Multiple nevi; Lentigines; Skin exam, screening for cancer; Neoplasm of uncertain behavior of skin Allergies No known active allergiesdocumented as of this encounter (statuses as of 07/13/2023) Medications Medication Sig Dispensed Refills Start Date [...] as of this encounter (statuses as of 07/13/2023) Active Problems Problem Noted Date Diagnosed Date [...] as of this encounter (statuses as of 07/13/2023) Resolved Problems Problem Noted Date Diagnosed Date [...] as of this encounter (statuses as of 07/13/2023) Immunizations Name Administration Dates Next Due COVID-19 mRNA, LNP-s, No Pre serve, 2-Dose Series ([employer]) 03/07/2021,07/27/2020,07/06/2020 Covid-19, Mrna, Lnp-s, Pf, B ivalent, [...] Product examples; Think sport, Think baby, Faisal, [place] [employer], [employer], [place] baby. "Baby" products can be used for all ages. documented in this encounter Progress Notes * Jimmy Hanley MD - 07/13/2023 7:24 AM EST I have seen and examined the patient via teledermatology review of chart note and photos with Samantha Flores PA-C. I have reviewed and agree with the assessment and plan. * Samantha Flores PA-C - 07/12/2023 11:00 AM EST SUBJECTIVE: History of Present Illness: Carl Urias is a 78 year old male seen today for follow up of lesion/full skin exam. Previous office visit: 07/20/2022 Last attempted treatments include: NONE Lesion on R neck, present for years. Looks ugly, no tx to date. Medical Assembly Documentation Patient offered register in chancery and declined. REVIEW OF SYSTEMS: SKIN: No [...] as per HPI SKIN CANCER HX: Michael ([facility]) Reviewed, same day as visit, 0 [facility] Dermatology lab work(s)/pathology report(s) as well as [...] treatment. Samantha Flores PA-C 07/12/2023 10:58 AM Dermatology, [place] [address]Alayna Giles [facility] [address] documented in this encounter Nursing Notes * [...] Description 07/19/2023 12:20 PM EST Office Visit [address] [phone] Isabel Mccabe PA-C [address] [place] [address] 08/07/2023 10:00 AM EST Nurse Only Ancillary [address] [phone] [facility], Nurse Annual Wellness [address] [address] 08/16/2023 12:30 PM EDT Office Visit Gastroenterology , [facility] [address] [place] [address] Margret Rowland CRNP [address] [place] [address] 08/27/2023 12:15 PM EDT Office Visit Orthopaedics [facility] 16 [place] [phone] Jignesh Morrison, [address] [place], [place] [address] 10/15/2023 10:30 AM EDT Hospital Encounter ENDO [facility], Endoscopy [address] [address] Mark Metcalf MD [address] [place] [address] 10/15/2023 10:30 AM EDT - 10/15/2023 11:00 AM EDT Surgery ENDO [facility], Endoscopy [address] [phone] Mark Metcalf MD [address] [place] [address] ESOPHAGOGASTRODUODENOSCOPY (EGD), FLEXIBLE, TRANSORAL, DIAGNOSTIC 11/13/2024 11:00 AM EDT Office Visit [address] [address] Samantha Flores PA-C [address] [place] [address] [place] [address] Pending Results Name Type Priority Associated Diagnoses Date /Time SURGICAL PATHOLOGY Pathology Routine Neoplasm of uncertain behavior of skin 07/12/2023 11:09 AM EST Scheduled Procedures Name Priority Associated Diagnoses Date/Ti mt ESOPHAGOGASTRODUODENOSCOPY ( EGD), FLEXIBLE, TRANSORAL, DIAGNOSTIC Gastroesophageal [...] reflux documented in this encounter Care Teams Space Officer Relationship Specialty Start Date End Date Isabel Mccabe PA-C [address] [place] [phone] PCP - General Physician Peoplesoft Hr Developer 08/28/17 documented as of this encounter
--- OUTSIDE RECORDS SUMMARY | 2023-09-15 16:28 | External Medical Summary | Summary of Care ---
Author Name Unknown Organization [facility] Address [address] [facility] [place] [address] Phone [phone] Care Team Providers Care Three Dimensional Map Modeler Name Role Phone Isabel Mccabe PA-C Primary Care Provider + Reason for Visit * Reason Comments Follow Up 1 year for full skin exam, spot R neck Encounter Details Date Type Department Care Team (Late st Contact Info) Description 07/12/2023 11:00 AM EST Office Visit Dermatology[address] [address] Samantha Flores PA-C [address] [place] [address] [place] [address] Hx of nonmelanoma skin cancer*; Seborrheic keratosis; [...] mRNA, LNP-s, No Pre serve, 2-Dose Series ([employer]) 03/07/2021,07/27/2020,07/06/2020 Covid-19, Mrna, Lnp-s, Pf, B ivalent, [...] Product examples; Think sport, Think baby, Faisal, [employer], [employer], [place] baby. "Baby" products can be used [...] years. Looks ugly, no tx to date. Magnetic Prospecting Operator Documentation Patient offered baton teacher and declined. REVIEW OF SYSTEMS: SKIN: No [...] 07/2020) Reviewed, same day as visit, 0 [facility] Dermatology lab work(s)/pathology report(s) as well [...] treatment. Samantha Flores PA-C 07/12/2023 10:[address] [address] documented in this encounter Nursing Notes * [...] EST Office Visit [facility] [address] [place] [phone] Isabel Mccabe PA-C [address] [place] [address] 08/07/2023 10:00 AM EST Nurse Only Ancillary [address] [phone] [place], Nurse Annual Wellness [address] [address] 08/16/2023 12:30 PM EDT Office Visit [facility]astroenterology , [facility] [address] Margret Rowland CRNP 132 [facility] [place] [address] 08/27/2023 12:15 PM EDT Office Visit Orthopaedics Eyad [facility] [address] [place] [phone] Jignesh Morrison DO [address] [place] [address] 10/15/2023 10:30 AM EDT Hospital Encounter ENDO GE[facility], Endoscopy [address] [address] Mark Metcalf MD [address] [place] [address] 10/15/2023 10:30 AM EDT - 10/15/2023 11:00 AM EDT Surgery ENDO [facility], Endoscopy [address] [place] [phone] Mark Metcalf MD [address] [place] [address] ESOPHAGOGASTRODUODENOSCOPY (EGD), FLEXIBLE, TRANSORAL, DIAGNOSTIC 11/13/2024 11:00 AM EDT Office Visit Dermatology[address] [address] Samantha Flores, PAJulieta [address] [place] [address] [place] [address] Pending Results Name Type Priority Associated Diagnoses Date /Time SURGICAL PATHOLOGY Pathology Routine Neoplasm of uncertain behavior of skin 07/12/2023 11:09 AM EST Scheduled Procedures Name Priority Associated Diagnoses Date/Ti wi ESOPHAGOGASTRODUODENOSCOPY ( EGD), FLEXIBLE, TRANSORAL, DIAGNOSTIC Gastroesophageal [...] as of this encounter Visit Diagnoses Diagnosis Hx of nonmelanoma skin cancer- Primary Personal history of other malignant neoplasm of skin Seborrheic keratosis Other seborrheic keratosis Multiple nevi Benign neoplasm of skin, site unspecified Lentigines Other dyschromia Skin exam, screening for cancer Screening for malignant neoplasm of the skin Neoplasm of uncertain behavior of skin Gastroesophageal reflux Esophageal reflux documented in this encounter Care Teams Three Dimensional Map Modeler Relationship Specialty Start Date End Date Isabel Mccabe PA-C [address] [place] [address] [place] [id number] PCP - General Physician Tow Motor Mechanic 08/28/17 documented as of this encounter
--- OUTSIDE RECORDS SUMMARY | 2023-09-15 16:28 | External Medical Summary | Summary of Care ---
Author Name Unknown Organization [facility] Address [address] [place] [address] Phone [phone] Care Team Providers Care School Business Administrator Name Role Phone Isabel Mccabe PA-C Primary Care Provider + Reason for Visit * Reason Onset Date Comments Appointment 07/17/2023 Encounter Details Date Type Department Care Team (Late st Contact Info) Description 07/17/2023 Telephone Gastroenterology, [address] [phone] Services, Scheduling [address] [place] [address] Appointment Allergies No known active allergiesdocumented as of this encounter (statuses as of 07/17/2023) Medications Medication Sig Dispensed Refills Start Date [...] as of this encounter (statuses as of 07/17/2023) Active Problems Problem Noted Date Diagnosed Date [...] as of this encounter (statuses as of 07/17/2023) Resolved Problems Problem Noted Date Diagnosed Date [...] as of this encounter (statuses as of 07/17/2023) Immunizations Name Administration Dates Next Due COVID-19 mRNA, LNP-s, No Pre serve, 2-Dose Series (Moe Delo) 03/07/2021,07/27/2020,07/06/2020 Covid-19, Mrna, Lnp-s, Pf, B ivalent, 30 Mcg, IM, 12 yrs and above (Moe Delo) 03/31/2022 Pneumococcal Conjugate Vacc, 13 Valent (Prevnar) [...] encounter Miscellaneous Notes * Telephone Encounter - Sandie Ruth RN - 07/17/2023 3:40 PM EST Called pt. He wants OV scheduled after EGD. Call to Cayla to reschedule. * Telephone Encounter - Era Rodney OSA - 07/17/2023 10:11 AM EST He is having questions about the EGD and Major documented in this encounter Plan of Treatment Upcoming Encounters Date Type Department Care Team (Latest Contact Info) Description 07/19/2023 12:20 PM EST Office Visit [facility] [address] [place] [phone] Isabel Mccabe PA-C 68 [place] [address] 08/07/2023 10:00 AM EST Nurse Only Ancillary [facility] 68 [place] [phone] [facility], Nurse Annual Wellness [address] [address] 08/27/2023 12:15 PM EDT Office Visit Orthopaedics [place] [place] 16 [place] [phone] Jignesh Morrison DO 16 [place] [address] 10/15/2023 10:30 AM EDT Hospital Encounter ENDO [facility], Endoscopy [address] [phone] Mark Metcalf MD [address] [place] [address] 10/15/2023 10:30 AM EDT - 10/15/2023 11:00 AM EDT Surgery ENDO [facility], Endoscopy [address] [phone] Mark Metcalf MD [address] [place] [address] ESOPHAGOGASTRODUODENOSCOPY (EGD), FLEXIBLE, TRANSORAL, DIAGNOSTIC 11/07/2023 12:30 PM EDT Office Visit Gastroenterology , [facility] [address] [place] [address] Margret Rowland CRNP [address] [place] [address] 11/13/2024 11:00 AM EDT [place] [address] [address] [facility] [place] [address] Samantha Flores PA-C [address] [place] [address] [place] [address] Scheduled Procedures Name Priority Associated Diagnoses Date/Ti [...] of 3) 05/01/2019 03/06/2019, 03/04 COVID-19 Vaccine (2022- season) 2023 03/31/2022, 03/07/2021, 07/27/2020, Additional history [...] filedocumented as of this encounter Care Teams School Business Administrator Relationship Specialty Start Date End Date Isabel Mccabe PA-C [address] [place] [address] [place] [address] PCP - General Physician Firmware Engineer 08/28/17 documented as of this encounter
--- OUTSIDE RECORDS SUMMARY | 2023-09-15 16:28 | External Medical Summary ---
Author Name Unknown Address Unknown Organization K01:[facility] - [facility] [address] [facility] [address] [place] [address] Laboratory Report Ordering Provider Test Date Status JERRY KNIGHT 08/07/2023 11:19:34 Final Observation Date Value Abnormality Reference (Units ) Status WBC, Total 08/07/2023 11:19:34 6.15 4.00-10.80 (K/uL) Final RBC 08/07/2023 11:19:34 4.76 4.50-5.25 (M/uL) Final Hemoglobin 08/07/2023 11:19:34 15.7 14.0-16.8 (g/dL) Final HCT 08/07/2023 11:19:34 46.8 40.0-48.4 (%) Final MCV 08/07/2023 11:19:34 98.3 82.0-99.5 (fL) Final MCH 08/07/2023 11:19:34 33.0 27.0-34.0 (pg) Final MCHC 08/07/2023 11:19:34 33.5 32.0-36.0 (g/dL) Final RDW 08/07/2023 11:19:34 13.4 11.5-15.5 (%) Final Platelets 08/07/2023 11:19:34 175 140-400 (K/uL) Final MPV 08/07/2023 11:19:34 11.7 6.6-11.1 (fL) Final Nucleated erythrocytes/100 leukocytes [Ratio] in Blood by Automated count 08/07/2023 11:19:34 0 <=0 (/100 WBCs) Final Performing Location [facility] [address] [facility] [address] [place] [address]
--- OUTSIDE RECORDS SUMMARY | 2023-09-15 16:28 | External Medical Summary | Summary of Care ---
Author Name Unknown Organization [facility] Address [address] [facility] [place] [address] Phone [phone] Care Team Providers Care Movement Education Specialist Name Role Phone Isabel Mccabe PA-C Primary Care Provider + Reason for Visit * Reason Onset Date Comments Appointment 07/19/2023 Encounter Details Date Type Department Care Team (Late st Contact Info) Description 07/19/2023 Telephone Cardiology, [facility] [address] [place] [address] Rene Ji MD [address] [place] [address] Appointment Allergies No known active allergiesdocumented as of this encounter (statuses as of 07/20/2023) Medications Medication Sig Dispensed Refills Start Date End Date Status ASPIRIN 81 MG OR TABSIndications:Mixed dyslipidemia Take 1 Tablet by mouth in the morning. 34 5 03/03/2004 Active clotrimazole-betameth asone (LOTRISONE) 1-0.05 % cream Apply to rash on testicles twice daily as needed 15 g 5 07/11/2018 Active Cholecalciferol (VITAMIN D) 1000 units Tablet Take 1 Tablet by mouth in the morning. 0 Active hydrocortisone (ANUSOL-HC) 2.5 % rectal creamIndications:Inte rnal hemorrhoids Apply topically to affected area 2 times a day. Apply to the rectum 1 Tube 5 07/23/2019 Active Pantoprazole Sodium 40 MG Oral Tablet Delayed Release (Protonix)Indications :Gastroesophageal reflux disease without esophagitis TAKE ONE TABLET BY MOUTH EVERY MORNING. 30 MINUTES BEFORE THE FIRST MEAL OF THE DAY. DO NOT CRUSH, CUT OR CHEW 90 Tablet 3 10/12/2022 10/12/2023 Active Atorvastatin Calcium 40 MG Oral Tablet (Lipitor)Indications: Dyslipidemia, goal LDL below 130 TAKE ONE TABLET BY MOUTH EVERY DAY 90 Tablet 3 07/07/2022 08/03/2023 Active Vitamin C 100 MG Oral Tablet Take 1 Tablet by mouth in the morning. 0 Active buPROPion HCl ER (XL) 150 MG Oral Tablet Extended Release 24 Hour (Wellbutrin XL)Indications:Adjust ment disorder with depressed mood TAKE ONE TABLET [...] 05/29/2023 Active Ezetimibe 10 MG Oral Tablet (Zetia)Indications:Dy slipidemia, goal LDL below 130 TAKE ONE TABLET BY MOUTH EVERY MORNING 90 Tablet 3 06/12/2023 06/11/2024 Active Mirtazapine 7.5 MG Oral Tablet (Remeron)Indications: Adjustment disorder with depressed mood TAKE ONE TABLET BY MOUTH AT BEDTIME 90 Tablet 3 06/11/2023 06/10/2024 Active predniSONE 20 MG Oral Tablet (Deltasone)Indication s:Primary osteoarthritis of both hands Take 2 Tablets by mouth in the morning for 5 days. 10 Tablet 0 07/19/2023 07/24/2023 Active documented as of this encounter (statuses as of 07/20/2023) Active Problems Problem Noted Date Diagnosed Date [...] as of this encounter (statuses as of 07/20/2023) Resolved Problems Problem Noted Date Diagnosed Date [...] as of this encounter (statuses as of 07/20/2023) Immunizations Name Administration Dates Next Due COVID-19 mRNA, LNP-s, No Pre serve, 2-Dose Series ([employer]) 03/07/2021,07/27/2020,07/06/2020 Covid-19, Mrna, Lnp-s, Pf, B ivalent, 30 Mcg, IM, 12 yrs and above ([employer]) 03/31/2022 Pneumococcal Conjugate Vacc, 13 Valent (Prevnar) [...] encounter Miscellaneous Notes * Telephone Encounter - Dorinda Reid OSA - 07/19/2023 1:32 PM EST Patient is due for a return visit in October with Rene Ji in Cardiology. No appointments available please assist with scheduling documented in this encounter Plan of Treatment Upcoming Encounters Date Type Department Care Team (Latest Contact Info) Description 08/07/2023 10:00 AM EST Nurse Only Ancillary [facility] [address] [place] [address] [place], Nurse Annual [address] [address] 08/20/2023 11:30 AM EDT [facility] [address] [place] [address] Edmundo Cota PA-C [address] [place] [address] 08/27/2023 12:15 PM EDT [facility] 16 [place] [address] Jignesh Morrison DO 16 [place] [address] 10/04/2023 10:30 AM EDT Office Visit Cardiology, [facility] 132 [facility] [place] [address] Rene Ji MD 132 [facility] [place] [address] 10/15/2023 10:30 AM EDT Hospital Encounter ENDO [facility], Endoscopy [address] [address] Mark Metcalf MD 132 [facility] [place] [address] 10/15/2023 10:30 AM EDT - 10/15/2023 11:00 AM EDT Surgery ENDO [facility], Endoscopy [address] [phone] Mark Metcalf MD [address] [place] [address] ESOPHAGOGASTRODUODENOSCOPY (EGD), FLEXIBLE, TRANSORAL, DIAGNOSTIC 11/07/2023 12:30 PM EDT Office Visit Gastroenterology , [facility] [address] [place] [address] Margret Rowland CRNP [address] [place] [address] 01/22/2024 10:00 AM EDT Office Visit [facility] [address] [place] [phone] Isabel Mccabe PA-C [address] [place] [phone] 11/13/2024 11:00 AM EDT Office Visit Dermatology[address] [address] Samantha Flores PA-C [address] [place] [address] [place] [address] Scheduled Procedures Name Priority Associated Diagnoses Date/Ti [...] filedocumented as of this encounter Care Teams Movement Education Specialist Relationship Specialty Start Date End Date Isabel Mccabe PA-C [address] [place] [address] [place] [address] PCP - General Physician Local Truck Driver 08/28/17 documented as of this encounter
--- OUTSIDE RECORDS SUMMARY | 2023-09-15 16:28 | External Medical Summary ---
Author Name Unknown Address Unknown Organization K01:[facility] - [address] [place] [address] Laboratory Report Ordering Provider Test Date Status JERRY KNIGHT 08/07/2023 11:19:34 Final Observation Date Value Abnormality Reference (Units ) Status Magnesium 08/07/2023 11:19:34 2.2 1.5-2.6 (m g/dL) Final Performing Location [facility] - [address] [place] [address]
--- OUTSIDE RECORDS SUMMARY | 2023-09-15 16:28 | External Medical Summary | Summary of Care ---
Author Name Unknown Organization [facility] Address [address] [facility] [place] [address] Phone [phone] Care Team Providers Care Paving And Surfacing Labourer Name Role Phone Isabel Mccabe PA-C Primary Care Provider + Reason for Referral * Evaluate & Treat - Unlimited Visits (Within 10 days (routine)) - Authorized Specialty Diagnoses / Procedures Referred By Antoinette viramontes Referred To Contact Orthopaedic Surgery / Orthopedics Diagnoses Primary osteoarthritis of both hands Carpal tunnel syndrome of right wrist Isabel Mccabe PA-C [address] [place], [place] [address] [place] [address] Referral ID Status Reason Start Date Expiration Date Visits Requested Visits Authorized [id number] Authorized Specialty Services Required 07/19/[phone] Question Answer Referral Priority Within 10 days (routine) Where should this appointment be scheduled? [facility] What body part is the patient being seen for? Forearm/Wrist What condition is the patient being seen for? Arthritis including related infection Reason for Visit * Reason Comments Follow Up Encounter Details Date Type Department Care Team (Latest Contact Info) Description 07/19/2023 12:20 PM EST Office Visit [facility] [address] [place] [phone] Isabel Mccabe PA-C [address] [place], [place] [address] [place] [address] Primary osteoarthritis of both hands*; Carpal tunnel syndrome of right wrist; Chronic cough; Hyperlipidemia LDL goal <100; Family history of cardiovascular disease Allergies No known active allergiesdocumented as of this encounter (statuses as of 07/25/2023) Medications Medication Sig Dispensed Refills Start Date End Date Status ASPIRIN 81 MG OR TABSIndications:Mix ed dyslipidemia Take 1 Tablet by mouth in the morning. 34 5 4 Active clotrimazole-betame thasone (LOTRISONE) 1-0.05 % cream Apply to rash on testicles twice daily as needed 15 g 5 9 Active Cholecalciferol (VITAMIN D) 1000 units Tablet Take 1 Tablet by mouth in the morning. 0 Active hydrocortisone (ANUSOL-HC) 2.5 % rectal creamIndications:In ternal hemorrhoids Apply topically to affected area 2 times a day. Apply to the rectum 1 Tube 5 0 Active Pantoprazole Sodium 40 MG Oral Tablet Delayed Release (Protonix)Indicatio ns:Gastroesophageal reflux disease without esophagitis TAKE ONE TABLET BY MOUTH EVERY MORNING. 30 MINUTES BEFORE THE FIRST MEAL OF THE DAY. DO NOT CRUSH, CUT OR CHEW 90 Tablet 3 3 10/12/19 24 Active Atorvastatin Calcium 40 MG Oral Tablet (Lipitor)Indication s:Dyslipidemia, goal LDL below 130 TAKE ONE TABLET BY MOUTH EVERY DAY 90 Tablet 3 3 08/03/19 24 Active Vitamin C 100 MG Oral Tablet Take 1 Tablet by mouth in the morning. 0 Active buPROPion HCl ER (XL) 150 MG Oral Tablet Extended Release 24 Hour (Wellbutrin XL)Indications:Adju stment disorder with depressed mood TAKE ONE TABLET BY MOUTH EVERY DAY IN THE MORNING 90 Tablet 0 3 Active Azelastine HCl 0.1 % Nasal Solution (Astelin) Administer 2 Sprays into each nostril in the morning and 2 Sprays before bedtime. 90 mL 3 3 Active Famotidine 20 MG Oral Tablet (Pepcid) TAKE ONE TABLET BY MOUTH EVERY MORNING 90 Tablet 2 3 Active Ezetimibe 10 MG Oral Tablet (Zetia)Indications: Dyslipidemia, goal LDL below 130 TAKE ONE TABLET BY MOUTH EVERY MORNING 90 Tablet 3 4 06/11/19 25 Active Mirtazapine 7.5 MG Oral Tablet (Remeron)Indication s:Adjustment disorder with depressed mood TAKE ONE TABLET BY MOUTH AT BEDTIME 90 Tablet 3 4 06/10/19 25 Active predniSONE 20 MG Oral Tablet (Deltasone)Indicati ons:Primary osteoarthritis of both hands Take 2 Tablets by mouth in the morning for 5 days. 10 Tablet 0 4 07/26/19 24 Active B Complex Vitamins (VITAMIN-B COMPLEX) Tablet 0 07/19/19 24 Discontinued guaiFENesin ER 600 MG Oral Tablet Extended Release 12 Hour (Mucinex) Take 1 Tablet by mouth in the morning and 1 Tablet before bedtime. 0 07/19/19 24 Discontinued Benzonatate 100 MG Oral CapsuleIndications: Viral URI with cough Take 2 Capsules by mouth 3 times a day as needed for Cough. 30 Capsule 0 3 07/19/19 24 Discontinued documented as of this encounter (statuses as of 07/25/2023) Active Problems Problem Noted Date Diagnosed Date [...] as of this encounter (statuses as of 07/25/2023) Resolved Problems Problem Noted Date Diagnosed Date [...] as of this encounter (statuses as of 07/25/2023) Immunizations Name Administration Dates Next Due COVID-19 mRNA, LNP-s, No Pre serve, 2-Dose Series (RadPad) 03/07/2021,07/27/2020,07/06/2020 Covid-19, Mrna, Lnp-s, Pf, B ivalent, 30 Mcg, IM, 12 yrs and above (RadPad) 03/31/2022 Pneumococcal Conjugate Vacc, 13 Valent (Prevnar) [...] Never Smokeless Tobacco: Never Tobacco Cessation:Counseling Given: Yes Alcohol Use Standard Drinks/Week Comments Yes 0 [...] Sign Reading Time Taken Comments Blood Pressure 142/70 07/19/2023 12:34 PM EST Pulse 73 07/19/2023 12:34 PM EST Temperature 36.4 C (97.6 F) 07/19/2023 12:[address] Respiratory Rate 20 07/19/2023 12:34 PM EST Oxygen Saturation 94% 07/19/2023 12:34 PM EST Inhaled Oxygen Concentration - - Weight 92.1 kg (203 lb) 07/19/2023 12:34 PM EST Height - - Body Mass Index 32.77 05/23/2023 7:54 AM EST documented in this encounter Progress Notes * Isabel Mccabe PA-C - 07/19/2023 1:00 PM EST Images from the original note were not included. History of Present Illness Carl Urias is a 78 year old male that presents for Follow Up Returns for routine check-up. Left hand pain and swelling. Unable to fully make a fist. Started about a month ago. Numbness/tingling of right UE. Starts in shoulder and radiates into his fingertips. History of CTS.He wears wrist splint at night. Sxs becoming more bothersome. Upcoming EGD for chronic cough. Denies reflux sxs. No CP or SOB. [facility]. The 10-year ASCVD risk score (Rea FRANKS, et al., 2019) is: 33% Values used to calculate the score: Age: 78 years Sex: Male Is Non- : No Diabetic: No Tobacco smoker: No Systolic Blood Pressure: 142 mmHg Is BP treated: No HDL Cholesterol: 50 mg/dL Total Cholesterol: 120 mg/dL Physical Exam Vitals: 07/19/23 1234 Temp: 36.4 C (97.6 F) Pulse: 73 Resp: 20 SpO2: 94% BP: 142/70 BP Readings from Last 3 Encounters: 07/19/23 142/70 05/31/23 144/80 05/23/23 120/74 Wt Readings from Last 3 Encounters: 07/19/23 92.1 kg (203 lb) 05/31/23 92.4 kg (203 lb 9.6 oz) 05/23/23 92.8 kg (204 lb 9.6 oz) BMI Readings from Last 3 Encounters: 07/19/23 32.77 kg/m 05/31/23 32.86 kg/m 05/23/23 33.02 kg/m Physical Exam Vitals and nursing note reviewed. Constitutional: General: He is not in acute distress. Appearance: Normal appearance. HENT: Head: Normocephalic and atraumatic. Cardiovascular: Rate and Rhythm: Normal rate. Pulmonary: Effort: No respiratory distress. Musculoskeletal: Left hand: Swelling and tenderness present. Decreased range of motion. Decreased strength. Normal sensation. Normal capillary refill. Cervical back: Normal range of motion and neck supple. Skin: General: Skin is warm. Findings: No rash. Neurological: General: No focal deficit present. Mental Status: He is alert and oriented to person, place, and time. Psychiatric: Mood and Affect: Mood normal. I have reviewed the following results: hand xrays Assessment and Plan 1. Primary osteoarthritis of both hands - ORTHOPAEDICS REFERRAL OP - predniSONE 20 MG Oral Tablet (Deltasone); Take 2 Tablets by mouth in the morning for 5 days. Dispense: 10 Tablet; Refill: 0 - side effects of steroids discussed 2. Carpal tunnel syndrome of right wrist - ORTHOPAEDICS REFERRAL OP 3. Chronic cough - upcoming scope 4. Hyperlipidemia LDL goal <100 - cont statin 5. Family history of cardiovascular disease - negative nuclear stress test in April Wrap-Up Follow Up: Return in about 6 months (around 01/17/2024) for Return with [facility]. | For: Return with [facility] | Check-out note: Assist with ortho appt (Dr Baum). Due for return visit with Dr Ji cardiology in October. Time: I spent a total of 30-39 minutes (exact time 30 mins) on the date of service in preparation, delivery, and documentation of the care provided to Carl Urias excluding any time spent in the performance of separately billed services. The above was discussed and understanding was expressed. Isabel Mccabe PA-C [address] [phone] documented in this encounter Nursing Notes * Sarwat Pham LPN - 07/19/2023 12:37 PM EST The patient has been properly identified by confirmation of name and date of . Pt here for routine check up. Has some questions. documented in this encounter Plan of Treatment Upcoming Encounters Date Type Department Care Team (Latest Contact Info) Description 08/07/2023 10:00 AM EST Nurse Only Ancillary [address] [phone] Karon, Nurse Annual Wellness [address] [address] 08/20/2023 11:30 AM ED[place] [address] Edmundo Cota PA-C [address] [place] [address] 08/27/2023 12:15 PM EDT Office Visit Orthopaedics [place] [address] [place] [phone] Jignesh Morrison DO [address] [place] [address] 10/04/2023 10:30 AM EDT Office Visit Cardiology, [facility] [address] [facility] [place] [address] Rene Ji MD [address] [place] [address] 10/15/2023 10:15 AM EDT Hospital Encounter ENDO [facility], Endoscopy [address] [phone] Mark Metcalf MD [address] [place] [address] 10/15/2023 10:15 AM EDT - 10/15/2023 10:45 AM EDT Surgery ENDO [facility], Endoscopy [address] [phone] Mark Metcalf MD [address] [place] [address] ESOPHAGOGASTRODUODENOSCOPY (EGD), FLEXIBLE, TRANSORAL, DIAGNOSTIC 11/07/2023 12:30 PM EDT Office Visit Gastroenterology , [facility] [address] [place] [address] Margret Rowland CRNP [address] [place] [address] 01/22/2024 10:00 AM EDT Office Visit [facility] [address] [place] [phone] Isabel Mccabe PA-C [address] [place] [address] 11/13/2024 11:00 AM EDT Office Visit [place] [address] [place] [address] Samantha Flores PA-C [address] [place] [address] [place] [address] Scheduled Procedures Name Priority Associated Diagnoses Date/Ti me ESOPHAGOGASTRODUODENOSCOPY ( EGD), FLEXIBLE, TRANSORAL, DIAGNOSTIC Gastroesophageal reflux 10/15/2023 10:15 AM EDT GASTRO REFLUX TEST WITH MUCO AUSTYN TELEMETRY PH ELECTRODE Gastroesophageal reflux 10/15/2023 10:15 AM EDT COLONOSCOPY FLEXIBLE PROXIMA L DIAGNOSTIC Recall History of colon polyps Scheduled Referrals Name Type Priority Associated Diagnoses Orde r Schedule ORTHOPAEDICS REFERRAL OP Referral Within 10 days (routine) Primary osteoarthritis of both hands Carpal tunnel syndrome of right wrist Ordered: 07/19/2023 Health Maintenance Due Date Last Done Comments [...] as of this encounter Visit Diagnoses Diagnosis Primary osteoarthritis of both hands- Primary Carpal tunnel syndrome of right wrist Carpal tunnel syndrome Chronic cough Cough Hyperlipidemia LDL goal <100 Other and unspecified hyperlipidemia Family history of cardiovascular disease Family history of other cardiovascular diseases Gastroesophageal reflux Esophageal reflux documented in this encounter Care Teams Paving And Surfacing Labourer Relationship Specialty Start Date End Date Isabel Mccabe PA-C [address] [place] [phone] PCP - General Physician Senior Director Marketing 08/28/17 documented as of this encounter"
--- OUTSIDE RECORDS SUMMARY | 2023-09-15 16:28 | External Medical Summary ---
Author Name Unknown Address Unknown Organization [id number]:LABORATORY [facility] - [address] [facility] [place] [address] Laboratory Report Ordering Provider Test Date Status JERRY KNIGHT 08/07/2023 11:19:34 Final Observation Date Value Abnormality Reference (Units ) Status BUN 08/07/2023 11:19:34 16 6-20 (mg/dL) Final Creatinine 08/07/2023 11:19:34 1.0 0.6-1.2 (mg/dL) Final Glomerular filtration rate/1.73 sq M.predicted [Volume Rate/Area] in Serum, Plasma or Blood by Creatinine-based formula (CKD-EPI) 08/07/2023 11:19:34 75 >=60 (mL/min) Final eGFR is calculated based on the CKD-EPI 2020 equation SODIUM 08/07/2023 11:19:34 142 135-146 (m mol/L) Final Potassium 08/07/2023 11:19:34 4.6 3.5-5.1 (m mol/L) Final Cl 08/07/2023 11:19:34 107 98-107 (mm ol/L) Final CO2 08/07/2023 11:19:34 27 22-32 (mmo l/L) Final Anion gap 08/07/2023 11:19:34 8 7-15 (mmol /L) Final Glucose 08/07/2023 11:19:34 99 70-120 (mg /dL) Final Albumin 08/07/2023 11:19:34 4.2 3.8-5.0 (g /dL) Final AST (Aspartate aminotransferase) 08/07/2023 11:19:34 26 10-50 (U/L) Final Alk Phos 08/07/2023 11:19:34 83 35-130 (U/ L) Final Bilirubin, Total 08/07/2023 11:19:34 0.5 <=1 .2 (mg/dL) Final Calcium 08/07/2023 11:19:34 9.0 8.4-10.2 ( mg/dL) Final Protein 08/07/2023 11:19:34 6.3 6.0-8.3 (g /dL) Final ALT (Alanine aminotransferase) 08/07/2023 11:19:34 23 10-50 (U/L) Final Performing Location LABORATORY [facility] - [address] [facility] [address]
--- OUTSIDE RECORDS SUMMARY | 2023-09-15 16:28 | External Medical Summary ---
Author Name Unknown Address Unknown Organization K01:LABORATORY [facility] - [address] [place] [address] Laboratory Report Ordering Provider Test Date Status FARIDA PAUL 08/07/2023 11:19:34 Final Observation Date Value Abnormality Reference (Units ) Status MYCODE SPECIMEN-SST 08/07/2023 11:19:34 Freezing of extracted DNA, whole blood and/or serum. Final Performing Location LABORATORY C - [address] [place] [address]
--- OUTSIDE RECORDS SUMMARY | 2023-09-15 16:28 | External Medical Summary | Summary of Care ---
Author Name Unknown Organization [facility] Address [address] [place] [address] Phone [phone] Care Team Providers Care Trimming Machine Set Up Operator Name Role Phone Rod Gaspar PA-C Primary Care Provider + Reason for Visit * Reason Comments Medication Refill Encounter Details Date Type Department Care Team ([facility] Contact Info) Description 06/11/[address] [phone] Rod Gaspar PA-C [address] [place] [phone] Adjustment disorder with depressed mood Allergies No known active allergiesdocumented as of [...] DAY 90 Tablet 3 07/07/2022 4 Active Vitamin C 100 MG Oral [...] 2 05/29/2023 Active Benzonatate 100 MG Oral CapsuleIndications :Viral URI with cough Take 2 Capsules by mouth 3 times a day as needed for Cough. 30 Capsule 0 05/31/2023 Active Mirtazapine 7.5 MG Oral Tablet (Remeron)Indicatio ns:Adjustment disorder with depressed mood TAKE ONE TABLET BY MOUTH AT BEDTIME 90 Tablet 3 06/11/2023 5 Active Mirtazapine 7.5 MG Oral Tablet (Remeron)Indicatio ns:Adjustment disorder with depressed mood TAKE ONE TABLET BY MOUTH AT BEDTIME 90 Tablet 3 06/21/2022 4 Discontinue d(Refill) documented as of this [...] mRNA, LNP-s, No Pre serve, 2-Dose Series (StartBull) 03/07/2021,07/27/2020,07/06/2020 Covid-19, Mrna, Lnp-s, Pf, B ivalent, [...] encounter Miscellaneous Notes * Telephone Encounter - Juan Burns [facility] - 06/11/2023 11:07 PM EST Signed Prescriptions: Disp Refills Mirtazapine 7.5 MG Oral Tablet (Remeron) 90 Tab*3 Sig: TAKE ONE TABLET BY MOUTH AT BEDTIMEAuthorizing Provider: ROD GASPAR User: JUAN BURNS documented in this encounter Plan of Treatment Upcoming Encounters Date Type Department Care Team (Latest Contact Info) Description 07/12/2023 11:00 AM EST Office Visit Dermatology[address] [address] Samantha Flores PA-C [address] [place] [address] [place] [address] 07/18/2023 9:30 AM EST Office Visit Pulmonary Medicine, [place] [address] [place] [address] Uvaldo Raines MD [address] [place] [address] 07/19/2023 12:20 PM EST Office Visit Family [address] [phone] Rod Gaspar PA-C [address] [place] [phone] 08/07/2023 10:00 AM EST Nurse Only Ancillary [address] [phone] [facility] [address] [address] 08/16/2023 12:30 PM EDT Office Visit Gastroenterology , [facility] [address] [place] [address] Margret Rowland CRNP [address] [place] [address] 08/27/2023 12:15 PM EDT [facility] [address] [place] [phone] Jignesh Morrison DO [address] [facility] [place] [address] 10/15/2023 10:30 AM EDT Hospital Encounter ENDO [facility], Endoscopy [address] [phone] Mark Metcalf MD [address] [place] [place] [address] 10/15/2023 10:30 AM EDT - 10/15/2023 11:00 AM EDT Surgery ENDO [facility], Endoscopy [address] [phone] Mark [facility]calf MD [facility] [place] [address] ESOPHAGOGASTRODUODENOSCOPY (EGD), FLEXIBLE, TRANSORAL, DIAGNOSTIC Scheduled Procedures [...] as of this encounter Visit Diagnoses Diagnosis Adjustment disorder with depressed mood Gastroesophageal reflux Esophageal reflux documented in this encounter Additional Health Concerns Infection Onset Date Last Indicated Resolved Time COVID-19 (confirmed) 05/31/2023 05/31/2023 documented as of this encounter Care Teams Trimming Machine Set Up Operator Relationship Specialty Start Date End Date Rod Gaspar PA-C [address] [place] [address] PCP - General Physician Delicatessen Slicer 08/28/17 documented as of this encounter
--- OUTSIDE RECORDS SUMMARY | 2023-09-15 16:28 | External Medical Summary | Summary of Care ---
Author Name Unknown Organization [facility] Address [address] [facility] [place] [address] Phone [phone] Care Team Providers Care Rubber Covering Machine Operator Name Role Phone Isabel Mccabe PA-C Primary Care Provider + Reason for Visit * Reason Comments Medication Refill Encounter Details Date Type Department Care Team (Late st Contact Info) Description 06/11/2023 Refill Cardiology, [facility] [address] [place] [address] Chery Castanon PA-C [address] [place] [address] Dyslipidemia, goal LDL below 130* Allergies No known active allergiesdocumented as of this encounter (statuses as of 06/12/2023) Medications Medication Sig Dispensed Refills Start Date [...] CHEW 90 Tablet 3 10/12/2022 4 Active Atorvastatin Calcium 40 MG Oral [...] 05/31/2023 Active Ezetimibe 10 MG Oral Tablet (Zetia)Indications :Dyslipidemia, goal LDL below 130 TAKE ONE TABLET BY MOUTH EVERY MORNING 90 Tablet 3 06/12/2023 5 Active Mirtazapine 7.5 MG Oral Tablet (Remeron)Indicatio ns:Adjustment disorder with depressed mood TAKE ONE TABLET BY MOUTH AT BEDTIME 90 Tablet 3 06/11/2023 5 Active Ezetimibe 10 MG Oral Tablet (Zetia) TAKE ONE TABLET BY MOUTH EVERY MORNING 90 Tablet 3 07/07/2022 4 Discontinue d(Refill) documented as of this encounter (statuses as of 06/12/2023) Active Problems Problem Noted Date Diagnosed Date [...] as of this encounter (statuses as of 06/12/2023) Resolved Problems Problem Noted Date Diagnosed Date [...] as of this encounter (statuses as of 06/12/2023) Immunizations Name Administration Dates Next Due COVID-19 mRNA, LNP-s, No Pre serve, 2-Dose Series (e[employer]) 03/07/2021,07/27/2020,07/06/2020 Covid-19, Mrna, Lnp-s, Pf, B ivalent, [...] encounter Miscellaneous Notes * Telephone Encounter - Orlando Ji MD - 06/12/2023 11:34 AM ESTSigned Prescriptions: Disp Refills Ezetimibe 10 MG Oral Tablet (Zetia) 90 Tab*3 Sig: TAKE ONE TABLET BY MOUTH EVERY MORNING Authorizing Provider: ORLANDO JI * Telephone Encounter - Kianna Bear COT - 06/12/2023 8:41 AM ESTPending Prescriptions: Disp Refills Ezetimibe 10 MG Oral Tablet (Zetia) 90 Tab*3 Sig: TAKE ONE TABLET BY MOUTH EVERY MORNING * Telephone Encounter - Kianna Bear COT - 06/12/2023 8:41 AM EST Did you pend patient's preferred pharmacy and medication before forwarding?yes Pharmacy: [facility] Pending Prescriptions: Disp Refills Ezetimibe 10 MG Oral Tablet (Zetia) 90 Tab*3 Sig: TAKE ONE TABLET BY MOUTH EVERY MORNING Last Visit: 04/17/2023 (in office), Visit date not found (telemedicine) Next Visit: Visit date not found If no future appointments scheduled, and last appointment is greater than a year ago, please schedule patient for a follow-up appointment Last date the medication was ordered: 07-07-2022 Is this request for a controlled substance?No Urine Drug Screen:No results found for this or any previous visit. Patient Phone Numbers Labs: Lab Results Component Value Date/Time CREAT 1.0 07/05/2022 07:52 AM CREAT 1.2 06/16/2020 12:56 PM CREAT 1.0 07/21/1996 08:39 PM POTASSIUM 4.2 07/05/2022 07:52 AM POTASSIUM 4.4 01/08/2020 12:00 AM POTASSIUM 4.7 11/22/2018 09:39 AM POTASSIUM 4.1 07/21/1996 08:39 PM TSH 4.47 (H) 03/13/2023 07:44 AM TSH 2.32 11/22/2018 09:39 AM LDLCALC 50 01/09/2023 08:10 AM LDLCALC 84 02/07/2018 07:23 AM LDLDIRECT NOT APPLICABLE 02/07/2018 07:23 AM ALT 23 07/05/2022 07:52 AM ALT 20 11/22/2018 09:39 AM ALT 30 07/21/1996 08:39 PM HGBA1C 5.7 (A) 01/08/2020 12:00 AM documented in this encounter Plan of Treatment Upcoming Encounters Date Type Department Care Team (Latest Contact Info) Description 07/12/2023 11:00 AM EST Office Visit Dermatology[address] [address] Samantha Flores PA-C [address] [place] [address] [place] [address] 07/18/2023 9:30 AM EST Office Visit Pulmonary Medicine, [place] [address] [place] [address] Uvaldo Raines MD [address] [place] [address] 07/19/2023 12:20 PM EST Office Visit Family [address] [phone] Isabel Mccabe PA-C [address] [place] [address] 08/07/2023 10:00 AM EST Nurse Only Ancillary [address] [place] [phone] [place], Nurse [facility] [address] [place] [address] 08/16/2023 12:30 PM EDT Office Visit Gastroenterology , [facility] [address] [place] [address] Margret Rowland CRNP [address] [place] [address] 08/27/2023 12:15 PM EDT [place] [address] [place] [address] Jignesh Morrison DO 16 [place] [address] 10/15/2023 10:30 AM EDT Hospital Encounter ENDO [facility], Endoscopy [address] [phone] Mark Metcalf MD [address] [place] [address] 10/15/2023 10:30 AM EDT - 10/15/2023 11:00 AM EDT Surgery ENDO [facility], Endoscopy [address] [phone] Mark Metcalf MD [address] [place] [address] ESOPHAGOGASTRODUODENOSCOPY (EGD), FLEXIBLE, TRANSORAL, DIAGNOSTIC Scheduled Procedures Name Priority Associated Diagnoses Date/Ti tn ESOPHAGOGASTRODUODENOSCOPY ( EGD), FLEXIBLE, TRANSORAL, DIAGNOSTIC Gastroesophageal reflux 10/15/2023 10:30 AM EDT GASTRO REFLUX TEST WITH MUCO AUSTYN TELEMETRY PH ELECTRODE Gastroesophageal reflux 10/15/2023 10:30 AM EDT COLONOSCOPY FLEXIBLE PROXIMA L DIAGNOSTIC Recall History of colon polyps Health Maintenance Due Date Last Done Comments Hepatitis C Screening 1963 Zoster Vaccines (3 of 3) 05/01/2019 03/06/2019, 03/04 COVID-19 Vaccine (5 - 2022- season) 2023 03/31/2022, 03/07/2021, 07/27/2020, Additional history [...] as of this encounter Visit Diagnoses Diagnosis Dyslipidemia, goal LDL below 130- Primary Other and unspecified hyperlipidemia Gastroesophageal reflux Esophageal reflux documented in this encounter Additional Health Concerns Infection Onset Date Last Indicated Resolved Time COVID-19 (confirmed) 05/31/2023 05/31/2023 documented as of this encounter Care Teams Rubber Covering Machine Operator Relationship Specialty Start Date End Date Isabel Mccabe PA-C [address] [place], [place] [address] [address] PCP - General Physician Corn Husker 08/28/17 documented as of this encounter
--- OUTSIDE RECORDS SUMMARY | 2023-09-15 16:28 | External Medical Summary | Summary of Care ---
Author Name Unknown Organization [facility] Address [address] [facility] [place] [address] Phone [phone] Care Team Providers Care Chicken Handler Name Role Phone Isabel Mccabe PA-C Primary Care Provider + Reason for Visit * Reason Comments Medication Refill Encounter Details Date Type Department Care Team (Late st Contact Info) Description 07/26/2023 Refill Cardiology, [facility] [address] [place] [address] Chery Castanon PA-C [address] [place] [address] Dyslipidemia, goal LDL below 130 Allergies No known active allergiesdocumented as of this encounter (statuses as of 07/27/2023) Medications Medication Sig Dispensed Refills Start Date [...] DAY 90 Tablet 3 07/27/2023 5 Active Atorvastatin Calcium 40 MG Oral Tablet (Lipitor)Indicatio ns:Dyslipidemia, goal LDL below 130 TAKE ONE TABLET BY MOUTH EVERY DAY 90 Tablet 3 07/07/2022 4 Discontinue d(Refill) documented as of this encounter (statuses as of 07/27/2023) Active Problems Problem Noted Date Diagnosed Date [...] as of this encounter (statuses as of 07/27/2023) Resolved Problems Problem Noted Date Diagnosed Date [...] as of this encounter (statuses as of 07/27/2023) Immunizations Name Administration Dates Next Due COVID-19 mRNA, LNP-s, No Pre serve, 2-Dose Series ([employer]) 03/07/2021,07/27/2020,07/06/2020 Covid-19, Mrna, Lnp-s, Pf, B ivalent, [...] encounter Miscellaneous Notes * Telephone Encounter - Mark Alcala PA-C - 07/27/2023 12:40 PM ESTSigned Prescriptions: Disp Refills Atorvastatin Calcium 40 MG Oral Tablet (Li*90 Tab*3 Sig: TAKE ONE TABLET BY MOUTH EVERY DAY Authorizing Provider: MARK ALCALA * Telephone Encounter - Kianna Bear COT - 07/27/2023 11:48 AM ESTPending Prescriptions: Disp Refills Atorvastatin Calcium 40 MG Oral Tablet (Li*90 Tab*3 Sig: TAKE ONE TABLET BY MOUTH EVERY DAY * Telephone Encounter - Kianna Bear COT - 07/27/2023 11:48 AM EST Did you pend patient's preferred pharmacy and medication before forwarding?yes Pharmacy: [facility] Pending Prescriptions: Disp Refills Atorvastatin Calcium 40 MG Oral Tablet (L*90 Tab*3 Sig: TAKE ONE TABLET BY MOUTH EVERY DAY Last Visit: 04/17/2023 (in office), Visit date not found (telemedicine) Next Visit: 10/04/2023 If no future appointments scheduled, and last [...] 10:00 AM EST Nurse Only Ancillary [address] [phone] [place], Nurse Annual [address] [address] 08/20/2023 11:30 AM EDT [facility] [address] [place] [address] Edmundo Cota PA-C [address] [place] [address] 08/27/2023 12:15 PM EDT Office [place] [facility] [place] [facility] [address] [place] [address] Jignesh Morrison DO [address] [place] [address] 10/04/2023 10:30 AM EDT Office Visit Cardiology, [facility] [address] [facility] [place] [address] Rene Ji MD [address] [place] [address] 10/15/2023 10:15 AM EDT Hospital Encounter ENDO [facility], Endoscopy [address], [place] [phone] Mark Metcalf MD [address] [place] [address] 10/15/2023 10:15 AM EDT - 10/15/2023 10:45 AM EDT Surgery ENDO [facility], Endoscopy [address], [place] [phone] Mark Metcalf MD [address] [place] [address] ESOPHAGOGASTRODUODENOSCOPY (EGD), FLEXIBLE, TRANSORAL, DIAGNOSTIC 11/07/2023 12:30 PM EDT Office Visit Gastroenterology , [facility] [address] [place] [address] Margret Rowland CRNP [address] [place] [address] 01/22/2024 10:00 AM EDT Office Visit [facility] [address] [place] [phone] Isabel Mccabe PA-C [address] [place] [address] 11/13/2024 11:00 AM EDT Office Visit Dermatology, [address] [address] Samantha Flores PA-C [address] [place] [address] [place] [address] Scheduled Procedures Name Priority Associated Diagnoses Date/Ti [...] 3) 05/01/2019 03/06/2019, 03/04 COVID-19 Vaccine ( - 2022- season) 2023 03/31/2022, 03/07/2021, 07/27/2020, [...] Visit Diagnoses Diagnosis Dyslipidemia, goal LDL below 130 Other and unspecified hyperlipidemia Gastroesophageal reflux Esophageal reflux documented in this encounter Care Teams Chicken Handler Relationship Specialty Start Date End Date Isabel Mccabe PA-C [address] [place] [phone] PCP - General Physician Supervisor Customer Records Division 08/28/17 documented as of this encounter
--- OUTSIDE RECORDS SUMMARY | 2023-09-15 16:28 | External Medical Summary ---
Author Name Unknown Address Unknown Organization K01:[facility] [place] [address] [place] [address] Laboratory Report Ordering Provider Test Date Status JERRY KNIGHT 08/07/2023 11:19:34 Final Observation Date Value Abnormality Reference (Units ) Status Vitamin B12 08/07/2023 11:19:34 [phone] (pg/mL) Final Performing Location [facility] [place] [address] [place] [address]
--- OUTSIDE RECORDS SUMMARY | 2023-09-15 16:29 | External Medical Summary | Summary of Care ---
Author Name Unknown Organization [facility] Address [address] [facility] [place] [address] Phone [phone] Care Team Providers Care Cra Name Role Phone Isabel Mccabe PA-C Primary Care Provider + Reason for Visit * Reason Onset Date Comments Appointment 05/15/2023 Need to cancel [facility] appt for 06/06/23 Encounter Details Date Type Department Care Team (Late st Contact Info) Description 05/15/2023 Telephone [facility] 10 [place] [address] She Vazquez MD [address] [place] [address] Appointment (Need to cancel [facility] appt for ... Allergies No known active allergiesdocumented as of this encounter (statuses as of 05/15/2023) Medications Medication Sig Dispensed Refills Start Date [...] CHEW 90 Tablet 3 10/12/2022 10/12/2023 Active Ezetimibe 10 MG Oral Tablet (Zetia) TAKE ONE TABLET BY MOUTH EVERY MORNING 90 Tablet 3 07/07/2022 07/07/2023 Active Atorvastatin Calcium 40 MG Oral Tablet (Lipitor)Indication s:Dyslipidemia, goal LDL below 130 TAKE ONE TABLET BY MOUTH EVERY DAY 90 Tablet 3 07/07/2022 08/03/2023 Active Famotidine 20 MG Oral Tablet (Pepcid) TAKE ONE TABLET BY MOUTH EVERY MORNING 90 Tablet 3 06/30/2022 06/30/2023 Active Mirtazapine 7.5 MG Oral Tablet (Remeron)Indication s:Adjustment disorder with depressed mood TAKE ONE TABLET BY MOUTH AT BEDTIME 90 Tablet 3 06/21/2022 06/21/2023 Active Cetirizine HCl 10 MG Oral Tablet (ZyrTEC)Indications :Chronic cough,Allergic rhinitis, unspecified seasonality, unspecified trigger Take 1 Tablet by mouth in the morning. 90 Tablet 3 01/16/2023 Active Azelastine HCl 0.1 % Nasal Solution Administer 1 [place] into each nostril in the morning and 1 [place] before bedtime. 0 Active Vitamin C 100 MG Oral Tablet [...] THE MORNING 90 Tablet 0 05/08/2023 Active documented as of this encounter (statuses as of 05/15/2023) Active Problems Problem Noted Date Diagnosed Date [...] as of this encounter (statuses as of 05/15/2023) Resolved Problems Problem Noted Date Diagnosed Date [...] as of this encounter (statuses as of 05/15/2023) Immunizations Name Administration Dates Next Due COVID-19 mRNA, LNP-s, No Pre serve, 2-Dose Series ([employer]) 03/07/2021,07/27/2020,07/06/2020 Covid-19, Mrna, Lnp-s, Pf, B ivalent, [...] encounter Miscellaneous Notes * Telephone Encounter - Chanel Fried, PIA - 05/15/2023 3:32 PM EST Returned pt's call-he is willing to come to [place]. Appt scheduled for 06/06/[address] Vazquez. Instructions mailed-have to check with referring provider as to whether it's a 48 or 96 hour study * Telephone Encounter - Lara Hollis OSA - 05/15/2023 1:51 PM EST Pt returned call and he was not happy and doesn't want to travel all the way here to [place] or [facility], He wants to know if he can go to [place] and have it done? Please call him back at [phone] * Telephone Encounter - Chanel Fried OSA - 05/15/2023 10:13 AM EST Lm for pt to call us back. Per Chery Jiménez, Egd with Major cannot be done at [facility]. Need to reschedule to [facility] or [facility] documented in this encounter Plan of Treatment Upcoming Encounters Date Type Department Care Team (Late st Contact Info) Description 06/06/2023 11:30 AM EST Procedure Only [facility], [place] [address] [place] [phone] She Vazquez MD 10 [place] [address] 07/12/2023 11:00 AM EST Office Visit Dermatology[address] [address] Samantha Flores PA-C [address] [place] [address] [place] [address] 07/18/2023 9:30 AM EST Office Visit Pulmonary Medicine, [place] [address] [place] [address] Uvaldo Raines MD [address] [place] [address] 07/19/2023 12:20 PM EST Office Visit Family Practice [facility] 68 [place] [address] Isabel Mccabe PA-C 68 [place], [place] [phone] 08/07/2023 10:00 AM EST Nurse Only Ancillary [facility] 68 [place] [address] [place], Nurse Annual [facility]ness [address] [address] 08/16/2023 12:30 PM EDT Office Visit Gastroenterology, [facility] [address] [place] [address] Margret Rowland CRNP [facility] [place] [address] 08/27/2023 12:15 PM EDT Office Visit Orthopaedics [place] [place] 16 [place] [address] Jignesh Morrison DO 16 [place] [address] Scheduled Procedures Name Priority Associated Diagnoses Date/Ti me COLONOSCOPY FLEXIBLE PROXIMAL DIAGNOSTIC Recall History of colon polyps Health [...] filedocumented as of this encounter Care Teams Cra Relationship Specialty Start Date End Date Isabel Mccabe PA-C [address] [place] [address] [phone] PCP - General Physician Manager Fitness 08/28/17 documented as of this encounter
--- OUTSIDE RECORDS SUMMARY | 2023-09-15 16:29 | External Medical Summary | Summary of Care ---
Author Name Unknown Organization [facility] Address [address] [facility] [place] [address] Phone [phone] Care Team Providers Care Explosives Mixer Operator Name Role Phone Isabel Mccabe PA-C Primary Care Provider + Reason for Visit * Reason Onset Date Comments Appointment 05/15/2023 Need to cancel [facility] appt for 06/06/23 Encounter Details Date Type Department Care Team (Late st Contact Info) Description 05/15/2023 Telephone [facility] 10 [place] [address] She Vazquez MD 10 [place] [address] Appointment (Need to cancel [facility] appt for ... Allergies No known active [...] HCl 0.1 % Nasal Solution Administer 1 [place] into each nostril in the morning and 1 [place] before bedtime. 0 Active Vitamin C 100 [...] mRNA, LNP-s, No Pre serve, 2-Dose Series ([employer]) 03/07/2021,07/27/2020,07/06/2020 Covid-19, Mrna, Lnp-s, Pf, B ivalent, [...] encounter Miscellaneous Notes * Telephone Encounter - Lara Hollis PIA - 05/15/2023 1:51 PM EST Pt returned call and he was not happy and doesn't want to travel all the way here to [place] or [facility], He wants to know if he can go to [place] and have it done? Please call him back at [phone] * Telephone Encounter - Chanel Fried OSA - 05/15/2023 10:13 AM EST Lm for pt to call us back. Per Chery Jiménez, Egd with Major cannot be done at [facility]. Need to reschedule to [place] or [facility] documented in this encounter Plan of Treatment Upcoming Encounters Date Type Department Care Team (Late st Contact Info) Description 06/06/2023 8:30 AM EST Appointment Endoscopy, [facility] [address] [place] [address] Carlos Eduardo Nicole Jr., MD [address] [place] [address] 07/12/2023 11:00 AM EST Office Visit Dermatology, [address] [address] Samantha Flores PA-C [address] [place] [address] [place] [address] 07/18/2023 9:30 AM EST Office Visit Pulmonary Medicine, [place] [address] [place] [address] Uvaldo Raines MD [address] [place] [address] 07/19/2023 12:20 PM EST Office Visit [address] [phone] Isabel Mccabe PA-C [address] [place] [address] 08/07/2023 10:00 AM EST Nurse Only Ancillary [facility] 68 [place] [phone] [place], Nurse [facility] [place] [address] [place] [address] 08/16/2023 12:30 PM EDT Office Visit Gastroenterology, [facility] [address] [facility] [place] [address] Margret Rowland CRNP [address] [place] [address] 08/27/2023 12:15 PM EDT [facility] [place] [address] [place] [address] Jignesh Morrison DO 16 [place], [place] [phone] Scheduled Procedures Name Priority Associated Diagnoses Date/Ti [...] filedocumented as of this encounter Care Teams Explosives Mixer Operator Relationship Specialty Start Date End Date Isabel Mccabe PA-C [address] [place] [address] [phone] PCP - General Physician Paper Testing Supervisor 08/28/17 documented as of this encounter
--- OUTSIDE RECORDS SUMMARY | 2023-09-15 16:29 | External Medical Summary | Summary of Care ---
Author Name Unknown Organization [facility] Address [address] [place] [address] Phone [phone] Care Team Providers Care Automobile Body Repair Chief Name Role Phone Isabel Mccabe PA-C Primary Care Provider + Reason for Visit * Reason Onset Date Comments Advice 05/15/2023 96 hour Major Encounter Details Date Type Department Care Team (Late st Contact Info) Description 05/15/2023 Telephone [facility] 10 [place] [address] She Vazquez MD 10 [place] [address] Advice (96 hour Major ) Allergies No known active allergiesdocumented as of this encounter (statuses as of 05/29/2023) Medications Medication Sig Dispensed Refills Start Date End Date Status ASPIRIN 81 MG OR TABSIndications:M ixed dyslipidemia Take 1 Tablet by mouth in the morning. 34 5 4 Active clotrimazole-beta methasone (LOTRISONE) 1-0.05 % cream Apply to rash on testicles twice daily as needed 15 g 5 9 Active Cholecalciferol (VITAMIN D) 1000 units Tablet Take 1 Tablet by mouth in the morning. 0 Active B Complex Vitamins (VITAMIN-B COMPLEX) Tablet 0 Active hydrocortisone (ANUSOL-HC) 2.5 % rectal creamIndications: Internal hemorrhoids Apply topically to affected area 2 times a day. Apply to the rectum 1 Tube 5 0 Active Pantoprazole Sodium 40 MG Oral Tablet Delayed Release (Protonix)Indicat ions:Gastroesopha geal reflux disease without esophagitis TAKE ONE TABLET BY MOUTH EVERY MORNING. 30 MINUTES BEFORE THE FIRST MEAL OF THE DAY. DO NOT CRUSH, CUT OR CHEW 90 Tablet 3 3 10/12/19 24 Active Ezetimibe 10 MG Oral Tablet (Zetia) TAKE ONE TABLET BY MOUTH EVERY MORNING 90 Tablet 3 3 07/07/19 24 Active Atorvastatin Calcium 40 MG Oral Tablet (Lipitor)Indicati ons:Dyslipidemia, goal LDL below 130 TAKE ONE TABLET BY MOUTH EVERY DAY 90 Tablet 3 3 08/03/19 24 Active Mirtazapine 7.5 MG Oral Tablet (Remeron)Indicati ons:Adjustment disorder with depressed mood TAKE ONE TABLET BY MOUTH AT BEDTIME 90 Tablet 3 3 06/21/19 24 Active Vitamin C 100 MG Oral Tablet Take 1 Tablet by mouth in the morning. 0 Active guaiFENesin ER 600 MG Oral Tablet Extended Release 12 Hour (Mucinex) Take 1 Tablet by mouth in the morning and 1 Tablet before bedtime. 0 Active buPROPion HCl ER (XL) 150 MG Oral Tablet Extended Release 24 Hour (Wellbutrin XL)Indications:Ad justment disorder with depressed mood TAKE ONE TABLET BY MOUTH EVERY DAY IN THE MORNING 90 Tablet 0 3 Active Famotidine 20 MG Oral Tablet (Pepcid) TAKE ONE TABLET BY MOUTH EVERY MORNING 90 Tablet 3 3 05/27/20 23 Discontinued(Ref ill) Cetirizine HCl 10 MG Oral Tablet (ZyrTEC)Indicatio ns:Chronic cough,Allergic rhinitis, unspecified seasonality, unspecified trigger Take 1 Tablet by mouth in the morning. 90 Tablet 3 3 05/23/20 23 Discontinued Azelastine HCl 0.1 % Nasal Solution Administer 1 [place] into each nostril in the morning and 1 [place] before bedtime. 0 05/23/20 23 Discontinued(Ref ill) documented as of this encounter (statuses as of 05/29/2023) Active Problems Problem Noted Date Diagnosed Date [...] as of this encounter (statuses as of 05/29/2023) Resolved Problems Problem Noted Date Diagnosed Date [...] as of this encounter (statuses as of 05/29/2023) Immunizations Name Administration Dates Next Due COVID-19 mRNA, LNP-s, No Pre serve, 2-Dose Series ([employer]) 03/07/2021,07/27/2020,07/06/2020 Covid-19, Mrna, Lnp-s, Pf, B ivalent, [...] Description 06/06/2023 11:30 AM EST Procedure Only [facility], [address] [address] She Vazquez MD 10 [place] [address] 07/12/2023 11:00 AM EST Office Visit Dermatology, [address] [address] Samantha Flores PA-C [address] [place] [address] [place] [address] 07/18/2023 9:30 AM EST Office Visit Pulmonary Medicine, [place] [address] [place], [place] [phone] Uvaldo Raines MD [address] [place], [place] [phone] 07/19/2023 12:20 PM EST Office Visit [facility] [address] [place] [address] Isabel Mccabe PA-C [address] [place] [address] 08/07/2023 10:00 AM EST Nurse Only Ancillary [address] [address] [place], Nurse [address] [address] 08/16/2023 12:30 PM EDT Office Visit Gastroenterology, [facility] [address] [place] [address] Margret Rowland CRNP [address] [place] [address] 08/27/2023 12:15 PM EDT Office Visit Orthopaedics [facility] 16 [place] [address] Jignesh Morrison DO 16 [place] [address] Scheduled Procedures Name Priority Associated Diagnoses Date/Ti me COLONOSCOPY FLEXIBLE PROXIMAL DIAGNOSTIC Recall History of colon polyps Health Maintenance Due Date Last Done Comments Hepatitis C Screening 1963 Zoster Vaccines (3 of 3) 05/01/2019 03/06/2019, 03/04 COVID-19 Vaccine ( - season) 2023 03/31/2022, 03/07/2021, 07/27/2020, Additional history [...] filedocumented as of this encounter Care Teams Automobile Body Repair Chief Relationship Specialty Start Date End Date Isabel Mccabe PA-C [address] [place] [phone] PCP - General Physician Hand Polisher 08/28/17 documented as of this encounter
--- OUTSIDE RECORDS SUMMARY | 2023-09-15 16:29 | External Medical Summary ---
Author Name Unknown Address Unknown Organization K01:[facility] [place] [address] [facility] [address] Laboratory Report Ordering Provider Test Date Status ROXANNE HODGSON 05/31/2023 12:27:54 Final Observation Date Value Abnormality Reference (Units ) Status SARS Coronavirus 2 05/31/2023 12:27:54 Positive Abnormal N egative Final SARS-CoV2 Coronavirus RNA de tected by PCR (amplified probe). Test results reported to [facility].
This express test was developed and its performance characteristics determined by [facility]. It has not been cleared or approved by the U.S. Food and Drug Administration (FDA). FDA does not require this test to go thru premarket FDA review. This test is used for clinical purposes. It should not be regarded as investigational or for research. This laboratory is certified under the Clinical Laboratory Improvement Amendments (CLIA) as qualified to perform high complexity clinical laboratory testing.

This test is a nucleic acid amplification test (NAAT), a reverse transcriptase polymerase chain reaction (RT-PCR) test, or a Centers for Disease Control-acceptable equivalent. The test is performed in a high complexity Clinical Laboratory Improvement Amendments-(CLIA) certified laboratory. The test is acceptable for SARS-CoV-2 diagnosis, surveillance, and travel within the [facility] and to most countries. Please check with local testing authorities about requirements before travel.

The validation of bronchial specimens, tracheal aspirates, and sputum for this assay was developed and performance characteristics determined by [facility]. The validation of alternate specimen types has not been cleared or approved by the U.S. Food and Drug Administration (FDA). It has been determined that such clearance is not necessary. Influenza virus A RNA [Prese nce] in Specimen by [facility] with probe detection 05/31/2023 12:27:54 Negative Negative Final No Influenza A RNA detected by PCR (amplified probe) Influenza virus B RNA [Prese nce] in Specimen by [facility] with probe detection 05/31/2023 12:27:54 Negative Negative Final No Influenza B RNA detected by PCR (amplified probe) Respiratory syncytial virus RNA [Identifier] in Specimen by [facility] with probe detection 05/31/2023 12:27:54 Negative Negative Final No Respiratory Syncytial Vir us RNA detected by PCR (amplified probe) Performing Location LABORATORY [address]. [facility] [address]
--- OUTSIDE RECORDS SUMMARY | 2023-09-15 16:29 | External Medical Summary | Summary of Care ---
Author Name Unknown Organization [facility] Address [address] [place] [address] Phone [phone] Care Team Providers Care Adult Care Provider Name Role Phone Isabel Mccabe PA-C Primary Care Provider + Reason for Visit * Reason Onset Date Comments Preop Pt Assessment 05/24/2023 Encounter Details Date Type Department Care Team (Late st Contact Info) Description 05/24/2023 Telephone [facility] [address] [place] [address] She Vazquez MD 10 [place] [address] Preop Pt Assessment Allergies No known active allergiesdocumented as of this encounter (statuses as of 05/24/2023) Medications Medication Sig Dispensed Refills Start Date [...] BEDTIME 90 Tablet 3 06/21/2022 06/21/2023 Active Vitamin C 100 MG Oral Tablet [...] before bedtime. 90 mL 3 05/23/2023 Active documented as of this encounter (statuses as of 05/24/2023) Active Problems Problem Noted Date Diagnosed Date [...] as of this encounter (statuses as of 05/24/2023) Resolved Problems Problem Noted Date Diagnosed Date [...] as of this encounter (statuses as of 05/24/2023) Immunizations Name Administration Dates Next Due COVID-19 mRNA, LNP-s, No Pre serve, 2-Dose Series ([employer]) 03/07/2021,07/27/2020,07/06/2020 Covid-19, Mrna, Lnp-s, Pf, B ivalent, 30 Mcg, IM, 12 yrs and above ([employer]) 03/31/2022 Pneumococcal Conjugate Vacc, 13 Valent (Prevnar) [...] encounter Miscellaneous Notes * Telephone Encounter - Avinash Anton RN - 05/24/2023 1:24 PM EST VILLARREAL off meds then on [employer] [facility] [place] Additional Pre-Procedure Call Items Name: Carl Urias Date: 05/24/2023 Time: 1:26 PM Procedure: EGD Additional Pre-Procedure Call Items Identified correct procedure no procedural physician Yes For this appointment, you do need to have a rear load truck driver. You will not be able to work or drive that day.If you are using public transportation, you still need to have someone ride with you. When you arrive for appointment, please have your rear load truck driver, your photo ID and insurance cards available. Remove all jewelry and leave your valuables with your rear load truck driver or at home. NPO-Emphasized nothing to eat or drink after midnight or their procedure will be delayed or potentially cancelled. This includes drinks, food, candy, gum or anything else that would be swallowed. Medications recommended to be taken: N/A Medications recommended to be held or dose adjusted with approval from ordering provider: GERD meds Please take recommended prescription medications with a sip of water, but nothing more than a sip of water before 0930 (2 hours prior to arrival). Anything more than a sip of water will either delay or cancel your procedure. Any significant changes to your health since scheduling endoscopy? Please call if you ahd any. Call [phone] or [phone] between 2 & 4:30 pm, M-F, with any concerns or questions and to complete preprocedure interview. Reviewed procedural preparation: [facility] EGD (ESOPHAGOGASTRODUODENOSCOPY) PRE-PROCEDURE INSTRUCTIONS 1. TRANSPORTATION: You will be receiving sedation for this procedure and will NOT be permitted to drive home -someone MUST be available to drive you home. If you are using STEP VAN or TAXI, someone other than the rear load truck driver must be available to ride home with you. 2. MEDICATION INSTRUCTIONS: PLEASE STOP 7 days before procedure: Iron, Fish oil, [place]-3, Cod liver oil PLEASE STOP 5 days before procedure: Effient (prasugrel), Plavix (clopidogrel), Brilinta (ticagrelor), Arixtra (fondaparinux-5mg dose orhigher), Coumadin/Jantoven/Warfarin PLEASE STOP 3 days before your procedure: Aggrenox (dipyridamole/aspirin), Arixtra (fondaparinux- 2.5mg dose) PLEASE STOP 2 days before your procedure: Savaysa (edoxaban), Pletal (Cilostazol) Xarelto (rivaroxaban) or Eliquis (apixaban) - if you have CHRONIC KIDNEY DISEASE, you may need to stop these medications 4 days prior- please talk to your prescribing doctor. Pradaxa (dabigatran) -- if you have CHRONIC KIDNEY DISEASE, you may need to stop this medication 5 days prior- please talk to your prescribing doctor. LOVENOX - last dose should be 24 hours before scheduled procedure. TICLID (ticlopidine) or ZONTIVITY (Vorapaxar) - please ask your prescribing doctor when and if you may stop these medications Tylenol/Acetaminophen products, Aspirin, and NSAIDS (Non-Steroidal Anit- Inflammatory Drugs) such asAdvil, Ibuprofen, Aleve, Naproxen, are acceptable to use prior to the procedure. DIABETIC PATIENTS: ORAL diabetic medications: DO NOT take these the morning of the procedure. INSULIN DEPENDENT: Check your blood sugar the morning of the procedure. If this is less than 90 or greater than 250, please call us immediately at [phone] for directions. GLP 1 AGONISTS: Due to the increase use of Glucagon-Like Peptide-1 Receptor Agonists; Such as Trulicity, Byetta, Ozempic, Wegovy both for control for type 2 diabetes mellitus and weight loss, appropriate patient safety measures have been adopted: For patients on daily dosing, the GLP-1 agonist will be held on the day of the procedure/surgery. For patients on weekly dosing, the GLP-1 agonist will be held one week prior to the procedure/surgery. INCREASE YOUR FLUID INTAKE A FEW DAYS PRIOR TO TEST 3. PREPARATION FOR TEST: A. Nothing to eat or drink after midnight the night prior- THIS INCLUDES HARD CANDY, CHEWING GUM, COUGH DROPS, SMOKING CIGARETTES, CHEWING TOBACCO, OR VAPING. B. Take your normal PRESCRIPTION MEDICATIONS as directed by the physician's office with a small amount of WATER ONLY 2 hours before your scheduled arrival time. NO Vitamins/Supplements. Other than these medications, nothing by mouth after midnight! Your procedure may be canceled or delayed if you eat or drink prior to the procedure! 4. DIRECTIONS FOR PROCEDURE DAY: NOTHING BY MOUTH (no eating or drinking) Dress comfortably. Leave all valuables including jewelry at home. CELL PHONES ARE permitted in the procedure area Bring your glasses to sign consent forms. Wear hearing aids if you normally do. Bring your insurance cards with a form of photo ID/identification as well as phone number for your rear load truck driver and/or emergency contact! If you have any questions, please feel free to call Endoscopy at [phone] Report to: [facility] [address] [place] [address] Date: 1 Arrival time: 1130 Additional information: Stop pantoprazole today and famotidine on 06.03. documented in this encounter Plan of Treatment Upcoming Encounters Date Type Department Care Team (Late st Contact Info) Description 06/06/2023 11:30 AM EST Procedure Only [facility] [place] [address] [place] [address] She Vazquez MD [address] [place] [address] 07/12/2023 11:00 AM EST Office Visit Dermatology[address] [address] Samantha Flores PAJulieta [address] [place] [address] [place] [address] 07/18/2023 9:30 AM EST Office Visit Pulmonary Medicine, [place] [address] [place] [address] Uvaldo Raines MD [address] [place] [address] 07/19/2023 12:20 PM EST Office Visit Family [address] [phone] Isabel Mccabe PA-C [address] [place] [address] 08/07/2023 10:00 AM EST Nurse Only Ancillary [address] [phone] [facility] [address] [address] 08/16/2023 12:30 PM EDT Office Visit Gastroenterology, [facility] [address] [place] [address] Margret Rowland CRNP [address] [place] [address] 08/27/2023 12:15 PM EDT Office Visit [facility] [place] [address] [place] [address] Jignesh Morrison DO 16 [place] [address] Scheduled Procedures Name Priority Associated Diagnoses Date/Ti [...] filedocumented as of this encounter Care Teams Adult Care Provider Relationship Specialty Start Date End Date Isabel Mccabe PA-C [address] [place] [phone] PCP - General Physician Senior Linux Engineer 08/28/17 documented as of this encounter
--- OUTSIDE RECORDS SUMMARY | 2023-09-15 16:29 | External Medical Summary | Summary of Care ---
Author Name Unknown Organization [facility] Address [address] [facility] [place] [address] Phone [phone] Care Team Providers Care Iron Melter Name Role Phone Isabel Mccabe PA-C Primary Care Provider + Reason for Visit * Reason Onset Date Comments Appointment 05/15/2023 Need to cancel [facility] appt for 06/06/23 Encounter Details Date Type Department Care Team (Late st Contact Info) Description 05/15/2023 Telephone [facility] 10 [place] [address] She Vazquez MD 10 [place] [address] Appointment (Need to cancel [facility] appt for ... Allergies No known [...] HCl 0.1 % Nasal Solution Administer 1 [place] into each nostril in the morning and 1 [place] before bedtime. 0 Active Vitamin C 100 [...] mRNA, LNP-s, No Pre serve, 2-Dose Series ([employer]) 03/07/2021,07/27/2020,07/06/2020 Covid-19, Mrna, Lnp-s, Pf, B ivalent, [...] Encounter - Chanel Fried, PIA - 05/15/2023 10:13 AM EST Lm for pt to call us back. Per Chery Jiménez, Egd with Major cannot be done at [facility]. Need to reschedule to [place] or [facility] documented in this encounter Plan of Treatment Upcoming Encounters Date Type Department Care Team (Late st Contact Info) Description 06/06/2023 8:30 AM EST Appointment Endoscopy, [facility] [address] [place] [address] Bonnie Zimmerman, Carlos Eduardo Esquivel MD 10 [place] [address] 07/12/2023 11:00 AM EST Office Visit Dermatology, [address] [address] Samantha Flores PA-C [address] [place] [address] [place] [address] 07/18/2023 9:30 AM EST Office Visit Pulmonary Medicine, [place] [address] [place], [place] [phone] Uvaldo Raines MD [address] [place] [address] 07/19/2023 12:20 PM EST Office Visit [facility] [address] [place] [phone] Isabel Mccabe PA-C [address] [place] [address] 08/07/2023 10:00 AM EST Nurse Only Ancillary [address] [phone] [place], Nurse [address] [address] 08/16/2023 12:30 PM EDT Office Visit Gastroenterology, [facility] [address] [address] Margret Rowland CRNP [address] [place] [address] 08/27/2023 12:15 PM EDT Office Visit Orthopaedics [place] 16 [facility] [place] [address] Jignesh Morrison DO 16 [facility] [phone] Scheduled Procedures Name Priority Associated Diagnoses Date/Ti [...] filedocumented as of this encounter Care Teams Iron Melter Relationship Specialty Start Date End Date Isabel Mccabe PA-C [address] [place], [place] [address] [address] PCP - General Physician Rumper 08/28/17 documented as of this encounter
--- OUTSIDE RECORDS SUMMARY | 2023-09-15 16:29 | External Medical Summary | Summary of Care ---
Author Name Unknown Organization [facility] Address [address] [place] [address] Phone [phone] Care Team Providers Care Technical Sales Engineer Name Role Phone Isabel Mccabe PA-C Primary Care Provider + Reason for Visit * Reason Onset Date Comments Other 05/22/2023 VILLARREAL clarificat ion Encounter Details Date Type Department Care Team (Late st Contact Info) Description 05/22/2023 Telephone [facility] [address] [place] [address] She Vazquez MD 10 [place] [address] Other (VILLARREAL clarification) Allergies No known active allergiesdocumented as of this encounter (statuses as of 05/22/2023) Medications Medication Sig Dispensed Refills Start Date [...] HCl 0.1 % Nasal Solution Administer 1 [place] into each nostril in the morning and 1 [place] before bedtime. 0 Active Vitamin C 100 [...] as of this encounter (statuses as of 05/22/2023) Active Problems Problem Noted Date Diagnosed Date [...] as of this encounter (statuses as of 05/22/2023) Resolved Problems Problem Noted Date Diagnosed Date [...] as of this encounter (statuses as of 05/22/2023) Immunizations Name Administration Dates Next Due COVID-19 mRNA, LNP-s, No Pre serve, 2-Dose Series ([employer]) 03/07/2021,07/27/2020,07/06/2020 Covid-19, Mrna, Lnp-s, Pf, B ivalent, 30 Mcg, IM, 12 yrs and above ([employer]) 03/31/2022 Pneumococcal Conjugate Vacc, 13 Valent (Prevnar) [...] encounter Miscellaneous Notes * Telephone Encounter - Kathryn Garces RN - 05/22/2023 10:52 AM EST Discussed VILLARREAL medication plan with Dr. Vazquez. Recommends PPI, Pantoprazole, to stop 2 weeks prior and H2 yesi, Pepcid, to stop 3 days prior to EGD/VILLARREAL. Called pt to review above. Pantoprazolewill stop after dose 05/22 and Pepcid will stop after dose on 06/02. After much discussion and lotsof explaining, pt verbalized understanding. documented in this encounter Plan of Treatment Upcoming Encounters Date Type Department Care Team (Late st Contact Info) Description 05/23/2023 8:00 AM EST Office [facility] [address] [facility] [address] George Covarrubias MD 200 [place] [address] 06/06/2023 11:30 AM EST Procedure Only [facility] [place] [address] [place] [phone] She Vazquez MD 10 [place], [place] [phone] 07/12/2023 11:00 AM EST Office Visit Dermatology, [address] [address] Samantha Flores PA-C [address] [place] [address] [place] [address] 07/18/2023 9:30 AM EST Office Visit Pulmonary Medicine, [place] [address] [place] [address] Uvaldo Raines MD [address] [place] [address] 07/19/2023 12:20 PM EST Office Visit [facility] [address] [place] [phone] Isabel Mccabe PA-C [address] [place] [address] 08/07/2023 10:00 AM EST Nurse Only Ancillary [facility] 68 [place] [address] [place], Nurse [facility] [address] [place] [address] 08/16/2023 12:30 PM EDT Office Visit Gastroenterology, [facility] [address] [facility] [place] [address] Margret Rowland CRNP [address] [place] [address] 08/27/2023 12:15 PM EDT Office Visit Orthopaedics [facility] [place] 16 [place] [address] Jignesh Morrison DO 16 [place], [place] [phone] Scheduled Procedures Name Priority Associated Diagnoses Date/Ti [...] filedocumented as of this encounter Care Teams Technical Sales Engineer Relationship Specialty Start Date End Date Isabel Mccabe PA-C [address] [place] [address] [place] [phone] PCP - General Physician Sleeve Setter Lockstitch 08/28/17 documented as of this encounter
--- OUTSIDE RECORDS SUMMARY | 2023-09-15 16:29 | External Medical Summary | Summary of Care ---
Author Name Unknown Organization [facility] Address [address] [facility] [place] [address] Phone [phone] Care Team Providers Care Right Of Way Appraiser Name Role Phone Isabel Mccabe PA-C Primary Care Provider + Reason for Referral * Evaluate & Treat - Unlimited Visits (Within 10 days (routine)) - Authorized Specialty Diagnoses / Procedures Referred By Antoinette viramontes Referred To Contact Allergy & Immunology Diagnoses Chronic cough Allergic rhinitis, unspecified seasonality, unspecified trigger Isabel Mccabe PA-C [address] [place] [address] Referral ID Status Reason Start Date Expiration Date Visits Requested Visits Authorized [id number] Authorized Specialty Services Required 3 [phone] Question Answer Referral Priority Within 10 days (routine) Where should this appointment be scheduled? [facility] For what condition is the patient being referred? Allergic Rhinitis/Allergic Conjunctivitis/Chronic Sinusitis/Nasal Polyps Reason for Visit * Reason Onset Date Comments Referral 05/21/2023 Encounter Details Date Type Department Care Team ([facility] Contact Info) Description 05/21/2023 Telephone Family Practice [facility] [address] [place] [phone] Isabel Mccabe PA-C [address] [place] [address] Referral Allergies No known active allergiesdocumented as of this encounter (statuses as of 05/21/2023) Medications Medication Sig Dispensed Refills Start Date [...] HCl 0.1 % Nasal Solution Administer 1 [place] into each nostril in the morning and 1 [place] before bedtime. 0 Active Vitamin C 100 [...] as of this encounter (statuses as of 05/21/2023) Active Problems Problem Noted Date Diagnosed Date [...] as of this encounter (statuses as of 05/21/2023) Resolved Problems Problem Noted Date Diagnosed Date [...] as of this encounter (statuses as of 05/21/2023) Immunizations Name Administration Dates Next Due COVID-19 mRNA, LNP-s, No Pre serve, 2-Dose Series (Pfizer) 03/07/2021,07/27/2020,07/06/2020 Covid-19, Mrna, Lnp-s, Pf, B ivalent, [...] encounter Miscellaneous Notes * Telephone Encounter - Lazaro Lim OSA - 05/21/2023 4:12 PM EST Spoke to patient, appointment scheduled. * Telephone Encounter - Isabel Mccabe PA-C - 05/21/2023 3:59 PM EST Referral placed. * Telephone Encounter - Vanita Acharya LPN - 05/21/2023 1:38 PM EST Please advise, thank you! * Telephone Encounter - Delmi Rios OSA - 05/21/2023 1:36 PM EST Has the patient been seen for this problem? (Y/N)?: If No, an appt needs to be scheduled before a referral will be placed (exception: proceed with referral request if referral request is for a yearly routine appointment with speciality) Patient Name: Carl Urias Patient Primary care provider: Isabel Mccabe PA-C Does this need to be an insurance referral (Y/N)?: yes If Yes, does the insurance referral need to be placed into the [employer] system? Name of preferred specialist: Type of specialist: Allergy/ immunology Location of specialist: in [facility] (close to him, [facility], [facility]) Specialist's Phone #: Specialist's Fax #: Reason for visit: wants to see if he has any allergies or anything before his apt on 06/06/2023 please call pt b ack Date of visit: documented in this encounter Plan of Treatment Upcoming Encounters Date Type Department Care Team (Late st Contact Info) Description 05/23/2023 8:00 AM EST Office Visit Allergy/Immunology [facility] [place] 200 [facility] [place] [address] George Covarrubias MD 200 [facility] [place] [address] 06/06/2023 11:30 AM EST Procedure Only [facility] [place] 10 [place] [phone] She Vazquez MD 10 [place], [place] [phone] 07/12/2023 11:00 AM EST Office Visit Dermatology[address] [address] Samantha Flores PA-Brendan [address] [place] [address] [place] [address] 07/18/2023 9:30 AM EST Office Visit Pulmonary Medicine, [place] [address] [place] [address] Uvlado Raines MD [address] [place] [address] 07/19/2023 12:20 PM EST Office Visit [facility] [address] [place] [phone] Isabel Mccabe PA-C [address] [place] [address] 08/07/2023 10:00 AM EST Nurse Only Ancillary [facility] [place] [address] [place] [address] [place], Nurse [facility] 68 [place] [address] 08/16/2023 12:30 PM EDT Office Visit Gastroenterology, [facility] [address] [facility] [place] [address] Margret Rowland CRNP [address] [place] [address] 08/27/2023 12:15 PM EDT Office [facility] 16 [place] [phone] Jignesh Morrison DO 16 [place] [address] Scheduled Procedures Name Priority Associated Diagnoses Date/Ti me COLONOSCOPY FLEXIBLE PROXIMAL DIAGNOSTIC Recall History of colon polyps Scheduled Referrals Name Type Priority Associated Diagnoses Orde r Schedule ALLERGY REFERRAL OP Referral Within 10 da ys (routine) Chronic cough Allergic rhinitis, unspecified seasonality, unspecified trigger Ordered: 05/21/2023 Health Maintenance Due Date Last Done Comments [...] as of this encounter Visit Diagnoses Diagnosis Chronic cough- Primary Cough Allergic rhinitis, unspecified seasonality, unspecified trigger documented in this encounter Care Teams Right Of Way Appraiser Relationship Specialty Start Date End Date Isabel Mccabe PA-C [address] [place] [phone] PCP - General Physician News Assistant 08/28/17 documented as of this encounter
--- OUTSIDE RECORDS SUMMARY | 2023-09-15 16:29 | External Medical Summary | Summary of Care ---
Author Name Unknown Organization [facility] Address [address] [facility] [place] [address] Phone [phone] Care Team Providers Care Drill Hand Name Role Phone Isabel Mccabe PA-C Primary Care Provider + Reason for Visit * Reason Onset Date Comments Test Results Lab 06/01/2023 Encounter Details Date Type Department Care Team (Late st Contact Info) Description 06/01/[address] [facility] [address] [place] [address] Gómez Mckeon PA-C [facility] [place] [address] Test Results Lab Allergies No known active allergiesdocumented as of this encounter (statuses as of 06/01/2023) Medications Medication Sig Dispensed Refills Start Date [...] DAY 90 Tablet 3 07/07/2022 08/03/2023 Active Mirtazapine 7.5 MG Oral Tablet (Remeron)Indication [...] for Cough. 30 Capsule 0 05/31/2023 Active predniSONE 20 MG Oral Tablet (Deltasone)Indicati ons:COVID-19 Take 2 Tablets by mouth in the morning for 5 days. 10 Tablet 0 06/01/2023 06/06/2023 Active documented as of this encounter (statuses as of 06/01/2023) Active Problems Problem Noted Date Diagnosed Date [...] as of this encounter (statuses as of 06/01/2023) Resolved Problems Problem Noted Date Diagnosed Date [...] as of this encounter (statuses as of 06/01/2023) Immunizations Name Administration Dates Next Due COVID-19 mRNA, LNP-s, No Pre serve, 2-Dose Series ([employer]) 03/07/2021,07/27/2020,07/06/2020 Covid-19, Mrna, Lnp-s, Pf, B ivalent, [...] encounter Miscellaneous Notes * Telephone Encounter - Gómez Mckeon PA-C - 06/01/2023 9:15 AM EST Patient notified of positive covid test. Notes still feels weak, coughing a lot and sometimes a little wheezy. Will try adding prednisone. documented in this encounter Plan of Treatment Upcoming Encounters Date Type Department Care Team (Late st Contact Info) Description 06/06/2023 11:30 AM EST Procedure Only [facility] [place] 10 [place] [phone] She Vazquez MD 10 [place] [address] 07/12/2023 11:00 AM EST Office Visit Dermatology[address] [address] Samantha Flores PA-C [address] [place] [address] [place] [address] 07/18/2023 9:30 AM EST Office Visit Pulmonary Medicine, [place] [address] [place], [place] [phone] Uvaldo Raines MD [address] [place], [place] [phone] 07/19/2023 12:20 PM EST Office Visit [facility] 68 [place] [address] Isabel Mccabe PA-C [address] [place] [address] 08/07/2023 10:00 AM EST Nurse Only Ancillary [address] [phone] [place], Nurse [address] [address] 08/16/2023 12:30 PM EDT Office Visit Gastroenterology, [facility] [address] [place] [address] Margret Rowland CRNP [address] [place] [address] 08/27/2023 12:15 PM EDT Office Visit Orthopaedics [place] 16 [facility] [place] [address] Jignesh Morrison DO 16 [place] [address] Scheduled Procedures Name Priority Associated Diagnoses Date/Ti [...] as of this encounter Visit Diagnoses Diagnosis COVID-19- Primary documented in this encounter Additional Health Concerns Infection Onset Date Last Indicated Resolved Time COVID-19 (confirmed) 05/31/2023 05/31/2023 documented as of this encounter Care Teams Drill Hand Relationship Specialty Start Date End Date Isabel Mccabe PA-C [address] [place] [address] [place] [address] PCP - General Physician Big Data Platform Architect 08/28/17 documented as of this encounter
--- OUTSIDE RECORDS SUMMARY | 2023-09-15 16:29 | External Medical Summary | Summary of Care ---
Author Name Unknown Organization [facility] Address [address] [place] [address] Phone [phone] Care Team Providers Care Towel Stretcher Name Role Phone Isabel Mccabe PA-C Primary Care Provider + Reason for Visit * Reason Comments NEW PATIENT CHRONIC COUGH, gerd< DRAINAGE , TICKLE IN throat, voice changes, * Evaluate & Treat - Unlimited Visits (Within 3 days (urgent)) - Authorized Specialty Diagnoses / Procedures Referred By Antoinette viramontes Referred To Contact Gastroenterology Diagnoses Chronic cough Gastroesophageal reflux disease with esophagitis, unspecified whether hemorrhage Uvaldo Loyd MD [address] [place] [address] Referral ID Status Reason Start Date Expiration Date Visits Requested Visits Authorized [id number] Authorized Specialty Services Required 05/04/2023 [id number] Encounter Details Date Type Department Care Team (Late st Contact Info) Description 05/14/2023 12:00 PM EST Office Visit Gastroenterology, [facility] [address] [facility] [place] [address] Margret Rowland CRNP 132 [facility] [place] [address] Chronic cough*; Post-nasal drip; Gastroesophageal reflux disease, unspecified whether esophagitis present Allergies No known active allergiesdocumented as of this encounter (statuses as of 05/14/2023) Medications Medication Sig Dispensed Refills Start Date [...] HCl 0.1 % Nasal Solution Administer 1 Mclean into each nostril in the morning and 1 Mclean before bedtime. 0 Active Vitamin C 100 [...] as of this encounter (statuses as of 05/14/2023) Active Problems Problem Noted Date Diagnosed Date [...] as of this encounter (statuses as of 05/14/2023) Resolved Problems Problem Noted Date Diagnosed Date [...] as of this encounter (statuses as of 05/14/2023) Immunizations Name Administration Dates Next Due COVID-19 [...] Sign Reading Time Taken Comments Blood Pressure 131/80 05/14/2023 11:44 AM EST Pulse 72 05/14/2023 11:44 AM EST Temperature 37.1 C (98.8 F) 05/14/2023 11:[address] Respiratory Rate - - Oxygen Saturation 93% 05/14/2023 11:44 AM EST Inhaled Oxygen Concentration - - Weight 91.4 kg (201 lb 6.4 oz) 05/14/2023 11:44 AM EST Height 169.5 cm (5' 6.73") 05/14/2023 11:[address] Body Mass Index 31.8 05/14/2023 11:44 AM EST documented in this encounter Patient Instructions * Patient Instructions* Margret Rowland CRNP - 05/14/2023 12:24 PM EST Please No pantoprazole, famotidine or other acid reducers for 5 days prior to EGD w VILLARREAL. OK to continue other medicines. documented in this encounter Progress Notes * Margret Rowland CRNP - 05/11/2023 3:55 PM EST Consult requested by Ref: UVALDO LOYD[[id number]] [address] [facility] [phone] ([facility]) [phone] (fax) CC: Cough HPI: 78 year old male pt of Isabel Mccabe PA-C with a hx of DDD, HLD, mood disorder, GERD presents for cough. He reports post nasal drip, a tickle in his throat from that drip, coughing that usually brings outyellow/white phlegm. Sometimes after swallowing, he feels like he has a piece of food caught in histhroat/neck - on the left side and this triggers a cough. He is sent by pulmonology. Pt tells me that pulmonology though maybe he has a slightly case of asthma - but that inhalers haven't helped. He was also seen by ENT who prescribed nasal sprays for rhinitis. Pt says this hasn't helped, in fact "noting has helped." Symptoms have been present for yearly but significantly worsened in the past year. His voice is raspy/hoarse. He has been a albright and is barely able to sing. This is always a bit better from spring until fall then escalates through the fall and . He has been seeing cardiology to r/o heart dx; just underwent a stress test. He does have HLD and afam hx of heart dx. Soda: none Coffee: one a day Current GI Meds: Pantoprazole 40mg daily. Famotidine 20 mg QAM. TUMs prn Of note he believes that he has been on an acid forgesmith such as omeprazole since the 1979. He rarely has symptoms of reflux such as chest burning (which he calls heartburn) or feeling of regurgitation. For example, he had heartburn last week and the most recent prior was 2 weeks earlier. Diagnostic Testing: EGD 2018: - Z-line regular, 36 cm from the incisors. - Non-bleeding erosive gastropathy. Biopsied. - Normal duodenal bulb and second portion of the duodenum. Path: gastric and duodenal bx normal and H Pylori (-) Colonoscopy 2019: - The examined portion of the ileum was normal. - One 6 mm polyp in the transverse colon, removed with a cold snare. Resected and retrieved. - Non-bleeding internal hemorrhoids. Path: Transverse colon, polyp, polypectomy: Colonic mucosa with no specific pathologic change. ROS: + feels like he is going to pass out when he coughs aggressively 6-8 coughs at a time No lightheadedness, dizziness No fevers, chills, sweats No vision loss, eye pain, redness No oral ulcers No chest pain, palpitations, syncope, or edema No shortness of breath, exertional dyspnea + dry skin rashe on chest/arms, elbows. No No new joint pain, swelling, myalgias No bleeding tendencies o + excessive bruising on ASA 81mg daily. A total of 12 systems were reviewed, all others (-). ALLERGIES: Review of patient's allergies indicates: No Known Allergies PMH/PSH/Soc Hx reviewed, significant for: Past Medical History: Diagnosis Date Acid reflux disease 05/30/2013 Adjustment disorder with depressed mood 05/24/2011 AK (actinic keratosis) 10/18/2017 DDD (degenerative disc disease), cervical 08/25/2015 Hemorrhage of rectum and anus 11/23/2003 Mixed dyslipidemia Personal history of colonic polyps 12/20/2011 Past Surgical History: Procedure Laterality Date COLONOSCOPY, DIAGNOSTIC (RECTUM) 06/29/2015 normal, repeat 5 yrs/COLONOSCOPY FLEXIBLE PROXIMAL DIAGNOSTIC performed by Azar Lindquist MD at END[facility]COPY [facility] COLONOSCOPY, DIAGNOSTIC (RECTUM) 08/13/2018 benign tissue on bx, repeat 5 yrs/COLONOSCOPY FLEXIBLE PROXIMAL DIAGNOSTIC performed by Mark Metcalf MD at ENDOSCOPY [facility] COLONOSCOPY, SURGERY REFERRAL OP 09/06/2011 tubular adenoma EGD, FLEXIBLE, DIAGNOSTIC 09/18/2017 normal bx/ESOPHAGOGASTRODUODENOSCOPY (EGD), FLEXIBLE, TRANSORAL, DIAGNOSTIC performed by Mark Metcalf MD at ENDOSCOPY [facility] MISCELLANEOUS ORDER ([facility] ONLY) lumbar surgery REMOVAL OF TONSILS, UNDER AGE 11 REPAIR OF NASAL SEPTUM REVERSE TOTAL SHOULDER ARTHROPLASTY Right RIGHT HEART CATHETERIZATION 1995 Cardiac Catheterization, Right Heart Gypsum SIGMOIDOSCOPY, DIAGNOSTIC 1995 rectal bleeding; negative TOTAL HIP REPLACEMENT & PROSTHESIS Left UMBIL HERNIA REPAIR (REDUCIBLE) AGE 5+YR Social History Socioeconomic History Marital status: Tobacco Use Smoking status: Never Passive exposure: Never Smokeless tobacco: Never Vaping Use Vaping Use: Never used Substance and Sexual Activity Alcohol use: Yes Comment: occasional wine Drug use: No Social History Narrative , 3 children. 7 grandchildren, 1 great grandchild Social Determinants of Health Food Insecurity: No Food Insecurity (08/03/2022) Hunger Vital Sign Worried About Running Out of Food in the Last Year: Never true Ran Out of Food in the Last Year: Never true Family history reviewed and significant for: Family History Problem Relation Age of Onset Heart Disorder Mother CAD w;ith CABG Heart Disorder Brother [place] Allergies Son nasal allergies Current Outpatient Medications Medication Sig Dispense Refill [...] CRUSH, CUT OR CHEW 90 Tablet 3 Ezetimibe 10 MG Oral Tablet (Zetia) TAKE ONE TABLET BY MOUTH EVERY MORNING 90 Tablet 3 Atorvastatin Calcium 40 MG Oral Tablet (Lipitor) TAKE ONE TABLET BY MOUTH EVERY DAY 90 Tablet 3 Famotidine 20 MG Oral Tablet (Pepcid) TAKE ONE TABLET BY MOUTH EVERY MORNING 90 Tablet 3 Mirtazapine 7.5 MG Oral Tablet (Remeron) TAKE ONE TABLET BY MOUTH AT BEDTIME 90 Tablet 3 Cetirizine HCl 10 MG Oral Tablet (ZyrTEC) Take 1 Tablet by mouth in the morning. 90 Tablet 3 Azelastine HCl 0.1 % Nasal Solution Administer 1 Mclean into each nostril in the morning and 1 Spraybefore bedtime. Vitamin C 100 MG Oral Tablet Take [...] No current facility-administered medications for this visit. EXAM: BP 131/80 | Pulse 72 | Temp 37.1 C (98.8 F) | Ht 1.695 m (5' 6.73") | Wt 91.4 kg (201 lb 6.4 oz) | SpO2 93% | BMI 31.80 kg/m | BSA 2.07 m GENERAL: 78 year old male well developed and well nourished in no acute distress SKIN: mild follicular rash on arms, trunk; red scaly rash on elbows. No skin ulcers, or spider angiomata HEENT: normocephalic, sclera clear, pharynx normal NECK: supple, no lymphadenopathy, no masses or thyroid enlargement LUNGS: clear to auscultation anterior and posterior HEART: regular rate & rhythm, no murmurs and no gallops ABDOMEN: normo-active bowel sounds, soft, non-tender, non-distended no masses, no hepatosplenomegaly, no rebound or guarding, no bruits EXTREMITIES: no palmar erythema, no edema, no skin discoloration, no clubbing, no cyanosis NEURO: no lateralizing findings, Sensory/Motor grossly normal IMPRESSION/RECOMMENDATIONS: 78 year old male with Chronic cough (Primary)/GERD/Post nasal drip. - EGD, FLEXIBLE, DIAGNOSTIC; VILLARREAL Pt was told to stop all acid reducing meds 5 days prior. Recheck after EGD w PHIL. I spent a total of 60 minutes on the date of service in review of patient's record, and previously obtained information in person and appropriate medical visit, discussion and education of plan, withpatient and/or caregiver, placing orders for tests/referral/procedures as medically necessary and documentation of pertinent clinical information in patient's medical records for their visit today. SUNITA Gomez [facility] Gastroenterology documented in this encounter Nursing Notes * Ashlee Velasquez LPN - 05/14/2023 11:46 AM EST Patient identified by name and date of . Chief Complaint Patient presents with NEW PATIENT CHRONIC COUGH, gerd< DRAINAGE , TICKLE IN throat, voice changes, Pt used to take omeprazole and his provider switched to pantoprazole. documented in this encounter Plan of Treatment Upcoming Encounters Date Type Department Care Team (Late st Contact Info) Description 06/06/2023 8:30 AM EST Appointment Endoscopy, [facility] [address] [place] [address] Bonnie Zimmerman, Carlos Eduardo Esquivel MD [address] [place] [address] 07/12/2023 11:00 AM EST Office Visit Dermatology[address] [address] Samantha Flores PA-C [address] [place] [address] [place] [address] 07/18/2023 9:30 AM EST Office Visit Pulmonary Medicine, [facility] [address] [place] [address] Uvaldo Loyd MD [address] [place], [place] [id number] 07/19/2023 12:20 PM EST Office Visit [facility] [address] [place] [address] Isabel Mccabe PA-C [address] [place] [address] 08/07/2023 10:00 AM EST Nurse Only Ancillary [address] [address] [place], Nurse Annual [facility]ness [address] [phone] 08/16/2023 12:30 PM EDT Office Visit Gastroenterology, [facility] [address] [place] [address] Margret Rowland CRNP [address] [place] [address] 08/27/2023 12:15 PM EDT [facility] [address] [place] [address] Jignesh Morrison DO [address] [place], [place] [id number] Scheduled Orders Name Type Priority Associated Diagnoses Orde r Schedule EGD, FLEXIBLE, DIAGNOSTIC Procedures Routine Chronic cough Post-nasal drip Gastroesophageal reflux disease, unspecified whether esophagitis present Ordered: 05/14/2023 ESOPH FUNCT/REFLUX TEST,MUCOSAL PH Procedures Routine Chronic cough Post-nasal drip Gastroesophageal reflux disease, unspecified whether esophagitis present Ordered: 05/14/2023 Scheduled Procedures Name Priority Associated Diagnoses Date/Ti [...] Visit Diagnoses Diagnosis Chronic cough- Primary Cough Post-nasal drip Postnasal drip Gastroesophageal reflux disease, unspecified whether esophagitis present documented in this encounter Care Teams Towel Stretcher Relationship Specialty Start Date End Date Isabel Mccabe PA-C [address] [place] [address] [place] [phone] PCP - General Physician Banquet Attendant 08/28/17 documented as of this encounter
--- OUTSIDE RECORDS SUMMARY | 2023-09-15 16:29 | External Medical Summary | Summary of Care ---
Author Name Unknown Organization [facility] Address [address] [facility] [place] [address] Phone [phone] Care Team Providers Care Life Insurance Specialist Name Role Phone Rod Gaspar PA-C Primary Care Provider + Reason for Visit * Reason Comments Medication Refill Encounter Details Date Type Department Care Team ([facility] Contact Info) Description 05/27/[address] [address] Rod Gaspar PA-C [address] [place] [phone] Allergies No known active allergiesdocumented as of [...] EVERY MORNING 90 Tablet 2 05/29/2023 Active Famotidine 20 MG Oral Tablet (Pepcid) [...] mRNA, LNP-s, No Pre serve, 2-Dose Series ([employer]) 03/07/2021,07/27/2020,07/06/2020 Covid-19, Mrna, Lnp-s, Pf, B ivalent, 30 Mcg, IM, 12 yrs and above ([employer]) 03/31/2022 Pneumococcal Conjugate Vacc, 13 Valent (Prevnar) [...] encounter Miscellaneous Notes * Telephone Encounter - Suze Briscoe, [facility] - 05/29/2023 9:50 AM ESTSigned Prescriptions: Disp Refills Famotidine 20 MG Oral Tablet (Pepcid) 90 Tab*2 Sig: TAKE ONE TABLET BY MOUTH EVERY MORNINGAuthorizing Provider: ROD GASPAR User: SUZE CUNNINGHAM-- documented in this encounter Plan of Treatment Upcoming Encounters Date Type Department Care Team (Late st Contact Info) Description 06/06/2023 11:30 AM EST Procedure Only [facility], Tony [address] [place] [phone] She Vazquez MD [address] [place] [address] 07/12/2023 11:00 AM EST Office Visit [address] [address] Samantha Flores PA-Brendan [address] [place] [address] [place] [phone] 07/18/2023 9:30 AM EST [facility] [address] [place], [place] [phone] Uvaldo Raines MD [address] [place] [address] 07/19/2023 12:20 PM EST Office Visit [facility] [address] [place] [address] Rod Gaspar PA-C [address] [place] [address] 08/07/2023 10:00 AM EST Nurse Only Ancillary [facility] [address] [place] [address] [place], Nurse [address] [address] 08/16/2023 12:30 PM EDT Office Visit Gastroenterology, [facility] [address] [place] [address] Margret Rowland CRNP [address] [place] [address] 08/27/2023 12:15 PM EDT Office Visit Orthopaedics Eyad Lorenzo [address] [place] [phone] Jignesh Morrison DO [address] [place] [address] Scheduled Procedures Name Priority Associated Diagnoses Date/Ti [...] filedocumented as of this encounter Care Teams Life Insurance Specialist Relationship Specialty Start Date End Date Rod Gaspar PA-C [address] [place], [place] [address] [phone] PCP - General Physician Economics Faculty Member 08/28/17 documented as of this encounter
--- OUTSIDE RECORDS SUMMARY | 2023-09-15 16:29 | External Medical Summary | Summary of Care ---
Author Name Unknown Organization [facility] Address [address] [place] [address] Phone [phone] Care Team Providers Care Croze Machine Operator Name Role Phone Rod Mccabe PA-C Primary Care Provider + Reason for Visit * Reason Comments Allergy New Pt * Evaluate & Treat - Unlimited Visits (Within 10 days (routine)) - Authorized Specialty Diagnoses / Procedures Referred By Antoinette t Referred To Contact Allergy & Immunology Diagnoses Chronic cough Allergic rhinitis, unspecified seasonality, unspecified trigger Rod Mccabe PA-C [address] [place] [address] Referral ID Status Reason Start Date Expiration Date Visits Requested Visits Authorized [id number] Authorized Specialty Services Required 3 [phone] Encounter Details Date Type Department Care Team ([facility] st Contact Info) Description 05/23/2023 8:00 AM EST Office Visit Allergy/Immunology [facility] Patel [place] [address] [place] [address] George Covarrubias MD [address] [place] [address] Chronic cough*; Rhinitis, nonallergic; Postnasal drip; Nasal congestion Allergies No known active allergiesdocumented as of this encounter (statuses as of 05/23/2023) Medications Medication Sig Dispensed Refills Start Date [...] 90 Tablet 3 3 08/03/19 24 Active Famotidine 20 MG Oral Tablet (Pepcid) TAKE ONE TABLET BY MOUTH EVERY MORNING 90 Tablet 3 3 06/30/19 24 Active Mirtazapine 7.5 MG Oral Tablet [...] before bedtime. 90 mL 3 3 Active Cetirizine HCl 10 MG Oral Tablet (ZyrTEC)Indicatio ns:Chronic cough,Allergic rhinitis, unspecified seasonality, unspecified trigger Take 1 Tablet by mouth in the morning. 90 Tablet 3 3 05/23/20 23 Discontinued Azelastine HCl 0.1 % Nasal Solution Administer 1 [place] into each nostril in the morning and 1 [place] before bedtime. 0 05/23/20 23 Discontinued(Ref ill) documented as of this encounter (statuses as of 05/23/2023) Active Problems Problem Noted Date Diagnosed Date [...] as of this encounter (statuses as of 05/23/2023) Resolved Problems Problem Noted Date Diagnosed Date [...] as of this encounter (statuses as of 05/23/2023) Immunizations Name Administration Dates Next Due COVID-19 mRNA, LNP-s, No Pre serve, 2-Dose Series (Musement) 03/07/2021,07/27/2020,07/06/2020 Covid-19, Mrna, Lnp-s, Pf, B ivalent, [...] Sign Reading Time Taken Comments Blood Pressure 120/74 05/23/2023 7:54 AM EST Pulse 70 05/23/2023 7:54 AM EST Temperature 36.2 C (97.1 F) 05/23/2023 7:54 AM ES T Respiratory Rate 16 05/23/2023 7:54 AM EST Oxygen Saturation - - Inhaled Oxygen Concentration - - Weight 92.8 kg (204 lb 9.6 oz) 05/23/2023 7:54 A M EST Height 167.6 cm (5' 6") 05/23/2023 7:54 AM EST Body Mass Index 33.02 05/23/2023 7:54 AM EST documented in this encounter Patient Instructions * Patient Instructions* George Covarrubias MD - 05/23/2023 8:29 AM EST Nonallergic Trigger Avoidance Measures: Do not smoke, no smoking allowed in house or vehicles; avoid wood, coal burning stoves , and kerosene heaters; avoid strong smelling perfumes and perfumed cosmetics; do not use incense, potpourri, or scented candles, air fresheners in the home; avoid chemicalodors and weather changes (abrupt changes in temperature and humidity). If unavoidable, use a HEPAair-cleaning device. documented in this encounter Progress Notes * George Covarrubias MD - 05/23/2023 8:29 AM EST REASON FOR VISIT: Chief Complaint Patient presents with Allergy New Pt HPI: Carl is a pleasant 78-year-old male who presents to our office after being referred by Rod Mccabe PA-C for a chronic cough in the setting of suspected nonallergic rhinitis. He was last seen in our office in 2016. At that time he was diagnosed with nonallergic rhinitis as serum IgE levels to common environmental aeroallergens was completely negative. He returns for similar symptoms. He states that he has had a chronic cough for anywhere from 6-10 years. He describes the cough as being drainage from his sinuses that leads to mucus in his throat and clearing of the throat. He also reports occasional excessive sneezing. Other symptoms that he has includes nasal congestion, ear popping,and ear ringing. He also reports a chronic cough but he feels that the cough comes primarily from the throat region as opposed to his chest. More recently he has seen Otolaryngology, pulmonology, andGastroenterology. He has been empirically treated for gastroesophageal reflux disease but he was unsure if this is helping. Also states that he was placed on Asmanex by his market editor and this provided no benefit. He currently does take Zyrtec but feels that this did not provide benefit. He doestake Flonase but has not been consistent with this. In the past he has been on Astelin but was not consistent with this as well. He is due to have an upper endoscopy performed within the next month. Serum IgE levels to common environmental aeroallergens in 2016 was completely negative. Serum IgE levels to common environmental aeroallergens in January of 2023 was also completely negative. Total IgE level returned normal at 18.6. REVIEW OF SYSTEMS Skin: No history of hives or atopic dermatitis. Eyes: negative Ears/Nose/Throat: sneezing, nasal congestion, ear fullness Bilateral, ear ringing, ear popping Bilateral, post nasal drip, throat clearing Respiratory: cough Cardiovascular: negative Gastrointestinal: Positive history of acid reflux disease. Genitourinary: negative Musculoskeletal: pt denies significant joint pain or stiffness Neurologic: negative Psychiatric: negative Hematologic/Lymphatic/Immunologic: negative Endocrine: negative Constitutional: none Past Medical History: Diagnosis Date Acid reflux disease 05/30/2013 Adjustment disorder with depressed mood 05/24/2011 AK (actinic keratosis) 10/18/2017 DDD (degenerative disc disease), cervical 08/25/2015 Hemorrhage of rectum and anus 11/23/2003 Mixed dyslipidemia Personal history of colonic polyps 12/20/2011 Past Surgical History: Procedure Laterality Date COLONOSCOPY, DIAGNOSTIC (RECTUM) 06/29/2015 normal, repeat 5 yrs/COLONOSCOPY FLEXIBLE PROXIMAL DIAGNOSTIC performed by Azar Lindquist MD at ENDOSCOPY [facility] COLONOSCOPY, DIAGNOSTIC (RECTUM) 08/13/2018 benign tissue on bx, repeat 5 yrs/COLONOSCOPY FLEXIBLE PROXIMAL DIAGNOSTIC performed by Mark Metcalf MD at ENDOSCOPY [facility] COLONOSCOPY, SURGERY REFERRAL OP 09/06/2011 tubular adenoma EGD, FLEXIBLE, DIAGNOSTIC 09/18/2017 normal bx/ESOPHAGOGASTRODUODENOSCOPY (EGD), FLEXIBLE, TRANSORAL, DIAGNOSTIC performed by Mark Metcalf MD at ENDOSCOPY [facility] MISCELLANEOUS ORDER ([facility] ONLY) lumbar surgery REMOVAL OF TONSILS, UNDER AGE 11 REPAIR OF NASAL SEPTUM REVERSE TOTAL SHOULDER ARTHROPLASTY Right RIGHT HEART CATHETERIZATION 1995 Cardiac Catheterization, Right Heart Peck SIGMOIDOSCOPY, DIAGNOSTIC 1995 rectal bleeding; negative TOTAL [...] mouth in the morning. 90 Tablet 3 Vitamin C 100 MG [...] 2 Sprays before bedtime. 90 mL 3 No current facility-administered medications for this visit. Allergies as of 05/23/2023 (No Known Allergies) Family History Problem Relation Age of Onset Heart Disorder Mother CAD w;ith CABG Heart Disorder Brother MA Allergies Son nasal allergies Social History Socioeconomic History Marital status: Spouse name: Not on file Number of children: Not on file Years of education: Not on file Highest education level: Not on file Occupational History Not on file Tobacco Use Smoking status: Never Passive exposure: Never Smokeless tobacco: Never Vaping Use Vaping Use: Never used Substance and Sexual Activity Alcohol use: Yes Comment: occasional wine Drug use: No Sexual activity: Not on file Other Topics Concern Not on file Social History Narrative , 3 children. 7 grandchildren, 1 great grandchild Social Determinants of Health Financial Resource Strain: Not on file Food Insecurity: No Food Insecurity (08/03/2022) Hunger Vital Sign Worried About Running Out of Food in the Last Year: Never true Ran Out of Food in the Last Year: Never true Transportation Needs: Not on file Physical Activity: Not on file Stress: Not on file Social Connections: Not on file Intimate Partner Violence: Not on file Housing Stability: Not on file Social history: The patient retired in 2011. His current hobbies do include gardening, carpentry, and remodeling. BP 120/74 | Pulse 70 | Temp 36.2 C (97.1 F) | Resp 16 | Ht 1.676 m (5' 6") | Wt 92.8 kg (204 lb9.6 oz) | BMI 33.02 kg/m | BSA 2.08 m PHYSICAL EXAM: GENERAL: No acute distress. HEAD AND FACE: No sinus tenderness noted EYES: EOMI, PERRLA; Conjunctiva- normal; Eyelids - normal EARS: TM's - clear NOSE:Pale mucosa; mild turbinate edema; no nasal polyps or mucopus; Septum - normal OROPHARYNX: Teeth and gums - normal; Mild erythema, mild cobblestoning; No lesions, exudates NECK: Supple; No thyroid enlargment or cervical adenopathy RESPIRATORY: Clear to A and P; No wheezes; Good air movement bilaterally; No intercostal retractions or accessory muscle use CARDIOVASCULAR: RRR; No gallops, rubs, clicks, or murmurs. GASTROINTESTINAL: Abdomen is soft and non-tender; BS - normal; No palpable masses or organomegaly LYMPHATIC: No significant adenopathy noted MUSCULOSKELETAL: No significant joint swelling, tenderness EXTREMITIES: No cyanosis, clubbing or peripheral edema SKIN: No evidence atopic dermatitis; no urticaria or angioedema; Normal skin quality NEUROLOGIC/PSYCHIATRIC: Mental status - Oriented x's 3; Mood and affect - normal OBJECTIVE DATA: Component Latest Ref [facility] 01/09/2023 Mite Pteronyssinus IgE <0.10 kUa/L <0.10 Mite Farinae IgE <0.10 kUa/L <0.10 Cat Dander IgE <0.10 kUa/L <0.10 Dog Dander IgE <0.10 kUa/L <0.10 Bermuda Grass IgE <0.10 kUa/L <0.10 Corey Grass IgE <0.10 kUa/L <0.10 Penicillium Notatum IgE <0.10 kUa/L <0.10 Cladosporium IgE <0.10 kUa/L <0.10 Aspergillus IgE <0.10 kUa/L <0.10 Alternaria IgE <0.10 kUa/L <0.10 Helminthosporium IgE <0.10 kUa/L <0.10 Pullularia IgE <0.10 kUa/L <0.10 Acremonium Kiliense IgE <0.10 kUa/L <0.10 Trenton Maple IgE <0.10 kUa/L <0.10 Birch IgE <0.10 kUa/L <0.10 [place]i IgE <0.10 kUa/L <0.10 Elm IgE <0.10 kUa/L <0.10 Marcy Tree IgE <0.10 kUa/L <0.10 [place] IgE <0.10 kUa/L <0.10 White Juan Ramon IgE <0.10 kUa/L <0.10 Pecan Laurel IgE <0.10 kUa/L <0.10 Common Ragweed IgE <0.10 kUa/L <0.10 Mugwort IgE <0.10 kUa/L <0.10 Lebanese Plantain IgE <0.10 kUa/L <0.10 Schultz's Quarter IgE <0.10 kUa/L <0.10 Cocklebur IgE <0.10 kUa/L <0.10 Pigweed IgE <0.10 kUa/L <0.10 Sheep [place] IgE <0.10 kUa/L <0.10 IgE <=214.0 kU/L 18.6 Component Latest Ref Rng & Units 10/16/2016 IGE 0 - 87 kU/L 5.6 NOVEMBER GRASS <0.1 kU/L <0.10 COREY <0.1 kU/L <0.10 COMMON RAGWEED <0.1 kU/L <0.10 PIGWEED <0.1 kU/L <0.10 OAK <0.1 kU/L <0.10 ELM <0.1 kU/L <0.10 MITE-FARINAE <0.1 kU/L <0.10 MITE-PTERONYSSINUS <0.1 kU/L <0.10 ALTERNARIA <0.1 kU/L <0.10 CAT EPITHELIUM <0.1 kU/L <0.10 DOG EPITHELIUM <0.1 kU/L <0.10 DOG DANDER <0.1 kU/L <0.10 CLADOSPORIUM <0.1 kU/L <0.10 SCHULTZ'S QUARTERS <0.1 kU/L <0.10 ASPERGILLUS <0.1 kU/L <0.10 BIRCH <0.1 kU/L <0.10 Spirometry 10/16/16 revealed a normal FEV1/FVC ratio of 75%. FEV1 was 3.05 L, 109% of predicted. Findings are consistent with normal spirometry. ASSESSMENT AND PLAN: ICD-10-CM 1. Chronic cough R05.3 2. Rhinitis, nonallergic J31.0 3. Postnasal drip R09.82 4. Nasal congestion R09.81 In summary, Carl presents with a chronic cough ongoing over the course of the last 6-10 years. His chronic cough may be multifactorial in nature with chronic nonallergic rhinitis, possible asthma, and gastroesophageal reflux disease all playing a role. We did review the various triggers of nonallergic rhinitis and this includes drastic changes in the barometric pressure, drastic changes in temperature, and respiratory irritants such as strong odors, perfumes, colognes, scented products, cleaning agents, chemicals, smoke, and poor air quality. With his hobbies of carpentry and remodeling, he does have exposure to respiratory irritants that could be contributing to his chronic cough secondaryto postnasal drip and clearing of the throat. As noted above, serum IgE levels to common environmental aeroallergens has been consistently negative and hence there is no component of allergic rhinitis playing a role. Typically in patients with chronic nonallergic rhinitis, oral antihistamines are of not much benefit and the patient himself feels that his cetirizine does not provide much relief. Hence we will discontinue his cetirizine. In patients with nonallergic rhinitis, combination nasal spray therapy has shown to be of benefit so we will start Flonase 2 sprays each nostril twice daily in addition to Astel in 2 sprays each nostril twice daily and this is to be preceded by use of a normal saline sinus rinse in the morning and at nighttime. Proper technique of a nasal spray which shown to him today. We feel that he would also benefit from use of an air purifier with a HEPA filter. The patient will continue to follow up with pulmonology, Otolaryngology, and Gastroenterology as hehas been doing. He is due for an upper endoscopy within the next month to assess for any component of gastroesophageal reflux disease. Thank you very much for allowing myself to participate in the care of your patient. Please do not hesitate to contact our office should you have any questions or concerns. George Covarrubias MD Allergy/Immunology I spent a total of 40-54 minutes (exact time 49 mins) on the date of service in preparation, delivery, and documentation of the care provided to Carl Urias excluding any time spent in the performance of separately billed services. (This note was completed using the dictation program Fluency Direct. As such, there may be misspellings, word substitutions, or other variations that should not change the essence of the clinical content of this encounter note.If there is need for further clarification, please direct questions to the provider listed above.) PCP: ROD MCCABE [address] [place] [address] [phone] documented in this encounter Nursing Notes * Dorothy Rudd LPN - 05/23/2023 7:54 AM EST The pt has been properly identified by confirmation of name and date of . Pt presents as a new pt. Pt c/o a lot of drainage, coughing, mucus, itching. documented in this encounter Plan of Treatment Upcoming Encounters Date Type Department Care Team (Late st Contact Info) Description 06/06/2023 11:30 AM EST Procedure Only [facility], [place] [address] [place] [phone] She Vazquez MD [address] [place] [address] 07/12/2023 11:00 AM EST Office Visit Dermatology[address] [address] Samantha Flores PA-C [address] [place] [address] [place] [address] 07/18/2023 9:30 AM EST Office Visit Pulmonary Medicine, [place] [address] [place] [address] Uvaldo Raines MD [address] [place] [address] 07/19/2023 12:20 PM EST Office Visit [address] [phone] Rod Mccabe PA-C [address] [place] [address] 08/07/2023 10:00 AM EST Nurse Only Ancillary [facility] [address] [place] [phone] [place], Nurse Annual [facility] [address] [place] [address] 08/16/2023 12:30 PM EDT Office Visit Gastroenterology, [facility] [address] [place] [address] Margret Rowland CRNP [address] [place] [address] 08/27/2023 12:15 PM EDT Office Visit Orthopaedics [facility] [place] [address] [place] [address] Jignesh Morrison DO 16 [place] [address] Scheduled Procedures Name Priority Associated Diagnoses Date/Ti [...] Visit Diagnoses Diagnosis Chronic cough- Primary Cough Rhinitis, nonallergic Chronic rhinitis Postnasal drip Nasal congestion Other diseases of nasal cavity and sinuses documented in this encounter Care Teams Croze Machine Operator Relationship Specialty Start Date End Date Rod Mccabe PA-C [address] [place] [id number] PCP - General Physician After School Teacher 08/28/17 documented as of this encounter
--- OUTSIDE RECORDS SUMMARY | 2023-09-15 16:29 | External Medical Summary | Summary of Care ---
Author Name Unknown Organization [facility] Address [address] [place] [address] Phone [phone] Care Team Providers Care Direct Chill Casting Operator Name Role Phone Isabel Mccabe PA-C Primary Care Provider + Encounter Details Date Type Department Care Team (Late st Contact Info) Description 05/21/2023 Orders Only [facility] [address] [place], [place] [phone] Kathryn Yuan CHRA [facility] Other*[id number] Allergies No known active allergiesdocumented as of [...] HCl 0.1 % Nasal Solution Administer 1 [place] into each nostril in the morning and 1 [place] before bedtime. 0 Active Vitamin C 100 [...] mRNA, LNP-s, No Pre serve, 2-Dose Series (Meetmeals) 03/07/2021,07/27/2020,07/06/2020 Covid-19, Mrna, Lnp-s, Pf, B ivalent, 30 Mcg, IM, 12 yrs and above (Meetmeals) 03/31/2022 Pneumococcal Conjugate Vacc, 13 Valent (Prevnar) [...] Description 06/06/2023 11:30 AM EST Procedure Only [facility] [place] [address] [place] [phone] She Vazquez MD [address] [place] [address] 07/12/2023 11:00 AM EST Office Visit [address] [address] Samantha Flores PA-C [address] [place] [address] [place] [id number] 07/18/2023 9:30 AM EST Office Visit Pulmonary Medicine, [place] [address] [place], [place] [phone] Uvaldo Raines MD [address] [place], [place] [phone] 07/19/2023 12:20 PM EST Office Visit [facility] [address] [place] [address] Isabel Mccabe PA-C [address] [place] [phone] 08/07/2023 10:00 AM EST Nurse Only Ancillary [address] [phone] [place], Nurse Annual [facility]ness [address] [address] 08/16/2023 12:30 PM EDT Office Visit [facility], [facility] [address] Margret Rowland CRNP [address] [place] [address] 08/27/2023 12:15 PM EDT Office Visit [facility]opaedics [facility] [place] [address] [place] [address] Jignesh Morrison DO 16 [place] [address] Scheduled Orders Name Type Priority Associated Diagnoses Orde r Schedule MYCODE SUBSEQUENT ADULT Lab Routine [facility] Other*[id number] Every 6 Months for 2 Occurrences starting 05/21/2023 until 06/09/2024 Scheduled Procedures Name Priority Associated Diagnoses Date/Ti me COLONOSCOPY FLEXIBLE PROXIMAL DIAGNOSTIC Recall History of colon polyps Health Maintenance Due Date Last Done Comments Hepatitis C Screening 1963 Zoster Vaccines (3 of 3) 05/01/2019 03/06/2019, 03/04 COVID-19 Vaccine (5 - season) 2023 03/31/2022, 03/07/2021, 07/27/2020, Additional [...] this encounter Visit Diagnoses Diagnosis [facility] Other*[id number] documented in this encounter Care Teams Direct Chill Casting Operator Relationship Specialty Start Date End Date Isabel Mccabe PA-C [address] [place] [address] [place] [address] PCP - General Physician Inter Com Servicer 08/28/17 documented as of this encounter
--- OUTSIDE RECORDS SUMMARY | 2023-09-15 16:29 | External Medical Summary | Summary of Care ---
Author Name Unknown Organization [facility] Address [address] [place] [address] Phone [phone] Care Team Providers Care Steeping Press Operator Name Role Phone Rod Gaspar PA-C Primary Care Provider + Reason for Visit * Reason Comments Medication Refill Encounter Details Date Type Department Care Team ([facility] Contact Info) Description 05/08/[address] [phone] Rod Gaspar PA-C [address] [place] [id number] Adjustment disorder with depressed mood Allergies No known active allergiesdocumented as of this encounter (statuses as of 05/08/2023) Medications Medication Sig Dispensed Refills Start Date [...] DAY 90 Tablet 3 07/07/2022 4 Active Famotidine 20 MG Oral Tablet (Pepcid) TAKE ONE TABLET BY MOUTH EVERY MORNING 90 Tablet 3 06/30/2022 4 Active Mirtazapine 7.5 MG Oral Tablet (Remeron)Indicatio ns:Adjustment disorder with depressed mood TAKE ONE TABLET BY MOUTH AT BEDTIME 90 Tablet 3 06/21/2022 4 Active Cetirizine HCl 10 MG Oral Tablet (ZyrTEC)Indication s:Chronic cough,Allergic rhinitis, unspecified seasonality, unspecified trigger Take 1 Tablet by mouth in the morning. 90 Tablet 3 01/16/2023 Active Azelastine HCl 0.1 % Nasal Solution Administer 1 [place] into each nostril in the morning and 1 [place] before bedtime. 0 Active Vitamin C 100 [...] THE MORNING 90 Tablet 0 05/08/2023 Active buPROPion HCl ER (XL) 150 MG Oral Tablet Extended Release 24 Hour (Wellbutrin XL)Indications:Adj ustment disorder with depressed mood TAKE ONE TABLET BY MOUTH EVERY DAY IN THE MORNING 90 Tablet 1 10/15/2022 3 Discontinue d(Refill) documented as of this encounter (statuses as of 05/08/2023) Active Problems Problem Noted Date Diagnosed Date [...] as of this encounter (statuses as of 05/08/2023) Resolved Problems Problem Noted Date Diagnosed Date [...] as of this encounter (statuses as of 05/08/2023) Immunizations Name Administration Dates Next Due COVID-19 mRNA, LNP-s, No Pre serve, 2-Dose Series ([place] A/S) 03/07/2021,07/27/2020,07/06/2020 Covid-19, Mrna, Lnp-s, Pf, B ivalent, [...] encounter Miscellaneous Notes * Telephone Encounter - Lindsey Edward [facility] - 05/08/2023 3:15 PM EST RX authorized. Zero refills given until upcoming bmp needed 07/28. Thank you, Lindsey Edward [facility] Clinical Pharmacist TelePharmacy 05/08/23 3:14 PM [phone] * Telephone Encounter - Lindsey Edward [facility] - 05/08/2023 3:15 PM ESTSigned Prescriptions: Disp Refills buPROPion HCl ER (XL) 150 MG Oral Tablet E*90 Tab*0 Sig: TAKE ONE TABLET BY MOUTH EVERY DAY IN THE MORNING Authorizing Provider: ROD GASPAR Ordering User: LINDSEY EDWARD documented in this encounter Plan of Treatment Upcoming Encounters Date Type Department Care Team (Late st Contact Info) Description 05/14/2023 12:00 PM EST Office Visit Gastroenterology, [facility] [address] [place] [address] Margret Rowland CRNP [address] [place] [address] 07/12/2023 11:00 AM EST Office Visit Dermatology[address] [place] [address] Samantha Flores PA-C [address] [place] [address] [place] [address] 07/18/2023 9:30 AM EST Office Visit Pulmonary Medicine93 [place] [address] Uvaldo Raines MD [address] [place] [address] 07/19/2023 12:20 PM EST Office Visit Family [facility] [address] [place] [address] Rod Gaspar PA-C [address] [place] [address] 08/07/2023 10:00 AM EST Nurse Only Ancillary [facility] [address] [place] [address] [place], Nurse [facility] [address] [place] [address] 08/27/2023 12:15 PM EDT Office Visit [facility]opa[facility] [address] [place] [phone] Jignesh Morrison DO [address] [employer], [place] [phone] Scheduled Procedures Name Priority Associated Diagnoses Date/Ti [...] Diagnoses Diagnosis Adjustment disorder with depressed mood documented in this encounter Care Teams Steeping Press Operator Relationship Specialty Start Date End Date Rod Gaspar PA-C [address] [place] [address] [place] [id number] PCP - General Physician Local Bulk Driver 08/28/17 documented as of this encounter
--- OUTSIDE RECORDS SUMMARY | 2023-09-15 16:29 | External Medical Summary | Summary of Care ---
Author Name Unknown Organization [facility] Address [address] [place] [address] Phone [phone] Care Team Providers Care Logistics Supply Officer Name Role Phone Isabel Mccabe PA-C Primary Care Provider + Reason for Visit * Reason Onset Date Comments Advice 02/07/2023 Encounter Details Date Type Department Care Team (Late st Contact Info) Description 02/07/2023 Telephone Dermatology [facility] [place] [address] [place] [address] Services, Scheduling [address] [place] [address] Advice Allergies No known active allergiesdocumented as of this encounter (statuses as of 2023) Medications Medication Sig Dispensed Refills Start Date [...] HCl 0.1 % Nasal Solution Administer 1 [place] into each nostril in the morning and 1 [place] before bedtime. 0 Active Vitamin C 100 MG Oral Tablet Take 1 Tablet by mouth in the morning. 0 Active documented as of this encounter (statuses as of 2023) Active Problems Problem Noted Date Diagnosed Date [...] as of this encounter (statuses as of 2023) Resolved Problems Problem Noted Date Diagnosed Date [...] as of this encounter (statuses as of 2023) Immunizations Name Administration Dates Next Due COVID-19 mRNA, LNP-s, No Pre serve, 2-Dose Series ([employer]) 03/07/2021,07/27/2020,07/06/2020 Covid-19, Mrna, Lnp-s, Pf, B ivalent, 30 Mcg, IM, 12 yrs and above ([employer]) 03/31/2022 Pneumococcal Conjugate Vacc, 13 Valent (Prevnar) [...] encounter Miscellaneous Notes * Telephone Encounter - Kayla Noguera LPN - 02/07/2023 4:17 PM EDT Please advise pt regarding sooner appt. * Telephone Encounter - Linda Solorzano OSA - 02/07/2023 3:59 PM EDT Brittanylo Pt has a new growth , it is itchy and it feels lumpy. Patient wants to know if there is anything inthe mean time he can try until he gets in for a sooner appt in [facility] Please call pt thank you documented in this encounter Plan of Treatment Upcoming Encounters Date Type Department Care Team (Late st Contact Info) Description 05/14/2023 12:00 PM EST Office Visit Gastroenterology, [facility] [address] [place] [address] Margret Rowland CRNP [address] [place] [address] 07/12/2023 11:00 AM EST Office Visit Dermatology, [address] [address] Samantha Flores PA-C [address] [place] [address] [place] [address] 07/18/2023 9:30 AM EST Office Visit Pulmonary Medicine, [place] [address] [place] [address] Uvaldo Raines MD [address] [place], [place] [id number] 07/19/2023 12:20 PM EST Office Visit Family [facility] [address] [place] [phone] Isabel Mccabe PA-C [address] [place] [address] 08/07/2023 10:00 AM EST Nurse Only Ancillary [address] [address] [place], Nurse Annual Wellness [address] [address] 08/27/2023 12:15 PM EDT Office Visit Orthopaedics [facility] [address] [place] [address] Jignesh Morrison DO [address] [place] [address] Scheduled Procedures Name Priority Associated Diagnoses Date/Ti [...] filedocumented as of this encounter Care Teams Logistics Supply Officer Relationship Specialty Start Date End Date Isabel Mccabe PA-C [address] [place] [address] [place] [address] PCP - General Physician Chair Car Driver 08/28/17 documented as of this encounter
--- OUTSIDE RECORDS SUMMARY | 2023-09-15 16:29 | External Medical Summary | Summary of Care ---
Author Name Unknown Organization [facility] Address [address] [place] [facility] [place] [address] Phone [phone] Care Team Providers Care Clay Dry Press Operator Name Role Phone Isabel Mccabe PA-C Primary Care Provider + Reason for Visit * Reason Comments Cough Fever Congestion Wheezing Generalized Body Aches Headache Encounter Details Date Type Department Care Team (Latest Contact Info) Description 05/31/2023 1:45 PM EST [facility] Visit [address] [address] Bartolo Spaulding PA-C [address] [place] [address] Viral URI with cough* Allergies No known active allergiesdocumented as of this encounter (statuses as of 05/31/2023) Medications Medication Sig Dispensed Refills Start Date [...] for Cough. 30 Capsule 0 05/31/2023 Active documented as of this encounter (statuses as of 05/31/2023) Active Problems Problem Noted Date Diagnosed Date [...] as of this encounter (statuses as of 05/31/2023) Resolved Problems Problem Noted Date Diagnosed Date [...] as of this encounter (statuses as of 05/31/2023) Immunizations Name Administration Dates Next Due COVID-19 mRNA, LNP-s, No Pre serve, 2-Dose Series ([email or web address]) 03/07/2021,07/27/2020,07/06/2020 Covid-19, Mrna, Lnp-s, Pf, B ivalent, 30 Mcg, IM, 12 yrs and above ([email or web address]) 03/31/2022 Pneumococcal Conjugate Vacc, 13 Valent (Prevnar) [...] Sign Reading Time Taken Comments Blood Pressure 144/80 05/31/2023 12:03 PM EST Pulse 103 05/31/2023 12:03 PM EST Temperature 38.9 C (102.1 F) 05/31/2023 12:03 PM EST Respiratory Rate 18 05/31/2023 12:03 PM EST Oxygen Saturation 96% 05/31/2023 12:03 PM EST Inhaled Oxygen Concentration - - Weight 92.4 kg (203 lb 9.6 oz) 05/31/2023 12:03 PM EST Height - - Body Mass Index 32.86 05/23/2023 7:54 AM EST documented in this encounter Progress Notes * Bartolo Spaulding PA-C - 05/31/2023 12:14 PM EST [facility] Basic Exam Carl Urias is a 78 year old year old male who presents for evaluation of Cough, Fever, Congestion, Wheezing, Myalgia, H/A x 3 days Review of Systems Constitutional: Positive for activity change, appetite change, chills, fatigue and fever. HENT: Positive for congestion and sinus pressure. Eyes: Negative. Respiratory: Positive for cough and wheezing. Cardiovascular: Negative. Gastrointestinal: Negative. Endocrine: Negative. Genitourinary: Negative. Musculoskeletal: Positive for myalgias. Skin: Negative. Allergic/Immunologic: Negative. Neurological: Negative. Hematological: Negative. Psychiatric/Behavioral: Negative. PAST MEDICAL HISTORY: Past Medical History: Diagnosis [...] performed by Azar Lindquist MD at ENDOSCOPY [facility] COLONOSCOPY, DIAGNOSTIC (RECTUM) 08/13/2018 benign tissue on bx, repeat 5 yrs/COLONOSCOPY FLEXIBLE PROXIMAL DIAGNOSTIC performed by Mark Metcalf MD at [facility]COPY [facility] COLONOSCOPY, SURGERY REFERRAL OP 09/06/2011 tubular adenoma EGD, FLEXIBLE, DIAGNOSTIC 09/18/2017 normal bx/ESOPHAGOGASTRODUODENOSCOPY (EGD), FLEXIBLE, TRANSORAL, DIAGNOSTIC performed by Mark Metcalf MD at [facility]COPY [facility] MISCELLANEOUS ORDER ([facility] ONLY) lumbar surgery REMOVAL OF TONSILS, UNDER AGE 12 REPAIR OF NASAL SEPTUM REVERSE TOTAL SHOULDER ARTHROPLASTY Right RIGHT HEART CATHETERIZATION 1995 Cardiac Catheterization, Right Heart [place] SIGMOIDOSCOPY, DIAGNOSTIC 1995 rectal bleeding; negative TOTAL HIP REPLACEMENT & PROSTHESIS Left UMBIL HERNIA REPAIR (REDUCIBLE) AGE 5+YR Social History Tobacco Use Smoking status: Never Passive exposure: Never Smokeless tobacco: Never Substance Use Topics Alcohol use: Yes Comment: occasional wine Vaping/E-Cigarette Use Vaping/E-Cigarette Use Never User Vaping/E-Cigarette Substances Vaping/E-Cigarette Devices Patient Active Problem List Diagnosis Code Adjustment disorder with depressed mood F43.21 History of colonic polyps Z86.010 Hyperlipidemia LDL goal <100 E78.5 Esophageal dysfunction K22.4 Internal hemorrhoids K64.8 DDD (degenerative disc disease), cervical M50.30 Osteoarthritis of spine with radiculopathy, cervical region M47.22 Constipation K59.00 Lumbar and sacral arthritis M47.817 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, G89.29 Hx of nonmelanoma skin cancer Z85.828 Obesity, Class I, BMI 30.0-34.9 (see actual BMI) E66.9 Gynecomastia N62 Precordial chest pain R07.2 Gastroesophageal reflux disease without esophagitis K21.9 Allergic rhinitis J30.9 Family history of cardiovascular disease Z82.49 Chronic cough R05.3 Elevated TSH R79.89 Review of patient's allergies indicates: No Known Allergies Current Outpatient Medications Medication Sig Dispense Refill [...] BY MOUTH EVERY DAY 90 Tablet 3 Mirtazapine 7.5 MG Oral Tablet (Remeron) TAKE ONE TABLET BY MOUTH AT BEDTIME 90 Tablet 3 Vitamin C 100 MG [...] as needed for Cough. 30 Capsule 0 No current facility-administered medications for this visit. Nursing Notes and Vital Signs reviewed. BP 144/80 | Pulse 103 | Temp (!) 38.9 C (102.1 F) (Tympanic) | Resp 18 | Wt 92.4 kg (203 lb 9.6oz) | SpO2 96% | BMI 32.86 kg/m | BSA 2.07 m Physical Exam Constitutional: Appearance: Normal appearance. He is normal weight. HENT: Head: Normocephalic and atraumatic. Right Ear: Tympanic membrane, ear canal and external ear normal. Left Ear: Tympanic membrane, ear canal and external ear normal. Nose: Nose normal. Mouth/Throat: Pharynx: Oropharynx is clear. Eyes: Extraocular Movements: Extraocular movements intact. Conjunctiva/sclera: Conjunctivae normal. Pupils: Pupils are equal, round, and reactive to light. Cardiovascular: Rate and Rhythm: Normal rate and regular rhythm. Pulses: Normal pulses. Heart sounds: Normal heart sounds. Pulmonary: Effort: Pulmonary effort is normal. Breath sounds: Normal breath sounds. Abdominal: General: Abdomen is flat. Bowel sounds are normal. Palpations: Abdomen is soft. Musculoskeletal: General: Normal range of motion. Cervical back: Normal range of motion and neck supple. Skin: General: Skin is warm. Neurological: General: No focal deficit present. Mental Status: He is alert and oriented to person, place, and time. Mental status is at baseline. Psychiatric: Mood and Affect: Mood normal. Behavior: Behavior normal. Thought Content: Thought content normal. Judgment: Judgment normal. ASSESSMENT: Viral URI with cough (Primary) - INFLUENZA A/B RSV SARS-COV2,PCR - Benzonatate 100 MG Oral Capsule; Take 2 Capsules by mouth 3 times a day as needed for Cough. - Mucinex - alt Motrin and tylenol - Hydration and rest - Otc cold / Flu Follow Up: Return if symptoms worsen or fail to improve, for Clinic Visit. | For: Clinic Visit Bartolo Spaulding PA-C [address] [address] documented in this encounter Nursing Notes * Bryanna Sadler CMA - 05/31/2023 12:06 PM EST Nursing Notes: CC: Chief Complaint Patient presents with Cough Fever Congestion Wheezing Generalized Body Aches Headache Brief Hx: Patient complains of cough, fever, wheezing, body aches and headaches Duration/Onset: 3 days OTC meds: no Accompanied by: self documented in this encounter Plan of Treatment Upcoming Encounters Date Type Department Care Team (Late st Contact Info) Description 06/06/2023 11:30 AM EST Procedure Only [facility] [place] [address] [place] [phone] She Vazquez MD [address] [place] [address] 07/12/2023 11:00 AM EST Office Visit Dermatology, [address] [address] Samantha Flores PA-C [address] [place] [address] [place] [address] 07/18/2023 9:30 AM EST Office Visit Pulmonary Medicine, [place] [address] [facility] [place] [address] Uvaldo Raines MD [address] [place] [address] 07/19/2023 12:20 PM EST [facility] Visit [facility] [address] [place] [address] Isabel Mccabe PA-C [address] [place] [address] 08/07/2023 10:00 AM EST Nurse Only Ancillary [facility] [address] [place] [address] [place], Nurse Annual Wellness [address] [address] 08/16/2023 12:30 PM EDT Office Visit Gastroenterology, [facility] [address] [place] [address] Margret Rowland CRNP [address] [place] [address] 08/27/2023 12:15 PM EDT Office Visit Orthopaedics [facility] [address] [place] [address] Jignesh Morrison DO 16 [place], [place] [id number] Pending Results Name Type Priority Associated Diagnoses Date /Time INFLUENZA A/B RSV SARS-COV2,PCR Lab Routine Viral URI with cough 05/31/2023 12:27 PM EST Scheduled Procedures Name Priority Associated Diagnoses [...] as of this encounter Visit Diagnoses Diagnosis Viral URI with cough- Primary Acute upper respiratory infections of unspecified site documented in this encounter Care Teams Clay Dry Press Operator Relationship Specialty Start Date End Date Isabel Mccabe PA-C [address] [place] [phone] PCP - General Physician Domestic Violence Counselor 08/28/17 documented as of this encounter"
--- OUTSIDE RECORDS SUMMARY | 2023-09-15 16:30 | External Medical Summary | Summary of Care ---
Author Name Unknown Organization [facility] Address [address] [facility] [address] Phone [phone] Care Team Providers Care Concrete Handler Name Role Phone Isabel Mccabe PA-C Primary Care Provider + Reason for Visit * Reason Onset Date Comments Test Results Imaging Study 04/02/2023 Encounter Details Date Type Department Care Team (Late st Contact Info) Description 04/02/2023 Telephone [facility] Otolaryngology [address] [facility] [place] [address] Lei Traylor, DO [address] [place] [address] Test Results Imaging Study Allergies No known active allergiesdocumented as of this encounter (statuses as of 04/02/2023) Medications Medication Sig Dispensed Refills Start Date [...] Active B Complex Vitamins (VITAMIN-B COMPLEX) Tablet Take 1 Tab by mouth daily. 0 Active hydrocortisone (ANUSOL-HC) 2.5 % rectal creamIndications:In ternal hemorrhoids Apply topically to affected area 2 times a day. Apply to the rectum 1 Tube 5 07/23/2019 Active buPROPion HCl ER (XL) 150 MG Oral Tablet Extended Release 24 Hour (Wellbutrin XL)Indications:Adju stment disorder with depressed mood TAKE ONE TABLET BY MOUTH EVERY DAY IN THE MORNING 90 Tablet 1 10/15/2022 10/15/2023 Active Pantoprazole Sodium 40 MG Oral Tablet [...] MOUTH EVERY DAY 90 Tablet 3 07/07/2022 07/07/2023 Active Famotidine 20 MG Oral Tablet (Pepcid) [...] HCl 0.1 % Nasal Solution Administer 1 [place] into each nostril in the morning and 1 [place] before bedtime. 0 Active Vitamin C 100 MG Oral Tablet Take 1 Tablet by mouth in the morning. 0 Active Asmanex HFA 200 MCG/ACT Inhalation Aerosol (Mometasone Furoate) Inhale 1 Puff by mouth in the morning and 1 Puff before bedtime. 13 g 2 03/09/2023 Active documented as of this encounter (statuses as of 04/02/2023) Active Problems Problem Noted Date Diagnosed Date [...] as of this encounter (statuses as of 04/02/2023) Resolved Problems Problem Noted Date Diagnosed Date [...] as of this encounter (statuses as of 04/02/2023) Immunizations Name Administration Dates Next Due COVID-19 mRNA, LNP-s, No Pre serve, 2-Dose Series ([place]) 03/07/2021,07/27/2020,07/06/2020 Covid-19, Mrna, Lnp-s, Pf, B ivalent, [...] encounter Miscellaneous Notes * Telephone Encounter - Mary Saucedo LPN - 04/02/2023 9:52 AM EDT Spoke with patient, made aware of results and recommendations per Dr. Traylor. Pt verbalized understanding. Has Pulm appointment scheduled for 04/19/23. * Telephone Encounter - Lei Traylor DO - 04/02/2023 9:38 AM EDT Please let patient know his CT sinus showed no significant paranasal sinus disease. Very minimal mucosal thickening. Would recommend he continue steroid spray and saline irrigation. Can follow up with pulmonology for his cough Thanks Lei Traylor DO, FACS [facility] Otolaryngology Head and Neck Surgery [place] 04/02/2023 9:39 AM documented in this encounter Plan of Treatment Upcoming Encounters Date Type Department Care Team (Late st Contact Info) Description 04/17/2023 8:30 AM EST Office Visit Cardiology, [facility] [address] [place] [address] Rene Ji MD [address] [place] [address] 04/19/2023 8:30 AM EST Office Visit Pulmonary Medicine, [place] [address] [place] [address] Uvaldo Raines MD [address] [place] [address] 2023 9:15 AM EST Office Visit Orthopaedics [facility] [address] [place] [address] Jignesh Morrison DO 16 [place] [address] 07/12/2023 11:00 AM EST Office Visit Dermatology[address] [address] Samantha Flores PA-C [address] [place] [address] [place] [address] 07/19/2023 12:20 PM EST Office Visit Family [facility] [address] [place] [address] Isabel Mccabe PA-C [address] [place] [address] 08/07/2023 10:00 AM EST Nurse Only Ancillary [address] [address] [place], Nurse Annual Wellness [address] [address] Scheduled Procedures Name Priority Associated Diagnoses Date/Ti [...] filedocumented as of this encounter Care Teams Concrete Handler Relationship Specialty Start Date End Date Isabel Mccabe PA-C [address] [place], [place] [address] [phone] PCP - General Physician Public Health Epidemiologist 08/28/17 documented as of this encounter
--- OUTSIDE RECORDS SUMMARY | 2023-09-15 16:30 | External Medical Summary | Summary of Care ---
Author Name Unknown Organization [facility] Address [address] [place] [address] Phone [phone] Care Team Providers Care Carder Blankets Name Role Phone Isabel Mccabe PA-C Primary Care Provider + Reason for Referral * Evaluate & Treat - Unlimited Visits (Within 3 days (urgent)) - Authorized Specialty Diagnoses / Procedures Referred By Antoinette t Referred To Contact Gastroenterology Diagnoses Chronic cough Gastroesophageal reflux disease with esophagitis, unspecified whether hemorrhage Uvaldo Raines MD [address] [place] [address] Referral ID Status Reason Start Date Expiration Date Visits Requested Visits Authorized [id number] Authorized Specialty Services Required 05/04/[phone] Question Answer Referral Priority Within 3 days (urgent) Where should this appointment be scheduled? [facility] For what condition is the patient being referred? All Gastro Conditions Comments Chronic cough syndrome Concerning for reflux and/or dsymotility Please evaluate and manage Reason for Visit * Reason Comments Follow Up Encounter Details Date Type Department Care Team (Latest Contact Info) Description 05/04/2023 2:40 PM EST Office Visit Pulmonary Medicine, [place] [address] [place] [address] Uvaldo Raines MD [address] [place] [address] Chronic cough*; Gastroesophageal reflux disease with esophagitis, unspecified whether hemorrhage; Gastrointestinal dysmotility; Chronic rhinosinusitis Allergies No known active allergiesdocumented as of this encounter (statuses as of 05/04/2023) Medications Medication Sig Dispensed Refills Start Date [...] IN THE MORNING 90 Tablet 1 10/15/2022 4 Active Pantoprazole Sodium 40 MG Oral Tablet [...] HCl 0.1 % Nasal Solution Administer 1 [place] into each nostril in the morning and 1 [place] before bedtime. 0 Active Vitamin C 100 MG Oral Tablet Take 1 Tablet by mouth in the morning. 0 Active guaiFENesin ER 600 MG Oral Tablet Extended Release 12 Hour (Mucinex) Take 1 Tablet by mouth in the morning and 1 Tablet before bedtime. 0 Active Asmanex HFA 200 MCG/ACT Inhalation Aerosol (Mometasone Furoate) Inhale 1 Puff by mouth in the morning and 1 Puff before bedtime. 13 g 2 03/09/2023 Discontinued documented as of this encounter (statuses as of 05/04/2023) Active Problems Problem Noted Date Diagnosed Date [...] as of this encounter (statuses as of 05/04/2023) Resolved Problems Problem Noted Date Diagnosed Date [...] as of this encounter (statuses as of 05/04/2023) Immunizations Name Administration Dates Next Due COVID-19 mRNA, LNP-s, No Pre serve, 2-Dose Series (Proformative) 03/07/2021,07/27/2020,07/06/2020 Covid-19, Mrna, Lnp-s, Pf, B ivalent, [...] Sign Reading Time Taken Comments Blood Pressure 142/82 05/04/2023 2:42 PM EST Pulse 70 05/04/2023 2:42 PM EST Temperature 36.6 C (97.9 F) 05/04/2023 2:42 PM ES T Respiratory Rate - - Oxygen Saturation 96% 05/04/2023 2:42 PM EST Inhaled Oxygen Concentration - - Weight 92.1 kg (203 lb) 05/04/2023 2:42 PM EST Height - - Body Mass Index 31.79 08/03/2022 10:20 AM EST documented in this encounter Patient Instructions * Patient Instructions* Uvaldo Raines MD - 05/04/2023 3:11 PM EST Please follow-up with me or available colleague in our outpatient pulmonary office in about 6-8 weeks. Please continue to see your primary care provider and or the ear, nose and throat physician to address your ongoing concerns with your sinuses. Please continue to see your primary care provider about the concerns about reflux. I have also recommended that you see the wire stitcher operator to address your issues with reflux, and to assure that this is adequately controlled. Please call our office after you have your cardiac stress testing completed. You should then call our office after it is normal to schedule a methacholine testing. Please stop the inhaled steroid medication (ie, asmanex) Please feel free to call our office in the meantime for any further questions or concerns at [phone], option 2. documented in this encounter Progress Notes * Uvaldo Raines MD - 05/04/2023 2:34 PM EST OUTPATIENT CONSULT - Thoracic / Pulmonary Medicine [facility] [address] Name: Carl Urias REQUESTING SERVICE: Isabel Mccabe PA-C REASON FOR CONSULT: R05.3 (ICD-10-CM) - Chronic cough HISTORY OF PRESENT ILLNESS: (See-Prish) Patient is a 77 year old gentleman with past medical history of hyperlipidemia, gastroesophageal reflux disease, esophageal dysfunction, allergic rhinitis, BMI 31.64 (31.17), chronic cough who presents to our follow-up outpatient visit for chronic cough. Cough has been present for at least 8-10 years, mostly in morning time, bedtime, with lifestyle including chocolate, coffee intake, sneezing, pos tnasal drip, with prior minimal smoking previously. His last visit with our office was 10/18/2022. Last visit: 01/29/2023: At our last visit the patient was re-started on azelastine given association with rhinorrhea He was referred to ENT who he saw on 03/09/2023 He was started on ICS for possibility of small airways disease associated cough Denies fevers, chills, sweats Reports cough persistent, he is unable to tell me if there is change in the color or volume Denies any hemoptysis Denies any chest pain Denies any overt allergies Reports no reflux or heart burn Reports no aspiration syndrome Patient reports changes in his smell or taste Occasionally will wake in night time with coughing Denies any overt chemicals, dusts or fumes at home he is worried about Reports intermittent wheezing Reports persistent sneezing Reports persistent rhinorrhea Regimen: Flonase (since years) (denies any improvement) Asmanex (5-6 weeks of treatment) (no improvement at all) Office notes reviewed from: 03/09/2023: otolaryngology ROS: As above. PAST MEDICAL HISTORY: Hyperlipidemia Gastroesophageal reflux disease Esophageal dysfunction Allergic rhinitis BMI 31.64 (30.70) Chronic cough PAST SURGICAL HISTORY: Past Surgical History: Procedure Laterality Date COLONOSCOPY, DIAGNOSTIC (RECTUM) 06/29/2015 normal, repeat 5 yrs/COLONOSCOPY FLEXIBLE PROXIMAL DIAGNOSTIC performed by Azar Lindquist MD at [facility] COLONOSCOPY, DIAGNOSTIC (RECTUM) 08/13/2018 benign tissue on bx, repeat 5 yrs/COLONOSCOPY FLEXIBLE PROXIMAL DIAGNOSTIC performed by Mark Metcalf MD at [facility] COLONOSCOPY, SURGERY REFERRAL OP 09/06/2011 tubular adenoma EGD, FLEXIBLE, DIAGNOSTIC 09/18/2017 normal bx/ESOPHAGOGASTRODUODENOSCOPY (EGD), FLEXIBLE, TRANSORAL, DIAGNOSTIC performed by Mark Metcalf MD at [facility] MISCELLANEOUS ORDER ([facility] ONLY) lumbar surgery REMOVAL OF TONSILS, UNDER AGE 11 REPAIR OF NASAL SEPTUM REVERSE TOTAL SHOULDER ARTHROPLASTY Right RIGHT HEART CATHETERIZATION 1995 Cardiac Catheterization, Right Heart Jewell SIGMOIDOSCOPY, DIAGNOSTIC 1995 rectal bleeding; negative TOTAL HIP REPLACEMENT & PROSTHESIS Left UMBIL HERNIA REPAIR (REDUCIBLE) AGE 5+YR MEDICATIONS: Current Outpatient Medications Medication Sig Dispense Refill Asmanex HFA 200 MCG/ACT Inhalation Aerosol (Mometasone Furoate) Inhale 1 Puff by mouth in the morning and 1 Puff before bedtime. 13 g 2 ASPIRIN 81 MG OR TABS Take 1 Tablet by mouth in the morning. 34 5 Atorvastatin Calcium 40 MG Oral Tablet (Lipitor) TAKE ONE TABLET BY MOUTH EVERY DAY 90 Tablet 3 Azelastine HCl 0.1 % Nasal Solution Administer 1 [place] Light into each nostril in the morning and 1 Spraybefore bedtime. B Complex Vitamins (VITAMIN-B COMPLEX) Tablet buPROPion HCl ER (XL) 150 MG Oral Tablet Extended Release 24 Hour (Wellbutrin XL) TAKE ONE TABLET BY MOUTH EVERY DAY IN THE MORNING 90 Tablet 1 Cetirizine HCl 10 MG Oral Tablet (ZyrTEC) Take 1 Tablet by mouth in the morning. 90 Tablet 3 Cholecalciferol (VITAMIN D) 1000 units Tablet Take 1 Tablet by mouth in the morning. clotrimazole-betamethasone (LOTRISONE) 1-0.05 % cream Apply to rash on testicles twice daily as needed 15 g 5 Ezetimibe 10 MG Oral Tablet (Zetia) TAKE ONE TABLET BY MOUTH EVERY MORNING 90 Tablet 3 Famotidine 20 MG Oral Tablet (Pepcid) TAKE ONE TABLET BY MOUTH EVERY MORNING 90 Tablet 3 guaiFENesin ER 600 MG Oral Tablet Extended Release 12 Hour (Mucinex) Take 1 Tablet by mouth in the morning and 1 Tablet before bedtime. hydrocortisone (ANUSOL-HC) 2.5 % rectal cream Apply topically to affected area 2 times a day. Applyto the rectum 1 Tube 5 Mirtazapine 7.5 MG Oral Tablet (Remeron) TAKE ONE TABLET BY MOUTH AT BEDTIME 90 Tablet 3 Pantoprazole Sodium 40 MG Oral Tablet Delayed Release (Protonix) TAKE ONE TABLET BY MOUTH EVERY MORNING. 30 MINUTES BEFORE THE FIRST MEAL OF THE DAY. DO NOT CRUSH, CUT OR CHEW 90 Tablet 3 Vitamin C 100 MG Oral Tablet Take 1 Tablet by mouth in the morning. No current facility-administered medications for this visit. ALLERGIES: Patient has no known allergies. FAMILY HISTORY: Family History Problem Relation Age of Onset Heart Disorder Mother CAD w;ith CABG Heart Disorder Brother [place] Allergies Son nasal allergies DENIES history of lung cancer in family members DENIES history of primary pulmonary disease in family members SOCIAL HISTORY: 05/04/2023: denies any new changes in living environment Lives in [place], [place] in a home built in 2004 + water damage or mold exposure; prior water damage in 2021, status post remediation; no current mold Denies pets at home Denies exposure to birds Denies exposure to hot tubs Denies exposure to woodwind instruments Denies exposures to tuberculosis, time in close quarters (ie, barracks, prisons) 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 Appearance: He is not ill-appearing or toxic-appearing. HENT: Head: Normocephalic. Nose: No congestion. Mouth/Throat: Mouth: Mucous membranes are moist. Comments: No thrush Eyes: General: No scleral icterus. Comments: No pallor Neck: Comments: Trachea midline No crepitus Cardiovascular: Heart sounds: Normal heart sounds. No murmur heard. No friction rub. No gallop. Pulmonary: Effort: Pulmonary effort is normal. No respiratory distress. Breath sounds: No stridor. No wheezing or rales. Abdominal: General: There is no distension. Palpations: Abdomen is soft. Tenderness: There is no abdominal tenderness. There is no guarding. Musculoskeletal: General: Swelling present. Comments: Trace symmetric lower extremity edema Skin: General: Skin is warm and dry. Neurological: Mental Status: He is alert. Psychiatric: Mood and Affect: Mood normal. LABS: Labs reviewed as indicated below: CBC: 07/05/2022: Reviewed WBC 6.34 Absolute eosinophil count: 0.400 BMP: 07/05/2022: Reviewed CO2 27 Creatinine 1.0 OTHER: RAST IgE: Negative (10/16/2016), negative (01/10/2023) IgE: 5.6 (10/16/2016), 18.6 (01/10/2023) BNP: 19 (03/30/2022) PFT SUMMARY: Date FEV1 FVC Ratio TLC RV DLCO 10/16/2016^ 3.05 L 109% 4.04 L 105% 75% --- --- --- 11/27/2022^^ 2.89 L 116% 4.11 L 124% 72% 6.94 L 115% 2.53 L 108% 27.591 130% ^ No significant BD response ^^ no significant bronchodilator response, flow volume loop reviewed WALK SUMMARY: Date SpO2 baseline SpO2 elena Distance --- --- --- ECHOCARDIOGRAM: 07/07/22: The qualitative LV ejection fraction is 55-59% (normal). No LV segmental wall motion abnormalities. There is isolated basal septal hypertrophy with maximal thickness of 1.6 cm. The left ventricular diastolic function is mildly abnormal (grade I). Mild aortic valve regurgitation is present. STRESS TEST: 08/24/17: Interpretation Summary The examination is adequate to evaluate the referral indication. The stress test was terminated due to fatigue No symptoms were noted. The stress EKG response showed no evidence of ischemia. The exercise echocardiographic examination is normal without resting left ventricular wall motion abnormalities or inducible ischemia. Qualitative LV ejection Fraction = 55%. The right ventricular systolic function is qualitatively normal. The left atrium is normal sized. The right atrial size is normal. No significant valvular disease is present. CHEST X-RAY: 07/05/22: Per radiology: FINDINGS LINES/DEVICES:Right shoulder arthroplasty. CARDIOMEDIASTINAL SILHOUETTE: Unchanged from previous. Calcified plaque in the thoracic aorta. Cardiac silhouette is normal in size. PLEURA: Unremarkable. LUNGS: No opacities are seen. CHEST WALL/BONES: There is degenerative change in the spine. Old right rib fractures. IMPRESSION No acute cardiopulmonary disease. CT THORAX: 07/03/2016: Mild lower lobe bronchial thickening (not in system) 10/23/2022: Per radiology: IMPRESSION: 1. Moderate atherosclerotic calcification of the coronary arteries. 2. Mosaic attenuation of the lung parenchyma. This is a nonspecific finding which can be seen in the setting of small airways disease. 3. Mild ground-glass attenuation of the lungs. This may be attributable to suboptimal inspiration or mild congestion. ASSESSMENT/PLAN: Chronic cough Gastroesophageal reflux Gastroesophageal dysmotility Chronic rhinosinus disease Atherosclerosis on imaging of chest No signs of acute infection or bronchospasm Suspect multifactorial causes of cough Concern for etiologies including but not limited to: Upper airway cough syndrome Gastroesophageal reflux syndrome Cough variant asthma CT sinuses reviewed including mastoid effusion, paranasal mucosal thickening Concerning for ongoing related etiology of cough He was encouraged to follow up with his ENT physician and or primary care physician for this issue History of prior gastrointestinal disturbances noted including dysphagia Suspect some component of dysphagia Recommend gastroenterology order, order placed No overt obstructive lung disease based on PFT No overt improvement with trial of inhaled corticosteroids Recommend stopping the inhaled corticosteroid as no improvement Recommend methacholine challenge to further investigate However, will wait as he states he has a stress testing pending with his primary care physician The patient was provided with the number for our office to call after his stress testing is completed and normal He understands the importance Risks, benefits, and alternatives discussed Recommend follow up with me or available colleague in our outpatient pulmonology office in 2-3 months for follow up. Patient advised to call our office at [phone], option 2 for any questions or concerns in the interim. Uvaldo Raines MD Pulmonary/Critical Care Medicine documented in this encounter Nursing Notes * Cailin Vergara, MED ASSIST - 05/04/2023 2:41 PM EST Return Pulmonary Visit Using the Asmanex inhaler currently by does not feel it is helping him at all. Has never tried or failed any inhalers before. [facility] documented in this encounter Plan of Treatment Upcoming Encounters Date Type Department Care Team (Late st Contact Info) Description 05/08/2023 8:00 AM EST Imaging [facility] Cardiology[address] [address] 2023 10:00 AM EST Imaging [address] [place] [address] 07/12/2023 11:00 AM EST Office Visit Dermatology[address] [address] Samantha Flores PAJulieta [address] [place] [address] ESTEVAN Lemon [address] 07/18/2023 9:30 AM EST Office Visit Pulmonary Medicine, [place] [address] [place] [address] Uvaldo Raines MD [address] [place] [address] 07/19/2023 12:20 PM EST Office Visit Family [facility] [address] [place] [phone] Isabel Mccabe PA-C [address] [place] [address] 08/07/2023 10:00 AM EST Nurse Only Ancillary [address] [phone] [place], Nurse [facility] [address] [address] 08/27/2023 12:15 PM EDT Office Visit Orthopaedics Eyad Lorenzo [address] [place] [address] Jignesh Morrison DO [address] [place] [address] Scheduled Procedures Name Priority Associated Diagnoses Date/Ti me COLONOSCOPY FLEXIBLE PROXIMAL DIAGNOSTIC Recall History of colon polyps Scheduled Referrals Name Type Priority Associated Diagnoses Order Schedule ADULT GASTROENTEROLOGY REFERRAL OP Referral Within 3 days (urgent) Chronic cough Gastroesophageal reflux disease with esophagitis, unspecified whether hemorrhage Ordered: 05/04/2023 Health Maintenance Due Date Last Done Comments [...] Visit Diagnoses Diagnosis Chronic cough- Primary Cough Gastroesophageal reflux disease with esophagitis, unspecified whether hemorrhage Gastrointestinal dysmotility Unspecified functional disorder of stomach Chronic rhinosinusitis Unspecified sinusitis (chronic) documented in this encounter Care Teams Carder Blankets Relationship Specialty Start Date End Date Isabel Mccabe PA-C [address] [place] [address] [place] [id number] PCP - General Physician Blindstitch Lining Feller 08/28/17 documented as of this encounter
--- OUTSIDE RECORDS SUMMARY | 2023-09-15 16:30 | External Medical Summary | Summary of Care ---
Author Name Unknown Organization [facility] Address [address] [facility] [place] [address] Phone [phone] Care Team Providers Care Systems Program Manager Name Role Phone Rod Gaspar PA-C Primary Care Provider + Reason for Referral * Precert (Within 10 days (routine)) - Pending Review Specialty Diagnoses / Procedures Referred By Contnarinder t Referred To Contact Radiology Diagnoses Family history of cardiovascular disease Dyslipidemia, goal LDL below 130 Procedures NM MYOCARD PERF IMG SPECT MULT STUDIES WITH PHARM INTERV Rene Ji MD [address] [place] [address] Referral ID Status Reason Start Date Expiration Date Visits Requested Visits Authorized [id number] Pending Review Precert 05/17/2023 999 999 Reason for Visit * Reason Comments Follow Up Encounter Details Date Type Department Care Team (Latest Contact Info) Description 04/17/2023 8:30 AM EST Office Visit Cardiology, [facility] [address] [address] Rene Ji MD [address] [address] Family history of cardiovascular disease*; Dyslipidemia, goal LDL below 130 Allergies No known active allergiesdocumented as of this encounter (statuses as of 04/17/2023) Medications Medication Sig Dispensed Refills Start Date [...] HCl 0.1 % Nasal Solution Administer 1 [place] into each nostril in the morning and 1 [place] before bedtime. 0 Active Vitamin C 100 MG Oral Tablet Take 1 Tablet by mouth in the morning. 0 Active Asmanex HFA 200 MCG/ACT Inhalation Aerosol (Mometasone Furoate) Inhale 1 Puff by mouth in the morning and 1 Puff before bedtime. 13 g 2 03/09/2023 Active guaiFENesin ER 600 MG Oral Tablet Extended Release 12 Hour (Mucinex) Take 1 Tablet by mouth in the morning and 1 Tablet before bedtime. 0 Active documented as of this encounter (statuses as of 04/17/2023) Active Problems Problem Noted Date Diagnosed Date [...] as of this encounter (statuses as of 04/17/2023) Resolved Problems Problem Noted Date Diagnosed Date [...] as of this encounter (statuses as of 04/17/2023) Immunizations Name Administration Dates Next Due COVID-19 mRNA, LNP-s, No Pre serve, 2-Dose Series ([employer]) 03/07/2021,07/27/2020,07/06/2020 Covid-19, Mrna, Lnp-s, Pf, B ivalent, 30 Mcg, IM, 12 yrs and above ([employer]anyan) 03/31/2022 Pneumococcal Conjugate Vacc, 13 Valent (Prevnar) [...] Sign Reading Time Taken Comments Blood Pressure 134/74 04/17/2023 8:28 AM EST Pulse 76 04/17/2023 8:28 AM EST Temperature - - Respiratory Rate 20 04/17/2023 8:28 AM EST Oxygen Saturation - - Inhaled Oxygen Concentration - - Weight 91.8 kg (202 lb 4.8 oz) 04/17/2023 8:28 A M EST Height - - Body Mass Index 31.68 08/03/2022 10:20 AM EST documented in this encounter Progress Notes * Rene Ji MD - 04/17/2023 8:30 AM EST 04/17/2023 Cardiology Follow Up Referring Provider: PCP: ROD GASPAR [address] [place] [address] [phone] Chief Complaint: Follow-up cardiovascular risk factors SUBJECTIVE: Carl Urias is a 77 year old year old male with ongoing cardiac issues Hypertension. 2. Chronic gastroesophageal reflux. 3. Prior history of traumatic chest injury, December 2015. 4. Intermittent atypical chest pain with negative ischemic work up. 5. Familial history of cardiac disease. Patient presents today in routine follow-up. Still remains physically active notes no significant chest pain other than occasional quick jabs. Chronic dyspnea and sinus issues with cough ENT and pulmonology evaluation in process. No fevers chills no bleeding difficulties. Tolerating current medications. Blood pressure and cholesterol is well controlled. Has made an effort to lose weight and follow diet with good result.. Still no specific difficulties with physical exertion A Complete Review of Systems is as stated above or negative. Patient Active Problem List Diagnosis Code Adjustment [...] day. Applyto the rectum 1 Tube 5 buPROPion HCl ER (XL) 150 MG Oral Tablet Extended Release 24 Hour (Wellbutrin XL) TAKE ONE TABLET BY MOUTH EVERY DAY IN THE MORNING 90 Tablet 1 Pantoprazole Sodium 40 MG Oral Tablet Delayed [...] HCl 0.1 % Nasal Solution Administer 1 [place] into each nostril in the morning and 1 Spraybefore bedtime. Vitamin C 100 MG Oral Tablet Take 1 Tablet by mouth in the morning. Asmanex HFA 200 MCG/ACT Inhalation Aerosol (Mometasone Furoate) Inhale 1 Puff by mouth in the morning and 1 Puff before bedtime. 13 g 2 guaiFENesin ER 600 MG Oral Tablet Extended Release 12 Hour (Mucinex) Take 1 Tablet by mouth in the morning and 1 Tablet before bedtime. No current facility-administered medications for this visit. OBJECTIVE/PHYSICAL EXAMINATION: BP 134/74 (BP Site: Left Arm, BP Position: Sitting, BP Cuff Size: Large) | Pulse 76 | Resp 20 | Wt 91.8 kg (202 lb 4.8 oz) | BMI 31.68 kg/m | BSA 2.08 m General: Stocky Age appropriate male in no acute distress Head: normocephalic, no masses, lesions, tenderness or abnormalities Eyes: conjunctiva are pink and non-injected, sclera clear Throat: clear Nares: without discharge Neck: supple, no adenopathy, normal jugular venous pulse, no hepatojugular reflux, no carotid bruits Chest: normal shape and normal respiratory effort Lungs: clear to auscultation and percussion Cardiac Exam: - regular rate & rhythm, no murmur, gallop or rub - normal S-1, normal S-2 Abdomen: abdomen soft, non-tender, no abnormal masses, no hepatosplenomegaly, no abdominal bruit, no femoral bruit Musculoskeletal: no gait disturbance, no joint inflammation, no deforming arthritis Extremities: no edema, no cyanosis, pulses intact 2+/4 superficial varicosity left leg Neuro: grossly normal exam Data: Echocardiogram July 07, 2022 The qualitative LV ejection fraction is 55-59% (normal). No LV segmental wall motion abnormalities. There is isolated basal septal hypertrophy with maximal thickness of 1.6 cm. The left ventricular diastolic function is mildly abnormal (grade I). Mild aortic valve regurgitation is present. Lipid Panel Results: Results for orders placed or performed in visit on 12/02/14 LIPID PANEL Result Value Ref Range HOURS FASTING 12 hours Triglycerides 93 <200 mg/dL Cholesterol 154 <200 mg/dL HDL Cholesterol 53 >39 mg/dL Cholesterol-HDL Ratio 2.9 LDL Cholesterol 82 0 - 129 mg/dL Results for orders placed or performed in visit on 01/09/23 LIPID PANEL WITH DIRECT LDL IF TG IS HIGH Result Value Ref Range Triglycerides 100 <=174 mg/dL Cholesterol 120 <200 mg/dL HDL Cholesterol 50 >39 mg/dL Non-HDL Cholesterol 70 <=159 mg/dL LDL Cholesterol 50 <=129 mg/dL ASSESSMENT: 77 year old year old male with cardiovascular risk factors of hypertension hyperlipidemia well managed, coronary calcification on past chest CTs No specific symptoms suggest angina but still being evaluated for cough and dyspnea on exertion, sinus congestion PLAN: 1. Cardiovascular risk factors atypical chest discomfort and dyspnea on exertion, stress nuclear imaging ordered 3 years since last study. Echocardiogram demonstrates normal LV systolic function and no significant valvular disease 2. Hypertension: Controlled on no specific medications 3. Hyperlipidemia with excellent lipid control 4. Minimal aortic root enlargement discussed in detail with patient DISPOSITION: Follow-up 6 months time Rene Ji MD Cardiology, [address] [address] documented in this encounter Nursing Notes * Wilda Abel CMA - 04/17/2023 8:28 AM EST Examination Room: 14 Name: Carl Urias Date of : (1945). Reason for Visit: 1 yr f/u Interim Hospitalization(s): none Problems/Concerns: denies Chest Pain/SOB: Denies exertional CP or unusual SOB [facility] Discussed: No [facility] is a way you can talk to your provider online through e-mail. Would you like to sign up? I can activate it for you? DECLINES Patient was instructed to not get up on the exam table until directed and assisted by their provider; patient is to remain seated in the chair/ wheelchair/ exam table for fall prevention and safety reasons. Patient is aware to have assistance to step down off exam table with personnel. Patient voiced full comprehension of instructions. documented in this encounter Plan of Treatment Upcoming Encounters Date Type Department Care Team (Late st Contact Info) Description 04/19/2023 8:30 AM EST Office Visit Pulmonary Medicine, [place] [address] [place] [address] Uvaldo Raines MD [address] [place] [address] 2023 9:15 AM EST Office Visit Orthopaedics [facility] 16 [place] [address] Jignesh Morrison 16 [place], [place] [phone] 07/12/2023 11:00 AM EST Office Visit Dermatology[address] [address] Samantha Flores PAJulieta [address] [place] [address] [place] [address] 07/19/2023 12:20 PM EST Office Visit Family [address] [phone] Rod Gaspar PA-C [address] [place] [address] 08/07/2023 10:00 AM EST Nurse Only Ancillary [address] [phone] [place], Nurse Annual Wellness [address] [address] Scheduled Orders Name Type Priority Associated Diagnoses Orde r Schedule NM MYOCARD PERF IMG SPECT MULT STUDIES WITH PHARM INTERV Cardiology Routine Family history of cardiovascular disease Dyslipidemia, goal LDL below 130 Expected: 05/17/2023 (Approximate), Expires: 05/17/2024 Scheduled Procedures Name Priority Associated Diagnoses Date/Ti [...] as of this encounter Visit Diagnoses Diagnosis Family history of cardiovascular disease- Primary Family history of other cardiovascular diseases Dyslipidemia, goal LDL below 130 Other and unspecified hyperlipidemia documented in this encounter Care Teams Systems Program Manager Relationship Specialty Start Date End Date Rod Gaspar PA-C [address] [place] [address] [place] [address] PCP - General Physician Rn Prior Authorization 08/28/17 documented as of this encounter"
--- OUTSIDE RECORDS SUMMARY | 2023-09-15 16:30 | External Medical Summary | Summary of Care ---
Author Name Unknown Organization [facility] Address [address] [place] [address] Phone [phone] Care Team Providers Care Access Tech Name Role Phone Isabel Mccabe PA-C Primary Care Provider + Reason for Visit * Reason Onset Date Comments Appointment 05/03/2023 Encounter Details Date Type Department Care Team (Late st Contact Info) Description 05/03/2023 Telephone Pulmonary Medicine, [place] [address] [place], [place] [phone] Uvaldo Raines MD [address] [place] [address] Appointment Allergies No known active allergiesdocumented as of this encounter (statuses as of 05/03/2023) Medications Medication Sig Dispensed Refills Start Date [...] HCl 0.1 % Nasal Solution Administer 1 [place] into each nostril in the morning and 1 [place] before bedtime. 0 Active Vitamin C 100 [...] as of this encounter (statuses as of 05/03/2023) Active Problems Problem Noted Date Diagnosed Date [...] as of this encounter (statuses as of 05/03/2023) Resolved Problems Problem Noted Date Diagnosed Date [...] as of this encounter (statuses as of 05/03/2023) Immunizations Name Administration Dates Next Due COVID-19 mRNA, LNP-s, No Pre serve, 2-Dose Series ([employer]) 03/07/2021,07/27/2020,07/06/2020 Covid-19, Mrna, Lnp-s, Pf, B ivalent, [...] encounter Miscellaneous Notes * Telephone Encounter - Tiago Kern OSA - 05/03/2023 2:58 PM EST LMOM to notify pt of 06/27/23 appt cx d/t provider being on consults.[id number] documented in this encounter Plan of Treatment Upcoming Encounters Date Type Department Care Team (Late st Contact Info) Description 05/04/2023 2:40 PM EST Office Visit Pulmonary Medicine, [place] [address] [place] [address] Uvaldo Raines MD [address] [place] [address] 05/08/2023 8:00 AM EST Imaging [facility] 2nd [facility] Cardiology, [address] [address] 2023 10:00 AM EST Imaging [address] Cardiology, [address] [address] 07/12/2023 11:00 AM EST Office Visit Dermatology[address] [address] Samantha Flores PA-C [address] [place] [address] [place] [address] 07/19/2023 12:20 PM EST Office Visit [address] [phone] Isabel Mccabe PA-C [address] [place] [place] [address] 08/07/2023 10:00 AM EST Nurse Only Ancillary [address] [phone] [facility], Nurse [address] [address] 08/27/2023 12:15 PM EDT Office Visit Orthopaedics [facility] 16 [place] [phone] Jignesh Morrison DO 16 [place] [address] Scheduled Procedures Name Priority Associated Diagnoses Date/Ti [...] filedocumented as of this encounter Care Teams Access Tech Relationship Specialty Start Date End Date Isabel Mccabe PA-C [address] [place] [address] PCP - General Physician Scrap Dealer 08/28/17 documented as of this encounter
--- OUTSIDE RECORDS SUMMARY | 2023-09-15 16:30 | External Medical Summary | Summary of Care ---
Author Name Unknown Organization [facility] Address [address] [place] [address] Phone [phone] Care Team Providers Care Vocational Guidance Counselor Name Role Phone Isabel Mccabe PA-C Primary Care Provider + Reason for Visit * Reason Onset Date Comments Abnormal Lab Results 04/17/2023 Encounter Details Date Type Department Care Team (Late st Contact Info) Description 04/17/2023 Telephone Pulmonary Medicine, [place] [address] [place], [place] [phone] Services, [facility] [address] [place] [address] Abnormal Lab Results (/) Allergies No known active allergiesdocumented as of [...] HCl 0.1 % Nasal Solution Administer 1 [place] into each nostril in the morning and 1 [place] before bedtime. 0 Active Vitamin C 100 [...] mRNA, LNP-s, No Pre serve, 2-Dose Series ([employer]) 03/07/2021,07/27/2020,07/06/2020 Covid-19, Mrna, Lnp-s, Pf, B ivalent, [...] encounter Miscellaneous Notes * Telephone Encounter - Yasmin Castellanos OSA - 04/17/2023 11:32 AM EST Pt is having a stress test in May and needed to cxd his appt for 04/19 until after the testinghas been completed. He was wondering if there is a way for Dr. Raines to call him with the results? documented in this encounter Plan of Treatment Upcoming Encounters Date Type Department Care Team (Late st Contact Info) Description 05/08/2023 8:00 AM EST Imaging [facility] 2nd Floor [address]iology, [address] [address] 2023 10:00 AM EST Imaging [address] Cardiology, [address] [place] [address] 07/12/2023 11:00 AM EST Office Visit [address] [address] Samantha Flores PA-C [address] [place] [address] [place] [address] 07/19/2023 12:20 PM EST Office Visit Family [address] [phone] Isabel Mccabe PA-C [address] [place] [address] 08/07/2023 10:00 AM EST Nurse Only Ancillary [address] [phone] [place], Nurse [facility] [address] [address] 08/27/2023 12:15 PM EDT Office Visit Orthopaedics [facility]ad [facility] 16 [facility] [place] [address] Jignesh Morrison DO 16 [place] [address] Scheduled Procedures Name Priority Associated Diagnoses Date/Ti [...] filedocumented as of this encounter Care Teams Vocational Guidance Counselor Relationship Specialty Start Date End Date Isabel Mccabe PA-C [address] [place] [phone] PCP - General Physician Railroad Conductor 08/28/17 documented as of this encounter
--- OUTSIDE RECORDS SUMMARY | 2023-09-15 16:30 | External Medical Summary | Summary of Care ---
Author Name Unknown Organization [facility] Address [address] [facility] [place] [address] Phone [phone] Care Team Providers Care Food Tray Assembler Name Role Phone Isabel Mccabe PA-C Primary Care Provider + Reason for Visit * Reason Onset Date Comments Appointment 04/17/2023 Encounter Details Date Type Department Care Team (Late st Contact Info) Description 04/17/2023 Telephone Cardiology, [facility] [address] [place] [address] Rene Ji MD [address] [place] [address] Appointment Allergies No known active allergiesdocumented as [...] HCl 0.1 % Nasal Solution Administer 1 [place] into each nostril in the morning and 1 [place] before bedtime. 0 Active Vitamin C 100 [...] encounter Miscellaneous Notes * Telephone Encounter - Ana Laura Jarvis OSA - 04/17/2023 9:13 AM EST Nuc stress test needed per Dr. Ji. documented in this encounter Plan of Treatment Upcoming Encounters Date Type Department Care Team (Late st Contact Info) Description 04/19/2023 8:30 AM EST Office Visit Pulmonary Medicine, [place] [address] [place], [place] [phone] Uvaldo Raines MD [address] [place], [place] [phone] 9:15 AM EST Office Visit Orthopaedics [facility] [address] [place] [address] Jignesh Morrison DO 16 [place], [place] [phone] 07/12/2023 11:00 AM EST Office Visit Dermatology[address] [address] Samantha Flores PA-C [address] [place] [address] [place] [address] 07/19/2023 12:20 PM EST Office Visit [address] [phone] Isabel Mccabe PA-C [address] [place] [address] 08/07/2023 10:00 AM EST Nurse Only Ancillary [address] [phone] [place], Nurse Annual Wellness [address] [address] Scheduled Procedures Name Priority Associated [...] filedocumented as of this encounter Care Teams Food Tray Assembler Relationship Specialty Start Date End Date Isabel Mccabe PA-C [address] [place] [phone] PCP - General Physician Grants Manager 08/28/17 documented as of this encounter
--- OUTSIDE RECORDS SUMMARY | 2023-09-15 16:30 | External Medical Summary | Summary of Care ---
Author Name Unknown Organization [facility] Address [address] [facility] [place] [address] Phone [phone] Care Team Providers Care Cabinet Installer Name Role Phone Isabel Mccabe PA-C Primary Care Provider + Encounter Details Date Type Department Care Team (Late st Contact Info) Description 05/08/2023 Orders Only Unspecified Department Allergies No known active allergiesdocumented as of [...] HCl 0.1 % Nasal Solution Administer 1 [place] into each nostril in the morning and 1 [place] before bedtime. 0 Active Vitamin C 100 [...] mRNA, LNP-s, No Pre serve, 2-Dose Series ([employer]) 03/07/2021,07/27/2020,07/06/2020 Covid-19, Mrna, Lnp-s, Pf, B ivalent, 30 Mcg, IM, 12 yrs and above ([employer]) 03/31/2022 Pneumococcal Conjugate Vacc, 13 Valent (Prevnar) [...] 05/14/2023 12:00 PM EST Office Visit Gastroenterology, [facility] [address] [address] Margret Rowland CRNP [address] [address] 07/12/2023 11:00 AM EST Office Visit Dermatology[address] [place] [address] Samantha Flores PA-C [address] [place] [address] [place] [address] 07/18/2023 9:30 AM EST Office Visit Pulmonary Medicine, [place] [address] [place] [address] Uvaldo Raines MD [address] [place], [place] [phone] 07/19/2023 12:20 PM EST Office Visit Family [facility] [address] [place] [phone] Isabel Mccabe PA-C [address] [place] [address] 08/07/2023 10:00 AM EST Nurse Only Ancillary [address] [phone] [place], Nurse Annual Wellness [address] [address] 08/27/2023 12:15 PM EDT Office Visit Orthopaedics [facility] 16 [place] [address] Jignesh Morrison DO 16 [place], [place] [phone] Scheduled Procedures Name Priority Associated Diagnoses Date/Ti [...] Procedure Name Priority Date/Time Associated Diagnosis Comments NM MYOCARDIAL PERFUSION IMAGING SPECT MULTIPLE STUDIES WITH PHARMACOLOGIC INTERVENTION Routine 05/08/2023 7:37 AM EST documented in this encounter Results * NM MYOCARDIAL PERFUSION IMAGING SPECT MULTIPLE STUDIES WITH PHARMACOLOGIC INTERVENTION (05/08/2023 7:37 AM EST) LEFT VENTRICULAR EJECTION FRACTION 72 % [email or web address] CARDIOLOGY 05/08/2023 7:37 AM EST No Physician Data Unknown RAD NUCLEAR ME D [facility] documented in this encounter Care Teams Cabinet Installer Relationship Specialty Start Date End Date Isabel Mccabe PA-C [address] [place], [place] [address] [phone] PCP - General Physician Machine Driller 08/28/17 documented as of this encounter
[2023-09-15] MEDS: MIRTAZAPINE TAB 15 MG TAB PO SCH (20:01)
[2023-09-15] MEDS: ATORVASTATIN 40 MG TAB PO SCH (20:02)
[2023-09-15] MEDS: PANTOprazole 40 MG TAB PO SCH (20:02)
--- NOTE | 2023-09-16 07:53 | Cardiology Consultation ---
Date of Consultation September 16, 2023 Assessment & Plan (1) Hypertension: (2) Left-sided chest pain: Plan Patient admitted after 3 days of left sided chest pain HS troponin negative x2. EKG without acute ischemic changes. Echocardiogram with preserved EF, no wall motion abnormalities. Stable findings from prior exam. CP improved with SL nitro in the ER, but did not fully resolve. Lingering 2/10 left sided chest pain reported this morning. Repeat EKG Labile HTN noted since admission. Patient not on antihypertensive therapy as an outpatient. Consider low dose isosorbide or amlodipine. continue ASA and statin. He had a negative nuclear Lexiscan stress test in May 2023. Options discussed with patient. He is concerned with lingering/ongoing chest pain and risk factors for "blockages". We discussed continued observation today with possible treatment of underlying hypertension and then make him NPO on Sunday night into Sunday morning. At that time consider definitive diagnostic cardiac cath vs repeat stress. Case discussed with Dr. Morales I spent a total of 60 minutes on the date of service in preparation, delivery, and documentation of the care provided to this patient, excluding any time spent in the performance of separately billed services. Chery Castanon PA-C Department of Cardiology, [facility] This chart was completed in part utilizing Speech Voice Recognition Software. Grammatical errors, random word insertions, pronoun errors, and incomplete sentences are an occasional consequence of this system due to software limitations, ambient noise, and hardware issues. Any formal questions or concerns about the content, text, or information contained within the body of this dictation should be directly addressed to the provider for clarification. Supervising Physician Co-Signing Physician Notes I have reviewed the advance practitioner's documentation, and I agree with, and take responsibility for the plan of care. 78-year-old male admitted with chest discomfort. Patient describes chest pain beginning several days ago after chopping wood. Left-sided discomfort radiating towards his left upper quadrant noted. Pain is nonpositional and relatively co nstant. It is not worsened with activity or exertion. Able to sleep through pain, however persistent this morning. PE: VSS. Gen: NAD, AAO x3. Heart: Regular rhythm, normal S1-S2, soft, 1/6 systolic ejection murmur heard best at the right second costal space. Lungs: Clear bilateral, no rales, rhonchi, wheeze. Extremities: No edema. A/P: 78-year-old male admitted with atypical chest discomfort. No evidence of acute coronary syndrome with normal ECG, negative high-sensitivity troponin despite several days of discomfort, and normal wall motion on resting 2D transthoracic echocardiogram. Further evaluation/restratification discussed including outpatient stress testing, inpatient stress testing, or coronary angiography. Patient agreeable to exercise stress echocardiography further evaluation. N.p.o. except medications after midnight. Stress testing in a.m. 09/17/23. History of Present Illness Reason for Consultation: Chest pain Requesting Physician: Dr. Jenkins Attending Physician: Dr. Morales History of Present Illness Patient is a 78 year old male who presented to [facility] with complaints of chest pain over the last several days. Follows with [facility] cardiology, Dr. Ji History includes: 1. Hypertension. 2. Chronic gastroesophageal reflux. 3. Prior history of traumatic chest injury, December 2015. 4. Intermittent atypical chest pain with negative ischemic work up. Nuclear stress test in 05/2023 was negative for inducible ischemic. 5. Familial history of cardiac disease. Patient reports left sided chest pain described as an ache started last night while watching TV. Earlier in the day he dug 2 holes to plant trees and denied exertional chest pain at that time. Since night his chest pain has waxed and waned but never fully resolved. No radiation of the pain. No associated symptoms. Symptoms did not worsen with exertion or improve with rest. Fairly constant. He felt he "could feel his heart beating" and this made the pain worse. But denied palpitations or tachypalpitations. He reports checking BP at home and reports labile readings. Typically well controlled. He reports a long history of GERD but feels this was different than his typical reflux issues. He is scheduled for EGD in October. He is also having carpel tunnel surgery in October 2023. Upon arrival to ER, EKG demonstrated NSR with without acute ischemic changes. BP was initially elevated but improved after receiving SL nitro in the ER. He reports improvement in his symptoms after receiving SL nitro. CP previously reported about 8/10. This improved to 1-2/10 since arrival. HS troponin negative x2. Echo completed during this admission demonstrating normal LVEF at 60-65% without wall motion abnormalities. Mild concentric LVH Mild AI. No pulm hypertension. no significant changes. At time of consult, patient resting in chair comfortably. He continues to report 2/10 left sided chest pain this morning. Symptoms do not worsen with movement, palpitation to the area or exertion. Just reports a constant ache. No SOB/Diaphoresis, palpitations. BP remains labile since admission. He denies recent exertional chest pain. He had a nuclear stress test in May 2023 due to risk factors for coronary disease and chest pain episode in the fall, that had resolved. He voices concerns regarding a "blockage" due to nitro aiding his symptoms in the ER. His chest xray was read as mild pulm vascular congestion. He denies symptoms of SOB/cough/congestion/orthopnea, PND or edema Allergies Allergy/AdvReac Type Severity Reaction Status Date / Time No Known Allergies Allergy Verified 07/19/22 10:24 Home Medications Medication Instructions Recorded Confirmed Type ascorbic acid (vitamin C) 500 mg 500 mg PO HS as needed 02/05/19 09/15/23 History tablet (Vitamin C) atorvastatin 80 mg tablet 80 mg PO HS 02/05/19 09/15/23 History cholecalciferol (vitamin D3) 25 1,000 unit PO HS 02/05/19 09/15/23 History mcg (1,000 unit) capsule (Vitamin D3) fluticasone propionate 50 2 spray intranasal HS Allergy 02/05/19 09/15/23 History mcg/actuation nasal Symptoms spray,suspension (Flonase Allergy Relief) vitamin B complex 1 tab PO HS 02/05/19 09/15/23 History azelastine 205.5 mcg (0.15 %) 1 spray intranasal HS Nasal 01/23/20 09/15/23 History nasal spray Congestion acetaminophen 500 mg tablet 1,000 mg (2 x 500 mg) PO Q8H PRN 02/02/20 09/15/23 Rx pain/fevers #90 tabs sennosides 8.6 mg tablet (Senokot) 17.2 mg (2 x 8.6 mg) PO HS PRN 02/02/20 09/15/23 Rx constipation #28 tabs aspirin 81 mg tablet,delayed 81 mg PO HS 04/09/20 09/15/23 History release bupropion HCl 150 mg 24 hr tablet, 150 mg PO QAM 07/19/22 09/15/23 History extended release cetirizine 10 mg capsule (Zyrtec) 10 mg PO QAM 07/19/22 09/15/23 History ezetimibe 10 mg tablet (Zetia) 10 mg PO HS 07/19/22 09/15/23 History famotidine 20 mg tablet (Pepcid) 20 mg PO HS 07/19/22 09/15/23 History mirtazapine 7.5 mg tablet 7.5 mg PO HS 09/15/23 09/15/23 History pantoprazole 40 mg tablet,delayed 40 mg PO DAILYBB 09/15/23 09/15/23 History release Patient History Medical History (Updated 09/16/23 @ 08:24 by Christopher Maza MD) Enlarged testicle Gynecomastia, male Failed total hip arthroplasty Anxiety and depression Obesity Osteoarthritis HTN (hypertension) per records/patient denies GERD (gastroesophageal reflux disease) occasional Dyslipidemia Surgical History History of back surgery LUMBAR SURGERY History of hip surgery Closed reduction, left hip: 02/06/19: LMA#5 at [facility] H/O eye surgery LEFT EYE (METAL REMOVAL) History of knee surgery RT (GROWTH REMOVAL) History of arthroscopy LEFT KNEE MENISCUS REPAIR History of total shoulder replacement RT REVERSAL History of total hip arthroplasty LEFT S/P FRACTURE History of esophagogastroduodenoscopy (EGD) History of herniorrhaphy UMBILICAL/INGUINAL History of colonoscopy History of tooth extraction History of tonsillectomy History of nasal septoplasty History of cardiac cath (NO STENTS/WNL) Family History Other No significant family history Social History Smoking Status: Never smoker Second Hand Exposure: Yes; Do You Dip or Chew Tobacco: No; Hx Alcohol Use: Yes Alcohol type: wine Hx Substance Use: No Preferred Language: Kyrgyz Communication Ability: Effective Cook Helper Juice Required: No Beliefs That Will Affect Care: Spiritual marital status: Single Current Living Situation: Alone Other Information That Helps Us Care for You: No Feels Safe at Home: Yes Safety Concerns: Feels Safe At This Time Assistive Devices: Glasses Assistive Devices Comment: has walker if needed, upper and lower dentures but forgot at home Review of Systems Review of Systems: All systems reviewed & are unremarkable except as noted in HPI & below Physical Exam Constitutional: WD/WN, vitals as above well nourished; no acute distress Neck: trachea midline, no thyromegaly Respiratory: normal respiratory effort, lungs clear to auscultation Cardiovascular: Rate/Rhythm: regular rate and regular rhythm Heart Sounds: no murmur Vessels: no JVD Extremities: no edema Gastrointestinal (Abdomen): normal bowel sounds, soft, nontender, no hepatosplenomegaly Skin: no rashes, warm and dry Neurologic: PERRL, EOMI, accommodation nl, no face palsy, no dysarthria Results & Data Vital Signs (Past 12 Hours) Vital Signs Temp Pulse Pulse Resp BP Pulse Ox O2 Del Method 09/16/23 07:19 36.4 C L 61 18 144/82 H 94 Room Air 09/16/23 07:15 59 L 09/16/23 02:36 36.5 C 60 18 137/80 94 Room Air 09/15/23 23:16 66 09/15/23 22:45 36.6 C 64 18 140/78 94 Room Air Laboratory Results Cardiac Enzymes 09/15/23 09/15/23 Range/Units 11:10 18:19 AST 23 (13-39) U/L Troponin I High Sens 8.7 9.6 (0-20) pg/ml B-Natriuretic Peptide 30 (0-100) pg/ml Coagulation 09/15/23 Range/Units 18:19 B-Natriuretic Peptide 30 (0-100) pg/ml CBC 09/15/23 Range/Units 11:10 WBC 5.92 (4.8-10.8) K/ul RBC 4.92 (4.70-6.10) M/uL Hgb 15.6 (14.0-18.0) g/dl Hct 45.9 (42.0-52.0) % Plt Count 186 (130-400) K/uL Neut # (Auto) 3.74 (1.40-6.50) K/uL Lymph # (Auto) 1.06 L (1.20-3.40) K/uL [place] # (Auto) 0.66 H (0.11-0.59) K/uL Eos # (Auto) 0.36 (0.00-0.50) K/uL Baso # (Auto) 0.07 (0.00-0.20) K/uL Comprehensive Metabolic Panel 09/15/23 Range/Units 11:10 Sodium 141 (136-145) mmol/L Potassium 4.7 (3.5-5.1) mmol/L Chloride 108 H (98-107) mmol/L Carbon Dioxide 27 (21-32) mmol/L BUN 19 (6-23) mg/dl Creatinine 1.11 (0.6-1.4) mg/dl Glucose 98 (70-99(Fasting)) mg/dl Calcium 9.2 (8.6-10.3) mg/dl Direct Bilirubin 0.1 (0-0.2) mg/dl AST 23 (13-39) U/L ALT 16 (7-52) U/L Alkaline Phosphatase 80 (34-104) U/L Total Protein 6.6 (6.0-8.3) gm/dl Albumin 4.0 (3.4-5.0) gm/dl Intake and Output 09/15/23 09/16/23 09/16/23 22:59 06:59 14:59 Intake Total 200 / 200 Balance 200 / 200 Intake: Oral 200 / 200 Other: Other Intake Source npo Weight 92.5 kg Diagnostic Findings Telemetry reviewed: NSR in the 50-70 bmp range. EKG reviewed from 09/15/23: NSR, T wave inversion in III No significant change from prior EKGs Chest xray on admission, per report IMPRESSION: 1. Cardiomegaly with pulmonary vascular congestion. 2. Mild bibasilar densities suggest atelectasis. Outpatient nuclear stress test report reviewed dated May 2023: Interpretation Summary Lexiscan nuclear stress test is negative for ischemia or scar. Gated SPECT images reveals normal myocardial thickening and wall motion. The LV ejection fraction is calculated at 72%. Echo report reviewed dated Jul 2022: Interpretation Summary The primary indication after review was deemed appropriate and the examination was performed. The qualitative LV ejection fraction is 55-59% (normal). No LV segmental wall motion abnormalities. There is isolated basal septal hypertrophy with maximal thickness of 1.6 cm. The left ventricular diastolic function is mildly abnormal (grade I). Mild aortic valve regurgitation is present. Medications Administered Current Inpatient Medications Acetaminophen (Acetaminophen 325 Mg Tab) 650 mg PO Q4H PRN PRN Reason: Pain or Fever Stop: 10/15/23 14:23 Aspirin (Aspirin 81 Mg Ectab) 81 mg PO DAILY [facility] Stop: 10/16/23 08:59 Atorvastatin Calcium (Atorvastatin 40 Mg Tab) 40 mg PO HS JOYCE Stop: 10/15/23 20:59 Last Admin: 09/15/23 20:02 Dose: 40 mg Bupropion HCl (Bupropion Xl 150 Mg Tabcr) 150 mg PO QAM JOYCE Stop: 10/16/23 08:59 Ezetimibe (Ezetimibe 10 Mg Tab) 10 mg PO DAILY JOYCE Stop: 10/16/23 08:59 Famotidine (Famotidine 20 Mg Tab) 20 mg PO DAILY JOYCE Stop: 10/16/23 08:59 Mirtazapine (Mirtazapine Tab 15 Mg Tab) 7.5 mg PO HS [facility] Stop: 10/15/23 20:59 Last Admin: 09/15/23 20:01 Dose: 7.5 mg Pantoprazole Sodium (Pantoprazole 40 Mg Tab) 40 mg PO BID JOYCE Stop: 10/15/23 20:59 Last Admin: 09/15/23 20:02 Dose: 40 mg (1) Hypertension Hypertension type: primary hypertension Qualified Code(s): I10 - Essential (primary) hypertension
[2023-09-16 08:16] LABS: Hematocrit (blood only) 43.8 % (42.0-52.0); Hemoglobin 14.6 g/dl (14.0-18.0); Mean Corpuscular Hemoglobin 31.8 pg (25.0-34.0); Mean Corpuscular Hgb Conc 33.3 g/dL (32.0-36.0); Mean Corpuscular Volume 95.4 fL (80.0-100.0); Mean Platelet Volume 11.3 fL (9.4-12.4); Platelet Count 159 K/uL (130-400); RDW Coefficient of Variation 13.2 % (11.5-14.5); RDW Standard Deviation 46.5 fL (36.4-46.3); Red Blood Count 4.59 M/uL (4.70-6.10); White Blood Count 6.16 K/ul (4.8-10.8)
[2023-09-16 08:29] LABS: BUN Creatinine Ratio 18.9 (10-20); Creatinine Clr Calc Pharmacy 61.3 ml/min; Est GFR (Non-African American) 66.4 ml/min; Magnesium 2.1 mg/dl (1.7-2.4); Phosphorus 3.3 mg/dl (2.5-4.9); Potassium 4.3 mmol/L (3.5-5.1)
[2023-09-16] MEDS: ASPIRIN 81 MG ECTAB PO SCH (08:35)
[2023-09-16] MEDS: EZETIMIBE 10 MG TAB PO SCH (08:35)
[2023-09-16] MEDS: FAMOTIDINE 20 MG TAB PO SCH (08:36)
[2023-09-16] MEDS: buPROPion XL 150 MG TABCR PO SCH (08:36)
[2023-09-16] MEDS: ISOSORBIDE MONO EXTENDED REL 30 MG TABCR PO SCH (10:08)
[2023-09-16] MEDS: NITROGLYCERIN SL 0.4 MG/TAB TAB ONE (10:56)
[2023-09-16] MEDS: NITROGLYCERIN SL 0.4 MG/TAB TAB SL PRN (10:56)
--- NOTE | 2023-09-16 11:36 | Hospitalist Progress Note ---
Date of Service September 16, 2023 Assessment & Plan (1) Chest pain: Plan: 78 year old man who presented with Left-sided chest pain since . Than had persisted In the ED CXR - w/ mild pulm. vasc. congestion Troponin negative ECG showed normal sinus rhythm Pt follows with Dr. Ji from [facility] cardiology for atypical chest pain and dyspnea on exertion, HTN, HLD, coronary calcification on past chest CTs Echocardiogram showed EF of 60 to 65%, mild concentric LVH, mild AR, mild TR Cardiology evaluation noted. Started on Imdur Patient currently planned for stress tomorrow, ?cath Cont. home ASA, statin and zetia GERD Cont. Pepcid Depression Continue Wellbutrin, Remeron Full code Lovenox sq I spent a total of 45 minutes coordinating, documenting and providing care for this patient excluding time spent in performance of separately billed services Admission and Anticipated Discharge Date Admission Date: September 15, 2023 Subjective Patient seen and examined. Reported episode chest pain this morning described as referred to the back. Not associated with shortness of breath cough, nausea or vomiting Denied any other complaints Physical Exam Constitutional: + well hydrated and + obese; no acute di stress Eyes: PERRL, conjunctivae normal, anicteric sclerae ENMT: external ear and nose normal, oropharynx normal Respiratory: normal respiratory effort, lungs clear to auscultation Cardiovascular: Rate/Rhythm: regular rate and regular rhythm S1 S2 Gastrointestinal (Abdomen): normal bowel sounds, soft, nontender, no hepatosplenomegaly Musculoskeletal: no cyanosis or clubbing, extremities motor strength 5/5 Neurologic: PERRL, EOMI, accommodation nl, no face palsy, no dysarthria Psychiatric: A+Ox3, euthymic affect Results & Data Results & Data Vital Signs (Past 12 Hours) Vital Signs Temp Pulse Pulse Resp BP Pulse Ox O2 Del Method 09/16/23 11:10 36.4 C L 67 18 151/90 H 94 Room Air 09/16/23 07:19 36.4 C L 61 18 144/82 H 94 Room Air 09/16/23 07:15 59 L 09/16/23 02:36 36.5 C 60 18 137/80 94 Room Air Laboratory Results Abnormal lab results 09/16/23 Range/Units 06:45 RBC 4.59 L (4.70-6.10) M/uL RDW Std Deviation 46.5 H (36.4-46.3) fL Chloride 108 H (98-107) mmol/L
--- NOTE | 2023-09-16 15:22 | Electrocardiogram Report ---
Test Reason : Blood Pressure : / mmHG Vent. Rate : 060 BPM Atrial Rate : 060 BPM P-R Int : 154 ms QRS Dur : 100 ms QT Int : 434 ms P-R-T Axes : 030 057 035 degrees QTc Int : 434 ms Normal sinus rhythm Normal ECG When compared with ECG of 15-SEP-2023 11:03, No significant change was found Confirmed by Tiago Valdovinos ([id number]) on 09/16/2023 3:21:59 PM Referred By: REFERRED SELF Confirmed By:Torey Valdovinos
[2023-09-16] MEDS: ACETAMINOPHEN 325 MG TAB PO PRN (16:29)
[2023-09-16] MEDS: ALUMINUM/MAGNESIUM SUSP 30 ML UDC PO STA (16:29)
[2023-09-16] MEDS: MoRPHine SULFATE 2 MG/ML CARP IV STA (16:47)
[2023-09-16] MEDS: MoRPHine SULFATE 2 MG/ML CARP ONE (16:54)
--- NOTE | 2023-09-16 17:07 | XRay Report ---
XR chest 1V portable HISTORY: 78 years-old Male Chest pain acute chest pain COMPARISON: 09/15/2023 TECHNIQUE: AP view the chest FINDINGS: Cardiac silhouette is mildly enlarged. Atherosclerosis of the aorta. Persistent subsegmental bibasila r densities without pneumothorax, pleural effusion or overt pulmonary edema. Degenerative disease of the spine and left shoulder. Reversed right shoulder arthroplasty. IMPRESSION: Persistent bibasilar opacities which may represent atelectasis versus pneumonitis. ACT 112: Negative or not required by law. The above report was generated using voice recognition software. It may contain grammatical, syntax o r spelling errors. Electronically signed by: Elvis Romero M.D. 09/16/2023 5:05 PM
[2023-09-17 07:20] LABS: Hematocrit (blood only) 46.5 % (42.0-52.0); Hemoglobin 15.2 g/dl (14.0-18.0); Mean Corpuscular Hgb Conc 32.7 g/dL (32.0-36.0); Mean Corpuscular Volume 94.7 fL (80.0-100.0); Mean Platelet Volume 10.9 fL (9.4-12.4); Platelet Count 186 K/uL (130-400); RDW Coefficient of Variation 13.1 % (11.5-14.5); RDW Standard Deviation 45.4 fL (36.4-46.3); Red Blood Count 4.91 M/uL (4.70-6.10); White Blood Count 8.02 K/ul (4.8-10.8)
[2023-09-17 07:41] LABS: BUN Creatinine Ratio 19.8 (10-20); Calcium 9.2 mg/dl (8.6-10.3); Creatinine Clr Calc Pharmacy 55.6 ml/min; Est GFR (Non-African American) 59.6 ml/min; Potassium 4.3 mmol/L (3.5-5.1)
--- NOTE | 2023-09-17 08:45 | Electrocardiogram Report ---
Test Reason : Blood Pressure : / mmHG Vent. Rate : 068 BPM Atrial Rate : 068 BPM P-R Int : 158 ms QRS Dur : 098 ms QT Int : 414 ms P-R-T Axes : 053 061 050 degrees QTc Int : 440 ms Normal sinus rhythm Normal ECG When compared with ECG of 16-SEP-2023 10:50, No significant change was found Confirmed by Tiago Valdovinos ([id number]) on 09/17/2023 8:44:58 AM Referred By: REFERRED SELF Confirmed By:Torey Valdovinos
[2023-09-17] MEDS: ENOXAPARIN INJ 40 MG/0.4 ML SYR SQ SCH (09:20)
--- NOTE | 2023-09-17 11:15 | Cardiology Progress Note ---
Date of Service September 17, 2023 Assessment & Plan (1) Hypertension: (2) Left-sided chest pain: Plan Patient admitted after 3 days of left sided chest pain HS troponin negative x2. EKG without acute ischemic changes. Echocardiogram with preserved EF, no wall motion abnormalities. Stable findings from prior exam. CP improved with SL nitro in the ER, but did not fully resolve. Lingering 2/10 left sided chest pain reported this morning. Repeat EKG Labile HTN noted since admission. Patient not on antihypertensive therapy as an outpatient. Consider low dose isosorbide or amlodipine. continue ASA and statin. He had a negative nuclear Lexiscan stress test in May 2023. Options discussed with patient. He is concerned with lingering/ongoing chest pain and risk factors for "blockages". We discussed continued observation today with possible treatment of underlying h ypertension and then make him NPO on Sunday night into Sunday morning. At that time consider definitive diagnostic cardiac cath vs repeat stress. 09/17/2023 Still with low-grade chest discomfort without evidence of myocardial ischemia by EKG or cardiac enzyme Stress echocardiography later today I spent a total of 35 minutes on the date of service in preparation, delivery, and documentation of the care provided to this patient, excluding any time spent in the performance of separately billed services. This chart was completed in part utilizing Speech Voice Recognition Software. Grammatical errors, random word insertions, pronoun errors, and incomplete sentences are an occasional consequence of this system due to software limitations, ambient noise, and hardware issues. Any formal questions or concerns about the content, text, or information contained within the body of this dictation should be directly addressed to the provider for clarification. Admission and Anticipated Discharge Date Admission Date: September 15, 2023 Subjective Patient seen and examined, chart, medications, telemetry reviewed. Still with symptoms of low-grade chest discomfort that without EKG, cardiac enzyme, telemetry abnormality. Overall feels well otherwise is ambulatory in room without difficulty. Scheduled for stress echocardiogram later today Review of Systems Review of Systems: All systems reviewed & are unremarkable except as noted in Subjective Physical Exam Constitutional: WD/WN, vitals as above well nourished; no acute distress ENMT: external ear and nose normal, oropharynx normal Neck: trachea midline, no thyromegaly Respiratory: normal respiratory effort, lungs clear to auscultation Cardiovascular: Rate/Rhythm: regular rate and regular rhythm Heart Sounds: no murmur Vessels: no JVD Extremities: no edema Gastrointestinal (Abdomen): normal bowel sounds, soft, nontender, no hepatosplenomegaly Skin: no rashes, warm and dry Neurologic: PERRL, EOMI, accommodation nl, no face palsy, no dysarthria Results & Data Vital Signs (Past 12 Hours) Vital Signs Temp Pulse Pulse Resp BP Pulse Ox O2 Del Method 09/17/23 07:53 67 09/17/23 07:37 36.4 C L 74 18 124/80 94 Room Air 09/17/23 02:47 36.5 C 71 16 122/72 93 Room Air 09/16/23 23:19 63 Laboratory Results Laboratory Results - last 24 hr 09/16/23 09/17/23 16:35 06:51 WBC 8.02 RBC 4.91 Hgb 15.2 Hct 46.5 MCV 94.7 MCH 31.0 MCHC 32.7 RDW Std Deviation 45.4 RDW Coeff of Tom 13.1 Plt Count 186 MPV 10.9 Sodium 140 Potassium 4.3 Chloride 106 Carbon Dioxide 30 Anion Gap 4 BUN 23 Creatinine 1.16 Est Cr Clr Drug Dosing 55.6 Est GFR ( Amer) 69.0 Est GFR (Non-Af Amer) 59.6 BUN/Creatinine Ratio 19.8 Glucose 91 Calcium 9.2 Troponin I High Sens 5.5 D (1) Hypertension Hypertension type: primary hypertension Qualified Code(s): I10 - Essential (primary) hypertension
--- NOTE | 2023-09-17 11:59 | Communication Note ---
Date of Service: September 17, 2023 Patient was referred for stress echocardiogram Patient exercised on a standard [place] protocol for 6 minutes for an estimated level of 7 METS achieving 90% age-predicted maximal heart rate. Study stopped secondary to leg fatigue and achieving target heart rate, no chest pain. Stress EKG normal Stress echocardiogram normal with excellent imaging Recommend seek noncardiac causes of symptoms
--- NOTE | 2023-09-17 12:06 | Hospitalist Progress Note ---
Date of Service September 17, 2023 Assessment & Plan Admission and Anticipated Discharge Date Admission Date: September 15, 2023 Results & Data Results & Data Vital Signs (Past 12 Hours) Vital Signs Temp Pulse Pulse Resp BP Pulse Ox O2 Del Method 09/17/23 10:57 36.4 C L 76 16 117/75 96 Room Air 09/17/23 07:53 67 09/17/23 07:37 36.4 C L 74 18 124/80 94 Room Air 09/17/23 02:47 36.5 C 71 16 122/72 93 Room Air
[2023-09-17] MEDS: ACETAMINOPHEN 500 MG TAB PO SCH (12:41)
[2023-09-17] MEDS: OPTIRAY 320 500ml IV ONE (13:42)
--- NOTE | 2023-09-17 15:15 | CT Scan Report ---
CT SCAN OF THE CHEST WITH IV CONTRAST CLINICAL HISTORY: Atypical chest pain. COMPARISON STUDY: Chest x-ray dated 09/16/2023. Chest CT dated 07/03/2016. TECHNIQUE: Following the IV administration of 89 cc of Optiray 320, CT scan of the thorax was perform ed from the thoracic inlet to the upper abdomen. Images are reviewed in the axial, sagittal, and zoe nal planes. IV contrast was administered without complication. A dose lowering technique was utilize d adhering to the principles of ALARA. The examination is degraded by motion artifact, as well as by streak artifact from the right arm which could not be elevated of the chest. CT DOSE: 857.43 mGy.cm FINDINGS: Thyroid: Imaged portions of the thyroid gland are normal in size and attenuation. Thoracic aorta: There is atherosclerotic calcification of the thoracic aorta, which is normal in fidel garcia and demonstrates standard 3-vessel arch anatomy. No dissection is seen. Pulmonary vasculature: The main pulmonary arteries are dilated suggesting pulmonary artery hypertensi on. There are no filling defects identified in the central pulmonary vessels to indicate pulmonary em bolus. Note that this examination was not protocoled for evaluation of the pulmonary arteries. Heart: The heart is normal in size and without pericardial effusion. The coronary arteries are densel y calcified. Lungs and pleural spaces: Evaluation of the lung parenchyma is modestly degraded by motion artifact. There is no airspace consolidation or pleural effusion. Dependent scarring/atelectasis is noted in edward th lungs. The trachea and central airways appear clear. Mediastinum: A 1.7 cm nodule in the anterior mediastinum has been present dating back to at least 201 7. No lymphadenopathy is seen. Tiffany: Clear. Axillae: There is no axillary lymphadenopathy. Upper abdomen: Partially visualized upper abdominal viscera is within normal limits. Skeletal structures: The skeletal structures are osteopenic. The skeletal structures are osteopenic. There is a mild chronic superior endplate compression deformity of T7. Degenerative change and hyperk yphosis is noted in the spine. A right shoulder arthroplasty is in place. No lytic or blastic bony le sions are seen. There are chronic/healed right-sided rib fractures. IMPRESSION: 1. No acute abnormality is identified. 2. No airspace consolidation or pleural effusion is seen. 3. Additional findings as above. ACT 112: Negative or not required by law. Electronically signed by: Rubén De Jesus M.D. 09/17/2023 3:13 PM
--- NOTE | 2023-09-17 15:58 | Discharge Summary ---
Date of Service September 17, 2023 Admission HPI Per Admitting Provider Pt is a 78 yo M w/ allergic rhinitis, chronic cough, GERD, osteoarthritis, carpal tunnel syndrome, adjustment disorder with depressed mood, obesity, gynecomastia, who presents with left-sided chest pain. Patient states he has been having left-sided chest pain since . Earlier that day he was planting trees, however was not having any symptoms at that time. He had supper that day and was sitting on the couch when he developed left-sided chest pain. He does not feel it to be sharp, he feels it is more dull/pressure-like. It does not radiate anywhere such as to his neck or his arm. He denies having any other symptoms such as shortness of breath, dizziness or lightheadedness. He says he always has chronic cough from his allergic rhinitis, this has not changed. Denies any fever chills, abdominal pain, nausea vomiting. Says this left-sided chest pain has been persistent and therefore he presented today in the ED. The pain has not gotten any worse or better. His son is also present at bedside. Patient says that he follows with Dr. Ji from [facility] cardiology, and was told earlier in April that he would be due for a stress test. In the ED troponin is negative, and ECG unremarkable per ED provider review. ED physician contacted cardiology, Dr. Morales, and will plan to admit patient for observation for cardiac rule out. Admission Exam Per Admitting Provider Constitutional: WD/WN, vitals as above Eyes: PERRL, conjunctivae normal, anicteric sclerae ENMT: external ear and nose normal, oropharynx normal Neck: trachea midline, no thyromegaly Respiratory: normal respiratory effort, lungs clear to auscultation Cardiovascular: RRR, no murmur, no edema Chest (Breasts): Chest: normal inspection of chest Gastrointestinal (Abdomen): normal bowel sounds, soft, nontender, no hepatosplenomegaly Musculoskeletal: no cyanosis or clubbing, extremities motor strength 5/5 Skin: no rashes, warm and dry Neurologic: PERRL, EOMI, accommodation nl, no face palsy, no dysarthria Psychiatric: A+Ox3, euthymic affect Lymphatic: no lymphedema Principal Diagnosis Chest pain Discharge Exam Constitutional + well hydrated and + obese; no acute distress Eyes PERRL, conjunctivae normal, anicteric sclerae ENMT external ear and nose normal, oropharynx normal Respiratory normal respiratory effort, lungs clear to auscultation Cardiovascular Rate/Rhythm: regular rate and regular rhythm Gastrointestinal (Abdomen) normal bowel sounds, soft, nontender, no hepatosplenomegaly Musculoskeletal no cyanosis or clubbing, extremities motor strength 5/5 Neurologic PERRL, EOMI, accommodation nl, no face palsy, no dysarthria Psychiatric A+Ox3, euthymic affect Discharge Data Allergies Allergy/AdvReac Type Severity Reaction Status Date / Time No Known Allergies Allergy Verified 07/19/22 10:24 Consultations 09/15/23 14:06 Consult Cardiology Routine ED Decision to Admit Stat Ordered Studies 09/17/23 12:31 CT chest diagnostic w con Stat Hospital Course (1) Chest pain: 78 year old man who presented with Left-sided chest pain since . Than had persisted In the ED CXR - w/ mild pulm. vasc. congestion Troponin negative ECG showed normal sinus rhythm Pt follows with Dr. Ji from [facility] cardiology for atypical chest pain and dyspnea on exertion, HTN, HLD, coronary calcification on past chest CTs Echocardiogram showed EF of 60 to 65%, mild concentric LVH, mild AR, mild TR Cardiology evaluated Started on Imdur Patient's stress Echo did not show any ischemia/wall motion abnormalities Cont. home ASA, statin and zetia Chest pain is atypical Improved today to mild /10 CT chest did not show any abnormalities Patient was on pantoprazole 40mg daily at home Advised to take 40mg BID x 2 weeks and then revert to his once daily regimen He stated he has outpatient EGD scheduled within the next 4 weeks GERD Cont. Pepcid Depression Continue Wellbutrin, Remeron Total Time Total Time Spent Total Time Spent (In Minutes): 35 Total Time Includes: Examination of the Patient, Discharge Planning and Medication Reconciliation Discharge Plan Discharge Items Patient Disposition: Home - Self-Care Reason For Visit: CHEST PAIN Discharge Diagnosis: Chest pain Activity: Resume your previous activity Non-emergency contact: Primary Care Provider Call non-emergency contact if: you have any medication questions Follow-up/Referrals: Isabel Mccabe PA-C [Primary Care Provider] - (Date & Time 09/20/2023 10:00 AM Provider Corey Fountain PA-C Department [facility] ) Diet: Heart Healthy Addtl Attending Provider Instructions: Mr Urias You came to the hospital complaining of chest pain You were evaluated by Cardiology and stress test did not show abnormalities You also had a Chest CT which did not show any abnormalities Please use tylenol 1000mg three times a day as needed for pain. You were started on imdur for better BP control as well. Take your pantoprazole 40mg twice a day for next 2 weeks then revert back to once a day after that Please ensure you get the endoscopy you reported you already have arranged outpatient Please ensure follow up with your Family Doctor. It was a pleasure taking care of you. Pending Studies at Discharge: No Stand-Alone Forms: My [facility], Smoking Cessation Medications and DC Order Prescriptions: New isosorbide mononitrate 30 mg Tablet Extended Release 24 Hr 30 mg PO QAM Qty: 30 0RF Continued bupropion HCl 150 mg tablet extended release 24 hr 150 mg PO QAM ezetimibe [Zetia] 10 mg tablet 10 mg PO HS famotidine [Pepcid] 20 mg tablet 20 mg PO HS Zyrtec 10 mg capsule 10 mg PO QAM aspirin 81 mg tablet,delayed release (DR/EC) 81 mg PO HS Rx Instructions: DVT Prophylaxis ascorbic acid (vitamin C) [Vitamin C] 500 mg Tablet 500 mg PO HS cholecalciferol (vitamin D3) [Vitamin D3] 1,000 unit Capsule 1,000 unit PO HS atorvastatin 80 mg Tablet 80 mg PO HS vitamin B complex Tablet 1 tab PO HS fluticasone propionate [Flonase Allergy Relief] 50 mcg/actuation [place],Suspension 2 spray INTRANASAL HS azelastine 0.15 % (205.5 mcg) [place],Non-Aerosol 1 spray INTRANASAL HS acetaminophen 500 mg Tablet 1,000 mg PO Q8H PRN (Reason: pain/fevers) Qty: 90 0RF sennosides [Senokot] 8.6 mg Tablet 17.2 mg PO HS PRN (Reason: constipation) Qty: 28 0RF mirtazapine 7.5 mg tablet 7.5 mg PO HS Changed pantoprazole 40 mg tablet,delayed release (DR/EC) 40 mg PO BID Qty: 60 0RF Discharge Orders: Discharge Order (Routine); Ordered 04/15/24 Ordered By: Carmel Warner Admission Data Admit Date/Time: 09/15/23 14:23 Attending Provider: Carmel Warner I. Admit Provider: Devon Jenkins Primary Care Provider: Isabel Mccabe Other Providers: Devon Jenkins; Kashif Morales
== END 2023-09-17 16:55 | disposition home or self-care (01) ==
LOC: ED 10:55 → 2S 10:55 → SUATTDRO 14:23 → 2S 15:07